=== PATIENT | female | born 1970 | race African-American/Black ===

== ENCOUNTER 2018-05-12 12:13 | Emergency (ER) | payer OTHER ==
[2018-05-12 13:32] LABS: Absolute Lymphocytes (CBC) 1.4 K/uL (0.7-4.9); Absolute Monocytes 0.4 K/uL (0.1-1.3); Absolute Neutrophil 1.7 K/uL (1.8-8.0); Eosinophils % 6.6 % (0-4.4); Hematocrit 39.5 % (36.0-45.0); Lymphocytes % 36.1 % (15.3-44.8); MCH 32.8 pg (27.0-35.0); MCV 97.4 fL (80-100); MPV 9.6 fL (7.6-11.3); Monocytes % 11.4 % (3.3-12.3); RBC Red Blood Cell Count 4.06 M/uL (3.86-4.86)
[2018-05-12 13:36] LABS: Protime INR 1.03
[2018-05-12 13:51] LABS: Albumin 4.3 g/dL (3.4-5.0); Bilirubin Direct 0.1 mg/dL (0-0.2); Bilirubin Total 0.3 mg/dL (0.2-1.0); CKMB Creatine Kinase MB 1.9 ng/mL (0.3-3.6); Magnesium 1.9 mg/dL (1.8-2.4); Potassium 3.7 mmol/L (3.5-5.1); Protein, Total 9.1 g/dL (6.4-8.2)
[2018-05-12] MEDS ORDERED: CIPROFLOXACIN 400mg IV 400 MG/200 ML BAG IV ONE (14:16)
[2018-05-12] MEDS ORDERED: NA CHLORIDE 0.9% 1,000 ML ONE (14:16)
[2018-05-12] MEDS ORDERED: METRONIDAZOLE 500mg IVPB 500 MG/100 ML BAG IV ONE (14:16)
[2018-05-12] MEDS ORDERED: ONDANSETRON 4 MG/2 ML VIAL ONE (14:16)
[2018-05-12] MEDS ORDERED: FENTANYL CITR 100 MCG/2 ML ONE (14:16)
[2018-05-12 15:20] LABS: Urine Blood NEGATIVE (NEG); Urine Glucose NEGATIVE (NEG); Urine Protein NEGATIVE (NEG)
--- NOTE | 2018-05-12 16:05 | RAD REPORT ---
EXAM DESCRIPTION: CT - Abdomen Pelvis W Contrast - 05/12/2018 3:31 pm CLINICAL HISTORY: Abdominal pain. GI bleed COMPARISON: 2014 TECHNIQUE: Computed axial tomography of the abdomen and pelvis was obtained. 100 cc Isovue-300 is ad ministered intravenously. Oral contrast was given. All CT scans are performed using dose optimization technique as appropriate and may include automated exposure control or mA/KV adjustment according to patient size. FINDINGS: A 26 millimeter hyperdense lesion is present within the dome of the liver equivocally enlarged from t he prior exam. Mild fatty infiltration liver is present. 1 Spleen, pancreas, adrenals and kidneys appear unremarkable. Diverticula stem from the colon without evidence of diverticulitis An adnexal mass is not seen Spondylosis involves the lower thoracic spine resulting in mild spinal stenosis The appendix is normal IMPRESSION: 26 millimeter dense mass within the liver equivocally enlarged from 1999 represen t a hemangioma. It is recommended that the patient have a nonemergent ultrasound for further evaluati on
--- NOTE | 2018-05-12 16:06 | RAD REPORT ---
EXAM DESCRIPTION: Ezekiel Single View05/12/2018 2:08 pm CLINICAL HISTORY: cough COMPARISON: November 2017 FINDINGS: The lungs appear clear of acute infiltrate. The heart is normal size IMPRESSION: No acute abnormalities displayed
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
[2018-05-12 17:32] VITALS: TEMP 97.7
[2018-05-12 17:36] VITALS: O2SAT 100
[2018-05-12 17:38] VITALS: BP 146/98
--- NOTE | 2018-05-13 07:34 | EKG ---
Test Date: 2018-05-12 Test Time: 13:16:12 Oncology Account Specialist: ELAINE MEASUREMENT RESULTS: Intervals: Rate: 81 WV: 162 QRSD: 78 QT: 380 QTc: 441 [place]: P: 51 WV: 162 QRS: -4 T: 8 INTERPRETIVE STATEMENTS: Normal sinus rhythm Voltage criteria for left ventricular hypertrophy Abnormal ECG Compared to ECG 11/27/2017 14:52:55 No significant changes Electronically Signed On 05-13-18 07:34:01 CDT by Linwood Waller
== END 2018-05-12 17:11 | disposition home or self-care (01) ==
LOC: ER 12:13
DX: K92.2 Gastrointestinal hemorrhage, unspecified (principal); R16.0 Hepatomegaly, not elsewhere classified; I10 Essential (primary) hypertension; D64.9 Anemia, unspecified; Z87.820 Personal history of traumatic brain injury
CPT/HCPCS: 36415; 71045; 74177; 80048; 80076; 81003; 82550; 82553; 83735; 83880; 84484; 85025; 85610; 85730; 86850; 86900; 86901; J0744; J2405; J3010; J7030; Q9967; 93005; 96361; 96365; 96368; 96375; 99284

== ENCOUNTER 2018-08-06 16:12 | Emergency (ER) | payer OTHER ==
[2018-08-06 16:42] LABS: Absolute Lymphocytes (CBC) 1.6 K/uL (0.7-4.9); Absolute Monocytes 0.5 K/uL (0.1-1.3); Absolute Neutrophil 1.8 K/uL (1.8-8.0); Basophils % 1.1 % (0-1.3); Eosinophils % 6.3 % (0-4.4); Hematocrit 40.7 % (36.0-45.0); Lymphocytes % 38.1 % (15.3-44.8); MCH 30.7 pg (27.0-35.0); MCV 93.6 fL (80-100); MPV 9.8 fL (7.6-11.3); Monocytes % 11.4 % (3.3-12.3); RBC Red Blood Cell Count 4.34 M/uL (3.86-4.86)
[2018-08-06] MEDS ORDERED: NA CHLORIDE 0.9% 1,000 ML ONE (16:53)
--- NOTE | 2018-08-06 16:54 | RAD REPORT ---
EXAM DESCRIPTION: CT - Head Brain Wo Cont - 08/06/2018 4:37 pm CLINICAL HISTORY: Headache/weakness/hypertension COMPARISON: November 2017 TECHNIQUE: Computed axial tomography of the head was obtained. IV contrast was not requested. All CT scans are performed using dose optimization technique as appropriate and may include automated exposure control or mA/KV adjustment according to patient size. FINDINGS: An intracranial bleed is not seen . The ventricles are normal in caliber. No extra-axial fluid collection is noted. Fluid within the sinuses/ mastoids is not seen. Chronic deformity involves the right globe. IMPRESSION: No acute intracranial abnormality is seen. If patient's symptoms persist MRI of the bra in would be recommended.
--- NOTE | 2018-08-06 16:54 | RAD REPORT ---
EXAM DESCRIPTION: Ezekiel Single View08/06/2018 4:46 pm CLINICAL HISTORY: Hypertension COMPARISON: May 2018 FINDINGS: The lungs appear clear of acute infiltrate. The heart is normal size IMPRESSION: No acute abnormalities displayed
[2018-08-06 17:12] LABS: ALT/SGPT 36 U/L (12-78); AST/SGOT 30 U/L (15-37); Albumin 3.8 g/dL (3.4-5.0); Alkaline Phosphatase 112 U/L (45-117); BUN Blood Urea Nitrogen 22 mg/dL (7-18); Bicarbonate 28 mmol/L (21-32); Bilirubin Direct 0.2 mg/dL (0-0.2); Bilirubin Total 0.5 mg/dL (0.2-1.0); Glucose Level 97 mg/dL (74-106); Magnesium 1.7 mg/dL (1.8-2.4); NT PRO-BNP 100 pg/mL (<125); Potassium 3.5 mmol/L (3.5-5.1); Protein, Total 8.1 g/dL (6.4-8.2); Sodium Level 139 mmol/L (136-145); Troponin (Emerg Dept Use Only) < 0.02 ng/mL (0.0-0.045)
[2018-08-06] MEDS ORDERED: NIFEdipine 10 MG CAP ONE (17:16)
[2018-08-06] MEDS ORDERED: HYDRALAZINE HCL 20 MG/ML VIAL ONE (17:16)
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
[2018-08-06 18:52] VITALS: TEMP 98
[2018-08-06 18:53] VITALS: O2SAT 100
[2018-08-06 18:54] VITALS: BP 146/78
[2018-08-06 19:33] LABS: Urine Blood NEGATIVE (NEG); Urine Glucose NEGATIVE (NEG); Urine Protein NEGATIVE (NEG); Urine Specific Gravity 1.015 (1.005-1.030)
--- NOTE | 2018-08-07 07:50 | EKG ---
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
== END 2018-08-06 18:47 | disposition home or self-care (01) ==
LOC: ER 16:12
DX: I11.9 Hypertensive heart disease without heart failure (principal)
CPT/HCPCS: 36415; 70450; 71045; 80048; 80076; 81003; 81025; 83735; 83880; 84484; 85025; 85610; 93005; 96361; 96365; 99285; J0360; J7030

== ENCOUNTER 2019-01-06 23:27 | Emergency (ER) | payer OTHER ==
[2019-01-06 23:53] LABS: Absolute Lymphocytes (CBC) 1.9 K/uL (0.7-4.9); Absolute Monocytes 0.5 K/uL (0.1-1.3); Absolute Neutrophil 2.6 K/uL (1.8-8.0); Basophils % 1.2 % (0-1.3); Eosinophils % 4.1 % (0-4.4); Hematocrit 39.8 % (36.0-45.0); Lymphocytes % 35.8 % (15.3-44.8); Monocytes % 10.3 % (3.3-12.3); RBC Red Blood Cell Count 4.09 M/uL (3.86-4.86)
[2019-01-06] MEDS ORDERED: ONDANSETRON 4 MG/2 ML VIAL ONE (23:53)
[2019-01-06] MEDS ORDERED: KETOROLAC 30 MG/ML INJ ONE (23:53)
[2019-01-07 00:09] LABS: Albumin 4.2 g/dL (3.4-5.0); Bilirubin Direct 0.2 mg/dL (0-0.2); Bilirubin Total 0.4 mg/dL (0.2-1.0); Potassium 3.8 mmol/L (3.5-5.1); Protein, Total 8.6 g/dL (6.4-8.2)
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
[2019-01-07 03:07] VITALS: TEMP 97.8
[2019-01-07 03:11] VITALS: BP 118/81; O2SAT 100
== END 2019-01-07 01:44 | disposition home or self-care (01) ==
LOC: ER 23:27
DX: I16.0 Hypertensive urgency (principal); I10 Essential (primary) hypertension; F43.10 Post-traumatic stress disorder, unspecified
CPT/HCPCS: 85025; 80048; 36415; 80076; 83690; J2405; 96374; 96375; 99284

== ENCOUNTER 2019-03-28 12:13 | Emergency (ER) | payer OTHER ==
[2019-03-28] MEDS ORDERED: predniSONE 20 MG TAB ONE (14:06)
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
[2019-03-28 15:54] VITALS: BP 116/88; TEMP 97.8; O2SAT 97
== END 2019-03-28 13:55 | disposition home or self-care (01) ==
LOC: ER 12:13
DX: L23.9 Allergic contact dermatitis, unspecified cause (principal); I10 Essential (primary) hypertension; D64.9 Anemia, unspecified; Z87.820 Personal history of traumatic brain injury
CPT/HCPCS: 99283; J7512

== ENCOUNTER 2019-04-11 10:07 | Emergency (ER) | payer OTHER ==
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
[2019-04-11 11:11] VITALS: BP 138/95; TEMP 98.1; O2SAT 100
== END 2019-04-11 10:52 | disposition home or self-care (01) ==
LOC: ER 10:07
DX: B35.3 Tinea pedis (principal); B35.2 Tinea manuum; I10 Essential (primary) hypertension; F43.10 Post-traumatic stress disorder, unspecified; Z87.820 Personal history of traumatic brain injury
CPT/HCPCS: 99282

== ENCOUNTER 2019-04-30 10:51 | Emergency (ER) | payer OTHER ==
--- OUTSIDE RECORDS SUMMARY | 2019-04-30 10:53 | XMS REPORT ---
:1970 [facility] Address [address] [place] [address] [address]. [address] [place] [address] Care Team Providers Name Role Phone Unavailable Unavailable Unavailable Problems This patient has no known problems. Allergies, Adverse Reactions, Alerts This patient has no known allergies or adverse reactions. Medications This patient has no known medications.
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
[2019-04-30] MEDS ORDERED: HYDROCODONE/APAP 7.5/325 MG TAB ONE (12:05)
[2019-04-30 12:14] VITALS: BP 133/85; TEMP 97.8; O2SAT 100
== END 2019-04-30 11:51 | disposition home or self-care (01) ==
LOC: ER 10:51
DX: L08.9 Local infection of the skin and subcutaneous tissue, unspecified (principal); L24.9 Irritant contact dermatitis, unspecified cause; D64.9 Anemia, unspecified; I10 Essential (primary) hypertension; Z87.820 Personal history of traumatic brain injury
CPT/HCPCS: 99282

== ENCOUNTER 2019-06-22 09:16 | Inpatient (IN) | payer OTHER ==
--- OUTSIDE RECORDS SUMMARY | 2019-06-22 09:18 | XMS REPORT ---
:1970 [facility] Address [address] [place] [address] [address]. [address] [place] [address] Care Team Providers Name Role Phone Unavailable Unavailable Unavailable Problems This patient has no known problems. Allergies, Adverse Reactions, Alerts This patient has no known allergies or adverse reactions. Medications This patient has no known medications.
[2019-06-22 09:52] LABS: Basophils % 1.2 % (0-1.3); Hematocrit 36.3 % (36.0-45.0); Lymphocytes % 32.4 % (15.3-44.8); MPV 10.5 fL (7.6-11.3); RBC Red Blood Cell Count 3.84 M/uL (3.86-4.86)
[2019-06-22 10:06] LABS: Albumin 3.6 g/dL (3.4-5.0); Bilirubin Direct 0.2 mg/dL (0-0.2); Bilirubin Total 0.3 mg/dL (0.2-1.0); Potassium 3.9 mmol/L (3.5-5.1); Protein, Total 8.4 g/dL (6.4-8.2)
--- NOTE | 2019-06-22 10:08 | RAD REPORT ---
EXAM DESCRIPTION: CT - Head Brain Wo Cont - 06/22/2019 9:59 am CLINICAL HISTORY: Fever;Headache Headache, drowsiness COMPARISON: Head Brain Wo Cont dated 08/06/2018; Head Brain Wo Cont dated 11/27/2017 TECHNIQUE: All CT scans are performed using dose optimization technique as appropriate and may inclu de automated exposure control or mA/KV adjustment according to patient size. FINDINGS: No intracranial hemorrhage, hydrocephalus or extra-axial fluid collection.No areas of brai n edema or evidence of midline shift. The paranasal sinuses and mastoids are clear. The calvarium is intact. Anterior facial hardware noted . IMPRESSION: No acute intracranial abnormality.
[2019-06-22 10:14] LABS: CKMB Creatine Kinase MB < 1.0 ng/mL (0.3-3.6); Creatine Phosphokinase 354 U/L (26-192); Troponin (Emerg Dept Use Only) < 0.02 ng/mL (0.0-0.045)
[2019-06-22 10:15] LABS: Protime INR 1.12
[2019-06-22] MEDS ORDERED: MORPHINE 4 MG/ML SYR ONE (10:16)
[2019-06-22] MEDS ORDERED: ONDANSETRON 4 MG/2 ML VIAL ONE (10:16)
[2019-06-22] MEDS ORDERED: NA CHLORIDE 0.9% 500 ML ONE (10:16)
[2019-06-22] MEDS ORDERED: NA CHLORIDE 0.9% 2,000 ML ONE (10:16)
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
--- NOTE | 2019-06-22 12:27 | RAD REPORT ---
EXAM DESCRIPTION: RAD - Chest Single View - 06/22/2019 10:54 am CLINICAL HISTORY: Headache, n/v Chest pain. COMPARISON: Chest Single View dated 08/06/2018; Chest Single View dated 05/12/2018; Chest Single View dated 11/27/2017; Chest Single View dated 03/22/2017 FINDINGS: Portable technique limits examination quality. The lungs are grossly clear. The heart is normal in size. No displaced fractures. IMPRESSION: No acute intrathoracic process suspected.
[2019-06-22 12:36] LABS: Urine Blood TRACE (NEG); Urine Glucose NEGATIVE (NEG); Urine Protein NEGATIVE (NEG)
[2019-06-22 12:45] LABS: Calcium Oxalate Crystals- Ur FEW (NONE SEEN); Urine Bacteria 20-50 /HPF (<20); Urine RBC >50 /HPF (NONE SEEN)
[2019-06-22 12:46] LABS: Urine Culture Reflex Order NOT NEEDED
[2019-06-22] MEDS ORDERED: ALBUTEROL 2.5 MG/3 ML NEB SOL NEB PRN (13:01)
[2019-06-22] MEDS ORDERED: IPRATROPIUM BROM 0.5MG/2.5ML NEB PRN (13:01)
[2019-06-22] MEDS ORDERED: FENTANYL CITR 100 MCG/2 ML IV ONE (15:26)
[2019-06-22] MEDS ORDERED: FENTANYL CITR 100 MCG/2 ML ONE (15:30)
[2019-06-22] MEDS ORDERED: DIAZEPAM 10 MG/2 ML INJ SYRINGE ONE (15:30)
[2019-06-22] MEDS ORDERED: DIAZEPAM 10 MG/2 ML INJ SYRINGE IV ONE (16:00)
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
[2019-06-22] MEDS ORDERED: CARVEDILOL 12.5 MG TAB PO ONE (18:00)
[2019-06-22] MEDS ORDERED: hydroCHLOROthiazide 25 MG TAB PO ONE (18:00)
[2019-06-22] MEDS: NA CHLORIDE 0.9% 1,000 ML IV SCH (18:40)
[2019-06-22] MEDS: CEFTRIAXONE/SWI 1gm 1 GM/10 ML SYR IVP SCH (18:41)
[2019-06-22] MEDS: ACETAMINOPHEN 500 MG TAB PO PRN ×2 (18:43→23:46)
[2019-06-22] MEDS: LISINOPRIL 20 MG TAB PO SCH (21:00)
[2019-06-23] MEDS: NA CHLORIDE 0.9% 1,000 ML IV SCH ×5 (01:55→23:36)
[2019-06-23] MEDS ORDERED: HYDROCODONE/APAP 7.5/325 MG TAB PO ONE (03:37)
[2019-06-23 06:04] LABS: Potassium 4.2 mmol/L (3.5-5.1)
[2019-06-23 06:06] LABS: Absolute Lymphocytes (CBC) 0.6 K/uL (0.7-4.9); Basophils % 0.6 % (0-1.3); Hematocrit 31.2 % (36.0-45.0); Lymphocytes % 22.4 % (15.3-44.8); MPV 10.5 fL (7.6-11.3)
[2019-06-23] MEDS: ACETAMINOPHEN 500 MG TAB PO PRN ×2 (08:27→16:56)
[2019-06-23] MEDS: LISINOPRIL 20 MG TAB PO SCH ×2 (08:28→20:41)
[2019-06-23] MEDS: CEFTRIAXONE/SWI 1gm 1 GM/10 ML SYR IVP SCH (08:29)
[2019-06-23] MEDS ORDERED: LISINOPRIL 20 MG TAB PO SCH (09:00)
--- NOTE | 2019-06-23 11:36 | EKG ---
Test Date: 2019-06-22 Test Time: 10:18:26 Police Chief: MEASUREMENT RESULTS: Intervals: Rate: 82 FL: 160 QRSD: 78 QT: 348 QTc: 406 [place]: P: 55 FL: 160 QRS: 29 T: 51 INTERPRETIVE STATEMENTS: Normal sinus rhythm Normal ECG Compared to ECG 08/06/2018 16:44:25 Sinus bradycardia no longer present Left ventricular hypertrophy no longer present Electronically Signed On 06-23-19 11:31:29 CDT by Killian Zepeda
[2019-06-23] MEDS ORDERED: NA CHLORIDE 0.9% 500 ML IV ONE (11:53)
[2019-06-23 12:26] LABS: Absolute Lymphocytes (CBC) 0.5 K/uL (0.7-4.9); Basophils % 0.7 % (0-1.3); Hematocrit 34.5 % (36.0-45.0); MPV 9.9 fL (7.6-11.3); RBC Red Blood Cell Count 3.62 M/uL (3.86-4.86)
[2019-06-23 12:38] LABS: Albumin 2.7 g/dL (3.4-5.0); Bilirubin Total 0.4 mg/dL (0.2-1.0); Potassium 4.9 mmol/L (3.5-5.1); Protein, Total 7.3 g/dL (6.4-8.2)
[2019-06-23] MEDS: chlordiazePOXIDE HCl 25 MG CAP PO SCH ×3 (13:05→23:37)
[2019-06-23 13:20] LABS: Blood Morphology Comment NOT SEEN (NOT SEEN); Platelet Estimate ADEQ; Urine White Blood Cell Casts OK
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
[2019-06-23] MEDS: ONDANSETRON 4 MG/2 ML VIAL IV PRN (16:57)
[2019-06-23] MEDS: TETRAHYDROZOLINE HCL 150 DROPS/15 ML BTL OPTH PRN (17:43)
--- NOTE | 2019-06-23 17:58 | RAD REPORT ---
EXAM DESCRIPTION: CT - Abdomen Pelvis Wo Contrast - 06/23/2019 5:28 pm CLINICAL HISTORY: Abdominal pain. Elevated LFT with Fever COMPARISON: Abdomen Pelvis W Contrast dated 05/12/2018; CT ABD PELVIS W CONTRAST dated 07/17/2015 TECHNIQUE: CT imaging of the abdomen and pelvis was performed without contrast. Solid organ, bowel a nd vascular assessment is limited due to lack of IV and oral contrast. All CT scans are performed using dose optimization technique as appropriate and may include automated exposure control or mA/KV adjustment according to patient size. FINDINGS: The lower lung mays are clear. The liver, spleen, pancreas, adrenal glands and kidneys are within normal limits for a limited non-co ntrast examination. No bowel obstruction, free air, free fluid or abscess. The appendix is normal. The osseous structures are within normal limits. IMPRESSION: No acute intra-abdominal or pelvic findings. A limited non-contrast examination was performed as detailed.
--- NOTE | 2019-06-23 18:47 | RAD REPORT ---
EXAM DESCRIPTION: US - Abdomen Exam Complete - 06/23/2019 6:27 pm CLINICAL HISTORY: Abdominal pain. N V COMPARISON: ABDOMINAL EXAM LIMITED dated 07/12/2009; Abdomen Pelvis Wo Contrast dated 06/23/2019; Ab domen Pelvis W Contrast dated 05/12/2018; Chest Single View dated 06/22/2019 FINDINGS: The liver is normal in size, shape and echotexture. Vague 24 mm hypoechoic lesion in the l iver right lobe is noted. The gallbladder is contracted. Common bile duct is normal in caliber measuring 2 mm. Both kidneys are normal in size, shape and echotexture. No hydronephrosis, focal lesion of concern or perinephric fluid. The spleen is normal in size measuring 11 cm. The pancreas and aorta are obscured by bowel gas. The visualized aspects of the IVC are grossly normal. IMPRESSION: Vague 24 mm hypoechoic lesion in the right lobe liver is seen probably benign hemangioma other similar lesion. MRI liver protocol with contrast could be obtained for further characterizatio n if clinically desired. Contracted gallbladder.
[2019-06-23] MEDS ORDERED: ACETAMINOPHEN 500 MG TAB PO ONE (20:04)
[2019-06-23] MEDS: TRAMADOL HCL 50 MG TAB PO PRN (23:49)
[2019-06-24] MEDS: ONDANSETRON 4 MG/2 ML VIAL IV PRN ×2 (00:29→10:04)
[2019-06-24] MEDS: ACETAMINOPHEN 500 MG TAB PO PRN ×2 (00:57→13:00)
[2019-06-24] MEDS ORDERED: ACETAMINOPHEN 500 MG TAB PO ONE (03:21)
[2019-06-24] MEDS: chlordiazePOXIDE HCl 25 MG CAP PO SCH ×3 (06:12→17:46)
[2019-06-24] MEDS: NA CHLORIDE 0.9% 1,000 ML IV SCH ×3 (06:59→21:03)
[2019-06-24] MEDS: LISINOPRIL 20 MG TAB PO SCH ×2 (08:47→21:03)
[2019-06-24] MEDS: CEFTRIAXONE/SWI 1gm 1 GM/10 ML SYR IVP SCH (08:47)
[2019-06-24] MEDS: TRAMADOL HCL 50 MG TAB PO PRN ×2 (08:47→17:46)
[2019-06-24 10:45] LABS: Absolute Lymphocytes (CBC) 0.6 K/uL (0.7-4.9); Basophils % 0.6 % (0-1.3); Hematocrit 35.8 % (36.0-45.0); Lymphocytes % 17.8 % (15.3-44.8); MPV 10.4 fL (7.6-11.3); RBC Red Blood Cell Count 3.77 M/uL (3.86-4.86)
[2019-06-24 12:04] LABS: Bilirubin Total 0.4 mg/dL (0.2-1.0); Potassium 4.6 mmol/L (3.5-5.1)
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
[2019-06-24] MEDS: IBUPROFEN 400 MG TAB PO PRN (21:41)
[2019-06-25] MEDS: chlordiazePOXIDE HCl 25 MG CAP PO SCH ×4 (00:08→16:58)
[2019-06-25] MEDS: NA CHLORIDE 0.9% 1,000 ML IV SCH ×4 (01:20→13:00)
[2019-06-25] MEDS ORDERED: FENTANYL CITR 100 MCG/2 ML IV PRN ×2 (03:05→06:11)
[2019-06-25] MEDS: ONDANSETRON 4 MG/2 ML VIAL IV PRN ×2 (03:27→20:40)
[2019-06-25] MEDS ORDERED: PANTOPRAZOLE 40 MG INJ IVP ONE (04:58)
[2019-06-25] MEDS ORDERED: SODIUM CHLORIDE 0.9% 10ML INJ IV PRN ×2 (04:58→06:11)
[2019-06-25] MEDS: HYDRALAZINE HCL 20 MG/ML VIAL IV PRN (06:23)
[2019-06-25 06:39] LABS: Albumin 2.6 g/dL (3.4-5.0); Bilirubin Total 0.5 mg/dL (0.2-1.0); Protein, Total 6.7 g/dL (6.4-8.2)
[2019-06-25 06:45] LABS: Absolute Lymphocytes (CBC) 0.7 K/uL (0.7-4.9); Hematocrit 34.9 % (36.0-45.0); Lymphocytes % 16.4 % (15.3-44.8); MPV 10.8 fL (7.6-11.3); RBC Red Blood Cell Count 3.71 M/uL (3.86-4.86)
--- NOTE | 2019-06-25 07:26 | EKG ---
Test Date: 2019-06-25 Test Time: 02:52:12 Security Assurance Analyst: ALEXY MEASUREMENT RESULTS: Intervals: Rate: 77 SD: 158 QRSD: 84 QT: 392 QTc: 443 [place]: P: 67 SD: 158 QRS: 24 T: 44 INTERPRETIVE STATEMENTS: Normal sinus rhythm Normal ECG Compared to ECG 06/22/2019 10:18:26 No significant changes Electronically Signed On 06-25-19 07:25:02 CDT by Killian Zepeda
[2019-06-25] MEDS: LISINOPRIL 20 MG TAB PO SCH ×2 (09:01→20:39)
[2019-06-25] MEDS: CEFTRIAXONE/SWI 1gm 1 GM/10 ML SYR IVP SCH (09:01)
[2019-06-25] MEDS: PANTOPRAZOLE 40 MG INJ IVP SCH (09:01)
[2019-06-25 10:10] LABS: Platelet Estimate DECR; Urine White Blood Cell Casts OK
[2019-06-25 10:11] LABS: Blood Morphology Comment NOT SEEN (NOT SEEN)
[2019-06-25] MEDS: IBUPROFEN 400 MG TAB PO PRN (11:59)
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
[2019-06-25] MEDS: TRAMADOL HCL 50 MG TAB PO PRN (18:23)
[2019-06-25] MEDS ORDERED: LORAZEPAM 0.5 MG TABLET PO PRN (20:00)
[2019-06-26] MEDS: TRAMADOL HCL 50 MG TAB PO PRN ×2 (00:09→12:09)
[2019-06-26] MEDS: HYDRALAZINE HCL 20 MG/ML VIAL IV PRN ×2 (00:09→12:07)
[2019-06-26] MEDS: chlordiazePOXIDE HCl 25 MG CAP PO SCH ×5 (00:09→23:44)
[2019-06-26] MEDS: NA CHLORIDE 0.9% 1,000 ML IV SCH ×3 (02:16→15:40)
[2019-06-26] MEDS: CARVEDILOL 3.125 MG TAB PO SCH ×2 (04:35→18:01)
[2019-06-26 06:00] LABS: Absolute Lymphocytes (CBC) 0.4 K/uL (0.7-4.9); Basophils % 0.7 % (0-1.3); Hematocrit 34.5 % (36.0-45.0); Lymphocytes % 11.3 % (15.3-44.8); MPV 10.5 fL (7.6-11.3); RBC Red Blood Cell Count 3.68 M/uL (3.86-4.86)
[2019-06-26 06:21] LABS: Albumin 2.7 g/dL (3.4-5.0); Bilirubin Total 0.5 mg/dL (0.2-1.0); Potassium 4.1 mmol/L (3.5-5.1); Protein, Total 6.8 g/dL (6.4-8.2)
[2019-06-26] MEDS: PANTOPRAZOLE 40 MG INJ IVP SCH (08:41)
[2019-06-26] MEDS: CEFTRIAXONE/SWI 1gm 1 GM/10 ML SYR IVP SCH (08:41)
[2019-06-26] MEDS: LISINOPRIL 20 MG TAB PO SCH ×2 (08:42→21:36)
--- NOTE | 2019-06-26 08:44 | RAD REPORT ---
EXAM DESCRIPTION: MRI - Cholangiogram - 06/26/2019 8:02 am CLINICAL HISTORY: Liver lesion with recurrent Fever COMPARISON: Abdomen Exam Complete dated 06/23/2019; Abdomen Pelvis Wo Contrast dated 06/23/2019 FINDINGS: Three-dimensional MRCP was performed using maximum intensity projection reconstruction on the same work station. No intrahepatic biliary tree dilatation is seen. The common bile duct is normal caliber without evide nce of retained stone, stricture or mass. The pancreatic duct is not pathologically dilated. The gallbladder is unremarkable. Limited T2 sequences through the abdomen demonstrates no bulky adenopathy or significant free fluid. Vague T2 hyperintense liver lesion is seen superior right lobe, incompletely assessed on this MRCP pr otocol. IMPRESSION: Negative MR cholangiogram.
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
[2019-06-27] MEDS: NA CHLORIDE 0.9% 1,000 ML IV SCH ×3 (05:00→19:30)
[2019-06-27 05:06] LABS: HBsAG Nonreactive (Nonreactive)
[2019-06-27] MEDS: CARVEDILOL 3.125 MG TAB PO SCH ×2 (05:57→18:00)
[2019-06-27] MEDS: chlordiazePOXIDE HCl 25 MG CAP PO SCH ×2 (05:58→12:13)
[2019-06-27] MEDS ORDERED: NA CHLORIDE 0.9% 500 ML IV ONE ×2 (08:21→12:04)
[2019-06-27] MEDS: CEFTRIAXONE/SWI 1gm 1 GM/10 ML SYR IVP SCH (08:37)
[2019-06-27] MEDS: LISINOPRIL 20 MG TAB PO SCH ×2 (08:37→20:43)
[2019-06-27] MEDS: PANTOPRAZOLE 40 MG INJ IVP SCH (08:37)
[2019-06-27] MEDS ORDERED: NA CHLORIDE 0.9% 500 ML ONE ×2 (12:23→18:12)
--- NOTE | 2019-06-27 14:30 | RAD REPORT ---
EXAM DESCRIPTION: RAD - Chest Single View - 06/27/2019 2:16 pm CLINICAL HISTORY: Fever COMPARISON: June 22 TECHNIQUE: AP portable chest image was obtained 1411 hours . FINDINGS: Lungs are clear. Heart and vasculature are normal. No measurable pleural effusion and no p neumothorax. No acute bony abnormality seen. No acute aortic findings suspected. IMPRESSION: No acute cardiopulmonary process. No significant interval change.
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
[2019-06-27 14:43] LABS: Albumin 2.4 g/dL (3.4-5.0); Bilirubin Total 0.5 mg/dL (0.2-1.0); Potassium 4.5 mmol/L (3.5-5.1); Protein, Total 6.7 g/dL (6.4-8.2)
[2019-06-27] MEDS ORDERED: chlordiazePOXIDE HCl 25 MG CAP PO SCH (15:00)
[2019-06-27 15:07] LABS: Hematocrit 38.9 % (36.0-45.0); MPV 10.2 fL (7.6-11.3); RBC Red Blood Cell Count 4.08 M/uL (3.86-4.86)
[2019-06-27 17:40] LABS: Lymphocytes % 26.5 % (15.3-44.8)
[2019-06-27 17:41] LABS: Absolute Lymphocytes (CBC) 1.8 K/uL (0.7-4.9)
[2019-06-27 17:42] LABS: Blood Morphology Comment NOT SEEN (NOT SEEN); Platelet Estimate ADEQ
[2019-06-27] MEDS: chlordiazePOXIDE HCl 5 MG CAP PO SCH (17:52)
[2019-06-27 17:56] LABS: Arterial Blood Carboxyhemoglob 0.7 % (0-1.5); Blood Gas Oxyhemoglobin 95.3 % (94-97); Blood O2 Saturation 96.9 % (92-98.5)
[2019-06-27] MEDS: Meropenem 1,000 MG in NA CHLORIDE 0.9% 100 ML IV SCH (18:18)
[2019-06-27] MEDS ORDERED: NA CHLORIDE 0.9% 1,000 ML IV ONE (18:18)
[2019-06-27] MEDS ORDERED: LORAZEPAM 0.5 MG TABLET PO PRN (18:22)
[2019-06-27] MEDS: FOLIC ACID 1 MG, MULTIVITAMINS INJ 10 ML, THIAMINE HCL 100 MG in NA CHLORIDE 0.9% 1,000 ML IV SCH (20:08)
[2019-06-27 22:20] LABS: Urine Appearance CLEAR; Urine Bilirubin NEGATIVE (NEG); Urine Blood NEGATIVE (NEG); Urine Color DK YELLOW; Urine Glucose NEGATIVE (NEG); Urine Protein TRACE (NEG); Urine Specific Gravity 1.025 (1.005-1.030); Urine pH 5.5 (5.0-7.0)
[2019-06-27 22:55] LABS: Urine Bacteria <20 /HPF (<20); Urine Culture Reflex Order NOT NEEDED; Urine RBC NONE SEEN /HPF (NONE SEEN)
[2019-06-28] MEDS: chlordiazePOXIDE HCl 5 MG CAP PO SCH ×5 (00:05→23:40)
[2019-06-28] MEDS: Meropenem 1,000 MG in NA CHLORIDE 0.9% 100 ML IV SCH ×3 (00:05→16:00)
[2019-06-28] MEDS ORDERED: Meropenem 1000 MG/VIAL IV SCH (01:00)
[2019-06-28] MEDS: NA CHLORIDE 0.9% 1,000 ML IV SCH ×2 (05:00→18:29)
[2019-06-28 05:08] LABS: Absolute Lymphocytes (CBC) 2.5 K/uL (0.7-4.9); Hematocrit 40.4 % (36.0-45.0); Lymphocytes % 24.6 % (15.3-44.8); MPV 9.7 fL (7.6-11.3); RBC Red Blood Cell Count 4.28 M/uL (3.86-4.86)
[2019-06-28 05:22] LABS: Albumin 1.9 g/dL (3.4-5.0); Bilirubin Total 0.5 mg/dL (0.2-1.0); Potassium 4.6 mmol/L (3.5-5.1)
[2019-06-28 05:37] LABS: Blood Morphology Comment NOTED (NOT SEEN); Burr Cells 2+; Platelet Estimate ADEQ
[2019-06-28] MEDS: CARVEDILOL 3.125 MG TAB PO SCH ×2 (06:00→18:00)
[2019-06-28] MEDS: LISINOPRIL 20 MG TAB PO SCH ×2 (08:35→20:44)
[2019-06-28] MEDS: FOLIC ACID 1 MG, MULTIVITAMINS INJ 10 ML, THIAMINE HCL 100 MG in NA CHLORIDE 0.9% 1,000 ML IV SCH (08:35)
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
[2019-06-28] MEDS: TETRAHYDROZOLINE HCL 150 DROPS/15 ML BTL OPTH PRN (16:22)
[2019-06-28] MEDS ORDERED: FOLIC ACID 1 MG, MULTIVITAMINS INJ 10 ML, THIAMINE HCL 100 MG in NA CHLORIDE 0.9% 1,000 ML IV SCH (18:45)
[2019-06-28] MEDS ORDERED: chlordiazePOXIDE HCl 5 MG CAP PO ONE (23:33)
[2019-06-29] MEDS: Meropenem 1,000 MG in NA CHLORIDE 0.9% 100 ML IV SCH ×3 (01:00→17:34)
[2019-06-29] MEDS: NA CHLORIDE 0.9% 1,000 ML IV SCH ×2 (04:00→11:00)
[2019-06-29] MEDS: CARVEDILOL 3.125 MG TAB PO SCH ×3 (06:00→17:33)
[2019-06-29] MEDS: chlordiazePOXIDE HCl 5 MG CAP PO SCH ×2 (06:03→12:00)
[2019-06-29 08:00] LABS: Absolute Lymphocytes (CBC) 2.3 K/uL (0.7-4.9); Basophils % 1.3 % (0-1.3); Hematocrit 40.9 % (36.0-45.0); Lymphocytes % 21.1 % (15.3-44.8); MPV 10.5 fL (7.6-11.3); RBC Red Blood Cell Count 4.36 M/uL (3.86-4.86)
[2019-06-29 08:16] LABS: Albumin 1.7 g/dL (3.4-5.0); Bilirubin Total 0.4 mg/dL (0.2-1.0); Potassium 4.8 mmol/L (3.5-5.1); Protein, Total 5.8 g/dL (6.4-8.2)
[2019-06-29] MEDS: LISINOPRIL 20 MG TAB PO SCH (08:26)
[2019-06-29] MEDS: FOLIC ACID 1 MG, MULTIVITAMINS INJ 10 ML, THIAMINE HCL 100 MG in NA CHLORIDE 0.9% 1,000 ML IV SCH (09:09)
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
[2019-06-29] MEDS: chlordiazePOXIDE HCl 25 MG CAP PO SCH (20:18)
[2019-06-30] MEDS: Meropenem 1,000 MG in NA CHLORIDE 0.9% 100 ML IV SCH ×3 (00:36→17:39)
[2019-06-30] MEDS: TRAMADOL HCL 50 MG TAB PO PRN ×2 (02:01→09:23)
[2019-06-30 05:02] LABS: Absolute Lymphocytes (CBC) 2.2 K/uL (0.7-4.9); Basophils % 0.3 % (0-1.3); Hematocrit 39.3 % (36.0-45.0); Lymphocytes % 23.2 % (15.3-44.8); MPV 10.8 fL (7.6-11.3); RBC Red Blood Cell Count 4.19 M/uL (3.86-4.86)
[2019-06-30 05:24] LABS: ALT/SGPT 55 U/L (12-78); AST/SGOT 36 U/L (15-37); Albumin 1.8 g/dL (3.4-5.0); Alkaline Phosphatase 287 U/L (45-117); BUN Blood Urea Nitrogen 32 mg/dL (7-18); Bicarbonate 20 mmol/L (21-32); Bilirubin Total 0.4 mg/dL (0.2-1.0); Glucose Level 117 mg/dL (74-106); Potassium 4.6 mmol/L (3.5-5.1); Sodium Level 135 mmol/L (136-145)
[2019-06-30] MEDS: CARVEDILOL 3.125 MG TAB PO SCH ×2 (05:49→17:39)
[2019-06-30 06:37] VITALS: BMI 33.0
[2019-06-30] MEDS: chlordiazePOXIDE HCl 25 MG CAP PO SCH ×2 (08:35→20:51)
[2019-06-30] MEDS: THIAMINE HCL 100 MG TABLET PO SCH (08:35)
[2019-06-30] MEDS: FOLIC ACID 1 MG TABLET PO SCH (08:35)
[2019-06-30] MEDS: MULTIVITAMIN TAB PO SCH (08:36)
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
[2019-06-30] MEDS: PHENOL 1.4% ORAL SPRAY 180ML MM PRN (13:37)
[2019-06-30] MEDS: ENSURE HIGH PROTEIN 237 ML CAN PO SCH (20:51)
[2019-07-01] MEDS: Meropenem 1,000 MG in NA CHLORIDE 0.9% 100 ML IV SCH ×2 (00:36→09:03)
[2019-07-01] MEDS: TRAMADOL HCL 50 MG TAB PO PRN ×2 (00:41→05:23)
[2019-07-01] MEDS: CARVEDILOL 3.125 MG TAB PO SCH ×2 (05:23→18:04)
[2019-07-01] MEDS: THIAMINE HCL 100 MG TABLET PO SCH (09:03)
[2019-07-01] MEDS: chlordiazePOXIDE HCl 25 MG CAP PO SCH (09:03)
[2019-07-01] MEDS: ENSURE HIGH PROTEIN 237 ML CAN PO SCH ×2 (09:03→21:00)
[2019-07-01] MEDS: MULTIVITAMIN TAB PO SCH (09:03)
[2019-07-01] MEDS: FOLIC ACID 1 MG TABLET PO SCH (09:03)
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
[2019-07-01] MEDS: levoFLOXacin 500 MG TAB PO SCH (12:00)
[2019-07-01] MEDS: chlordiazePOXIDE HCl 5 MG CAP PO SCH (21:43)
[2019-07-01] MEDS: PHENOL 1.4% ORAL SPRAY 180ML MM PRN (21:53)
[2019-07-02] MEDS: CARVEDILOL 3.125 MG TAB PO SCH ×2 (06:00→08:49)
[2019-07-02 08:39] VITALS: O2SAT 99
[2019-07-02] MEDS: FOLIC ACID 1 MG TABLET PO SCH (08:50)
[2019-07-02] MEDS: levoFLOXacin 500 MG TAB PO SCH (08:50)
[2019-07-02] MEDS: ENSURE HIGH PROTEIN 237 ML CAN PO SCH (08:51)
[2019-07-02] MEDS: chlordiazePOXIDE HCl 5 MG CAP PO SCH (08:58)
[2019-07-02] MEDS: MULTIVITAMIN TAB PO SCH (08:58)
[2019-07-02] MEDS: THIAMINE HCL 100 MG TABLET PO SCH (09:00)
[2019-07-02] MEDS ORDERED: IPRATROPIUM BROM 0.5MG/2.5ML NEB PRN (13:09)
[2019-07-02] MEDS ORDERED: ALBUTEROL 2.5 MG/3 ML NEB SOL NEB PRN (13:10)
[2019-07-02 13:38] VITALS: BP 118/83; TEMP 98.6
== END 2019-07-02 13:10 | disposition home health service (06) | DRG 896 ==
LOC: ER 09:16 → INTOOBSV 12:54 → ERHOLD 12:54 → 2ND 17:35 → OBSVTOIN 06-24 07:31 → 3RD-ICU 06-27 19:30 → 2ND 06-30 18:28
PROVIDERS: ADMIT Family Medicine; ATTEND Family Medicine
DX: F10.239 Alcohol dependence with withdrawal, unspecified (principal); A41.9 Sepsis, unspecified organism; N30.01 Acute cystitis with hematuria; N17.9 Acute kidney failure, unspecified; E86.0 Dehydration; R00.0 Tachycardia, unspecified; I10 Essential (primary) hypertension; F43.10 Post-traumatic stress disorder, unspecified; Z91.410 Personal history of adult physical and sexual abuse
CPT/HCPCS: 36415; 70450; 71045; 74176; 74181; 76700; 80048; 80053; 80074; 80076; 80320; 81001; 81003; 81015; 82550; 82553; 82805; 83605; 83690; 83880; 84145; 84484; 85025; 85610; 85730; 87040; 87070; 87077; 87081; 87086; 87088; 87186; 87804; 93005; 94760; 96361; 96365; 96366; 96374; 96375; 97110; 97116; 97161; 97164; 97530; 99285; C9113; G0378; J0360; J0696; J2405; J3010; J3360; J3411; J7030

== ENCOUNTER 2019-09-26 13:04 | Emergency (ER) | payer OTHER ==
--- OUTSIDE RECORDS SUMMARY | 2019-09-26 13:06 | XMS REPORT ---
:1970 [facility] Address [address] [place] [address] [address] [place] [address] Care Team Providers Name Role Phone Unavailable Unavailable Unavailable Problems This patient has no known problems. Allergies, Adverse Reactions, Alerts This patient has no known allergies or adverse reactions. Medications This patient has no known medications.
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
[2019-09-26] MEDS ORDERED: HYDROCODONE/APAP 10/325 TAB ONE (14:09)
[2019-09-26] MEDS ORDERED: MORPHINE 4 MG/ML SYR ONE (14:56)
[2019-09-26] MEDS ORDERED: ONDANSETRON 4 MG (ODT) TAB ONE (14:56)
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
[2019-09-26 16:06] VITALS: TEMP 97.8
[2019-09-26 16:08] VITALS: O2SAT 100
[2019-09-26 16:09] VITALS: BP 146/110
== END 2019-09-26 15:36 | disposition home or self-care (01) ==
LOC: ER 13:04
DX: S09.90XA Unspecified injury of head, initial encounter (principal); S63.502A Unspecified sprain of left wrist, initial encounter; S50.01XA Contusion of right elbow, initial encounter; V43.52XA Car driver injured in collision with other type car in traffic accident, initial encounter; Y93.89 Activity, other specified; Y92.410 Unspecified street and highway as the place of occurrence of the external cause; I10 Essential (primary) hypertension; F43.10 Post-traumatic stress disorder, unspecified
CPT/HCPCS: 70450; 70486; 72125; 76377; 96372; 99285

== ENCOUNTER 2020-03-10 16:24 | Emergency (ER) | payer OTHER ==
--- OUTSIDE RECORDS SUMMARY | 2020-03-10 16:40 | XMS REPORT | Continuity of Care Document ---
:1970 Author Organization [facility] t Address [address] [place] [address] [address] [place] [address] Care Team Providers Name Role Phone Unavailable Unavailable Unavailable Problems This patient has no known problems. Allergies, Adverse Reactions, Alerts This patient has no known allergies or adverse reactions. Medications This patient has no known medications. Procedures This patient has no known procedures. Results This patient has no known results.
[2020-03-10 17:43] LABS: Absolute Lymphocytes (CBC) 1.7 K/uL (0.7-4.9); Basophils % 1.3 % (0-1.3); Hematocrit 37.5 % (36.0-45.0); Lymphocytes % 41.1 % (15.3-44.8); MPV 10.1 fL (7.6-11.3); RBC Red Blood Cell Count 4.18 M/uL (3.86-4.86)
[2020-03-10 18:10] LABS: Bicarbonate 26 mmol/L (21-32); Glucose Level 92 mg/dL (74-106); Potassium 3.9 mmol/L (3.5-5.1); Sodium Level 143 mmol/L (136-145)
[2020-03-10 18:11] LABS: ALT/SGPT 43 U/L (12-78); AST/SGOT 26 U/L (15-37); Albumin 3.7 g/dL (3.4-5.0); Alkaline Phosphatase 151 U/L (45-117); BUN Blood Urea Nitrogen 23 mg/dL (7-18); Bilirubin Direct < 0.1 mg/dL (0-0.2); Bilirubin Total 0.2 mg/dL (0.2-1.0); Magnesium 1.7 mg/dL (1.8-2.4); NT PRO-BNP 60 pg/mL (<125); Protein, Total 7.3 g/dL (6.4-8.2); Troponin (Emerg Dept Use Only) < 0.02 ng/mL (0.0-0.045)
[2020-03-10] MEDS ORDERED: LORAZEPAM 1 MG TABLET ONE (18:21)
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
[2020-03-10] MEDS ORDERED: MAGNESIUM SULFATE 1 gm IVPB 1 GM/100 ML BAG IV ONE (20:25)
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
[2020-03-10 21:56] VITALS: TEMP 98.8
[2020-03-10 22:12] VITALS: BP 139/94; O2SAT 100
--- NOTE | 2020-03-11 09:55 | EKG ---
Test Date: 2020-03-10 Test Time: 17:50:31 Rn Pool: TRAN MEASUREMENT RESULTS: Intervals: Rate: 53 NV: 168 QRSD: 84 QT: 428 QTc: 401 [place]: P: 46 NV: 168 QRS: 28 T: 42 INTERPRETIVE STATEMENTS: Sinus bradycardia Possible Left atrial enlargement Left ventricular hypertrophy Cannot rule out Septal infarct, age undetermined Abnormal ECG Compared to ECG 06/25/2019 02:52:12 Left ventricular hypertrophy now present Myocardial infarct finding now present Sinus rhythm no longer present Electronically Signed On 03-11-20 09:53:57 CDT by Killian Zepeda
== END 2020-03-10 21:33 | disposition home or self-care (01) ==
LOC: ER 16:24
DX: I95.9 Hypotension, unspecified (principal); R53.1 Weakness; I10 Essential (primary) hypertension; F43.10 Post-traumatic stress disorder, unspecified
CPT/HCPCS: 96365; 93005; 85025; 80048; 36415; 83735; 82947; 80076; 84484; 83880; 70450; 71045; 99285; J3475

== ENCOUNTER 2020-04-24 06:38 | Emergency (ER) | payer OTHER ==
--- OUTSIDE RECORDS SUMMARY | 2020-04-24 06:41 | XMS REPORT | Continuity of Care Document ---
:1970 Author Organization [facility] t Address [address] [place] [address] Dr. Quick [address] [place] [id number] Care Team Providers Name Role Phone Unavailable Unavailable Unavailable Problems This patient has no known problems. Allergies, Adverse Reactions, Alerts This patient has no known allergies or adverse reactions. Medications This patient has no known medications. Procedures This patient has no known procedures. Results This patient has no known results.
[2020-04-24] MEDS ORDERED: NA CHLORIDE 0.9% 1,000 ML ONE (08:05)
[2020-04-24] MEDS ORDERED: ONDANSETRON 4 MG/2 ML VIAL ONE (08:05)
[2020-04-24] MEDS ORDERED: MORPHINE 4 MG/ML SYR ONE (08:05)
[2020-04-24 08:10] LABS: Urine Blood NEGATIVE (NEG); Urine Glucose NEGATIVE (NEG); Urine Protein NEGATIVE (NEG); Urine Specific Gravity >1.030 (1.005-1.030)
[2020-04-24 08:13] LABS: Absolute Lymphocytes (CBC) 1.7 K/uL (0.7-4.9); Basophils % 0.9 % (0-1.3); Hematocrit 38.8 % (36.0-45.0); Lymphocytes % 43.1 % (15.3-44.8); MPV 9.5 fL (7.6-11.3); RBC Red Blood Cell Count 4.28 M/uL (3.86-4.86)
[2020-04-24 08:18] LABS: Urine Bacteria <20 /HPF (<20); Urine Culture Reflex Order NOT NEEDED; Urine RBC NONE SEEN /HPF (NONE SEEN)
[2020-04-24 08:30] LABS: ALT/SGPT 51 U/L (12-78); AST/SGOT 30 U/L (15-37); Albumin 3.7 g/dL (3.4-5.0); Alkaline Phosphatase 169 U/L (45-117); BUN Blood Urea Nitrogen 26 mg/dL (7-18); Bicarbonate 28 mmol/L (21-32); Bilirubin Direct < 0.1 mg/dL (0-0.2); Bilirubin Total 0.2 mg/dL (0.2-1.0); Glucose Level 104 mg/dL (74-106); Lipase 188 U/L (73-393); Potassium 4.1 mmol/L (3.5-5.1); Protein, Total 7.5 g/dL (6.4-8.2); Sodium Level 144 mmol/L (136-145)
--- NOTE | 2020-04-24 09:04 | RAD REPORT ---
EXAM DESCRIPTION: CT - Abdomen Pelvis W Contrast - 04/24/2020 8:51 am CLINICAL HISTORY: Abdominal pain COMPARISON: 2018 TECHNIQUE: Computed axial tomography of the abdomen pelvis was obtained. 100 cc Isovue-300 was admin istered intravenously. Oral contrast was not requested which limits evaluation of bowel. All CT scans are performed using dose optimization technique as appropriate and may include automated exposure control or mA/KV adjustment according to patient size. FINDINGS: A vague enhancing lesion within the dome of the liver is either stable or mildly decreased in size since the prior exam and likely benign Spleen, pancreas, adrenal and kidneys appear unremarkable. There is no evidence of diverticulitis. Normal appendix The rectum is mildly distended with stool. Moderate amount stool within the colon IMPRESSION: The rectum is mildly distended with stool. Moderate amount stool within the colon
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
[2020-04-24 09:19] LABS: Blood Morphology Comment NOT SEEN (NOT SEEN); Platelet Estimate ADEQ
[2020-04-24] MEDS ORDERED: BISACODYL E.C. 5 MG TAB PO ONE (09:57)
== END 2020-04-24 09:57 | disposition home or self-care (01) ==
LOC: ER 06:38
DX: K59.00 Constipation, unspecified (principal); R10.84 Generalized abdominal pain; I10 Essential (primary) hypertension; Z87.820 Personal history of traumatic brain injury
CPT/HCPCS: 96361; 85025; 80048; 36415; 80076; 83690; 74177; 96375; 96374; 99284; Q9967; J7030; J2405; 81003; 81015

== ENCOUNTER 2020-05-11 05:33 | Emergency (ER) | payer OTHER ==
--- OUTSIDE RECORDS SUMMARY | 2020-05-11 05:35 | XMS REPORT | Continuity of Care Document ---
:1970 Author Organization [facility] t Address [address] [place] [address] Dr. Quick [address] [place] [id number] Care Team Providers Name Role Phone Unavailable Unavailable Unavailable Problems This patient has no known problems. Allergies, Adverse Reactions, Alerts This patient has no known allergies or adverse reactions. Medications This patient has no known medications. Procedures This patient has no known procedures. Results This patient has no known results.
[2020-05-11] MEDS ORDERED: MORPHINE 2 MG/ML SYR ONE ×2 (07:37→10:34)
[2020-05-11] MEDS ORDERED: NA CHLORIDE 0.9% 1,000 ML ONE (07:37)
[2020-05-11] MEDS ORDERED: PROMETHAZINE INJ 25 MG/ML AMP ONE (07:37)
[2020-05-11 07:56] LABS: Absolute Lymphocytes (CBC) 0.6 K/uL (0.7-4.9); Basophils % 1.1 % (0-1.3); Hematocrit 39.4 % (36.0-45.0); Lymphocytes % 23.5 % (15.3-44.8); MPV 9.6 fL (7.6-11.3); RBC Red Blood Cell Count 4.44 M/uL (3.86-4.86)
[2020-05-11 08:01] LABS: Ferritin 114.9 ng/mL (8-388); Potassium 4.3 mmol/L (3.5-5.1)
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
[2020-05-11] MEDS ORDERED: dexAMETHasone 10 MG/ML VIAL ONE (10:34)
[2020-05-11 11:05] LABS: Blood Morphology Comment NOT SEEN (NOT SEEN); Platelet Estimate DECR; Urine White Blood Cell Casts OK
[2020-05-11 11:37] VITALS: TEMP 99.7
[2020-05-11 11:41] VITALS: BP 131/89; O2SAT 100
== END 2020-05-11 11:30 | disposition home or self-care (01) ==
LOC: ER 05:33
DX: U07.1 COVID-19 (principal); B34.9 Viral infection, unspecified; I10 Essential (primary) hypertension; Z87.820 Personal history of traumatic brain injury
CPT/HCPCS: 87070; 85025; 80048; 36415; 85379; 87081; 82728; 87804 ×2; U0002; J2550; J1100; J2270 ×2; J7030; 96361; 96374; 96375; 99284

== ENCOUNTER 2020-09-16 13:50 | Emergency (ER) | payer OTHER ==
--- OUTSIDE RECORDS SUMMARY | 2020-09-16 13:51 | XMS REPORT | Continuity of Care Document ---
:1970 Author Organization [facility] t Address [address] [place] [address] [address] [place] [address] Care Team Providers Name Role Phone Unavailable Unavailable Unavailable Problems This patient has no known problems. Allergies, Adverse Reactions, Alerts This patient has no known allergies or adverse reactions. Medications This patient has no known medications. Procedures This patient has no known procedures. Results This patient has no known results.
[2020-09-16] MEDS ORDERED: ACETAMINOPHEN 500 MG TAB ONE (14:55)
--- NOTE | 2020-09-16 16:22 | RAD REPORT ---
EXAM DESCRIPTION: RAD - Chest Single View - 09/16/2020 4:15 pm CLINICAL HISTORY: generalized pain Chest pain. COMPARISON: Chest Single View dated 03/10/2020; Chest Single View dated 06/27/2019; Chest Single View d ated 06/22/2019; Chest Single View dated 08/06/2018 FINDINGS: Portable technique limits examination quality. The lungs are grossly clear. The heart is normal in size. No displaced fractures. IMPRESSION: No acute intrathoracic process suspected.
[2020-09-16 16:46] LABS: Potassium 4.5 mmol/L (3.5-5.1)
[2020-09-16] MEDS ORDERED: KETOROLAC 30 MG/ML INJ ONE (16:52)
[2020-09-16 17:12] LABS: Absolute Lymphocytes (CBC) 1.2 K/uL (0.7-4.9); Basophils % 0.7 % (0-1.3); Hematocrit 37.2 % (36.0-45.0); Lymphocytes % 26.9 % (15.3-44.8); MPV 10.4 fL (7.6-11.3); RBC Red Blood Cell Count 4.12 M/uL (3.86-4.86)
[2020-09-16 17:32] LABS: Urine Blood NEGATIVE (NEG); Urine Glucose NEGATIVE (NEG); Urine Protein NEGATIVE (NEG); Urine Specific Gravity 1.015 (1.005-1.030)
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
[2020-09-21 20:28] VITALS: TEMP 99.1
[2020-09-21 20:30] VITALS: BP 100/72; O2SAT 99
== END 2020-09-16 18:47 | disposition home or self-care (01) ==
LOC: ER 13:50
DX: B34.9 Viral infection, unspecified (principal); Z20.828 Contact with and (suspected) exposure to other viral communicable diseases; I10 Essential (primary) hypertension
CPT/HCPCS: 85025; 80048; 36415; 81003; 71045; 96374; 99284; U0002

== ENCOUNTER 2020-12-18 08:52 | Emergency (ER) | payer OTHER ==
--- OUTSIDE RECORDS SUMMARY | 2020-12-18 08:55 | XMS REPORT | Continuity of Care Document ---
:1970 Author Organization [facility] t Address [address] [place] [address] [address] [place] [address] Care Team Providers Name Role Phone Unavailable Unavailable Unavailable Problems This patient has no known problems. Allergies, Adverse Reactions, Alerts This patient has no known allergies or adverse reactions. Medications This patient has no known medications. Procedures This patient has no known procedures. Results This patient has no known results.
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
[2020-12-18 10:51] VITALS: BP 117/86; TEMP 97.6; O2SAT 96
== END 2020-12-18 10:47 | disposition home or self-care (01) ==
LOC: ER 08:52
DX: L73.9 Follicular disorder, unspecified (principal); I10 Essential (primary) hypertension
CPT/HCPCS: 99283

== ENCOUNTER 2021-01-30 08:28 | Emergency (ER) | payer OTHER ==
--- OUTSIDE RECORDS SUMMARY | 2021-01-30 08:31 | XMS REPORT | Continuity of Care Document ---
:1970 Author Organization [facility] t Address [address] [place] [address] [address] [place] [address] Care Team Providers Name Role Phone Unavailable Unavailable Unavailable Problems This patient has no known problems. Allergies, Adverse Reactions, Alerts This patient has no known allergies or adverse reactions. Medications This patient has no known medications. Procedures This patient has no known procedures. Results This patient has no known results.
[2021-01-30] MEDS ORDERED: dexAMETHasone 10 MG/ML VIAL ONE (10:36)
[2021-01-30] MEDS ORDERED: DIPHENHYDRAMINE 25 MG TAB/CAP ONE (10:36)
[2021-01-30] MEDS ORDERED: FAMOTIDINE 20 MG TAB ONE (10:37)
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
[2021-01-30 11:40] VITALS: BP 130/87; TEMP 98.1; O2SAT 99
== END 2021-01-30 11:26 | disposition home or self-care (01) ==
LOC: ER 08:28
DX: R21 Rash and other nonspecific skin eruption (principal); I10 Essential (primary) hypertension
CPT/HCPCS: 96372; 99283; J1100

== ENCOUNTER 2021-04-21 13:11 | Emergency (ER) | payer OTHER ==
--- OUTSIDE RECORDS SUMMARY | 2021-04-21 13:14 | XMS REPORT | Continuity of Care Document ---
:1970 Author Organization [facility] t Address [address] [place] [address] Care Team Providers Name Role Phone Unavailable Unavailable Unavailable Problems This patient has no known problems. Allergies, Adverse Reactions, Alerts This patient has no known allergies or adverse reactions. Medications This patient has no known medications. Procedures This patient has no known procedures. Results This patient has no known results.
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
[2021-04-21 14:38] VITALS: TEMP 98.8
[2021-04-21 14:40] VITALS: BP 112/76; O2SAT 98
== END 2021-04-21 14:27 | disposition home or self-care (01) ==
LOC: ER 13:11
DX: L25.9 Unspecified contact dermatitis, unspecified cause (principal); I10 Essential (primary) hypertension; Z87.820 Personal history of traumatic brain injury
CPT/HCPCS: 99283

== ENCOUNTER 2021-06-08 18:19 | Emergency (ER) | payer OTHER ==
--- OUTSIDE RECORDS SUMMARY | 2021-06-08 18:23 | XMS REPORT | Continuity of Care Document ---
:1970 Author Organization [facility] t Address [address] [place] [address] Care Team Providers Name Role Phone Unavailable Unavailable Unavailable Problems This patient has no known problems. Allergies, Adverse Reactions, Alerts This patient has no known allergies or adverse reactions. Medications This patient has no known medications. Procedures This patient has no known procedures. Results This patient has no known results.
[2021-06-08] MEDS ORDERED: MORPHINE 2 MG/ML SYR ONE (19:16)
[2021-06-08] MEDS ORDERED: ONDANSETRON 4 MG/2 ML VIAL ONE (19:16)
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
[2021-06-08] MEDS ORDERED: HYDROCODONE/APAP 10/325 TAB ONE (21:38)
[2021-06-08 21:52] VITALS: BP 141/92; TEMP 98.3; O2SAT 99
== END 2021-06-08 21:45 | disposition home or self-care (01) ==
LOC: ER 18:19
DX: S09.90XA Unspecified injury of head, initial encounter (principal); S16.1XXA Strain of muscle, fascia and tendon at neck level, initial encounter; V49.40XA Driver injured in collision with unspecified motor vehicles in traffic accident, initial encounter; I10 Essential (primary) hypertension; Z87.820 Personal history of traumatic brain injury
CPT/HCPCS: 82565; 70450; 72125; 71260; 74177; Q9967; J2270; J2405

== ENCOUNTER 2021-08-22 08:45 | Emergency (ER) | payer OTHER ==
--- OUTSIDE RECORDS SUMMARY | 2021-08-22 08:48 | XMS REPORT | Continuity of Care Document ---
:[address] [facility] t Address [address] [place] [address] [address] [place] [address] Care Team Providers Name Role Phone Unavailable Unavailable Unavailable Problems This patient has no known problems. Allergies, Adverse Reactions, Alerts This patient has no known allergies or adverse reactions. Medications This patient has no known medications. Procedures This patient has no known procedures. Encounters Start End Encounter Admission Attending Care Care Encounter Source Date/Time Date/Time Type Type Clinicians Facility Department ID 2021-08-12 2021-08-12 ambulatory [facility] [id number] [facility] 00:00:00 00:00:00 [facility] Results This patient has no known results.
[2021-08-22] MEDS ORDERED: MORPHINE 2 MG/ML SYR ONE (09:21)
[2021-08-22] MEDS ORDERED: dexAMETHasone 10 MG/ML VIAL ONE (09:21)
[2021-08-22] MEDS ORDERED: METOCLOPRAMIDE 10 MG/2mL INJ ONE (09:21)
[2021-08-22] MEDS ORDERED: NA CHLORIDE 0.9% 1,000 ML ONE (09:21)
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
[2021-08-22 11:18] VITALS: TEMP 97
[2021-08-22 11:20] VITALS: BP 106/67; O2SAT 98
== END 2021-08-22 11:00 | disposition home or self-care (01) ==
LOC: ER 08:45
DX: G43.009 Migraine without aura, not intractable, without status migrainosus (principal); I10 Essential (primary) hypertension; Z87.820 Personal history of traumatic brain injury
CPT/HCPCS: 96361; 70450; 96375; 96374; 99283; J2765; J1100; J2270; J7030

== ENCOUNTER 2021-08-24 10:59 | Emergency (ER) | payer OTHER ==
--- OUTSIDE RECORDS SUMMARY | 2021-08-24 11:02 | XMS REPORT | Continuity of Care Document ---
:1970 Author Organization [facility] t Address [address] [place] [address] Care Team Providers Name Role Phone Unavailable [...] Clinicians Facility Department ID 2021-08-12 2021-08-12 ambulatory [facility] [id number] [facility] 00:00:00 00:00:00 [facility] Results This patient has no known results.
[2021-08-24] MEDS ORDERED: DIPHENHYDRAMINE 50 MG/ML VIAL ONE (11:10)
[2021-08-24] MEDS ORDERED: KETOROLAC 30 MG/ML INJ ONE (11:10)
[2021-08-24] MEDS ORDERED: NA CHLORIDE 0.9% 1,000 ML ONE (11:10)
[2021-08-24] MEDS ORDERED: ACETAMINOPHEN 500 MG TAB ONE (11:10)
[2021-08-24] MEDS ORDERED: METOCLOPRAMIDE 10 MG/2mL INJ ONE (11:10)
[2021-08-24 11:30] LABS: Absolute Lymphocytes (CBC) 0.8 K/uL (0.7-4.9); Basophils % 0.5 % (0-1.3); Hematocrit 39.4 % (36.0-45.0); Lymphocytes % 17.6 % (15.3-44.8); MPV 8.7 fL (7.6-11.3); RBC Red Blood Cell Count 4.32 M/uL (3.86-4.86)
[2021-08-24 11:40] LABS: Potassium 3.8 mmol/L (3.5-5.1)
[2021-08-24 12:30] LABS: SARS-COV-2 RT PCR NEGATIVE (NEGATIVE)
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
[2021-08-24 13:23] VITALS: O2SAT 100
[2021-08-24 13:42] VITALS: BP 136/79; TEMP 99.6
== END 2021-08-24 12:47 | disposition home or self-care (01) ==
LOC: ER 10:59
DX: R51.9 Headache, unspecified (principal); I10 Essential (primary) hypertension; Z20.822 Contact with and (suspected) exposure to COVID-19
CPT/HCPCS: 96361; 85025; 80048; 36415; 0240U; 96375; 96374; 99284; J2765; J1200; J7030

== ENCOUNTER 2022-11-06 07:35 | Emergency (ER) | payer MEDICARE, OTHER ==
--- OUTSIDE RECORDS SUMMARY | 2022-11-06 07:39 | XMS REPORT | Continuity of Care Document ---
:1970 Author Organization [facility] t Address [address] [place] [address] Care Team Providers Name Role Phone Dinora Wooten Attending Clinician Unavailable Candi Dow Attending Clinician Unavailable Natalia_Chayo Attending Clinician Unavailable Vanessa Phillips Attending Clinician LEYLA LEIVA NATASHA Attending Clinician Unavailable Candi Dow Admitting Clinician Unavailable Phil Admitting Clinician Unavailable LEYLA LEIVA NATASHA Admitting Clinician Unavailable Payers Payer Name Policy Type Policy Effective Date Expiration Date Sour ce Number [facility] [id number] 2021 (MEDICARE 00:00:00 REPLACEMENT HMO) [place] [id number] 2021 [facility]pi [facility] 00:00:00 [place] [id number] 2021 [facility] 00:00:00 [place] [id number] 2021 [facility] 00:00:00 [place] [id number] 2021 [facility] Spi rit 00:00:00 [facility] MCR [id number] Problems Condition Condition Condition Status Onset Resolution Last Treating Co mments Source Name Details Category Date Date Treatment Clinician Date Age-relate Age-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 Spir it cataract cataract, - [facility] of left left eye eye [facility] 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 - [facility] disorder (PTSD) [facility] [id number] Depression Problem Co mmon with Spirit anxiety - [facility] [id number] 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 with - [facility] normal [facility] eye [place] [id number] Primary Problem Common hypertensi Spirit on - [facility] [id number] 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 Sex Assigned At Com mon [facility] Smoking Status Start Date Stop Date Source Never Smoker Common [facility] Medications Ordered Filled Start Stop Current Ordering Indication Dosage Frequency Signature Comments Components Source Medication Medication Date Date Medication? Clinician (SIG) Name Name Toilet Seat Toilet Seat No Toilet Elevator - Elevator - 5-04 Seat 00:00: Elevator - 00 Toilet Seat Toilet Seat No Toilet Elevator - Elevator - 5-04 Seat 00:00: Elevator - 00 Toilet Seat Toilet Seat No Toilet Elevator - Elevator - 5-04 Seat 00:00: Elevator - 00 Toilet Seat Toilet Seat 0 No Toilet Elevator - Elevator - 5-04 Seat 00:00: Elevator - 00 Toilet Seat Toilet Seat 0 No Toilet Elevator - Elevator - 5-04 Seat 00:00: Elevator - 00 Toilet Seat Toilet Seat 0 No Toilet Elevator - Elevator - 5-04 Seat 00:00: Elevator - 00 Toilet Seat Toilet Seat 2022-0 No Toilet Elevator - Elevator - 5-04 Seat 00:00: Elevator - 00 Toilet Seat Toilet Seat 2021-0 No Toilet Elevator - Elevator - 5-04 Seat 00:00: Elevator - 00 Shower Shower 2-0 2030- No Shower Chair n/s Chair n/s 5-01 11- Chair n/s 00:00: 00:00 00 :00 Shower Shower 2022-0 2030- No Shower Chair n/s Chair n/s -03-28 Chair n/s 00:00: 00:00 00 :00 Shower Shower 2022-0 2030- No Shower Chair n/s Chair n/s -03-28 Chair n/s 00:00: 00:00 00 :00 Shower Shower 2022-0 2030- No Shower Chair n/s Chair n/s 5-03-28 Chair n/s 00:00: 00:00 00 :00 Shower Shower 2022-0 2030- No Shower Chair n/s Chair n/s -03-28 Chair n/s 00:00: 00:00 00 :00 Shower Shower 2022-0 2030- No Shower Chair n/s Chair n/s -03-28 Chair n/s 00:00: 00:00 00 :00 Shower Shower 2022-0 2030- No Shower Chair n/s Chair n/s -03-28 Chair n/s 00:00: 00:00 00 :00 Shower Shower 2022-0 2030- No Shower Chair n/s Chair n/s -03-28 Chair n/s 00:00: 00:00 00 :00 Amitriptyli Amitriptyli 2020-1 No 1{table QD ne HCl 25 ne HCl 25 1-16 t_at_be MG MG 00:00: dtime} 00 Citalopram Citalopram 2020- No 1{table QD Hydrobromid Hydrobromid 1-16 t} e 10 MG e 10 MG 00:00: 00 Amitriptyli Amitriptyli 2020-1 No 1{table QD Amitriptyl ne HCl 25 ne HCl 25 1-16 t_at_be ine HCl 25 MG MG 00:00: dtime} MG 00 Citalopram Citalopram 2020-10 No 1{table QD Citalopram Hydrobromid Hydrobromid 1-16 t} Hydrobromi e 10 MG e 10 MG 00:00: de 10 MG 00 Citalopram Citalopram 2020-10 No 1{table QD Citalopram Hydrobromid Hydrobromid 1-16 t} Hydrobromi e 10 MG e 10 MG 00:00: de 10 MG 00 Lisinopril Lisinopril 2020-10 No 1{table QD 20 MG 20 MG 1-05 t} 00:00: 00 hydroCHLORO hydroCHLORO 2020-10 No 1{table QD thiazide thiazide 1-05 t_in_th 12.5 MG 12.5 MG 00:00: e_morni 00 ng} Lisinopril Lisinopril 2020-10 No 1{table QD 20 MG 20 MG 1-05 t} 00:00: 00 hydroCHLORO hydroCHLORO 2020-10 No 1{table QD thiazide thiazide 1-05 t_in_th 12.5 MG 12.5 MG 00:00: e_morni 00 ng} hydroCHLORO hydroCHLORO 2020-10 No 1{table QD hydroCHLOR thiazide thiazide 1-05 t_in_th Othiazide 12.5 MG 12.5 MG 00:00: e_morni 12.5 MG 00 ng} Lisinopril Lisinopril 2020-10 No 1{table QD Lisinopril 20 MG 20 MG 1-05 t} 20 MG 00:00: 00 Mupirocin 2 Mupirocin 2 2020-10- No 1{appli TID % % 10-12 cation_ 00:00: 00:00 to_affe 00 :00 cted_ar ea} Mupirocin 2 Mupirocin 2 2020-10- No 1{appli TID % % 10-12 cation_ 00:00: 00:00 to_affe 00 :00 cted_ar ea} Mupirocin 2 Mupirocin 2 No Mupirocin % % 2 % Ibuprofen Ibuprofen No Ibuprofen amLODIPine amLODIPine No amLODIPine Besylate 5 Besylate 5 Besylate 5 MG MG MG Lisinopril Lisinopril No 1{table QD Lisinopril 20 MG 20 MG t} 20 MG Hydrochloro Hydrochloro No Hydrochlor thiazide thiazide othiazide hydroCHLORO hydroCHLORO No 1{table QD hydroCHLOR thiazide thiazide t_in_th Othiazide 12.5 MG 12.5 MG e_morni 12.5 MG ng} Lisinopril Lisinopril No 1{table BID Lisinopril 20 MG 20 MG t} 20 MG Mupirocin 2 Mupirocin 2 No Mupirocin % % 2 % Ibuprofen Ibuprofen No Ibuprofen amLODIPine amLODIPine No amLODIPine Besylate 5 Besylate 5 Besylate 5 MG MG MG Lisinopril Lisinopril No 1{table QD Lisinopril 20 MG 20 MG t} 20 MG Hydrochloro Hydrochloro No Hydrochlor thiazide thiazide othiazide hydroCHLORO hydroCHLORO No 1{table QD hydroCHLOR thiazide thiazide t_in_th Othiazide 12.5 MG 12.5 MG e_morni 12.5 MG ng} Lisinopril Lisinopril No 1{table BID Lisinopril 20 MG 20 MG t} 20 MG Mupirocin 2 Mupirocin 2 No Mupirocin % % 2 % Ibuprofen Ibuprofen No Ibuprofen amLODIPine amLODIPine No amLODIPine Besylate 5 Besylate 5 Besylate 5 MG MG MG Lisinopril Lisinopril No 1{table QD Lisinopril 20 MG 20 MG t} 20 MG Hydrochloro Hydrochloro No Hydrochlor thiazide thiazide othiazide hydroCHLORO hydroCHLORO No 1{table QD hydroCHLOR thiazide thiazide t_in_th Othiazide 12.5 MG 12.5 MG e_morni 12.5 MG ng} Lisinopril Lisinopril No 1{table BID Lisinopril 20 MG 20 MG t} 20 MG Mupirocin 2 Mupirocin 2 No Mupirocin % % 2 % Ibuprofen Ibuprofen No Ibuprofen amLODIPine amLODIPine No amLODIPine Besylate 5 Besylate 5 Besylate 5 MG MG MG Lisinopril Lisinopril No 1{table QD Lisinopril 20 MG 20 MG t} 20 MG Hydrochloro Hydrochloro No Hydrochlor thiazide thiazide othiazide hydroCHLORO hydroCHLORO No 1{table QD hydroCHLOR thiazide thiazide t_in_th Othiazide 12.5 MG 12.5 MG e_morni 12.5 MG ng} Lisinopril Lisinopril No 1{table BID Lisinopril 20 MG 20 MG t} 20 MG Hydrochloro Hydrochloro No Hydrochlor thiazide thiazide othiazide Lisinopril Lisinopril No 1{table BID Lisinopril 20 MG 20 MG t} 20 MG hydroCHLORO hydroCHLORO No 1{table QD hydroCHLOR thiazide thiazide t_in_th Othiazide 12.5 MG 12.5 MG e_morni 12.5 MG ng} Ibuprofen Ibuprofen No Ibuprofen Mupirocin 2 Mupirocin 2 No Mupirocin % % 2 % Lisinopril Lisinopril No 1{table QD Lisinopril 20 MG 20 MG t} 20 MG amLODIPine amLODIPine No amLODIPine Besylate 5 Besylate 5 Besylate 5 MG MG MG Hydrochloro Hydrochloro No Hydrochlor thiazide thiazide othiazide Lisinopril Lisinopril No 1{table BID Lisinopril 20 MG 20 MG t} 20 MG hydroCHLORO hydroCHLORO No 1{table QD hydroCHLOR thiazide thiazide t_in_th Othiazide 12.5 MG 12.5 MG e_morni 12.5 MG ng} Ibuprofen Ibuprofen No Ibuprofen Mupirocin 2 Mupirocin 2 No Mupirocin % % 2 % Lisinopril Lisinopril No 1{table QD Lisinopril 20 MG 20 MG t} 20 MG amLODIPine amLODIPine No amLODIPine Besylate 5 Besylate 5 Besylate 5 MG MG MG Hydrochloro Hydrochloro No Hydrochlor thiazide thiazide othiazide Lisinopril Lisinopril No 1{table BID Lisinopril 20 MG 20 MG t} 20 MG hydroCHLORO hydroCHLORO No 1{table QD hydroCHLOR thiazide thiazide t_in_th Othiazide 12.5 MG 12.5 MG e_morni 12.5 MG ng} Ibuprofen Ibuprofen No Ibuprofen Mupirocin 2 Mupirocin 2 No Mupirocin % % 2 % Lisinopril Lisinopril No 1{table QD Lisinopril 20 MG 20 MG t} 20 MG amLODIPine amLODIPine No amLODIPine Besylate 5 Besylate 5 Besylate 5 MG MG MG Mupirocin 2 Mupirocin 2 No Mupirocin % % 2 % Lisinopril Lisinopril No 1{table QD Lisinopril 20 MG 20 MG t} 20 MG Lisinopril Lisinopril No 1{table Lisinopril 20 MG 20 MG t} 20 MG Hydrochloro Hydrochloro No Hydrochlor thiazide thiazide othiazide Ibuprofen Ibuprofen No Ibuprofen amLODIPine amLODIPine No amLODIPine Besylate 5 Besylate 5 Besylate 5 MG MG MG hydroCHLORO hydroCHLORO No 1{table QD hydroCHLOR thiazide thiazide t_in_th Othiazide 12.5 MG 12.5 MG e_morni 12.5 MG ng} Mupirocin 2 Mupirocin 2 No Mupirocin % % 2 % Lisinopril Lisinopril No 1{table QD Lisinopril 20 MG 20 MG t} 20 MG Lisinopril Lisinopril No 1{table Lisinopril 20 MG 20 MG t} 20 MG Hydrochloro Hydrochloro No Hydrochlor thiazide thiazide othiazide Ibuprofen Ibuprofen No Ibuprofen amLODIPine amLODIPine No amLODIPine Besylate 5 Besylate 5 Besylate 5 MG MG MG hydroCHLORO hydroCHLORO No 1{table QD hydroCHLOR thiazide thiazide t_in_th Othiazide 12.5 MG 12.5 MG e_morni 12.5 MG ng} Mupirocin 2 Mupirocin 2 No Mupirocin % % 2 % Lisinopril Lisinopril No 1{table QD Lisinopril 20 MG 20 MG t} 20 MG Lisinopril Lisinopril No 1{table Lisinopril 20 MG 20 MG t} 20 MG Hydrochloro Hydrochloro No Hydrochlor thiazide thiazide othiazide Ibuprofen Ibuprofen No Ibuprofen amLODIPine amLODIPine No amLODIPine Besylate 5 Besylate 5 Besylate 5 MG MG MG hydroCHLORO hydroCHLORO No 1{table QD hydroCHLOR thiazide thiazide t_in_th Othiazide 12.5 MG 12.5 MG e_morni 12.5 MG ng} amLODIPine amLODIPine No amLODIPine Besylate 5 Besylate 5 Besylate 5 MG MG MG Lisinopril Lisinopril No 1{table QD Lisinopril 20 MG 20 MG t} 20 MG Lisinopril Lisinopril No 1{table Lisinopril 20 MG 20 MG t} 20 MG Hydrochloro Hydrochloro No Hydrochlor thiazide thiazide othiazide Ibuprofen Ibuprofen No Ibuprofen Mupirocin 2 Mupirocin 2 No Mupirocin % % 2 % hydroCHLORO hydroCHLORO No 1{table QD hydroCHLOR thiazide thiazide t_in_th Othiazide 12.5 MG 12.5 MG e_morni 12.5 MG ng} amLODIPine amLODIPine No amLODIPine Besylate 5 Besylate 5 Besylate 5 MG MG MG Lisinopril Lisinopril No 1{table QD Lisinopril 20 MG 20 MG t} 20 MG Lisinopril Lisinopril No 1{table Lisinopril 20 MG 20 MG t} 20 MG Hydrochloro Hydrochloro No Hydrochlor thiazide thiazide othiazide Ibuprofen Ibuprofen No Ibuprofen Mupirocin 2 Mupirocin 2 No Mupirocin % % 2 % hydroCHLORO hydroCHLORO No 1{table QD hydroCHLOR thiazide thiazide t_in_th Othiazide 12.5 MG 12.5 MG e_morni 12.5 MG ng} Ibuprofen Ibuprofen No Lisinopril Lisinopril No 1{table QD 20 MG 20 MG t} Mupirocin 2 Mupirocin 2 No % % Hydrochloro Hydrochloro No thiazide thiazide Lisinopril Lisinopril No 1{table QD 20 MG 20 MG t} Mupirocin 2 Mupirocin 2 No % % Ibuprofen Ibuprofen No Hydrochloro Hydrochloro No thiazide thiazide Mupirocin 2 Mupirocin 2 No Mupirocin % % 2 % Lisinopril Lisinopril No 1{table QD Lisinopril 20 MG 20 MG t} 20 MG Ibuprofen Ibuprofen No Ibuprofen Hydrochloro Hydrochloro No Hydrochlor thiazide thiazide othiazide Mupirocin 2 Mupirocin 2 No Mupirocin % % 2 % Lisinopril Lisinopril No 1{table QD Lisinopril 20 MG 20 MG t} 20 MG Lisinopril Lisinopril No 1{table QD Lisinopril 20 MG 20 MG t} 20 MG Amitriptyli Amitriptyli No 1{table QD Amitriptyl ne HCl 50 ne HCl 50 t_at_be ine HCl 50 MG MG dtime} MG hydroCHLORO hydroCHLORO No 1{table QD hydroCHLOR thiazide thiazide t_in_th Othiazide 12.5 MG 12.5 MG e_morni 12.5 MG ng} amLODIPine amLODIPine No 1{table amLODIPine Besylate 5 Besylate 5 t} Besylate 5 MG MG MG Ibuprofen Ibuprofen No Ibuprofen Hydrochloro Hydrochloro No Hydrochlor thiazide thiazide othiazide Immunizations Ordered Immunization Filled Immunization Date Status Commen ts Source Name Name Aflmei Afluria 2021-06-24 [facility]pleted [facility] 14[facility]20[facility] Afluria Afluria 2021-06-24 [facility]pleted [facility] 14:20:[facility] - [facility] Afluria Afluria 2021-06-24 Completed [facility] 14:20:[facility] - [facility] Afluria Afluria 2021-06-24 Completed [facility] 14:20:[facility] - [facility] Afluria Afluria 2021-06-24 Completed [facility] 14:20:00 [facility] Afluria Afluria 2021-06-24 Completed [facility] 14:20:00 [facility] Afluria Afluria 2021-06-24 Completed [facility] 14:20:00 - [facility] Afluria Afluria 2021-06-24 Completed [facility] 14:20:00 - [facility] Afluria Afluria 2021-06-24 Completed [facility] 14:20:00 - [facility] Afluria Afluria 2021-06-24 Completed [facility] 14:20:00 - [facility] Afluria Afluria 2021-06-24 Completed [facility] 14:20:00 [facility] Afluria Afluria 2021-06-24 Completed [facility] 14:20:00 - [facility] Afluria Afluria 2021-06-24 Completed [facility] 14:20:00 [facility] Afluria Afluria 2021-06-24 Completed [facility] 14:20:00 [facility] Afluria Afluria 2021-06-24 Completed [facility] 14:20:00 [facility] Afluria Afluria 2021-06-24 Completed [facility] 14:20:00 [facility] Vital Signs Vital Name Observation Time Observation Value Comments Source height 2022-02-27 09:20:00 64 [in_i] [facility] weight 2022-02-27 09:20:00 161.2 [lb_av] Common [facility] temperature 2022-02-27 09:20:00 97.3 [degF] [facility] bmi 2022-02-27 09:20:00 27.67 kg/m2 [facility] oximetry 2022-02-27 09:20:00 98 % [facility] respiratory rate 2022-02-27 09:20:00 17 /min Comm on [facility] blood pressure 2022-02-27 09:20:00 122 mm[Hg] Common [facility] - systolic [facility] blood pressure 2022-02-27 09:20:00 84 mm[Hg] Common [facility] diastolic [facility] height 2021-12-02 11:40:00 64 [in_i] [facility] weight 2021-12-02 11:40:00 165 [lb_av] [facility] bmi 2021-12-02 11:40:00 28.32 kg/m2 [facility] height 2021-08-30 08:40:00 64 [in_i] [facility] weight 2021-08-30 08:40:00 162 [lb_av] [facility] 2021-08-30 08:40:00 27.8 kg/m2 [facility] height 2021-08-12 14:00:00 64 [in_i] [facility] weight 2021-08-12 14:00:00 164.8 [lb_av] [facility] temperature 2021-08-12 14:00:00 97.2 [degF] [facility] bmi 2021-08-12 14:00:00 28.28 kg/m2 [facility] oximetry 2021-08-12 14:00:00 97 % [facility] respiratory rate 2021-08-12 14:00:00 18 /min Comm on [facility] blood pressure 2021-08-12 14:00:00 120 mm[Hg] Common [facility] - systolic [facility] blood pressure 2021-08-12 14:00:00 78 mm[Hg] Common [facility] - diastolic [facility] Procedures This patient has no known procedures. Encounters Start End Encounter Admission Attending Care Care Encounter Source Date/Time Date/Time Type Type Clinicians Facility Department ID 2021-12-01 Outpatient [place], Na STLMLC STLMLC [id number] Common 09:27:[address] [facility] 2021-11-02 Outpatient Wooten, Na STLMLC STLMLC [id number] Common 14:30:[address] [facility] 2021-11-02 Outpatient Wooten, Na STLMLC STLMLC [id number] 2 Common 14:29:[id number] [facility] 2021-11-02 Outpatient Wooten, Na STLMLC STLMLC [id number] 2 Common 14:14:[id number] [facility] 2021-11-02 Outpatient Wooten, Na STLMLC STLMLC [id number] 2 Common 14:10:[id number] [facility] 2021-11-02 Outpatient Wooten, Na STLMLC STLMLC [id number] 2 Common 14:09:[id number] [facility] 2022-09-26 2022-09-26 (TEL) STLMLC STLMLC [id number] Co mmon 00:00:00 00:00:[address] [facility] 2022-05-12 2022-05-12 Outpatient DEVIN Anguiano [id number] [facility] 06:42:00 06:42:[address] [facility] 2022-05-12 2022-05-12 Outpatient DEVIN AnguianoBM [id number] [facility] 06:42:00 06:42:[id number] [facility] 2022-04-21 2022-04-21 Outpatient Tumelson_A DMG DMG [id number] 07:10:00 07:10:00 0715 [facility] 2022-04-21 2022-04-21 (TEL) STLMLC STLMLC [id number] Co mmon 00:00:00 00:00:[address] [facility] 2022-03-06 2022-03-06 (TEL) STLMLC STLMLC [id number] Co mmon 00:00:00 00:00:[address] [facility] 2022-02-27 2022-02-27 OFFICE STLMLC STLMLC [id number] Co mmon 00:00:00 00:00:00 VISIT [facility] 4 [facility] 2022-02-24 2022-02-24 (TEL) STLMLC STLMLC [id number] Co mmon 00:00:00 00:00:[address] [facility] 2022-02-24 2022-02-24 (TEL) STLMLC STLMLC [id number] Co mmon 00:00:00 00:00:[address] [facility] 2022-02-09 2022-02-09 (TEL) STLMLC STLMLC [id number] Co mmon 00:00:00 00:00:[address] [facility] 2022-02-08 2022-02-08 (TEL) STLMLC STLMLC [id number] Co mmon 00:00:00 00:00:[address] [facility] 2021-12-29 2021-12-29 (TEL) STLMLC STLMLC [id number] Co mmon 00:00:00 00:00:[address] [facility] 2021-12-14 2021-12-14 (TEL) STLMLC STLMLC [id number] Co mmon 00:00:00 00:00:[address] [facility] 2021-12-14 2021-12-14 (TEL) STLMLC STLMLC [id number] Co mmon 00:00:00 00:00:[address] [facility] 2021-12-02 2021-12-02 OL DIG E/M STLMLC STLMLC [id number] Common 00:00:00 00:00:00 [facility] 08-27 Spir it MIN - [facility] 2021-10-11 2021-10-11 JANN Mendez [id number] CLAJorge XYZWCH [facility] 16:30:00 17:30:00 Alan [id number] [facility] [id number] 2021-08-30 2021-08-30 OL DIG E/M STLMLC STLMLC [id number] Common 00:00:00 00:00:00 [facility] 08-27 Spir it MIN [facility] 2021-08-29 2021-08-29 Outpatient Tumelson_A DMG DMG [id number] [facility] 05:19:00 05:19:00 1122 [facility] 2021-08-29 2021-08-29 (TEL) STLMLC STLMLC [id number] Co mmon 00:00:00 00:00:[address] [facility] 2021-08-23 2021-08-23 (TEL) STLMLC STLMLC [id number] Co mmon 00:00:00 00:00:[address] [facility] 2021-08-12 2021-08-12 OFFICE STLMLC STLMLC [id number] Co mmon 00:00:00 00:00:00 VISIT NEW Spir it PT LEVEL 3 - [facility] 2021-08-08 2021-08-08 Outpatient Tumelson_A DMG DMG [id number] [facility] 10:30:00 10:30:00 1101 [facility] 2021-02-04 2021-02-04 Outpatient Tumelson_A DMG DMG [id number] [facility] 03:59:00 03:59:00 0430 [facility] 2019-07-04 2019-07-06 Inpatient 3 CALI ENCPL DOMINIC [id number] [facility] 16:29:00 15:00:00 LEYLA 0927 [facility] Blake garcia Results Test Description Test Time Test Comments Results Result Comments Source COMPREHENSIVE METABOLIC PANEL 2022-05-05 14:30:00 Test Item Value Reference Range Interpretation Comme nts SODIUM (test code = NA) 135 mmol/L 136-145 L POTASSIUM (test code = K) 4.1 mmol/L 3.5-5.1 N CHLORIDE (test code = CL) 105.0 mmol/L 98-107 N CARBON DIOXIDE (test code = 21.0 mmol/L 21-32 N CO2) ANION GAP (test code = GAP) 13.1 10-20 N GLUCOSE (test code = GLU) 74 mg/dL 74-106 N BLOOD UREA NITROGEN (test 23 mg/dL 7-18 H code = BUN) GLOMERULAR FILTRATION RATE > 60 mL/min See_Comment E stimated GFR by using (test code = GFR) Modified M DRD formula.Chronic kidney disease is defined as either kidney d amageor GFR <60 mL/min/1.73 m2 for >3 months. [Automa dai message] The system [employer] generated this result tra nsmitted reference range : >=60. The reference range was not used to interpret th is result as normal/abnormal . CREATININE (test code = 0.80 mg/dL 0.55-1.02 N No te change in reference CREAT) range due to ch home in reagent. BUN/CREATININE RATIO (test 29.9 10-20 H code = BUN/CREA) TOTAL PROTEIN (test code = 7.2 gram/dL 6.4-8.2 N PROT) ALBUMIN (test code = ALB) 4.4 g/dL 3.4-5.0 N GLOBULIN (test code = GLOB) 2.8 gram/dL 2.7-4.2 N ALBUMIN/GLOBULIN RATIO (test 1.6 0.75-1.50 H code = A/G) CALCIUM (test code = CA) 10.4 mg/dL 8.5-10.1 H BILIRUBIN TOTAL (test code = 0.40 mg/dL 0.0-1.0 N BILT) SGOT/AST (test code = AST) 33 IUnit/L 15-37 N SGPT/ALT (test code = ALT) 30 IUnit/L 12-78 N ALKALINE PHOSPHATASE TOTAL 108 IUnit/L 45-117 N * *Note change in reference (test code = ALKP) range due to change in reagent. CBC W/AUTO [id number] 13:45:00 Test Item Value Reference Range Interpretation Comments WHITE BLOOD CELL (test code = 4.6 K/mm3 4.5-12.5 N WBC) RED BLOOD CELL (test code = 4.45 mill/mm3 3.7-5.2 N RBC) HEMOGLOBIN (test code = HGB) 13.5 gram/dL 11.5-15.5 N HEMATOCRIT (test code = HCT) 41.7 % 36.0-46.0 N MEAN CELL VOLUME (test code = 93.7 fL 80-98 N MCV) MEAN CELL HGB (test code = MCH) 30.3 picogram 27.0-33.0 N MEAN CELL HGB CONCETRATION 32.4 gram/dL 33.0-36.0 L (test code = MCHC) RED CELL DISTRIBUTION WIDTH 13.2 % 11.6-16.2 N (test code = RDW) RED CELL DISTRIBUTION WIDTH SD 45.5 fL 37.0-51.0 N (test code = RDW-SD) PLATELET COUNT (test code = 161 K/mm3 150-450 N PLT) MEAN PLATELET VOLUME (test code 11.5 fL 6.7-11.0 H = MPV) NEUTROPHIL % (test code = NT%) 40.9 % 39.0-69.0 N IMMATURE GRANULOCYTE % (test 0.2 % 0.0-5.0 N code = IG%) LYMPHOCYTE % (test code = LY%) 46.6 % 25.0-55.0 N MONOCYTE % (test code = MO%) 7.5 % 0.0-10.0 N EOSINOPHIL % (test code = EO%) 3.7 % 0.0-5.0 N BASOPHIL % (test code = BA%) 1.1 % 0.0-1.0 H NUCLEATED RBC % (test code = 0.0 % 0-0 N NRBC%) NEUTROPHIL # (test code = NT#) 1.90 K/mm3 1.8-7.7 N IMMATURE GRANULOCYTE # (test 0.01 x10 3/uL 0-0.03 N code = IG#) LYMPHOCYTE # (test code = LY#) 2.16 K/mm3 1.0-5.0 N MONOCYTE # (test code = MO#) 0.35 K/mm3 0-0.8 N EOSINOPHIL # (test code = EO#) 0.17 K/mm3 0.0-0.5 N BASOPHIL # (test code = BA#) 0.05 K/mm3 0.0-0.2 N NUCLEATED RBC # (test code = 0.00 K/mm3 0.0-0.1 N NRBC#)
[2022-11-06] MEDS ORDERED: METHYLPREDNISOLONE 125 MG INJ ONE (07:52)
[2022-11-06] MEDS ORDERED: FAMOTIDINE 20 MG TAB ONE (07:52)
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
[2022-11-06 08:39] VITALS: BP 146/83; TEMP 97.8; O2SAT 100
== END 2022-11-06 08:34 | disposition home or self-care (01) ==
LOC: ER 07:35
DX: L23.2 Allergic contact dermatitis due to cosmetics (principal)
CPT/HCPCS: J2930

== ENCOUNTER → 2023-12-17 | Emergency (ER) | payer MEDICARE ==
[~2023-12-17] MED LIST: DIPHENHYDRAMINE 50 MG/ML VIAL ONE; FAMOTIDINE 20 MG/2 ML VIAL IV ONE; LORazepam 2 MG/ML VIAL ONE; METHYLPREDNISOLONE 125 MG INJ ONE; NA CHLORIDE 0.9% 1,000 ML ONE
--- OUTSIDE RECORDS SUMMARY | 2023-12-17 23:05 | XMS REPORT | Continuity of Care Document ---
Author Name Unknown Address [address] [facility]. [address] [place] [address] [facility] Address [address] [facility] [place] [address] Care Team Providers Care Sander Machine Name Role Phone Van Pérez Primary Care Physician [phone] More Mcdonough Attending Clinician Unavailable Dinora Wooten Attending Clinician Unavailable JACINDA MARTINEZ Attending Clinician Unavailable Jacinda Martinez MD Attending Clinician Candi Dow Attending Clinician Unavailabl e Tumelson_A Attending Clinician Unavailable Vanessa Phillips Attending Clinician [phone] LEYLA LEIVA NATASHA Attending Clinician Unava ilable Candi Dow Admitting Clinician Unavailabl e Tumelson_A Admitting Clinician Unavailable LEYLA LEIVA NATASHA Admitting Clinician Unava ilable Payers Payer Name Policy Type Policy Number Effective Date Expiration Date Source MEDICARE PART A \\T\\ [id number] 2016 00:00:00 2023 00:00:00 [employer] (MEDICARE REPLACEMENT HMO) [id number] 2021 00:00:00 [employer] [facility] C1 [id number] 2021 00:00:00 [place] [id number] 2021 00:00:00 [place] [id number] 2021 00:00:00 [place] [id number] 2021 00:00:00 [facility] [id number] Problems Condition Name Condition Details Condition Category Status Onset Date Resolution Date Last Treatment Date Treating Clinician Comments Source Generalize d weakness Generalize d weakness Disease Active 07-03 00:00: 00 [facility] Obesity (BMI 30-39.9) Obesity (BMI 30-39.9) Disease Active 07-03 00:00: 00 [facility] Papanicola ou smear of cervix with low grade squamous intraepith elial lesion (LGSIL) Papanicola ou smear of cervix with low grade squamous intraepith elial lesion (LGSIL) Disease Active 2014-10 00:00: 00 [facility] Cervical high risk human papillomav irus (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 Pap LGSIL --> colposcop y [facility] Poor high blood pressure control Poor high blood pressure control Disease Active 2014-10 00:00: 00 [facility] Hypertensi ve crisis Hypertensi ve crisis Disease Active 2014-10 00:00: 00 [facility] Uncontroll ed hypertensi on Uncontroll ed hypertensi on Disease Active 2014-10 00:00: 00 [facility] Age-relate d nuclear cataract of left eye Age-relate d nuclear cataract, left eye Problem [facility] Posttrauma tic stress disorder Post traumatic stress disorder (PTSD) Problem [facility] [id number] Depression with anxiety Problem [facility] [id number] 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 Problem [facility] [id number] Primary hypertensi on Problem [facility] [id number] Chronic post-traum atic headache, not intractabl e Problem [facility] Allergies, Adverse Reactions, Alerts Allergy Name Allergy Type Status Severity Reaction(s) Onset Date Inactive Date Treating Clinician Comments Source No Known Allergie s DA Active U 05-05 00:00: 00 [facility] NO KNOWN ALLERGIE S Drug Class Active [facility] Social History Social Habit Start Date Stop Date Quantity Comments Source Sexual orientation U [facility] History of Tobacco Use [facility] Alcohol intake 2023-12-03 00:00:00 2023-12-03 00:00:00 0 /d [facility] History of Social function 2023-12-03 00:00:00 2023-12-03 00:00:00 [facility] Alcohol Comment 2015-07-06 00:00:00 2015-07-06 00:00:00 socially [facility] Tobacco use and exposure 2015-07-06 00:00:00 2015-07-06 00:00:00 Smokeless tobacco non-user [facility] Sex Assigned At 1970 00:00:00 1970 00:00:00 [facility] Smoking Status Start Date Stop Date Source Never smoked tobacco [facility] Medications Ordered Medication Name Filled Medication Name Start Date Stop Date Current Medication? Ordering Clinician Indication Dosage Frequency Signature (SIG) Comments Components Source predniSONE (DELTASONE) tablet 60 mg 12-04 06:15: 00 12-04 06:26 :00 No 60mg 60 mg, Oral, ONCE, 1 dose, On Sun12/04/23 at 0015, JACKELYN [facility] diphenhydrA MINE (BENADRYL) injection 50 mg 12-04 05:15: 00 12-04 05:40 :00 No 50mg 50 mg, Slow IV Push, ONCE, 1 dose, On Sun12/03/23 at 2315, STAT [facility] famotidine (PEPCID (PF)) injection 20 mg 12-04 05:15: 00 12-04 05:41 :00 No 20mg 20 mg, Slow IV Push, ONCE, 1 dose, On Sun12/03/23 at 2315, [facility] methylpredn isolone sod succ (SOLU-MEDRO L) injection 125 mg 12-04 05:15: 00 12-04 05:40 :00 No 125mg 125 mg, Intravenou s, ONCE, 1 dose, On Sun12/03/23 at 2315, [facility] hydrOXYzine 50 mg capsule 12-04 00:00: 00 Yes [id number] 50mg Take 1 capsule by mouth 3 (three) times daily as needed for Itching. [facility] mupirocin 2 % ointment 12-04 00:00: 00 Yes [id number] Apply to area(s) 3 (three) times daily. [facility] predniSONE 20 mg tablet 12-04 00:00: 00 12-09 05:59 :00 Yes [id number] 60mg Take 3 tablets by mouth every morning for 5 days. [facility] Ketorolac 15mg Ketorolac 15mg 2022-10 0-03 00:00: 00 No 60mg [facility] Kenalog (Triamcinol one) Kenalog (Triamcinol one) 2022-10 0-03 00:00: 00 No 40mg [facility] Ketorolac 15mg Ketorolac 15mg 2022-10 0-03 00:00: 00 No 60mg [facility] Kenalog (Triamcinol one) Kenalog (Triamcinol one) 2022-10 0-03 00:00: 00 No 40mg [facility] Ketorolac 15mg Ketorolac 15mg 2022-10 0-03 00:00: 00 No 60mg [facility] Kenalog (Triamcinol one) Kenalog (Triamcinol one) 2022-10 0- 00:00: 00 No 40mg [facility] Ketorolac 15mg Ketorolac 15mg 2022-10 0- 00:00: 00 No 60mg [facility] Kenalog (Triamcinol one) Kenalog (Triamcinol one) 2022-10 0- 00:00: 00 No 40mg [facility] cyclobenzap rine 10 mg tablet 07-02 00:00: 00 Yes [id number] 10mg Take 1 tablet by mouth in the morning and 1 tablet at noon and 1 tablet in the evening. [facility] ibuprofen 800 mg tablet 07-02 00:00: 00 Yes [id number] 800mg Take 1 tablet by mouth every 6 (six) hours as needed for Pain (scale 1-3). [facility] cyclobenzap rine 10 mg tablet 07-02 00:00: 00 Yes [id number] 10mg Take 1 tablet by mouth in the morning and 1 tablet at noon and 1 tablet in the evening. [facility] ibuprofen 800 mg tablet 07-02 00:00: 00 Yes [id number] 800mg Take 1 tablet by mouth every 6 (six) hours as needed for Pain (scale 1-3). [facility] HYDROcodone -acetaminop hen 5-325 mg tablet 07-02 00:00: 00 07-10 04:59 :00 No [id number] 1{tbl} Take 1-2 tablets by mouth every 6 (six) hours as needed for Pain (scale 1-3) for up to 7 days. Indication s: acute pain [facility] Toilet Seat Elevator - Toilet Seat Elevator - - 00:00: 00 No Toilet Seat Elevator - Toilet Seat Elevator - Toilet Seat Elevator - 5- 00:00: 00 No Toilet Seat Elevator - Toilet Seat Elevator - Toilet Seat Elevator - 2022-0 5-04 00:00: 00 No Toilet Seat Elevator - Toilet Seat Elevator - Toilet Seat Elevator - 2022-0 5-04 00:00: 00 No Toilet Seat Elevator - Toilet Seat Elevator - Toilet Seat Elevator - 2022-0 5-04 00:00: 00 No Toilet Seat Elevator - Toilet Seat Elevator - Toilet Seat Elevator - 2022-0 5-04 00:00: 00 No Toilet Seat Elevator - Toilet Seat Elevator - Toilet Seat Elevator - 2022-0 5-04 00:00: 00 No Toilet Seat Elevator - Toilet Seat Elevator - Toilet Seat Elevator - 2022-0 5-04 00:00: 00 No Toilet Seat Elevator - Toilet Seat Elevator - Toilet Seat Elevator - 2022-0 5-04 00:00: 00 No Toilet Seat Elevator - Toilet Seat Elevator - Toilet Seat Elevator - 2022-0 5-04 00:00: 00 No Toilet Seat Elevator - Toilet Seat Elevator - Toilet Seat Elevator - 2022-0 5-04 00:00: 00 No Toilet Seat Elevator - Toilet Seat Elevator - Toilet Seat Elevator - 2022-0 5-04 00:00: 00 No Toilet Seat Elevator - Shower Chair n/s Shower Chair n/s 2-0 5-04 00:00: 00 03-28 00:00 :00 No Shower Chair n/s Shower Chair n/s Shower Chair n/s 2022-0 5-04 00:00: 00 03-28 00:00 :00 No Shower Chair n/s Shower Chair n/s Shower Chair n/s 2-0 5-04 00:00: 00 03-28 00:00 :00 No Shower Chair n/s Shower Chair n/s Shower Chair n/s 2-0 5-04 00:00: 00 03-28 00:00 :00 No Shower Chair n/s Shower Chair n/s Shower Chair n/s 2022-0 5-04 00:00: 00 03-28 00:00 :00 No Shower Chair n/s Shower Chair n/s Shower Chair n/s 2022-0 5-04 00:00: 00 03-28 00:00 :00 No Shower Chair n/s Shower Chair n/s Shower Chair n/s 2022-0 5-04 00:00: 00 03-28 00:00 :00 No Shower Chair n/s Shower Chair n/s Shower Chair n/s 2022-0 5-04 00:00: 00 03-28 00:00 :00 No Shower Chair n/s Shower Chair n/s Shower Chair n/s 2022-0 5-04 00:00: 00 03-28 00:00 :00 No Shower Chair n/s Shower Chair n/s Shower Chair n/s 2022-0 5-04 00:00: 00 03-28 00:00 :00 No Shower Chair n/s Shower Chair n/s Shower Chair n/s 2-0 5-04 00:00: 00 03-28 00:00 :00 No Shower Chair n/s Shower Chair n/s Shower Chair n/s 2-0 5-04 00:00: 00 03-28 00:00 :00 No Shower Chair n/s Amitriptyli ne HCl 25 MG Amitriptyli ne HCl 25 MG 2020-10 00:00: 00 No 1{table t_at_be dtime} QD Citalopram Hydrobromid e 10 MG Citalopram Hydrobromid e 10 MG 2020-10 00:00: 00 No 1{table t} QD Amitriptyli ne HCl 25 MG Amitriptyli ne HCl 25 MG 2020-10 00:00: 00 No 1{table t_at_be dtime} QD Amitriptyl ine HCl 25 MG Citalopram Hydrobromid e 10 MG Citalopram Hydrobromid e 10 MG 2020-10 00:00: 00 No 1{table t} QD Citalopram Hydrobromi de 10 MG Citalopram Hydrobromid e 10 MG Citalopram Hydrobromid e 10 MG 2020-10 00:00: 00 No 1{table t} QD Citalopram Hydrobromi de 10 MG Lisinopril 20 MG Lisinopril 20 MG 2020-10 00:00: 00 No 1{table t} QD hydroCHLORO thiazide 12.5 MG hydroCHLORO thiazide 12.5 MG 2020-10 00:00: 00 No 1{table t_in_th e_morni ng} QD Lisinopril 20 MG Lisinopril 20 MG 2020-10 00:00: 00 No 1{table t} QD hydroCHLORO thiazide 12.5 MG hydroCHLORO thiazide 12.5 MG 2020-10 00:00: 00 No 1{table t_in_th e_morni ng} QD hydroCHLORO thiazide 12.5 MG hydroCHLORO thiazide 12.5 MG 2020-10 00:00: 00 No 1{table t_in_th e_morni ng} QD hydroCHLOR Othiazide 12.5 MG Lisinopril 20 MG Lisinopril 20 MG 2020-10 00:00: 00 No 1{table t} QD Lisinopril 20 MG Mupirocin 2 % Mupirocin 2 % 2020-10 00:00: 00 08-25 00:00 :00 No 1{appli cation_ to_affe cted_ar ea} TID Mupirocin 2 % Mupirocin 2 % 2020-10 00:00: 00 08-25 00:00 :00 No 1{appli cation_ to_affe cted_ar ea} TID lisinopril 20 mg tablet 07-05 00:00: 00 Yes [id number] 20mg Take 1 tablet by mouth daily. [facility] amLODIPine 5 mg tablet 07-05 00:00: 00 Yes [id number] 5mg Take 1 tablet by mouth daily. [facility] lisinopril 20 mg tablet 07-05 00:00: 00 Yes [id number] 20mg Take 1 tablet by mouth daily. [facility] amLODIPine 5 mg tablet 07-05 00:00: 00 Yes [id number] 5mg Take 1 tablet by mouth daily. [facility] Mupirocin 2 % Mupirocin 2 % No Mupirocin 2 % Ibuprofen Ibuprofen No Ibuprofen amLODIPine Besylate 5 MG amLODIPine Besylate 5 MG No amLODIPine Besylate 5 MG Lisinopril 20 MG Lisinopril 20 MG No 1{table t} QD Lisinopril 20 MG Hydrochloro thiazide Hydrochloro thiazide No Hydrochlor othiazide hydroCHLORO thiazide 12.5 MG hydroCHLORO thiazide 12.5 MG No 1{table t_in e_morni ng} QD hydroCHLOR Othiazide 12.5 MG Lisinopril 20 MG Lisinopril 20 MG No 1{table t} BID Lisinopril 20 MG Mupirocin 2 % Mupirocin 2 % No Mupirocin 2 % Ibuprofen Ibuprofen No Ibuprofen amLODIPine Besylate 5 MG amLODIPine Besylate 5 MG No amLODIPine Besylate 5 MG Lisinopril 20 MG Lisinopril 20 MG No 1{table t} QD Lisinopril 20 MG Hydrochloro thiazide Hydrochloro thiazide No Hydrochlor othiazide hydroCHLORO thiazide 12.5 MG hydroCHLORO thiazide 12.5 MG No 1{table t_in e_morni ng} QD hydroCHLOR Othiazide 12.5 MG Lisinopril 20 MG Lisinopril 20 MG No 1{table t} BID Lisinopril 20 MG Mupirocin 2 % Mupirocin 2 % No Mupirocin 2 % Ibuprofen Ibuprofen No Ibuprofen amLODIPine Besylate 5 MG amLODIPine Besylate 5 MG No amLODIPine Besylate 5 MG Lisinopril 20 MG Lisinopril 20 MG No 1{table t} QD Lisinopril 20 MG Hydrochloro thiazide Hydrochloro thiazide No Hydrochlor othiazide hydroCHLORO thiazide 12.5 MG hydroCHLORO thiazide 12.5 MG No 1{table t_in_ e_morni ng} QD hydroCHLOR Othiazide 12.5 MG Lisinopril 20 MG Lisinopril 20 MG No 1{table t} BID Lisinopril 20 MG Mupirocin 2 % Mupirocin 2 % No Mupirocin 2 % Ibuprofen Ibuprofen No Ibuprofen amLODIPine Besylate 5 MG amLODIPine Besylate 5 MG No amLODIPine Besylate 5 MG Lisinopril 20 MG Lisinopril 20 MG No 1{table t} QD Lisinopril 20 MG Hydrochloro thiazide Hydrochloro thiazide No Hydrochlor othiazide hydroCHLORO thiazide 12.5 MG hydroCHLORO thiazide 12.5 MG No 1{table t_in e_morni ng} QD hydroCHLOR Othiazide 12.5 MG Lisinopril 20 MG Lisinopril 20 MG No 1{table t} BID Lisinopril 20 MG Hydrochloro thiazide Hydrochloro thiazide No Hydrochlor othiazide Lisinopril 20 MG Lisinopril 20 MG No 1{table t} BID Lisinopril 20 MG hydroCHLORO thiazide 12.5 MG hydroCHLORO thiazide 12.5 MG No 1{table t_in e_morni ng} QD hydroCHLOR Othiazide 12.5 MG Ibuprofen Ibuprofen No Ibuprofen Mupirocin 2 % Mupirocin 2 % No Mupirocin 2 % Lisinopril 20 MG Lisinopril 20 MG No 1{table t} QD Lisinopril 20 MG amLODIPine Besylate 5 MG amLODIPine Besylate 5 MG No amLODIPine Besylate 5 MG Hydrochloro thiazide Hydrochloro thiazide No Hydrochlor othiazide Lisinopril 20 MG Lisinopril 20 MG No 1{table t} BID Lisinopril 20 MG hydroCHLORO thiazide 12.5 MG hydroCHLORO thiazide 12.5 MG No 1{table t_in e_morni ng} QD hydroCHLOR Othiazide 12.5 MG Ibuprofen Ibuprofen No Ibuprofen Mupirocin 2 % Mupirocin 2 % No Mupirocin 2 % Lisinopril 20 MG Lisinopril 20 MG No 1{table t} QD Lisinopril 20 MG amLODIPine Besylate 5 MG amLODIPine Besylate 5 MG No amLODIPine Besylate 5 MG Hydrochloro thiazide Hydrochloro thiazide No Hydrochlor othiazide Lisinopril 20 MG Lisinopril 20 MG No 1{table t} BID Lisinopril 20 MG hydroCHLORO thiazide 12.5 MG hydroCHLORO thiazide 12.5 MG No 1{table t_ e_morni ng} QD hydroCHLOR Othiazide 12.5 MG Ibuprofen Ibuprofen No Ibuprofen Mupirocin 2 % Mupirocin 2 % No Mupirocin 2 % Lisinopril 20 MG Lisinopril 20 MG No 1{table t} QD Lisinopril 20 MG amLODIPine Besylate 5 MG amLODIPine Besylate 5 MG No amLODIPine Besylate 5 MG Mupirocin 2 % Mupirocin 2 % No Mupirocin 2 % Lisinopril 20 MG Lisinopril 20 MG No 1{table t} QD Lisinopril 20 MG Lisinopril 20 MG Lisinopril 20 MG No 1{table t} Lisinopril 20 MG Hydrochloro thiazide Hydrochloro thiazide No Hydrochlor othiazide Ibuprofen Ibuprofen No Ibuprofen amLODIPine Besylate 5 MG amLODIPine Besylate 5 MG No amLODIPine Besylate 5 MG hydroCHLORO thiazide 12.5 MG hydroCHLORO thiazide 12.5 MG No 1{table t_in e_morni ng} QD hydroCHLOR Othiazide 12.5 MG Mupirocin 2 % Mupirocin 2 % No Mupirocin 2 % Lisinopril 20 MG Lisinopril 20 MG No 1{table t} QD Lisinopril 20 MG Lisinopril 20 MG Lisinopril 20 MG No 1{table t} Lisinopril 20 MG Hydrochloro thiazide Hydrochloro thiazide No Hydrochlor othiazide Ibuprofen Ibuprofen No Ibuprofen amLODIPine Besylate 5 MG amLODIPine Besylate 5 MG No amLODIPine Besylate 5 MG hydroCHLORO thiazide 12.5 MG hydroCHLORO thiazide 12.5 MG No 1{table t_in e_morni ng} QD hydroCHLOR Othiazide 12.5 MG Mupirocin 2 % Mupirocin 2 % No Mupirocin 2 % Lisinopril 20 MG Lisinopril 20 MG No 1{table t} QD Lisinopril 20 MG Lisinopril 20 MG Lisinopril 20 MG No 1{table t} Lisinopril 20 MG Hydrochloro thiazide Hydrochloro thiazide No Hydrochlor othiazide Ibuprofen Ibuprofen No Ibuprofen amLODIPine Besylate 5 MG amLODIPine Besylate 5 MG No amLODIPine Besylate 5 MG hydroCHLORO thiazide 12.5 MG hydroCHLORO thiazide 12.5 MG No 1{table t_in e_morni ng} QD hydroCHLOR Othiazide 12.5 MG amLODIPine Besylate 5 MG amLODIPine Besylate 5 MG No amLODIPine Besylate 5 MG Lisinopril 20 MG Lisinopril 20 MG No 1{table t} QD Lisinopril 20 MG Lisinopril 20 MG Lisinopril 20 MG No 1{table t} Lisinopril 20 MG Hydrochloro thiazide Hydrochloro thiazide No Hydrochlor othiazide Ibuprofen Ibuprofen No Ibuprofen Mupirocin 2 % Mupirocin 2 % No Mupirocin 2 % hydroCHLORO thiazide 12.5 MG hydroCHLORO thiazide 12.5 MG No 1{table t_in e_morni ng} QD hydroCHLOR Othiazide 12.5 MG amLODIPine Besylate 5 MG amLODIPine Besylate 5 MG No amLODIPine Besylate 5 MG Lisinopril 20 MG Lisinopril 20 MG No 1{table t} QD Lisinopril 20 MG Lisinopril 20 MG Lisinopril 20 MG No 1{table t} Lisinopril 20 MG Hydrochloro thiazide Hydrochloro thiazide No Hydrochlor othiazide Ibuprofen Ibuprofen No Ibuprofen Mupirocin 2 % Mupirocin 2 % No Mupirocin 2 % hydroCHLORO thiazide 12.5 MG hydroCHLORO thiazide 12.5 MG No 1{table t_in_ e_morni ng} QD hydroCHLOR Othiazide 12.5 MG Ibuprofen 800 MG Ibuprofen 800 MG No TID Ibuprofen 800 MG Lisinopril- hydroCHLORO thiazide 20-12.5 MG Lisinopril- hydroCHLORO thiazide 20-12.5 MG No Lisinopril -hydroCHLO ROthiazide 20-12.5 MG Baclofen 10 MG Baclofen 10 MG No 1{table t_as_ne eded} BID Baclofen 10 MG Cyclobenzap rine HCl 10 MG Cyclobenzap rine HCl 10 MG No 1{table t_at_be dtime_a s_neede d} QD Cyclobenza dai HCl 10 MG Mupirocin 2 % Mupirocin 2 % No Mupirocin 2 % Lisinopril 20 MG Lisinopril 20 MG No 1{table t} QD Lisinopril 20 MG Diclofenac Sodium 75 MG Diclofenac Sodium 75 MG No 1{table t_as_ne eded} BID Diclofenac Sodium 75 MG Ibuprofen 800 MG Ibuprofen 800 MG No TID Ibuprofen 800 MG Lisinopril- hydroCHLORO thiazide 20-12.5 MG Lisinopril- hydroCHLORO thiazide 20-12.5 MG No Lisinopril -hydroCHLO ROthiazide 20-12.5 MG Baclofen 10 MG Baclofen 10 MG No 1{table t_as_ne eded} BID Baclofen 10 MG Cyclobenzap rine HCl 10 MG Cyclobenzap rine HCl 10 MG No 1{table t_at_be dtime_a s_neede d} QD Cyclobenza dai HCl 10 MG Mupirocin 2 % Mupirocin 2 % No Mupirocin 2 % Lisinopril 20 MG Lisinopril 20 MG No 1{table t} QD Lisinopril 20 MG Diclofenac Sodium 75 MG Diclofenac Sodium 75 MG No 1{table t_as_ne eded} BID Diclofenac Sodium 75 MG Ibuprofen 800 MG Ibuprofen 800 MG No TID Ibuprofen 800 MG Lisinopril- hydroCHLORO thiazide 20-12.5 MG Lisinopril- hydroCHLORO thiazide 20-12.5 MG No Lisinopril -hydroCHLO ROthiazide 20-12.5 MG Baclofen 10 MG Baclofen 10 MG No 1{table t_as_ne eded} BID Baclofen 10 MG Cyclobenzap rine HCl 10 MG Cyclobenzap rine HCl 10 MG No 1{table t_at_be dtime_a s_neede d} QD Cyclobenza dai HCl 10 MG Mupirocin 2 % Mupirocin 2 % No Mupirocin 2 % Lisinopril 20 MG Lisinopril 20 MG No 1{table t} QD Lisinopril 20 MG Diclofenac Sodium 75 MG Diclofenac Sodium 75 MG No 1{table t_as_ne eded} BID Diclofenac Sodium 75 MG Ibuprofen 800 MG Ibuprofen 800 MG No TID Ibuprofen 800 MG Lisinopril- hydroCHLORO thiazide 20-12.5 MG Lisinopril- hydroCHLORO thiazide 20-12.5 MG No Lisinopril -hydroCHLO ROthiazide 20-12.5 MG Baclofen 10 MG Baclofen 10 MG No 1{table t_as_ne eded} BID Baclofen 10 MG Cyclobenzap rine HCl 10 MG Cyclobenzap rine HCl 10 MG No 1{table t_at_be dtime_a s_neede d} QD Cyclobenza dai HCl 10 MG Mupirocin 2 % Mupirocin 2 % No Mupirocin 2 % Lisinopril 20 MG Lisinopril 20 MG No 1{table t} QD Lisinopril 20 MG Diclofenac Sodium 75 MG Diclofenac Sodium 75 MG No 1{table t_as_ne eded} BID Diclofenac Sodium 75 MG Ibuprofen Ibuprofen No Lisinopril 20 MG Lisinopril 20 MG No 1{table t} QD Mupirocin 2 % Mupirocin 2 % No Hydrochloro thiazide Hydrochloro thiazide No Lisinopril 20 MG Lisinopril 20 MG No 1{table t} QD Mupirocin 2 % Mupirocin 2 % No Ibuprofen Ibuprofen No Hydrochloro thiazide Hydrochloro thiazide No Mupirocin 2 % Mupirocin 2 % No Mupirocin 2 % Lisinopril 20 MG Lisinopril 20 MG No 1{table t} QD Lisinopril 20 MG Ibuprofen Ibuprofen No Ibuprofen Hydrochloro thiazide Hydrochloro thiazide No Hydrochlor othiazide Mupirocin 2 % Mupirocin 2 % No Mupirocin 2 % Lisinopril 20 MG Lisinopril 20 MG No 1{table t} QD Lisinopril 20 MG Lisinopril 20 MG Lisinopril 20 MG No 1{table t} QD Lisinopril 20 MG Amitriptyli ne HCl 50 MG Amitriptyli ne HCl 50 MG No 1{table t_at_be dtime} QD Amitriptyl ine HCl 50 MG hydroCHLORO thiazide 12.5 MG hydroCHLORO thiazide 12.5 MG No 1{table t_in_th e_morni ng} QD hydroCHLOR Othiazide 12.5 MG amLODIPine Besylate 5 MG amLODIPine Besylate 5 MG No 1{table t} amLODIPine Besylate 5 MG Ibuprofen Ibuprofen No Ibuprofen Hydrochloro thiazide Hydrochloro thiazide No Hydrochlor othiazide Immunizations Ordered Immunization Name Filled Immunization Name Date Status Comments Source [facility]00 Com[facility] Afluria Afluria 2021-06-24 14:20:00 Completed [facility] 2021-06-24 [facility] 14:20:00 Completed [facility] Afluria Afluria 2021-06-24 14:20:00 Completed [facility] Afluria Afluria 2021-06-24 14:20:00 Completed [facility] Afluria Afluria 2021-06-24 14:20:00 Completed [facility] Afluria Afluria 2021-06-24 14:20:00 Completed [facility] Afluria Afluria 2021-06-24 14:20:00 Completed [facility] Afluria Afluria 2021-06-24 14:20:00 Completed [facility] Afluria Afluria 2021-06-24 14:20:00 Completed [facility] Afluria Afluria 2021-06-24 14:20:00 Completed [facility] Afluria Afluria 2021-06-24 14:20:00 Completed [facility] Afluria Afluria 2021-06-24 14:20:00 Completed [facility] Afluria Afluria 2021-06-24 14:20:00 Completed [facility] Afluria Afluria 2021-06-24 14:20:00 Completed [facility] TD, NOS Unknown Completed [facility] Influenza Virus Vaccine Quad IM 3+ YRS Unknown Completed [facility] TD, NOS Unknown Completed [facility] Influenza Virus Vaccine Quad IM 3+ YRS Unknown Completed [facility] Afluria Afluria Unknown Completed [facility] Afluria Afluria Unknown Completed [facility] Afluria Afluria Unknown Completed [facility] Afluria Afluria Unknown Completed [facility] Vital Signs Vital Name Observation Time Observation Value Comments S ource Heart rate 2023-12-04 06:00:00 73 /min [facility] Respiratory rate 2023-12-04 06:00:00 23 /min [facility] Oxygen saturation in Arterial blood by Pulse oximetry 2023-12-04 06:00:00 95 /min [facility] Systolic blood pressure 2023-12-04 06:00:00 149 mm[Hg] [facility] Diastolic blood pressure 2023-12-04 06:00:00 93 mm[Hg] [facility] Body temperature 2023-12-04 05:02:28 36.61 Elisabet [facility] Body height 2023-12-04 05:02:00 162.6 cm [facility] Body weight 2023-12-04 05:02:00 68.947 kg [facility] BMI 2023-12-04 05:02:00 26.09 kg/m2 [facility] height 2023-07-10 09:20:00 64 [in_i] [facility] weight 2023-07-10 09:20:00 163.2 [lb_av] [facility] temperature 2023-07-10 09:20:00 98.2 [degF] [facility] bmi 2023-07-10 09:20:00 28.01 kg/m2 [facility] oximetry 2023-07-10 09:20:00 100 % [facility] respiratory rate 2023-07-10 09:20:00 18 /min [facility] blood pressure systolic 2023-07-10 09:20:00 137 mm[Hg] [facility] blood pressure diastolic 2023-07-10 09:20:00 87 mm[Hg] [facility] Systolic blood pressure 2023-07-02 16:24:00 155 mm[Hg] [facility] Diastolic blood pressure 2023-07-02 16:24:00 94 mm[Hg] [facility] Heart rate 2023-07-02 16:24:00 79 /min [facility] Body temperature 2023-07-02 16:24:00 36.56 Elisabet [facility] Respiratory rate 2023-07-02 16:24:00 20 /min [facility] Body height 2023-07-02 16:24:00 162.6 cm [facility] Body weight 2023-07-02 16:24:00 68.04 kg [facility] BMI 2023-07-02 16:24:00 25.75 kg/m2 [facility] Oxygen saturation in Arterial blood by Pulse oximetry 2023-07-02 16:24:00 98 /min [facility] height 2022-02-27 09:20:00 64 [in_i] [facility] n [facility] weight 2022-02-27 09:20:00 161.2 [lb_av] Co mmon [facility] temperature 2022-02-27 09:20:00 97.3 [degF] Com mon [facility] bmi 2022-02-27 09:20:00 27.67 kg/m2 Comm on [facility] oximetry 2022-02-27 09:20:00 98 % Commo n [facility] respiratory rate 2022-02-27 09:20:00 17 /min [facility] blood pressure systolic 2022-02-27 09:20:00 122 mm[Hg] [facility] blood pressure diastolic 2022-02-27 09:20:00 84 mm[Hg] [facility] height 2021-12-02 11:40:00 64 [in_i] Commo n [facility] weight 2021-12-02 11:40:00 165 [lb_av] Comm on [facility] bmi 2021-12-02 11:40:00 28.32 kg/m2 Comm on [facility] height 2021-08-30 08:40:00 64 [in_i] Commo n [facility] weight 2021-08-30 08:40:00 162 [lb_av] Comm on [facility] bmi 2021-08-30 08:40:00 27.8 kg/m2 Commo [facility] height 2021-08-12 14:00:00 64 [in_i] Commo n [facility] weight 2021-08-12 14:00:00 164.8 [lb_av] Co mmon [facility] temperature 2021-08-12 14:00:00 97.2 [degF] Com mon [facility] bmi 2021-08-12 14:00:00 28.28 kg/m2 Comm on [facility] oximetry 2021-08-12 14:00:00 97 % Commo n [facility] respiratory rate 2021-08-12 14:00:00 18 /min [facility] blood pressure systolic 2021-08-12 14:00:00 120 mm[Hg] [facility] blood pressure diastolic 2021-08-12 14:00:00 78 mm[Hg] [facility] Procedures Procedure Date / Time Performed Performing Clinicia n Source CONSENT/REFUSAL FOR DIAGNOSIS AND TREATMENT 2023-07-02 16:14:07 Doctor Unassigned, [place] [facility] Encounters Start Date/Time End Date/Time Encounter Type Admission Type Attending [facility] Care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
[2023-12-17 23:46] LABS: Absolute Basophils 0.1 K/uL (0-0.5); Absolute Eosinophils 0.5 K/uL (0-0.5); Absolute Lymphocytes (CBC) 2.3 K/uL (0.7-4.9); Basophils % 0.7 % (0-1.3); Eosinophils % 6.2 % (0-4.4); Hematocrit 41.4 % (36.0-45.0); Lymphocytes % 30.1 % (15.3-44.8); MCV 91.8 fL (80-100); MPV 8.6 fL (7.6-11.3); Platelets 179 thou/uL (152-406); RBC Red Blood Cell Count 4.51 M/uL (3.86-4.86)
[2023-12-17 23:55] LABS: Anion Gap 8.8 mEq/L (5.0-15.0); Potassium 3.8 mEq/L (3.5-5.1)
--- NOTE | 2023-12-18 00:55 | EDPHYS ---
Physician Documentation [facility] Name: Brigid Chavarria Age: 53 yrs Sex: Female : 1970 Arrival Date: 12/17/2023 Time: 22:59 Bed 19 Private MD: ED Physician Flako Albrecht HPI: 12/16 23:36 This 53 yrs old Black Female presents to ER via Ambulatory with complaints of Allergic sb4 Reaction, Pain All Over. 12/17 00:13 Patient states that she developed an allergic reaction to an unknown substance 2 weeks sb4 ago. She was seen in urgent care and prescribed 5-day course of prednisone and hydroxyzine. She states that her rash has not gotten any better, in fact she thinks that is getting worse. She complains of pain all over her body. The rashes on her face, neck, chest, breasts, arms. States that she now feels like her throat is closing. 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 - Social history:: Smoking status: Patient denies any tobacco usage or history of. ROS: 12/17 00:13 Constitutional: Negative for fever, chills, and weight loss, sb4 Skin: Positive for rash, of the face, chest, right arm, left arm and neck, All other systems are negative, Exam: 00:13 Head/Face: Normocephalic, atraumatic. Eyes: Extra-ocular motions intact. Periorbital sb4 areas with no swelling, redness, or edema. ENT: Mucous membranes moist. Cardiovascular: Regular rate and rhythm with a normal S1 and S2. Respiratory: Lungs have equal breath sounds bilaterally, clear to auscultation and percussion. No rales, rhonchi or wheezes noted. No increased work of breathing, no retractions or nasal flaring. Abdomen/GI: Soft, non-tender, no distension. MS/ Extremity: Pulses equal, no cyanosis. Neurovascular intact. Full, normal range of motion. Neuro: Awake and alert, GCS 15, oriented to person, place, time, and situation. Motor strength 5/5 in all extremities. Sensory grossly intact. 00:13 Constitutional: The patient appears alert, awake, anxious, restless, Crying 00:13 Skin: urticaria, on the face, chest, right arm, left arm and neck, Vital Signs: 12/16 23:08 BP 145 / 94; Pulse 88; Resp 16; Temp 97.9(O); Pulse Ox 100% on R/A; Weight 68.95 kg cm10 (R); Height 5 ft. 4 in. (R); Pain 10/; 23:39 BP 144 / 92; Pulse 78; Resp 24; Pulse Ox 100% on R/A; kd4 12/17 00:00 BP 137 / 81; Pulse 70; Resp 18; Pulse Ox 98% on R/A; km8 01:00 BP 109 / 78; Pulse 72; Resp 18; Pulse Ox 95% on R/A; km8 12/16 23:08 Body Mass Index 26.09 (68.95 kg, 162.56 cm) cm10 12/16 23:08 Pain Scale: Adult cm10 Pranav Coma Score: 12/16 23:39 Eye Response: spontaneous(4). Motor Response: obeys commands(6). Verbal Response: kd4 oriented(5). Total: 15. MDM: 23:11 Patient medically screened. sb4 12/17 00:54 Data reviewed: vital signs, nurses notes, lab test result(s), and as a result, I will sb4 discharge patient. 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 12/16 23:47 Order name: CBC with Automated Diff; Complete Time: 23:47 EDMS 12/16 23:56 Order name: Basic Metabolic Panel; Complete Time: 00:07 EDMS 12/16 23:15 Order name: IV Start; Complete Time: 23:25 sb4 Administered Medications: 12/16 23:38 Drug: diphenhydrAMINE IVP 50 mg IVP once Route: IVP; Site: right forearm; kd4 12/17 01:29 Follow up: Response: No adverse reaction [facility] 12/16 23:38 Drug: MethylPrednisoLONE IVP 125 mg IVP once Route: IVP; Site: right forearm; kd4 12/17 01:29 Follow up: Response: No adverse reaction [facility] 12/16 23:38 Drug: Famotidine IVP 20 mg IVP once; dilute with 10 mL 0.9% NaCl; give over 2 minutes kd4 Route: IVP; Site: right forearm; 12/17 01:29 Follow up: Response: No adverse reaction [facility] 12/16 23:38 Drug: Ativan IVP 1 mg IVP once Route: IVP; Site: right forearm; 4 12/17 01:29 Follow up: Response: No adverse reaction; Anxiety decreased [facility] 12/16 23:39 Drug: NS 0.9% IV 1000 ml IV at 1 bolus Per protocol; 1000 mL bolus Route: IV; Rate: 1 kd4 bolus; Site: right forearm; 12/17 01:29 Follow up: Response: No adverse reaction; IV Status: Completed infusion; IV Intake: km8 1000ml Disposition Summary: 12/18/23 00:54 Discharge Ordered Notes: Location: Home sb4 Problem: an ongoing problem sb4 Symptoms: have improved sb4 Condition: Stable sb4 Diagnosis - Rash and other nonspecific skin eruption sb4 Followup: sb4 - With: Emergency Department - When: As needed - Reason: Trouble breathing, Worsening of condition Discharge Instructions: - Discharge Summary Sheet sb4 - Allergies, Adult sb4 - Hives sb4 Forms: - Thank You Letter sb4 - Patient Portal Instructions sb4 - Leadership Thank You Letter sb4 Prescriptions: - Zora Allergy 180 mg Oral tablet - take 1 tablet ORAL route every 24 hours; 30 tablet; Refills: 0, Product sb4 Selection Permitted - Prednisone 20 mg Oral Tablet - take 3 tablets ORAL route once daily for 5 days; 15 tablet; Refills: 0, Product sb4 Selection Permitted - Triamcinolone Acetonide 0.1 % Topical ointment - apply 1 application TOPICAL route every 12 hours As needed; 1 Applicator; sb4 Refills: 0, Product Selection Permitted - Pepcid 20 mg Oral Tablet - take 1 tablet ORAL route once daily for 10 days; 10 tablet; Refills: 0, Product sb4 Selection Permitted Signatures: Annamaria Chavarria, FOUZIA FRAGOSO sb4 Becca Turner, RN RN cm10 Kristin Garcia, MCKENZIE RN kd4 Kinga Hargrove RN km8
--- NOTE | 2023-12-18 00:55 | ER ---
Nurse's Notes [facility] Name: Brigid Chavarria Age: 53 yrs Sex: Female : 1970 Arrival Date: 12/17/2023 Time: 22:59 Bed 19 Private MD: Diagnosis: Rash and other nonspecific skin eruption Presentation: 12/16 23:08 Chief complaint: Patient states: Allergic reaction onset 12/04. Pt states that she was cm10 seen at [facility] that day was given hydroxyzine and Prednisone but has not improved. Pt has rash to neck and face. Pt managing secretions. Coronavirus screen: Client denies travel out of the [place] in the last 14 days. At this time, the client does not indicate any symptoms associated with coronavirus-19. Ebola Screen: Patient denies travel to an Ebola-affected area in the 21 days before illness onset. No symptoms or risks identified at this time. Onset: The symptoms/episode began/occurred 2 week(s) ago. Anaphylaxis evaluation, no signs or symptoms of anaphylaxis were noted. Initial Sepsis Screen: Does the patient meet any 2 criteria? No. Patient's initial sepsis screen is negative. Does the patient have a suspected source of infection? No. Patient's initial sepsis screen is negative. Risk Assessment: Do you want to hurt yourself or someone else? Patient reports no desire to harm self or others. Onset of symptoms was December 04, 2023. 23:08 Method Of Arrival: Ambulatory cm10 23:08 Acuity: [place] 3 cm10 Triage Assessment: 23:10 General: Appears in no apparent distress. comfortable. Pain: Complains of pain in head, cm10 chest and abdomen. Neuro: No deficits noted. Level of Consciousness is awake, alert, obeys commands, Oriented to person, place, time, situation. Respiratory: No deficits noted. Airway is patent Respiratory effort is even, unlabored, Respiratory pattern is regular, symmetrical. 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 - Social history:: Smoking status: Patient denies any tobacco usage or history of. Screenin:39 [facility] ED Fall Risk Assessment (Adult) History of falling in the last 3 months, kd4 including since admission No falls in past 3 months (0 pts) Confusion or Disorientation No (0 pts) Intoxicated or Sedated No (0 pts) Impaired Gait No (0 pts) Mobility Assist Device Used No (0 pt) Altered Elimination No (0 pt) Score/Fall Risk Level 0 - 2 = Low Risk. Abuse screen: Denies threats or abuse. Denies injuries from another. Nutritional screening: No deficits noted. Tuberculosis screening: No symptoms or risk factors identified. 23:39 [facility] ED Fall Risk Assessment (Adult) History of falling in the last 3 months, kd4 including since admission Score/Fall Risk Level 0 - 2 = Low Risk Oriented to surroundings, Maintained a safe environment, Educated pt \T\ family on fall prevention, incl call for assistance when getting out of bed, Assessed \T\ reinforced patient's understanding of fall precautions. Assessment: 23:39 General: Appears distressed, uncomfortable, Behavior is anxious, restless, Reports kd4 itching and burning sensation to gen skin. Pain: Complains of pain in gen pain 10/10. Neuro: Level of Consciousness is awake, alert, obeys commands, Oriented to person, place, time, situation. Cardiovascular: Patient's skin is warm and dry. Respiratory: Airway is patent Respiratory effort is labored, Respiratory pattern is tachypnea Breath sounds are diminished. GI: No signs and/or symptoms were reported involving the gastrointestinal system. : No signs and/or symptoms were reported regarding the genitourinary system. EENT: No signs and/or symptoms were reported regarding the EENT system. Derm: Skin is intact, Skin is moist, Skin is normal, Skin temperature is warm Rash noted that is itchy, raised, on generalized. Musculoskeletal: No signs and/or symptoms reported regarding the musculoskeletal system. Range of motion: intact in all extremities. 12/17 01:00 Reassessment: Patient appears in no apparent distress at this time. Patient and/or km8 family updated on plan of care and expected duration. Pain level reassessed. Patient is alert, oriented x 3, equal unlabored respirations, skin warm/dry/pink. Patient states symptoms have improved. 01:00 General: Appears in no apparent distress. comfortable, Behavior is calm, cooperative, km8 appropriate for age. Respiratory: Airway is patent Respiratory effort is even, unlabored, Respiratory pattern is regular. Vital Signs: 12/16 23:08 BP 145 / 94; Pulse 88; Resp 16; Temp 97.9(O); Pulse Ox 100% on R/A; Weight 68.95 kg cm10 (R); Height 5 ft. 4 in. (R); Pain 10; 23:39 BP 144 / 92; Pulse 78; Resp 24; Pulse Ox 100% on R/A; kd4 03 00:00 BP 137 / 81; Pulse 70; Resp 18; Pulse Ox 98% on R/A; km8 01:00 BP 109 / 78; Pulse 72; Resp 18; Pulse Ox 95% on R/A; km8 03 23:08 Body Mass Index 26.09 (68.95 kg, 162.56 cm) cm10 03 23:08 Pain Scale: Adult cm10 Pranav Coma Score: 12/16 23:39 Eye Response: spontaneous(4). Motor Response: obeys commands(6). Verbal Response: kd4 oriented(5). Total: 15. ED Course: 23:02 Patient arrived in ED. gm2 23:02 [facility] PA[facility]C [facility]. sb4 23:02 Flako Albrecht MD is Attending Physician. sb4 23:10 Triage completed. cm10 23:11 Arm band placed on Patient placed in an exam room, on a stretcher. cm10 23:37 Kristin Garcia, MCKENZIE is Primary Nurse. kd4 23:39 Patient has correct armband on for positive identification. Bed in low position. Call kd4 light in reach. Side rails up X2. 23:39 Inserted saline lock: 22 gauge in right forearm, using aseptic technique. Accessed kd4 Missed attempt(s): Patient maintains SpO2 saturation greater than 95% on room air. 12/17 01:27 No provider procedures requiring assistance completed. IV discontinued, intact, km8 bleeding controlled, No redness/swelling at site. Pressure dressing applied. 01:28 Provided Education on: d/c teaching. km8 Administered Medications: 12/16 23:38 Drug: diphenhydrAMINE IVP 50 mg IVP once Route: IVP; Site: right forearm; kd4 12/17 01:29 Follow up: Response: No adverse reaction [facility] 12/16 23:38 Drug: MethylPrednisoLONE IVP 125 mg IVP once Route: IVP; Site: right forearm; kd4 12/17 01:29 Follow up: Response: No adverse reaction [facility] 12/16 23:38 Drug: Famotidine IVP 20 mg IVP once; dilute with 10 mL 0.9% NaCl; give over 2 minutes kd4 Route: IVP; Site: right forearm; 12/17 01:29 Follow up: Response: No adverse reaction [facility] 12/16 23:38 Drug: Ativan IVP 1 mg IVP once Route: IVP; Site: right forearm; kd4 12/17 01:29 Follow up: Response: No adverse reaction; Anxiety decreased [facility] 12/16 23:39 Drug: NS 0.9% IV 1000 ml IV at 1 bolus Per protocol; 1000 mL bolus Route: IV; Rate: 1 kd4 bolus; Site: right forearm; 12/17 01:29 Follow up: Response: No adverse reaction; IV Status: Completed infusion; IV Intake: km8 1000ml Medication: 12/16 23:39 VIS not applicable for this client. kd4 Intake: 12/17 01:29 IV: 1000ml; Total: 1000ml. km8 Outcome: 00:54 Discharge ordered by . sb4 01:27 Discharged to home via wheelchair, waiting for ride in waiting room km8 01:27 Condition: good 01:27 Discharge instructions given to patient, Instructed on discharge instructions, follow up and referral plans. medication usage, Demonstrated understanding of instructions, follow-up care, medications, Prescriptions given X 4, 01:30 Patient left the ED. km8 Signatures: Annamaria Chavarria PA-C PADanette sb4 Becca Turner RN RN cm10 Fannie Elaine 2 Kinga Hargrove RN RN km8 Kristin Garcia RN RN kd4
[2023-12-18 01:49] VITALS: BP 109/78; TEMP 97.9; O2SAT 95
== END ==
LOC: ER 22:59
DX: R21 Rash and other nonspecific skin eruption (principal); R52 Pain, unspecified; I10 Essential (primary) hypertension; Z87.820 Personal history of traumatic brain injury
CPT/HCPCS: 85025; 80048; 36415; J1200; J2930; J7030

== ENCOUNTER 2024-03-08 12:33 | Emergency (ER) | payer MEDICARE ==
--- OUTSIDE RECORDS SUMMARY | 2024-03-08 12:37 | XMS REPORT | Continuity of Care Document ---
Author Name Unknown Address [address] [facility] [address] [facility] [place] [address] [facility] thconnect Address [address] [place] [address] Care Team Providers Care [facility] Specialist Name Role Phone Van Pérez Primary Care Physician [phone] Angie Ashton Attending Clinician Unavail able More Mcdonough Attending Clinician Unavailable Dinora Wooten Attending Clinician Unavailable Vanessa Phillips Attending Clinician [phone] JACINDA MARTINEZ Attending Clinician Unavailable Jacinda Martinez MD Attending Clinician [phone] Candi Dow Attending Clinician Unavailabl e Tumelson_A Attending Clinician Unavailable LEYLA LEIVA NATASHA Attending Clinician Unava ilable Candi Dow Admitting Clinician Unavailabl e Tumelson_A Admitting Clinician Unavailable LEYLA LEIVA NATASHA Admitting Clinician Unava ilable Payers Payer Name Policy Type Policy Number Effective Date Expiration Date Source MEDICARE PART A \\T\\ B [id number] 2016 00:00: 2023 00:00:00 [employer] (MEDICARE REPLACEMENT HMO) [id number] 2021 00:00:00 [employer] [facility] C1 [id number] 2021 00:00:00 [place] [address] [id number] 2021 00:00:00 [place] [address] [id number] 2021 00:00:00 [place] [address] [id number] 2021 00:00:00 [facility] MCR [id number] Problems Condition Name Condition Details Condition Category Status Onset Date Resolution Date Last Treatment Date Treating Clinician Comments Source Generalize d weakness Generalize d weakness Disease Active 07-03 00:00: 00 [facility] Obesity (BMI 30-39.9) Obesity (BMI 30-39.9) Disease Active 07-03 00:00: 00 [facility] Papanicola ou smear of cervix with low grade squamous intraepith elial lesion (LGSIL) Papanicola ou smear of cervix with low grade squamous intraepith elial lesion (LGSIL) Disease Active 2014-10 00:00: 00 [facility] Cervical high risk human papillomav irus (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 Pap LGSIL --> colposcop y [facility] Poor high blood pressure control Poor high blood pressure control Disease Active 2014-10 00:00: 00 [facility] Hypertensi ve crisis Hypertensi ve crisis Disease Active 2014-10 00:00: 00 [facility] Uncontroll ed hypertensi on Uncontroll ed hypertensi on Disease Active 2014-10 00:00: 00 [facility] Age-relate d nuclear cataract of left eye Age-relate d nuclear cataract, left eye Problem [facility] [id number] Recurrent major depressive disorder, in partial remission Problem [facility] [id number] NARENDRA (generaliz ed anxiety disorder) Problem [facility] [id number] Flexural atopic dermatitis Problem [facility] [id number] Chronic fatigue Problem [facility] [id number] Vitamin D deficiency Problem [facility] Posttrauma tic stress disorder Post-traum atic stress disorder, unspecifie d Problem [facility] [id number] Depression with anxiety Problem [facility] [id number] 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 Problem [facility] [id number] Primary hypertensi on Problem [facility] [id number] Chronic post-traum atic headache, not intractabl e Problem [facility] Allergies, Adverse Reactions, Alerts Allergy Name Allergy Type Status Severity Reaction(s) Onset Date Inactive Date Treating Clinician Comments Source No Known Allergie s DA Active U 05-05 00:00: 00 [facility] NO KNOWN ALLERGIE S Drug Class Active [facility] Social History Social Habit Start Date Stop Date Quantity Comments Source Sexual orientation U [facility] History of Tobacco Use [facility] Alcohol intake 2023-12-03 00:00:00 2023-12-03 00:00:00 0 /d [facility] History of Social function 2023-12-03 00:00:00 2023-12-03 00:00:00 [facility] Alcohol Comment 2015-07-06 00:00:00 2015-07-06 00:00:00 socially [facility] Tobacco use and exposure 2015-07-06 00:00:00 2015-07-06 00:00:00 Smokeless tobacco non-user [facility] Sex Ass[birth year] At 1970 00:00:00 1970 00:00:00 [facility] Smoking Status Start Date Stop Date Source Never smoked tobacco [facility] Medications Ordered Medication Name Filled Medication Name Start Date Stop Date Current Medication? Ordering Clinician Indication Dosage Frequency Signature (SIG) Comments Components Source Topiramate 25 MG Topiramate 25 MG 02-06 00:00: 00 No 1{table t} QD Topiramate 25 MG Vitamin D (Cholecalci ferol) 50 MCG (1999) Vitamin D (Cholecalci ferol) 50 MCG (1999) 02-06 00:00: 00 No 1{capsu le} QD Vitamin D (Cholecalc iferol) 50 MCG (1999) predniSONE (DELTASONE) tablet 60 mg 12-04 06:15: 00 12-04 06:26 :00 No 60mg 60 mg, Oral, ONCE, 1 dose, On Sun12/04/23 at 0015, [facility] diphenhydrA MINE (BENADRYL) injection 50 mg 12-04 05:15: 00 12-04 05:40 :00 No 50mg 50 mg, Slow IV Push, ONCE, 1 dose, On Sun12/03/23 at 2315, [facility] famotidine (PEPCID (PF)) injection 20 mg 12-04 05:15: 12-04 05:41 :00 No 20mg 20 mg, Slow IV Push, ONCE, 1 dose, On Sun12/03/23 at 2315, [facility] methylpredn isolone sod succ (SOLU-MEDRO L) injection 125 mg 12-04 05:15: 00 12-04 05:40 :00 No 125mg 125 mg, Intravenou s, ONCE, 1 dose, On Sun12/03/23 at 2315, [facility] hydrOXYzine 50 mg capsule 12-04 00:00: 00 Yes [id number] 50mg Take 1 capsule by mouth 3 (three) times daily as needed for Itching. [facility] predniSONE 20 mg tablet 12-04 00:00: 00 12-09 05:59 :00 No [id number] 60mg Take 3 tablets by mouth every morning for 5 days. [facility] Ketorolac 15mg Ketorolac 15mg 2023-1 0-03 00:00: 00 No 60mg [facility] Kenalog (Triamcinol one) Kenalog (Triamcinol one) 2022-10 0-03 00:00: 00 No 40mg [facility] Ketorolac 15mg Ketorolac 15mg 2022-10 0-03 00:00: 00 No 60mg [facility] Kenalog (Triamcinol one) Kenalog (Triamcinol one) 2022-10 0- 00:00: 00 No 40mg [facility] Ketorolac 15mg Ketorolac 15mg 2022-10 0- 00:00: 00 No 60mg [facility] Kenalog (Triamcinol one) Kenalog (Triamcinol one) 2022-10 0- 00:00: 00 No 40mg [facility] Ketorolac 15mg Ketorolac 15mg 2022-10 0- 00:00: 00 No 60mg [facility] Kenalog (Triamcinol one) Kenalog (Triamcinol one) 2022-10 0- 00:00: 00 No 40mg [facility] Ketorolac 15mg Ketorolac 15mg 2022-10 0- 00:00: 00 No 60mg [facility] Kenalog (Triamcinol one) Kenalog (Triamcinol one) 2022-10 0- 00:00: 00 No 40mg [facility] cyclobenzap rine 10 mg tablet 07-02 00:00: 00 Yes [id number] 10mg Take 1 tablet by mouth in the morning and 1 tablet at noon and 1 tablet in the evening. [facility] HYDROcodone -acetaminop hen 5-325 mg tablet 07-02 00:00: 00 07-10 04:59 :00 No [id number] 1{tbl} Take 1-2 tablets by mouth every 6 (six) hours as needed for Pain (scale 1-3) for up to 7 days. Indication s: acute pain [facility] Toilet Seat Elevator - Toilet Seat Elevator [...] 00 No 1{table t_in_th e_morni ng} QD Mupirocin 2 % Mupirocin 2 % 2020-10 00:00: 00 08-25 00:00 :00 No 1{appli cation_ to_affe cted_ar ea} TID lisinopril 20 mg tablet 07-05 00:00: 00 Yes [id number] 20mg Take 1 tablet by mouth daily. [facility] amLODIPine Besylate 5 MG amLODIPine Besylate 5 MG No amLODIPine Besylate 5 MG Lisinopril 20 MG Lisinopril 20 MG No 1{table t} QD Lisinopril 20 MG hydroCHLORO thiazide 12.5 MG hydroCHLORO thiazide 12.5 MG No 1{table t_in_th e_morni ng} QD hydroCHLOR Othiazide 12.5 MG Lisinopril 20 MG Lisinopril 20 MG No 1{table t} QD Lisinopril 20 MG Hydrochloro thiazide Hydrochloro thiazide No Hydrochlor othiazide amLODIPine Besylate 5 MG amLODIPine Besylate 5 [...] MG Lisinopril- hydroCHLORO thiazide 20-12.5 MG No 1{table t} QD Lisinopril -hydroCHLO ROthiazide 20-12.5 MG Baclofen 10 MG Baclofen 10 MG No 1{table t_as_ne eded} BID Baclofen 10 MG Cyclobenzap rine HCl 10 MG Cyclobenzap rine HCl 10 MG No 1{table t_at_be dtime_a s_neede d} QD Cyclobenza dai HCl 10 MG Lisinopril 20 MG Lisinopril 20 [...] d} QD Cyclobenza dai HCl 10 MG Lisinopril 20 MG Lisinopril 20 [...] d} QD Cyclobenza dai HCl 10 MG Lisinopril 20 MG Lisinopril 20 [...] d} QD Cyclobenza dai HCl 10 MG Lisinopril 20 MG Lisinopril 20 MG No 1{table t} QD Lisinopril 20 MG Diclofenac Sodium 75 MG Diclofenac Sodium 75 MG No 1{table t_as_ne eded} BID Diclofenac Sodium 75 MG Lisinopril- hydroCHLORO thiazide 20-12.5 MG Lisinopril- hydroCHLORO thiazide 20-12.5 MG No 1{table t} QD Lisinopril -hydroCHLO ROthiazide 20-12.5 MG Diclofenac Sodium 75 MG Diclofenac Sodium 75 MG No 1{table t_as_ne eded} BID Diclofenac Sodium 75 MG Mupirocin 2 % Mupirocin 2 % No Mupirocin 2 % Baclofen 10 MG Baclofen 10 MG No 1{table t_as_ne eded} BID Baclofen 10 MG Ibuprofen 800 MG Ibuprofen 800 MG No TID Ibuprofen 800 MG Lisinopril 20 MG Lisinopril 20 MG No 1{table t} QD Lisinopril 20 MG Cyclobenzap rine HCl 10 MG Cyclobenzap rine HCl 10 MG No 1{table t_at_be dtime_a s_neede d} QD Cyclobenza dai HCl 10 MG Fexofenadin e HCl 180 MG Fexofenadin e HCl 180 MG No QD Fexofenadi ne HCl 180 MG hydrOXYzine Pamoate 50 MG hydrOXYzine Pamoate 50 MG No 1{capsu le_at_b edtime_ as_need ed} QD hydrOXYzin e Pamoate 50 MG Triamcinolo ne Acetonide 0.1 % Triamcinolo ne Acetonide 0.1 % No 1{appli cation} BID Triamcinol one Acetonide 0.1 % predniSONE 20 MG predniSONE 20 MG No 1{table t} QD predniSONE 20 MG Famotidine 20 MG Famotidine 20 MG No Famotidine 20 MG Escitalopra m Oxalate 5 MG Escitalopra m Oxalate 5 MG No 1{table t} QD Escitalopr am Oxalate 5 MG busPIRone HCl 10 MG busPIRone HCl 10 MG No 1{table t} BID busPIRone HCl 10 MG Ibuprofen Ibuprofen No Amitriptyli ne HCl 50 MG Amitriptyli ne HCl 50 MG No 1{table t_at_be dtime} QD Amitriptyl ine HCl 50 MG Immunizations Ordered Immunization Name Filled Immunization Name Date Status Comments Source Afluria [facility] 2021-06-24 14:20:00 Completed [facility] 2021-06-24 14:20:00 Completed [facility] 2021-06-24 14:20:00 Completed [facility] 2021-06-24 14:20:00 Completed [facility] Afluria Afluria 2021-06-24 14:20:00 Completed [facility] Afluria Afluria 2021-06-24 14:20:00 Completed [facility] Afluria Afluria 2021-06-24 14:20:00 Completed [facility] Afluria Afluria 2021-06-24 14:20:00 Completed [facility] Afluria Afluria 2021-06-24 14:20:00 Completed [facility] Afluria Afluria 2021-06-24 14:20:00 Completed [facility] Afluria Afluria 2021-06-24 14:20:00 Completed [facility] Afluria Afluria 2021-06-24 14:20:00 Completed [facility] Afluria Afluria 2021-06-24 14:20:00 Completed [facility] Afluria Afluria 2021-06-24 14:20:00 Completed [facility] Afluria Afluria 2021-06-24 14:20:00 Completed [facility] Afluria Afluria 2021-06-24 14:20:00 Completed [facility] TD, NOS Unknown Completed [facility] Influenza Virus Vaccine Quad IM 3+ YRS Unknown Completed [facility] TD, NOS Unknown Completed [facility] Influenza Virus Vaccine Quad IM 3+ YRS Unknown Completed [facility] Afluria Afluria Unknown Completed [facility] Afluria Afluria Unknown Completed [facility] Afluria Afluria Unknown Completed [facility] Afluria Afluria Unknown Completed [facility] Afluria Afluria Unknown Completed [facility] Fluarix (IIV4) - SDS - 0.5mL Fluarix (IIV4) - SDS - 0.5mL Unknown Completed [facility] Afluria Afluria Unknown Completed Common [facility] Fluarix (IIV4) - SDS - 0.5mL Fluarix (IIV4) - SDS - 0.5mL Unknown Completed [facility] Afluria Afluria Unknown Completed [facility] Fluarix (IIV4) - SDS - 0.5mL Fluarix (IIV4) - SDS - 0.5mL Unknown Completed [facility] Afluria Afluria Unknown Completed [facility] Fluarix (IIV4) - SDS - 0.5mL Fluarix (IIV4) - SDS - 0.5mL Unknown Completed [facility] Afluria Afluria Unknown Completed [facility] Fluarix (IIV4) - SDS - 0.5mL Fluarix (IIV4) - SDS - 0.5mL Unknown Completed [facility] Afluria Afluria Unknown Completed [facility] Vital Signs Vital Name Observation Time Observation Value Comments S ource height 2024-02-07 10:00:00 64 [in_i] Commo n [facility] weight 2024-02-07 10:00:00 155 [lb_av] Comm on [facility] temperature 2024-02-07 10:00:00 97.2 [degF] Com [facility] bmi 2024-02-07 10:00:00 26.6 kg/m2 Commo n [facility] oximetry 2024-02-07 10:00:00 99 % Commo n [facility] respiratory rate 2024-02-07 10:00:00 18 /min [facility] blood pressure systolic 2024-02-07 10:00:00 118 mm[Hg] [facility] blood pressure diastolic 2024-02-07 10:00:00 77 mm[Hg] [facility] height 2024-01-29 10:40:00 64 [in_i] Commo n [facility] weight 2024-01-29 10:40:00 157 [lb_av] Comm on [facility] temperature 2024-01-29 10:40:00 97.7 [degF] Com [facility] bmi 2024-01-29 10:40:00 26.95 kg/m2 Comm on [facility] oximetry 2024-01-29 10:40:00 98 % Commo n [facility] respiratory rate 2024-01-29 10:40:00 19 /min [facility] blood pressure systolic 2024-01-29 10:40:00 126 mm[Hg] [facility] blood pressure diastolic 2024-01-29 10:40:00 85 mm[Hg] [facility] Oxygen saturation in Arterial blood by Pulse oximetry 2023-12-04 06:00:00 95 /min [facility] Systolic blood pressure 2023-12-04 06:00:00 149 mm[Hg] [facility] Diastolic blood pressure 2023-12-04 06:00:00 93 mm[Hg] [facility] Heart rate 2023-12-04 06:00:00 73 /min [facility] Respiratory rate 2023-12-04 06:00:00 23 /min [facility] Body temperature 2023-12-04 05:02:28 36.61 Elisabet [facility] Body height 2023-12-04 05:02:00 162.6 cm [facility] Body weight 2023-12-04 05:02:00 68.947 kg [facility] BMI 2023-12-04 05:02:00 26.09 kg/m2 [facility] height 2023-07-10 09:20:00 64 [in_i] Commo n [facility] weight 2023-07-10 09:20:00 163.2 [lb_av] Co mmon [facility] temperature 2023-07-10 09:20:00 98.2 [degF] Com mon [facility] bmi 2023-07-10 09:20:00 28.01 kg/m2 Comm on [facility] oximetry 2023-07-10 09:20:00 100 % Commo n [facility] respiratory rate 2023-07-10 09:20:00 18 /min [facility] blood pressure systolic 2023-07-10 09:20:00 137 mm[Hg] [facility] blood pressure diastolic 2023-07-10 09:20:00 87 mm[Hg] [facility] Systolic blood pressure 2023-07-02 16:24:00 155 mm[Hg] [facility] Diastolic blood pressure 2023-07-02 16:24:00 94 mm[Hg] [facility] Heart rate 2023-07-02 16:24:00 79 /min [facility] Body temperature 2023-07-02 16:24:00 36.56 Elisabet [facility] Respiratory rate 2023-07-02 16:24:00 20 /min [facility] Body height 2023-07-02 16:24:00 162.6 cm [facility] Body weight 2023-07-02 16:24:00 68.04 kg [facility] BMI 2023-07-02 16:24:00 25.75 kg/m2 [facility] Oxygen saturation in Arterial blood by Pulse oximetry 2023-07-02 16:24:00 98 /min [facility] height 2022-02-27 09:20:00 64 [in_i] Commo n [facility] weight 2022-02-27 09:20:00 161.2 [lb_av] Co mmon [facility] temperature 2022-02-27 09:20:00 97.3 [degF] Com mon [facility] bmi 2022-02-27 09:20:00 27.67 kg/m2 Comm on [facility] oximetry 2022-02-27 09:20:00 98 % Commo n [facility] respiratory rate 2022-02-27 09:20:00 17 /min [facility] blood pressure systolic 2022-02-27 09:20:00 122 mm[Hg] [facility] blood pressure diastolic 2022-02-27 09:20:00 84 mm[Hg] [facility] height 2021-12-02 11:40:00 64 [in_i] Commo n [facility] weight 2021-12-02 11:40:00 165 [lb_av] Comm on [facility] bmi 2021-12-02 11:40:00 28.32 kg/m2 Comm on [facility] height 2021-08-30 08:40:00 64 [in_i] Commo n [facility] weight 2021-08-30 08:40:00 162 [lb_av] Comm on [facility] bmi 2021-08-30 08:40:00 27.8 kg/m2 Commo n [facility] height 2021-08-12 14:00:00 64 [in_i] Commo n [facility] weight 2021-08-12 14:00:00 164.8 [lb_av] Co mmon [facility] temperature 2021-08-12 14:00:00 97.2 [degF] Com mon [facility] bmi 2021-08-12 14:00:00 28.28 kg/m2 Comm on [facility] oximetry 2021-08-12 14:00:00 97 % Commo n [facility] respiratory rate 2021-08-12 14:00:00 18 /min [facility] blood pressure systolic 2021-08-12 14:00:00 120 mm[Hg] [facility] blood pressure diastolic 2021-08-12 14:00:00 78 mm[Hg] [facility] Procedures Procedure Date / Time Performed Performing Clinicia n Source CONSENT/REFUSAL FOR DIAGNOSIS AND TREATMENT 2023-07-02 16:14:07 Doctor Unassigned, [place] [facility] Encounters Start Date/Time End Date/Time Encounter Type Admission Type Attending [facility] Care Facility Care Department Encounter ID Source 2024-02-06 11:08:00 Outpatient Angie Ashton [facility] [id number] [facility] 2024-02-04 15:09:00 Outpatient Angie Ashton [facility] [id number] [facility] 2024-01-29 10:41:00 Outpatient Angie Ashton [facility] [id number] [facility] 2024-01-21 10:41:03 Outpatient Angie Ashton [facility] [id number] [facility] 2024-01-14 15:43:00 Outpatient Angie Ashton [facility] [id number] [facility] 2023-07-06 08:25:00 Outpatient More Mcdonough [facility] [id number] [facility] 2023-07-02 08:33:00 Outpatient More Mcdonough [facility] ST[facility] [id number] [facility] 2021-12-01 09:27:03 Outpatient Dinora Wooten [facility] [id number] [facility] 2021-11-02 14:30:15 Outpatient Dinora Wooten [facility] [id number] [facility] 2021-11-02 14:29:41 Outpatient WootenDinora webster [facility] [id number] [facility] 2021-11-02 14:14:11 Outpatient Dinora Wooten [facility] [id number] [facility] 2021-11-02 14:10:18 Outpatient WootenDinora webster [facility] [id number] [facility] 2021-11-02 14:09:32 Outpatient WootenDinora webster [facility] ST[facility] [id number] [facility] 2024-02-13 18:00:00 2024-02-13 19:00:00 Initial D2Me Vanessa Phillips [id number] [facility] 2024-02-07 00:00:00 2024-02-07 00:00:00 OFFICE VISIT ESTAB PT LEVEL 4 [facility] [id number] [facility] 2024-02-07 00:00:00 2024-02-07 00:00:00 (TEL) [facility] ST[facility] [id number] [facility] 2024-01-30 00:00:00 2024-01-30 00:00:00 (TEL) [facility] ST[facility] [id number] [facility] 2024-01-29 00:00:00 2024-01-29 00:00:00 OFFICE VISIT NEW PT LEVEL 4 [facility] ST[facility] [id number] [facility] 2024-01-29 00:00:00 2024-01-29 00:00:00 SUB ANNUAL [facility] VISIT [facility] ST[facility] [id number] [facility] 2024-01-23 00:00:00 2024-01-23 00:00:00 (TEL) [facility] ST[facility] [id number] [facility] 2023-12-03 22:59:00 2023-12-04 01:00:00 Emergency X JACINDA MARTINEZ [facility] ERT [id number] [facility] 2023-12-03 22:59:00 2023-12-04 01:00:00 Emergency Jacinda Martinez [facility] [id number] [facility] 2023-07-19 00:00:00 2023-07-19 00:00:00 (TEL) [facility] ST[facility] [id number] [facility] 2023-07-10 00:00:00 2023-07-10 00:00:00 OFFICE VISIT ESTAB PT LEVEL 4 [facility] [id number] [facility] 2023-07-08 00:00:00 2023-07-08 00:00:00 (TEL) [facility] [id number] [facility] 2023-07-02 11:25:00 2023-07-02 12:15:00 Emergency X JACINDA MARTINEZ [facility] ERT [id number] [facility] 2023-07-02 11:25:00 2023-07-02 12:15:00 Emergency Jacinda Martinez [facility] [id number] [facility] 2023-07-02 00:00:00 2023-07-02 00:00:00 (TEL) [facility]MLC STL[facility]C [id number] [facility] 2022-09-26 00:00:00 2022-09-26 00:00:00 (TEL) [facility] [id number] [facility] 2022-05-12 06:42:00 2022-05-12 06:42:00 Outpatient Candi Anguiano [facility] [id number] 67 [facility] 2022-05-12 06:42:00 2022-05-12 06:42:00 [facility] [id number] [facility] 2022-04-21 07:10:00 2022-04-21 07:10:00 Outpatient Tumelson_A [facility] [id number] [facility] 2022-04-21 00:00:00 2022-04-21 00:00:00 [place] [id number] [facility] 2022-04-21 00:00:00 2022-04-21 00:00:00 [place] [id number] [facility] 2022-04-21 00:00:00 2022-04-21 00:00:00 (TEL) [facility] [id number] [facility] 2022-03-06 00:00:00 2022-03-06 00:00:00 (TEL) [facility] ST[facility] [id number] [facility] 2022-02-27 00:00:00 2022-02-27 00:00:00 OFFICE VISIT ESTAB PT LEVEL 4 [facility] [id number] [facility] 2022-02-24 00:00:00 2022-02-24 00:00:00 (TEL) [facility]C ST[facility]C [id number] [facility] 2022-02-24 00:00:00 2022-02-24 00:00:00 (TEL) [facility]C ST[facility]C [id number] [facility] 2022-02-09 00:00:00 2022-02-09 00:00:00 (TEL) [facility]MLC ST[facility]C [id number] [facility] 2022-02-08 00:00:00 2022-02-08 00:00:00 (TEL) STLMLC STL[facility]C [id number] [facility] 2021-12-29 00:00:00 2021-12-29 00:00:00 (TEL) STLMLC STL[facility]C [id number] [facility] 2021-12-14 00:00:00 2021-12-14 00:00:00 (TEL) STLMLC STLMLC [id number] [facility] 2021-12-14 00:00:00 2021-12-14 00:00:00 (TEL) STLMLC STLMLC [id number] [facility] 2021-12-02 00:00:00 2021-12-02 00:00:00 OL DIG E/M SVC 11-20 MIN STLMLC STLMLC [id number] [facility] 2021-10-11 16:30:00 2021-10-11 17:30:00 JANN Phillips [id number] CLACXYZWCH HK4 [facility] 2021-08-30 00:00:00 2021-08-30 00:00:00 OL DIG E/M SVC 11-20 MIN STLMLC STLMLC [id number] [facility] 2021-08-29 05:19:00 2021-08-29 05:19:00 [place] [id number] 112 [facility] 2021-08-29 00:00:00 2021-08-29 00:00:00 (TEL) STLMLC STLMLC [id number] [facility] 2021-08-23 00:00:00 2021-08-23 00:00:00 (TEL) STLMLC STLMLC [id number] [facility] 2021-08-12 00:00:00 2021-08-12 00:00:00 OFFICE VISIT NEW PT LEVEL 3 STLMLC STLMLC [id number] [facility] 2021-08-08 10:30:00 2021-08-08 10:30:00 Outpatient [place]_A DMG DMG [id number] 110 [facility] 2021-02-04 03:59:00 2021-02-04 03:59:00 Outpatient Tum[place]_A DMG DMG [id number] 043 [facility] 2019-07-04 16:29:00 2019-07-06 15:00:00 Inpatient 3 LEYLA LEIVA ENCPL DOMINIC [id number] 0927 [facility] Blake garcia Results Test Description Test Time Test Comments Results Result Co mments Source HEMOGLOBIN [id number] 00:00:00* Test Item Value Reference Range Interpretation Comme nts HEMOGLOBIN A1c (test code = 4548-4) 6.0 % See_Comment H [Automated messa ge] The system which generated this result transmitted reference range: 4.2-5.6 %. The reference range was not used to interpret this result as normal/abnormal. TSH REFLEX TO FREE [id number] 00:00:00* Test Item Value Reference Range Interpretation Comme [facility] TSH REFLEX TO FREE T4 (test code = 90011-9) 1.110 UIU/ML See_Comment [Automated Capseoa ge] The system which generated this result transmitted reference range: 0.400-4.100 UIU/ML. The reference range was not used to interpret this result as normal/abnormal. VITAMIN D, 25 [id number] 00:00:00* Test Item Value Reference Range Interpretation Comme [facility] VITAMIN D, 25 OH (test code = 1989-3) 28 NG/ML SEE BELOW NG/ML L LIPID [id number] 00:00:00* Test Item Value Reference Range Interpretation Comme [facility] CALC LDL CHOL (test code = 47765-3) 90 MG/DL See_Comment [Automated Capseoa ge] The system which generated this result transmitted reference range: <100 MG/DL. The reference range was not used to interpret this result as normal/abnormal. CHOLESTEROL (test code = 2093-3) 193 MG/DL See_Comment [Automated Capseoa ge] The system which generated this result transmitted reference range: <200 MG/DL. The reference range was not used to interpret this result as normal/abnormal. HDL CHOLESTEROL (test code = 2085-9) 86 MG/DL See_Comment [Automated [employer]apse[employer] ge] The system which generated this result transmitted reference range: >39 MG/DL. The reference range was not used to interpret this result as normal/abnormal. RISK RATIO LDL/HDL (test code = 39314-6) 1.05 RATIO See_Comment [Automated message] The system which generated this result transmitted reference range: <3.22 RATIO. The reference range was not used to interpret this result as normal/abnormal. TRIGLYCERIDES (test code = 2571-8) 76 MG/DL See_Comment [Automated Capse[employer] ge] The system which generated this result transmitted reference range: <150 MG/DL. The reference range was not used to interpret this result as normal/abnormal. ALBUMIN/CREATININE RATIO, RANDOM [id number] 00:00:00* Test Item Value Reference Range [facility]ation [facility], URINE, RANDOM (test code = 88855-1) 0.4 MG/DL NOT ESTAB MG/DL CALC ALBUMIN/CREAT, RND (test code = 62530-3) 4 MG/G See_Comment [Automated messa ge] The system which generated this result transmitted reference range: <30 MG/G. The reference range was not used to interpret this result as normal/abnormal. CREATININE, URINE, CONC. (test code = 2161-8) 105.2 MG/DL NOT ESTAB MG/DL COMPREHENSIVE METABOLIC [id number] 00:00:00* Test Item Value Reference Range Interpretation Comme nts ALBUMIN (test code = 1751-7) 4.5 G/DL See_Comment [Automated messa ge] The system which generated this result transmitted reference range: 3.5-5.2 G/DL. The reference range was not used to interpret this result as normal/abnormal. ALKALINE PHOSPHATASE (test code = 6768-6) 103 U/L See_Comment [Automated message] The system which generated this result transmitted reference range: 40-133 U/L. The reference range was not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
[2024-03-08] MEDS ORDERED: DIAZEPAM 10 MG/2 ML INJ SYRINGE ONE (13:21)
[2024-03-08] MEDS ORDERED: KETOROLAC 30 MG/ML INJ ONE (13:22)
[2024-03-08] MEDS ORDERED: LIDOCAINE 4% PATCH ONE (13:22)
--- NOTE | 2024-03-08 13:24 | RAD REPORT ---
EXAM DESCRIPTION: CT - Spine Lumbar Wo Con - 03/08/2024 1:06 pm CLINICAL HISTORY: Lower back pain;Radiculopathy COMPARISON: No comparisons TECHNIQUE: Axial noncontrast CT imaging of the lumbar spine was performed with coronal and sagittal re-formatted images. All CT scans are performed using dose optimization technique as appropriate and may include automated exposure control or mA/KV adjustment according to patient size. FINDINGS: No acute lumbar spine fracture seen. No aggressive marrow pattern or malalignment. Paraspinal tissues are normal in thickness. No paraspinal abscess or hematoma seen. Intervertebral disc disease assessment is inherently limited by CT. Within these limitations, no high -grade canal stenosis suspected. The disc heights are preserved. Facet degenerative changes are present at L3-4, L4-5, L5-S1. This res ults in severe neural foraminal narrowing on the right at L5-S1. Moderate neural foraminal narrowing is present at L4-5 bilaterally and on the left at L5-S1. IMPRESSION: No acute fracture of the lumbar spine. Predominantly facet degenerative changes bilatera lly at the lower levels with evidence of neural foraminal narrowing at L4-5 and L5-S1 primarily. No h igh-grade central spinal stenosis is identified.
[2024-03-08 14:42] LABS: Specific Gravity 1.024 (1.005-1.030); Sqamous Epithelial <5 /HPF (None Seen); Urine Bacteria None Seen /HPF (<20); Urine Bilirubin NEGATIVE (Negative); Urine Blood Negative (Negative); Urine Clarity Clear (Clear); Urine Color Yellow (Yellow); Urine Culture Reflex Order NOT NEEDED; Urine Glucose NEGATIVE (Negative); Urine Ketones NEGATIVE (Negative); Urine Micro Reflex YN NO BILL MICROSCOPIC; Urine Mucus Slight /HPF (None Seen); Urine Nitrite NEGATIVE (Negative); Urine Protein NEGATIVE (Negative); Urine RBC <5 /HPF (None Seen); Urine Urobilinogen Normal (Normal)
[2024-03-08] MEDS ORDERED: CEFTRIAXONE 1000 MG/VIAL ONE (15:28)
[2024-03-08] MEDS ORDERED: LIDOCAINE 1% MPF 5 ML VIAL ONE (15:28)
[2024-03-08] MEDS ORDERED: HYDROCODONE/APAP 7.5/325 MG TAB ONE (15:28)
--- NOTE | 2024-03-08 15:54 | EDPHYS ---
Physician Documentation [facility] Name: Brigid Chavarria Age: 53 yrs Sex: Female : 1970 Arrival Date: 03/08/2024 Time: 12:33 Bed 20 Private MD: TUTU Physician Broderick Peña HPI: 03/08 12:54 This 53 yrs old Black Female presents to ER via Wheelchair with complaints of Back Pain.sb4 12:54 The patient presents with pain that is acute, with no known mechanism of injury. The sb4 symptoms are located in the right low back. Onset: The symptoms/episode began/occurred this morning. The pain radiates to the back and right leg. Associated signs and symptoms: The patient has no apparent associated signs or symptoms. The problem was sustained without known cause. Modifying factors: The patient symptoms are alleviated by nothing, the patient symptoms are aggravated by any movement, walking. The patient has not experienced similar symptoms in the past. The patient has not recently seen a physician. CFO: 16:03 LMP N/A - Post-menopause, Not me1 Historical: - Allergies: 12:40 No Known Drug Allergies; hb - PMHx: 12:40 Anemia; Hypertension; PTSD; TBI; hb - PSHx: 12:40 Brain sx; hb - Immunization history:: Adult Immunizations up to date. - Infectious Disease History:: Denies. - Social history:: Smoking status: Patient denies any tobacco usage or history of. ROS: 12:54 Constitutional: Negative for fever, chills, and weight loss, sb4 12:54 Back: Positive for decreased range of motion, pain at rest, pain with movement, radiated pain, of the right low back, 12:54 All other systems are negative, Exam: 12:54 Head/Face: Normocephalic, atraumatic. Eyes: Extra-ocular motions intact. Periorbital sb4 areas with no swelling, redness, or edema. ENT: Mucous membranes moist. 12:54 Constitutional: The patient appears alert, awake, in obvious pain, uncomfortable, crying 12:54 Back: pain, that is moderate, ROM is painful, normal spinal alignment noted, CVA tenderness, is absent, vertebral tenderness, is not appreciated, muscle spasm, is appreciated in the right low back, Straight leg raises: right lower extremity illicits pain, 15:53 Neuro: Exam negative for acute changes, focal neuro deficits, motor deficits, sensory sb4 deficits, cerebellar deficits, altered mental status, confusion, cranial nerve deficits, disorientation, dizziness, dysarthria, gait abnormality, memory loss, paresthesias, Romberg test, weakness, Vital Signs: 12:46 BP 129 / 89; Pulse 79; Resp 18; Temp 97.2; Pulse Ox 98% ; Weight 70.31 kg; Height 5 ft. ph 4 in. ; Pain 10/10; 13:45 BP 127 / 78; Pulse 63; Resp 16; Pulse Ox 96% ; me1 14:30 BP 148 / 96; Pulse 59; Resp 16; Pulse Ox 98% on R/A; me1 15:30 BP 157 / 89; Pulse 61; Resp 17; Pulse Ox 99% on R/A; me1 15:45 BP 161 / 99; Pulse 56; Resp 18; Pulse Ox 100% on R/A; me1 12:46 Body Mass Index 26.61 (70.31 kg, 162.56 cm) ph 12:46 Pain Scale: Adult ph MDM: 12:50 Patient medically screened. sb4 15:52 Data reviewed: vital signs, nurses notes, radiologic studies, and as a result, I will sb4 discharge patient. Care significantly affected by the following chronic conditions: Hypertension. Counseling: I had a detailed discussion with the patient and/or guardian regarding the historical points, exam findings, and any diagnostic results supporting the discharge/admit diagnosis, radiology results, to return to the emergency department if symptoms worsen or persist or if there are any questions or concerns that arise at home. 03/08 12:54 Order name: UAM; Complete Time: 14:43 sb4 03/08 12:54 Order name: CT Lumbar Spine Wo Con; Complete Time: 13:27 sb4 Administered Medications: 13:27 Drug: Diazepam IM 10 mg IM once Route: IM; Site: left deltoid; me1 15:51 Follow up: Response: No adverse reaction; Pain is decreased me1 13:27 Drug: Ketorolac IM 30 mg IM once Route: IM; Site: left deltoid; me1 15:51 Follow up: Response: No adverse reaction; Pain is decreased me1 13:28 Drug: Lidoderm Topical Patch 5 % (700 mg/patch) 1 patches Topical once; leave on for 12 me1 hours; cover most painful area; may cut into smaller pieces {Note: lower back.} Route: Topical; Site: affected area; 15:51 Follow up: Response: No adverse reaction; Pain is decreased me1 15:31 Drug: Hydrocodone-Acetaminophen PO (7.5 mg-325 mg) 1 tabs PO once Route: PO; me1 15:51 Follow up: Response: No adverse reaction; Pain is decreased me1 15:48 Drug: Rocephin (cefTRIAXone) IM 1 grams IM once Route: IM; Site: left gluteus; me1 16:02 Follow up: Response: No adverse reaction me1 Disposition Summary: 03/08/24 15:53 Discharge Ordered Notes: Location: Home sb4 Problem: new sb4 Symptoms: have improved sb4 Condition: Stable sb4 Diagnosis - Lumbago with sciatica, right side sb4 Followup: sb4 - With: Private Physician - When: 1 week - Reason: Further diagnostic work-up, Recheck today's complaints, Re-evaluation by your physician Discharge Instructions: - Discharge Summary Sheet sb4 - Sciatica sb4 Forms: - Patient Portal Instructions sb4 - Leadership Thank You Letter sb4 Prescriptions: - Cyclobenzaprine 10 mg Oral Tablet - take 1 tablet ORAL route every 8 hours As needed; 30 tablet; Refills: 0, sb4 Product Selection Permitted - Diclofenac Sodium 75 mg Oral Tablet Sustained Release - take 1 tablet ORAL route 2 times per day; 30 tablet; Refills: 0, Product sb4 Selection Permitted - Medrol (Arnol) 4 mg Oral Tablets, Dose Pack - take 1 tablet ORAL route as directed - follow package instructions; 1 packet; sb4 Refills: 0, Product Selection Permitted Signatures: Dispatcher [employer] EDJolene Cooper RN RN hb Lewis, Lynsay, RN RN ll1 Annamaria Chavarria PA-C PADanette sb4 Laura Petersen RN RN me1
--- NOTE | 2024-03-08 15:54 | ER ---
Nurse's Notes [facility] Name: Brigid Chavarria Age: 53 yrs Sex: Female : 1970 Arrival Date: 03/08/2024 Time: 12:33 Bed 20 Private MD: Diagnosis: Lumbago with sciatica, right side Presentation: 03/08 12:46 Chief complaint: Patient states: Severe back pain started this morning. After seeing ll1 her mom at the longterm it got more severe. Unable to walk well when trying to get out of the bed again. No trauma or falls. Coronavirus screen: Client denies travel out of the [place] in the last 14 days. At this time, the client does not indicate any symptoms associated with coronavirus-19. Ebola Screen: Patient denies travel to an Ebola-affected area in the 21 days before illness onset. Initial Sepsis Screen: Does the patient meet any 2 criteria? No. Patient's initial sepsis screen is negative. Does the patient have a suspected source of infection? No. Patient's initial sepsis screen is negative. Risk Assessment: Do you want to hurt yourself or someone else? Patient reports no desire to harm self or others. Onset of symptoms was March 08, 2024. 12:46 Method Of Arrival: Wheelchair ll1 12:46 Acuity: [place] 4 ll1 Triage Assessment: 12:48 General: Appears distressed, uncomfortable, Behavior is cooperative, appropriate for ll1 age, anxious, drowsy. Pain: Complains of pain in back Pain currently is 10 out of 10 on a pain scale. Quality of pain is described as aching, throbbing, Pain began this AM. Musculoskeletal: Circulation, motion, and sensation intact. Capillary refill < 3 seconds, Reports pain in back. 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 - Infectious Disease History:: Denies. - Social history:: Smoking status: Patient denies any tobacco usage or history of. Screenin:32 [facility] ED Fall Risk Assessment (Adult) History of falling in the last 3 months, me1 including since admission No falls in past 3 months (0 pts) Confusion or Disorientation No (0 pts) Intoxicated or Sedated No (0 pts) Impaired Gait No (0 pts) Mobility Assist Device Used No (0 pt) Altered Elimination No (0 pt) Score/Fall Risk Level 0 - 2 = Low Risk Maintained a safe environment, Provided non-skid footwear, Hourly rounding (assess needs \T\ fall precautionary measures) done. Abuse screen: Denies threats or abuse. Nutritional screening: No deficits noted. Tuberculosis screening: No symptoms or risk factors identified. Assessment: 13:32 General: Appears uncomfortable, well groomed, well developed, well nourished, Behavior me1 is cooperative, appropriate for age, anxious, restless, Reports Severe back pain started this morning. After seeing her mom at the longterm it got more severe. Unable to walk well when trying to get out of the bed again. No trauma or falls. Pain: Complains of pain in right leg and right low back and back Pain radiates to right leg Pain currently is 10 out of 10 on a pain scale. Quality of pain is described as sharp, shooting, Pain began gradually, 4 hours ago. Is continuous. Neuro: Level of Consciousness is awake, alert, obeys commands, Oriented to person, place, time, situation, Appropriate for age. Cardiovascular: Capillary refill < 3 seconds Patient's skin is warm and dry. Respiratory: Airway is patent Respiratory effort is even, unlabored, Respiratory pattern is regular, symmetrical. GI: No signs and/or symptoms were reported involving the gastrointestinal system. : No signs and/or symptoms were reported regarding the genitourinary system. EENT: No signs and/or symptoms were reported regarding the EENT system. Derm: Skin is intact, is healthy with good turgor, Skin is pink, warm \T\ dry. Musculoskeletal: Reports pain in right leg and right low back and back. Vital Signs: 12:46 BP 129 / 89; Pulse 79; Resp 18; Temp 97.2; Pulse Ox 98% ; Weight 70.31 kg; Height 5 ft. ph 4 in. ; Pain 10/10; 13:45 BP 127 / 78; Pulse 63; Resp 16; Pulse Ox 96% ; me1 14:30 BP 148 / 96; Pulse 59; Resp 16; Pulse Ox 98% on R/A; me1 15:30 BP 157 / 89; Pulse 61; Resp 17; Pulse Ox 99% on R/A; me1 15:45 BP 161 / 99; Pulse 56; Resp 18; Pulse Ox 100% on R/A; me1 12:46 Body Mass Index 26.61 (70.31 kg, 162.56 cm) ph 12:46 Pain Scale: Adult ph ED Course: 12:34 Patient arrived in ED. ts1 12:40 Arm band placed on Patient placed in an exam room, on a stretcher. hb 12:48 Triage completed. ll1 12:50 Ananmaria Chavarria PA-C is PHCP. sb4 12:50 Broderick Peña MD is Attending Physician. sb4 13:04 CT Lumbar Spine Wo Con In Process Unspecified. EDMS 13:19 Laura Petersen, MCKENZIE is Primary Nurse. me1 13:32 Patient has correct armband on for positive identification. Bed in low position. Call me1 light in reach. Side rails up X2. Provided Education on: POC. Verbalized understanding.. Client placed on continuous cardiac and pulse oximetry monitoring. NIBP monitoring applied. Pulse ox on. NIBP on. Warm blanket given. 13:32 No provider procedures requiring assistance completed. Patient did not have IV access me1 during this emergency room visit. 14:15 UAM Sent. me1 14:15 Urine collected: clean catch specimen, yocasta colored. me1 Administered Medications: 13:27 Drug: Diazepam IM 10 mg IM once Route: IM; Site: left deltoid; me1 15:51 Follow up: Response: No adverse reaction; Pain is decreased me1 13:27 Drug: Ketorolac IM 30 mg IM once Route: IM; Site: left deltoid; me1 15:51 Follow up: Response: No adverse reaction; Pain is decreased me1 13:28 Drug: Lidoderm Topical Patch 5 % (700 mg/patch) 1 patches Topical once; leave on for 12 me1 hours; cover most painful area; may cut into smaller pieces {Note: lower back.} Route: Topical; Site: affected area; 15:51 Follow up: Response: No adverse reaction; Pain is decreased me1 15:31 Drug: Hydrocodone-Acetaminophen PO (7.5 mg-325 mg) 1 tabs PO once Route: PO; me1 15:51 Follow up: Response: No adverse reaction; Pain is decreased me1 15:48 Drug: Rocephin (cefTRIAXone) IM 1 grams IM once Route: IM; Site: left gluteus; me1 16:02 Follow up: Response: No adverse reaction me1 Medication: 13:32 VIS not applicable for this client. me1 Outcome: 15:53 Discharge ordered by . sb4 16:11 Discharged to home via wheelchair, with friend, me1 16:11 Condition: stable 16:11 Discharge instructions given to patient, friend, Instructed on discharge instructions, follow up and referral plans. medication usage, Demonstrated understanding of instructions, follow-up care, medications, Prescriptions given X 3, 16:11 Patient left the ED. la1 Signatures: Dispatcher [employer] EDAmber Stevens, MCKENZIE RN Jolene Fritz RN RN hb Lewis, Lynsay, RN RN ll1 Annamaria Chavarria, PA-C PA-C sb4 Isis Avery PAS PAS ts1 Laura Petersen RN RN la1 Corrections: (The following items were deleted from the chart) 12:50 12:46 Resp 18bpm; Pulse Ox 98%; Temp 97.2F; 70.31 kg; Height 5 ft. 4 in.; BMI: 26.6; ph Pain 07/17, Adult; 1 13:32 12:46 Chief complaint: Patient states: Severe back pain started this morning. After me1 seeing her mom at the longterm it got more severe. Unable to walk well when trying to get out of the bed again. No trauma or falls. 1
[2024-03-08 16:22] VITALS: BP 161/99; TEMP 97.2; O2SAT 100
== END 2024-03-08 16:11 | disposition home or self-care (01) ==
LOC: ER 12:33
DX: M54.41 Lumbago with sciatica, right side (principal)
CPT/HCPCS: 81001; 72131; 96372; 99284; J2001 ×2; J3360; J0696

== ENCOUNTER 2024-07-31 22:19 | Emergency (ER) | payer MEDICARE ==
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
[2024-08-01] MEDS ORDERED: ONDANSETRON 4 MG/2 ML VIAL ONE (00:11)
[2024-08-01] MEDS ORDERED: MORPHINE 2 MG/ML SYR ONE (00:12)
[2024-08-01] MEDS ORDERED: FAMOTIDINE 20 MG/2 ML VIAL IV ONE (00:12)
--- NOTE | 2024-08-01 02:24 | RAD REPORT ---
EXAM DESCRIPTION: XR CHEST 1 VIEW 08/01/2024 12:17 AM CDT CLINICAL HISTORY: 54 years, Female, Swallowed foreign body sensation. COMPARISON: XR Chest 07/08/2023. FINDINGS: 1 view of the chest (AP portable projection) was obtained. Prior films were compared. There is mild hyperinflation. Mediastinum: The cardiomediastinal silhouette appears normal in size and shape. Lungs: No areas of consolidations or masses are identified. Heart: The heart is normal in size. Thoracic aorta: The thoracic aorta demonstrate to be mildly tortuous. Pulmonary vasculature: The pulmonary vasculature is normal in distribution. Pleura: The costophrenic angles demonstrate to be sharp. Osseous structures: The bony structures demonstrate to be within normal limits. Other: None. IMPRESSION: No acute cardiopulmonary disease is seen Electronically signed by: Cameron Varner MD 08/01/2024 12:23 AM CDT RP Due to temporary technical issues with the [email or web address] reporting system, reports are being rafi d by the in-house radiologist without review as a courtesy to ensure prompt reporting the interpreting radiologist is fully responsible for the content of the report. Transcribed Date/Time: 08/01/2024 2:24 AM
[2024-08-01 02:26] LABS: PT Prothrombin Time 11.8 SECONDS (9.4-12.5); Protime INR 1.06
[2024-08-01 02:28] LABS: Absolute Eosinophils 0.2 K/uL (0-0.5); Absolute Monocytes 0.3 K/uL (0.1-1.3); Absolute Neutrophil 2.1 K/uL (1.8-8.0); Basophils % 0.9 % (0-1.3); Eosinophils % 4.6 % (0-4.4); Hematocrit 37.8 % (36.0-45.0); Hemoglobin 12.5 g/dL (12.0-15.0); Lymphocytes % 42.3 % (15.3-44.8); MCH 30.5 pg (27.0-35.0); MCV 92.4 fL (80-100); MPV 9.4 fL (7.6-11.3); Monocytes % 7.2 % (3.3-12.3); Platelets 155 thou/uL (152-406); RBC Red Blood Cell Count 4.09 M/uL (3.86-4.86); Red Cell Distribution Width 14.2 % (12.1-15.2)
[2024-08-01 02:30] LABS: Potassium 3.7 mEq/L (3.5-5.1); Sodium Level 142 mEq/L (136-145)
[2024-08-01 02:34] LABS: Albumin 3.5 g/dL (3.4-5.0); Anion Gap 8.7 mEq/L (5.0-15.0); BUN Blood Urea Nitrogen 20 mg/dL (7-18); Bicarbonate 26 mEq/L (21-32); Glucose Level 106 mg/dL (74-106); Magnesium 1.6 mg/dL (1.6-2.4)
[2024-08-01 02:45] LABS: ALT/SGPT 34 U/L (13-56); AST/SGOT 20 U/L (15-37); Alkaline Phosphatase 92 U/L (45-117); Bilirubin Direct < 0.1 mg/dL (0-0.2); Bilirubin Indirect, Calculated ND mg/dL (0.2-0.8); Bilirubin Total 0.3 mg/dL (0.2-1.0); Globulin 3.4 g/dL (2.3-3.5); Glomerular Filtration Rate 89 ml/min (=/>90); Protein, Total 6.9 g/dL (6.4-8.2)
[2024-08-01 02:46] LABS: Troponin High Sensitivity 5.9 pg/mL (<58.9)
[2024-08-01] MEDS ORDERED: MAGNES/ALUMIN/SIMET 30ML UCUP ONE (04:25)
[2024-08-01] MEDS ORDERED: LIDOCAINE VISCOUS 2% 10ML ORAL SOLN ONE (04:26)
--- NOTE | 2024-08-01 05:05 | ER ---
Nurse's Notes [facility] Name: Brigid Chavarria Age: 54 yrs Sex: Female : 1970 Arrival Date: 07/31/2024 Time: 22:19 Bed 18 Private MD: Diagnosis: Acute laryngopharyngitis;Sensation of foreign body in the neck Presentation: 07/31 22:32 Chief complaint: Patient states: I was eating and got a piece of pork in my throat and ha1 is not going down. 22:32 Coronavirus screen: Vaccine status: Patient reports being unvaccinated. Ebola Screen: ha1 No symptoms or risks identified at this time. Initial Sepsis Screen: Does the patient meet any 2 criteria? No. Patient's initial sepsis screen is negative. Does the patient have a suspected source of infection? No. Patient's initial sepsis screen is negative. Risk Assessment: Do you want to hurt yourself or someone else? Patient reports no desire to harm self or others. Onset of symptoms was July 31, 2024. 22:32 Method Of Arrival: Ambulatory ha1 22:32 Acuity: [place] 3 ha1 Historical: - Allergies: 22:47 No Known Allergies; ha1 - PMHx: 22:47 Anemia; Hypertension; PTSD; TBI; ha1 - PSHx: 22:47 Brain sx; ha1 - Immunization history:: Adult Immunizations up to date. - Infectious Disease History:: Denies. - Social history:: Smoking status: Patient denies any tobacco usage or history of. Screenin/25 01:00 [facility] ED Fall Risk Assessment (Adult) History of falling in the last 3 months, al5 including since admission No falls in past 3 months (0 pts) Confusion or Disorientation No (0 pts) Intoxicated or Sedated No (0 pts) Impaired Gait No (0 pts) Mobility Assist Device Used No (0 pt) Altered Elimination No (0 pt) Score/Fall Risk Level 0 - 2 = Low Risk Oriented to surroundings, Maintained a safe environment, Hourly rounding (assess needs \T\ fall precautionary measures) done. 01:00 Abuse screen: Denies threats or abuse. Denies injuries from another. Nutritional al5 screening: No deficits noted. Tuberculosis screening: No symptoms or risk factors identified. Assessment: 01:00 General: Appears in no apparent distress. Behavior is calm, cooperative. Pain: Denies al5 pain. Neuro: Level of Consciousness is awake, alert, obeys commands, Oriented to person, place, time, situation. Cardiovascular: Capillary refill < 3 seconds Patient's skin is warm and dry. Respiratory: Airway is patent Respiratory effort is even, unlabored, Respiratory pattern is regular, symmetrical. GI: No signs and/or symptoms were reported involving the gastrointestinal system. : No signs and/or symptoms were reported regarding the genitourinary system. EENT: Reports feels like the food is still stuck in her throat. Derm: Skin is intact, is healthy with good turgor, Skin is pink, warm \T\ dry. normal. Musculoskeletal: No signs and/or symptoms reported regarding the musculoskeletal system. 02:00 Reassessment: Patient appears in no apparent distress at this time. No changes from al5 previously documented assessment. Patient and/or family updated on plan of care and expected duration. Pain level reassessed. Patient is alert, oriented x 3, equal unlabored respirations, skin warm/dry/pink. 03:21 Reassessment: Patient appears in no apparent distress at this time. No changes from al5 previously documented assessment. Patient and/or family updated on plan of care and expected duration. Pain level reassessed. Patient is alert, oriented x 3, equal unlabored respirations, skin warm/dry/pink. 04:57 Reassessment: Patient appears in no apparent distress at this time. No changes from al5 previously documented assessment. Patient and/or family updated on plan of care and expected duration. Pain level reassessed. Patient is alert, oriented x 3, equal unlabored respirations, skin warm/dry/pink. Patient states feeling better. 05:26 Reassessment: Patient appears in no apparent distress at this time. No changes from al5 previously documented assessment. Patient and/or family updated on plan of care and expected duration. Pain level reassessed. Patient is alert, oriented x 3, equal unlabored respirations, skin warm/dry/pink. patient discharged home. Vital Signs: 07/31 22:32 BP 140 / 108; Pulse 60; Resp 18 S; Temp 97.1; Pulse Ox 100% on R/A; Weight 65.77 kg; ha1 Height 5 ft. 2 in. ; 22:46 BP 130 / 78; Pulse 64; Resp 17; Pulse Ox 98% on R/A; al5 23:00 BP 117 / 81; Pulse 63; Resp 18; Pulse Ox 98% on R/A; al5 23:30 BP 119 / 83; Pulse 64; Resp 18; Pulse Ox 98% on R/A; al5 08/01 00:00 BP 121 / 83; Pulse 62; Resp 17; Pulse Ox 98% on R/A; al5 00:30 BP 132 / 86; Pulse 66; Resp 17; Pulse Ox 98% on R/A; al5 01:00 BP 139 / 96; Pulse 64; Resp 15; Pulse Ox 97% on R/A; al5 01:30 BP 126 / 90; Pulse 63; Resp 14; Pulse Ox 96% on R/A; al5 02:00 BP 129 / 85; Pulse 62; Resp 15; Pulse Ox 97% on R/A; al5 02:30 BP 125 / 85; Pulse 66; Resp 16; Pulse Ox 98% on R/A; al5 03:00 BP 133 / 80; Pulse 64; Resp 17; Pulse Ox 97% on R/A; al5 04:00 BP 117 / 91; Pulse 63; Resp 17; Pulse Ox 98% on R/A; al5 04:30 BP 127 / 86; Pulse 63; Resp 16; Pulse Ox 99% on R/A; al5 07/31 22:32 Body Mass Index 26.52 (65.77 kg, 157.48 cm) ha1 ED Course: 07/31 22:21 Patient arrived in ED. im 22:28 Broderick Muller PA is PHCP. cp 22:28 Flako Albrecht MD is Attending Physician. cp 22:45 Missed attempt(s): 22 gauge Bleeding controlled, band aid applied, catheter tip intact. ty 22:47 Triage completed. ha1 22:55 Missed attempt(s): 22 gauge in right antecubital area. Bleeding controlled, band aid ty applied, catheter tip intact. 22:58 Inserted saline lock: 22 gauge in right wrist, using aseptic technique. Blood ty collected. Flushed with 10 mL NS. 08/01 00:07 XRAY Chest (1 view) In Process Unspecified. EDMS 01:00 No provider procedures requiring assistance completed. al5 01:00 Patient has correct armband on for positive identification. Bed in low position. Call al5 light in reach. Side rails up X2. 01:00 Provided Education on: plan of care. al5 01:00 Arm band placed on right wrist. Patient placed in the treatment room, on a stretcher. al5 01:27 Tamika Schneider, MCKENZIE is Primary Nurse. al5 03:20 CT Soft Tissue Neck W/contr: foreign body sensation, pork chop bone In Process EDMS Unspecified. 05:27 IV discontinued, intact, bleeding controlled, No redness/swelling at site. Pressure al5 dressing applied. Administered Medications: 00:20 Drug: morphine IVP or IV 2 mg IVP once over 4 mins Route: IVP; Infused Over: 4 mins; jj7 Site: right wrist; 01:40 Follow up: Response: No adverse reaction; Pain is decreased al5 00:21 Drug: Ondansetron IVP 4 mg IVP once; over 2 minutes Route: IVP; Site: right wrist; jj7 01:39 Follow up: Response: No adverse reaction; Nausea is decreased al5 00:21 Drug: Famotidine IVP 20 mg IVP once; dilute with 10 mL 0.9% NaCl; give over 2 minutes jj7 Route: IVP; Site: right wrist; 01:40 Follow up: Response: No adverse reaction; Pain is decreased al5 04:29 Drug: GI Cocktail without - (Maalox PO 30 ml, Lidocaine Mucous Membrane 2 % 15 al5 ml) PO once Route: PO; 04:50 Follow up: Response: No adverse reaction; No adverse reaction; throat pain decreased al5 05:27 Not Given (Patient Refused): hydrocodone-acetaminophen5 mg-325 mg 2 tabs PO once al5 Medication: 02:57 VIS not applicable for this client. al5 Outcome: 05:04 Discharge ordered by . jayne 05:27 Discharged to home ambulatory, al5 05:27 Condition: good 05:27 Discharge instructions given to patient, Instructed on discharge instructions, follow up and referral plans. Demonstrated understanding of instructions, follow-up care, 05:28 Patient left the ED. al5 Signatures: Dispatcher [employer] EDIL Broderick Muller PA PA cp Ayala, Heidy RN RN ha1 Prasanna Henriquez RN RN jj7 Flako Albrecht MD MD sp4 Alis Sy Tylor ty Tamika Schneider RN RN al5 Corrections: (The following items were deleted from the chart) 07/31 23:08 22:55 Inserted saline lock: 22 gauge in right wrist, using aseptic technique. Blood ty collected. Flushed with 10 mL NS Missed attempt(s): 22 gauge Bleeding controlled, band aid applied, catheter tip intact. ty 08/01 05:27 04:57 Reassessment: Patient appears in no apparent distress at this time. No changes al5 from previously documented assessment. Patient and/or family updated on plan of care and expected duration. Pain level reassessed. Patient is alert, oriented x 3, equal unlabored respirations, skin warm/dry/pink. al5
--- NOTE | 2024-08-01 05:05 | EDPHYS ---
Physician Documentation [facility] Name: Brigid Chavarria Age: 54 yrs Sex: Female : 1970 Arrival Date: 07/31/2024 Time: 22:19 Bed 18 Private MD: ED Physician Flako Albrecht HPI: 07/31 23:30 This 54 yrs old Black Female presents to ER via Ambulatory with complaints of Foreign cp Body In Throat - food, Difficulty Swallowing. 23:30 The patient or guardian reports the patient has a suspected foreign body, of the cp throat. The reported likely foreign body is bone of pork chop. 23:30 Onset: The symptoms/episode began/occurred tonight while eating. Current symptoms: cp foreign body sensation, nausea, pain. Treatment Prior to Arrival: tried to vomit. Historical: - Allergies: 22:47 No Known Allergies; ha1 - PMHx: 22:47 Anemia; Hypertension; PTSD; TBI; ha1 - PSHx: 22:47 Brain sx; ha1 - Immunization history:: Adult Immunizations up to date. - Infectious Disease History:: Denies. - Social history:: Smoking status: Patient denies any tobacco usage or history of. ROS: 23:35 Constitutional: Negative for body aches, chills, fever, poor PO intake, cp 23:35 Eyes: Negative for injury, pain, redness, and discharge, cp 23:35 ENT: Positive for foreign body sensation, throat pain, Negative for drainage from ear(s), ear pain, difficulty swallowing, difficulty handling secretions, 23:35 Neck: Positive for pain at rest, swallowed foreign body sensation, Negative for injury or acute deformity, 23:35 Cardiovascular: Negative for chest pain, edema, palpitations, 23:35 Respiratory: Negative for cough, shortness of breath, wheezing, 23:35 Abdomen/GI: Positive for nausea, several episodes of forced vomiting, Negative for diarrhea, constipation, 23:35 Neuro: Negative for altered mental status, dizziness, headache, weakness, 23:35 All other systems are negative, Exam: 23:45 Constitutional: The patient appears in no acute distress, alert, awake, cp non-diaphoretic, non-toxic, well developed, well nourished, uncomfortable, 23:45 Head/Face: Normocephalic, atraumatic. cp 23:45 Eyes: Periorbital structures: appear normal, Conjunctiva: normal, no exudate, no injection, Sclera: no appreciated abnormality, Lids and lashes: appear normal, bilaterally, 23:45 ENT: External ear(s): are unremarkable, Nose: is normal, Mouth: Lips: moist, Oral mucosa: pink and intact, moist, Posterior pharynx: Airway: no evidence of obstruction, patent, swelling, is not appreciated, erythema, is not appreciated, Voice: is normal, 23:45 Neck: ROM/movement: limited range of motion, is not appreciated, nuchal rigidity, is not appreciated, pain anterior lower neck, 23:45 Chest/axilla: Inspection: normal, 23:45 Cardiovascular: Rate: normal, Rhythm: regular, 23:45 Respiratory: the patient does not display signs of respiratory distress, Respirations: normal, no use of accessory muscles, no retractions, labored breathing, is not present, Breath sounds: are clear throughout, no decreased breath sounds, no stridor, no wheezing, 23:45 Abdomen/GI: Inspection: abdomen appears normal, Palpation: abdomen is soft and non-tender, in all quadrants, 08/01 20:26 ECG was reviewed by the Attending Physician. EKG at 0133 normal sinus rhythm with LVH sp4 Vital Signs: 07/31 22:32 BP 140 / 108; Pulse 60; Resp 18 S; Temp 97.1; Pulse Ox 100% on R/A; Weight 65.77 kg; ha1 Height 5 ft. 2 in. ; 22:46 BP 130 / 78; Pulse 64; Resp 17; Pulse Ox 98% on R/A; al5 23:00 BP 117 / 81; Pulse 63; Resp 18; Pulse Ox 98% on R/A; al5 23:30 BP 119 / 83; Pulse 64; Resp 18; Pulse Ox 98% on R/A; al5 08/01 00:00 BP 121 / 83; Pulse 62; Resp 17; Pulse Ox 98% on R/A; al5 00:30 BP 132 / 86; Pulse 66; Resp 17; Pulse Ox 98% on R/A; al5 01:00 BP 139 / 96; Pulse 64; Resp 15; Pulse Ox 97% on R/A; al5 01:30 BP 126 / 90; Pulse 63; Resp 14; Pulse Ox 96% on R/A; al5 02:00 BP 129 / 85; Pulse 62; Resp 15; Pulse Ox 97% on R/A; al5 02:30 BP 125 / 85; Pulse 66; Resp 16; Pulse Ox 98% on R/A; al5 03:00 BP 133 / 80; Pulse 64; Resp 17; Pulse Ox 97% on R/A; al5 04:00 BP 117 / 91; Pulse 63; Resp 17; Pulse Ox 98% on R/A; al5 04:30 BP 127 / 86; Pulse 63; Resp 16; Pulse Ox 99% on R/A; al5 07/31 22:32 Body Mass Index 26.52 (65.77 kg, 157.48 cm) ha1 MDM: 07/31 22:41 Medical Screening Exam initiated cp 08/01 04:56 ED course: EXAM: CT neck with intravenous contrast CLINICAL DATA: 54 years Female sp4 FOREIGN BODY. Patient swallowed a bone and feels like it is stuck in her throat TECHNICAL DATA: Axial CT imaging of the soft tissues of the neck were performed following the administration of intravenous contrast. followed by sagittal and coronal reconstructed images. The CT study is performed according to ALARA (as low as reasonably achievable) or ALARA/IMAGE GENTLY, with automatic adjustment of mA and/or kV according to patient size. Performed on: 08/01/2024 at 3:09 AM Comparisons: Head CT and cervical spine CT performed on 07/01/2023.. FINDINGS: The visualized portions of the brain are unremarkable. There are remote postsurgical changes of the facial bones including the right zygomatic arch, bilateral maxilla and frontal sinuses. There is an old fracture of the right lamina papyracea with chronic posttraumatic changes of the right globe. There is mucosal thickening or possibly mucous retention cyst or polyp in the anterior left ethmoid air cells. The oral cavity, oropharynx and nasopharynx are normal. Some portions of the oral cavity and oropharynx are obscured by streak artifact related to the patient's dental hardware. The parapharyngeal fat planes are preserved. The hypopharynx is unremarkable. The epiglottis and aryepiglottic folds are normal. The vallecula and pyriform sinuses are grossly normal. The preepiglottic fat is preserved. The thyroid, cricoid and arytenoid cartilages are normal. The region of the false and true vocal cords is normal as is the anterior commissure. The parotid glands are symmetric bilaterally. The submandibular glands are hypoplastic. The carotid sheaths are normal bilaterally. There is mucosal thickening or possibly a mucous retention cyst or polyp in the anterior left ethmoid air cells. No definite pathologically enlarged lymph nodes are identified The thyroid gland is normal in size and configuration. The thoracic inlet is normal. The superior mediastinum and lung apices are normal. No acute osseous abnormalities are identified. There is degenerative spondylosis along the visualized cervical spine most pronounced from C3 through C6. No acute soft tissue abnormalities are identified. There is a stable punctate calcification along the inferior aspect of the right aryepiglottic fold. No definite radiopaque foreign body resembling a bone is identified. IMPRESSION: 1. No evidence of acute abnormality involving the soft tissues of the neck. There is a stable punctate calcification along the inferior aspect of the right aryepiglottic fold. No definite radiopaque foreign body resembling a bone is identified. 2. Remote postsurgical changes of the facial bones with posttraumatic changes of the right globe. 3. Mucosal thickening or possibly a mucous retention cyst or polyp in the anterior left ethmoid air cells. 4. Degenerative spondylosis along the visualized cervical spine most pronounced from C3 through C6. Electronically signed by: Julia Zuleta DO 08/01/2024 04:37 AM C. 04:57 Data reviewed: vital signs, nurses notes, lab test result(s), radiologic studies, CT sp4 scan. 05:02 Differential diagnosis: apthous stomatitis, caustic ingetion, chemical burn, sp4 epiglottitis, gingivostomatitis, influenza. Consideration of Admission/Observation Escalation of care including admission/observation considered. ED course: CT is negative for foreign body in the neck. Stable for discharge home . 07/31 23: Order name: Basic Metabolic Panel; Complete Time: 04:56 cp 07/31 23:27 Order name: CBC with Diff; Complete Time: 04:56 cp 07/31 23:27 Order name: LFT's; Complete Time: 04:56 cp 07/31 23:27 Order name: Magnesium; Complete Time: 04:56 cp 07/31 23:27 Order name: PT-INR; Complete Time: 04:56 cp 07/31 23:27 Order name: Troponin HS; Complete Time: 04:56 cp 07/31 23:27 Order name: XRAY Chest (1 view) cp 07/31 23:27 Order name: CT Soft Tissue Neck W/contr: foreign body sensation, pork chop bone cp 07/31 23:27 Order name: Cardiac monitoring; Complete Time: 01:39 cp 07/31 23:27 Order name: EKG - Nurse/Tech; Complete Time: 01:39 cp 07/31 23:27 Order name: IV Saline Lock; Complete Time: 01:08 cp 07/31 23:27 Order name: Labs collected and sent; Complete Time: 01:39 cp 07/31 23:27 Order name: O2 Per Protocol; Complete Time: 01:27 cp 07/31 23:27 Order name: O2 Sat Monitoring; Complete Time: :27 cp EC:26 Rate is 64 beats/min. Rhythm is regular, Normal Sinus Rhythm. QRS [place] is Normal. [place] sp4 interval is normal. QRS interval is normal. QT interval is normal. No Q waves. T waves are Normal. No ST changes noted. Clinical impression: No evidence of ischemia. Interpreted by me. Reviewed by me. Administered Medications: 00:20 Drug: morphine IVP or IV 2 mg IVP once over 4 mins Route: IVP; Infused Over: 4 mins; jj7 Site: right wrist; 01:40 Follow up: Response: No adverse reaction; Pain is decreased al5 00:21 Drug: Ondansetron IVP 4 mg IVP once; over 2 minutes Route: IVP; Site: right wrist; jj7 01:39 Follow up: Response: No adverse reaction; Nausea is decreased al5 00:21 Drug: Famotidine IVP 20 mg IVP once; dilute with 10 mL 0.9% NaCl; give over 2 minutes jj7 Route: IVP; Site: right wrist; 01:40 Follow up: Response: No adverse reaction; Pain is decreased al5 04:29 Drug: GI Cocktail without - (Maalox PO 30 ml, Lidocaine Mucous Membrane 2 % 15 al5 ml) PO once Route: PO; 04:50 Follow up: Response: No adverse reaction; No adverse reaction; throat pain decreased al5 05:27 Not Given (Patient Refused): hydrocodone-acetaminophen5 mg-325 mg 2 tabs PO once al5 Disposition: 05:01 Co-signature as Attending Physician, Flako Albrecht MD I agree with the assessment sp4 and plan of care. I reviewed the patient's care provided by Advanced Practice Provider \T\ agree w/ the diagnosis \T\ care plan. I personally saw the pt \T\ performed a substantive portion of the visit, incldng all aspects of the (History/Exam/Medical Decision Making). Disposition Summary: 08/01/24 05:04 Discharge Ordered Problem: new sp4 Symptoms: have improved sp4 Condition: Stable sp4 Diagnosis - Acute laryngopharyngitis sp4 - Sensation of foreign body in the neck sp4 Followup: sp4 - With: Private Physician - When: 7 - 10 days - Reason: Recheck today's complaints Discharge Instructions: - Discharge Summary Sheet sp4 - Clear Liquid Diet, Adult, [id number] sp4 Forms: - Patient Portal Instructions sp4 Signatures: Dispatcher [employer] EDBroderick Woodard PA PA cp Ayala, Heidy RN RN ha1 Prasanna Henriquez RN RN jj7 Flako Albrecht MD MD sp4 Tamika Schneider RN RN al5 Corrections: (The following items were deleted from the chart) 07/31 23:27 23:27 BASIC METABOLIC PANEL+C.LAB.BRZ ordered. EDMS EDMS 23:27 23:27 CBC+H.LAB.BRZ ordered. EDMS EDMS 23:27 23:27 HEPATIC FUNCTION+C.LAB.BRZ ordered. EDMS EDMS 23:27 23:27 MAGNESIUM+C.LAB.BRZ ordered. EDMS EDMS 23:27 23:27 PROTIME (+INR)+COAG.LAB.BRZ ordered. EDMS EDMS 23:27 23:27 Troponin High Sensitivity+C.LAB.BRZ ordered. EDMS EDMS 23:27 23:27 Chest Single View+RAD.RAD.BRZ ordered. EDMS EDMS 23:27 23:27 Soft Tissue Neck W/Contr+CT.RAD.BRZ ordered. EDMS EDMS
--- NOTE | 2024-08-01 07:21 | RAD REPORT ---
EXAM: CT neck with intravenous contrast CLINICAL DATA: 54 years Female FORIEGN BODY. Patient swallowed a bone and feels like it is stuck in her throat TECHNICAL DATA: Axial CT imaging of the soft tissues of the neck were performed following the administration of intra venous contrast. followed by sagittal and coronal reconstructed images. The CT study is performed according to ALARA (as low as re asonably achievable) or ALARA/IMAGE GENTLY, with automatic adjustment of mA and/or kV according to patient size. Performed on: 08/01/2024 at 3:09 AM Comparisons: Head CT and cervical spine CT performed on 07/01/2023.. FINDINGS: The visualized portions of the brain are unremarkable. There are remote postsurgical changes of the f acial bones including the right zygomatic arch, bilateral maxilla and frontal sinuses. There is an old fracture of the right lamina p apyracea with chronic posttraumatic changes of the right globe. There is mucosal thickening or possibly mucous retention cyst or polyp in the anterior left ethmoid air cells. The oral cavity, oropharynx and nasopharynx are normal. Some portions of the oral cavity and orophary nx are obscured by streak artifact related to the patient's dental hardware. The parapharyngeal fat planes are preserved. The hypopharynx is unremarkable. The epiglottis and aryepiglottic folds are normal. The vallecula and pyriform sinuses are grossly nor mal. The preepiglottic fat is preserved. The thyroid, cricoid and arytenoid cartilages are normal. The region of the false and true vocal cords is normal as is the anterior commissure. The parotid glands are symmetric bilaterally. The submandibular glands are hypoplastic. The carotid sheaths are normal bilaterally. There is mucosal thickening or possibly a mucous retention cyst or polyp in the anterior left ethmoid air cells. No definite pathologically enlarged lymph nodes are identified The thyroid gland is normal in size and configuration. The thoracic inlet is normal. The superior mediastinum and lung apices are normal. No acute osseous abnormalities are identified. There is degenerative spondylosis along the visualized cervical spine most pronounced from C3 through C6. No acute soft tissue abnormalities are identified. There is a stable punctate calcification along the inferior aspect of the right [facility] [address], [facility] [address] Final Radiology Report Name: JEAN-PAUL SMITH Age: 54y Date: 07/31/2024 11:27 PM : 1970 Study: Soft Tissue Neck W/Contr Requesting Physician: Broderick Page [id number] INES SMITH Page 1 of 2 [id number] Soft Tissue Neck W/Contr aryepiglottic fold. No definite radiopaque foreign body resembling a bone is identified. IMPRESSION: 1. No evidence of acute abnormality involving the soft tissues of the neck. There is a stable punctat e calcification along the inferior aspect of the right aryepiglottic fold. No definite radiopaque foreign body resembling a bone is iden tified. 2. Remote postsurgical changes of the facial bones with posttraumatic changes of the right globe. 3. Mucosal thickening or possibly a mucous retention cyst or polyp in the anterior left ethmoid air c ells. 4. Degenerative spondylosis along the visualized cervical spine most pronounced from C3 through C6. Electronically signed by: Julia Zuleta DO 08/01/2024 04:37 AM T Due to temporary technical issues with the PACS/[employer] reporting system, reports are being rafi d by the in-house radiologist without review as a courtesy to ensure prompt reporting the interpreting radiologist is fully responsible for the content of the report. Transcribed Date/Time: 08/01/2024 7:21 AM
--- NOTE | 2024-08-01 14:11 | EKG ---
Test Date: 2024-08-01 Test Time: 01:33:34 [place] Sieve Operator: NILE MEASUREMENT RESULTS: Intervals: Rate: 64 ID: [id number] QRSD: 84 QT: 398 QTc: 410 [place]: P: 58 ID: [id number] QRS: 16 T: 36 INTERPRETIVE STATEMENTS: Normal sinus rhythm Minimal voltage criteria for LVH, may be normal variant Borderline ECG Compared to ECG 03/10/2020 17:50:31 Sinus bradycardia no longer present Myocardial infarct finding no longer present Electronically Signed On 08-01-24 14:10:27 CDT by Darrel Calhoun
[2024-08-01 14:57] VITALS: TEMP 97.1
[2024-08-01 15:11] VITALS: BP 127/86; O2SAT 99
== END 2024-08-01 05:28 | disposition home or self-care (01) ==
LOC: ER 22:19
DX: J06.0 Acute laryngopharyngitis (principal); R09.A9 Foreign body sensation, other site; I10 Essential (primary) hypertension; Z87.820 Personal history of traumatic brain injury
CPT/HCPCS: 93005; 85025; 80048; 36415; 83735; 85610; 80076; 84484; 70491; 71045; 96375; 96374; 99284; Q9967; J2270; J2405

== ENCOUNTER 2025-02-26 20:31 | Observation (INO) | payer MEDICARE, OTHER ==
--- OUTSIDE RECORDS SUMMARY | 2025-02-26 20:39 | XMS REPORT | Continuity of Care Document ---
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 Name Role Phone Van Pérez Primary Care Physician Angie Ashton Attending Clinician Unavail able More M[place]ough Attending Clinician Unavailable Dinora Wooten Attending Clinician Unavailable ANN ARCHER Attending Clinician Unavailable MINERVA CHACON Attending Clinician Unavail able MINERVA CHACON Attending Clinician Unavail able JAYY MONTES Attending Clinician Unavailable Jayy Montes PA-C Attending Clinician Rosetta Israel Attending Clinician VIKI ALVAREZ Attending Clinician UnavailViki Hamilton Attending Clinician [phone] Sabrina Riggs Attending Clinician Vanessa Phillips Attending Clinician [phone] JACINDA MARTINEZ Attending Clinician Unavailable JACINDA MARTINEZ Attending Clinician Unavailable Eda Dow Attending Clinician Unavailopal e Natalia_Chayo Attending Clinician Unavailable LEYLA LEIVA NATASHA Attending Clinician Unava ilable VIKI ALVAREZ Admitting Clinician UnavailEda Marmolejo Admitting Clinician Unavailabl e Tumelson_A Admitting Clinician Unavailable LEYLA LEIVA NATASHA Admitting Clinician Unava ilable Payers Payer Name Policy Type Policy Number Effective Date Expiration Date Source [facility] [facility] [employer]AGE PLAN [id number] 2024 00:00:00 [employer] [facility] [id number] 2025 00:00:00 [employer] ADVANTAGE PLAN OON [id number] 2023 00:00:00 MEDICARE PART A \\T\\ B [id number] 2016 00:00:00 2023 00:00:00 [facility]LY [facility] (MEDICARE REPLACEMENT HMO) [id number] 2021 00:00:00 [place] [id number] 2021 00:00:00 [place] [id number] 2021 00:00:00 [place] [id number] 2021 00:00:00 [place] [id number] 2021 00:00:00 [facility] [id number] Problems Condition Name Condition Details Condition Category Status Onset Date Resolution Date Last Treatment Date Treating Clinician Comments Source Generalize d weakness Generalize d weakness Disease Active 07-03 00:00: 00 [facility] Obesity (BMI 30-39.9) Obesity (BMI 30-39.9) Disease Active 07-03 00:00: 00 [facility] Papanicola ou smear of cervix with low grade squamous intraepith elial lesion (LGSIL) Papanicola ou smear of cervix with low grade squamous intraepith elial lesion (LGSIL) Disease Active 2014-10 00:00: 00 [facility] Cervical high risk human papillomav irus (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 Pap LGSIL --> colposcop y [facility] Poor high blood pressure control Poor high blood pressure control Disease Active 2014-10 00:00: 00 [facility] Hypertensi ve crisis Hypertensi ve crisis Disease Active 2014-10 00:00: 00 [facility] Uncontroll ed hypertensi on Uncontroll ed hypertensi on Disease Active 2014-10 00:00: 00 [facility] Age-relate d nuclear cataract of left eye Age-relate d nuclear cataract, left eye Problem [facility] [id number] Recurrent major depressive disorder, in partial remission Problem [facility] [id number] NARENDRA (generaliz ed anxiety disorder) Problem [facility] [id number] Flexural atopic dermatitis Problem [facility] [id number] Chronic fatigue Problem [facility] [id number] Vitamin D deficiency Problem [facility] Posttrauma tic stress disorder Post traumatic stress disorder (PTSD) Problem [facility] [id number] Depression with anxiety Problem [facility] [id number] 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 [id number] Chronic post-traum atic headache, not intractabl e Problem [facility] Allergies, Adverse Reactions, Alerts Allergy Name Allergy Type Status Severity Reaction(s) Onset Date Inactive Date Treating Clinician Comments Source Ibuprofe n - Oral Propensi ty to adverse reaction to drug Active 05-30 00:00: 00 Bill Pena No Known Allergie s DA Active U 05-05 00:00: 00 [facility] Ibuprofe n Propensi ty to adverse reaction to drug Inactiv e 04-27 00:00: 00 Bill Pena NO KNOWN ALLERGIE S Drug Class Active [facility] Social History Social Habit Start Date Stop Date Quantity Comments Source ASSERTION Not [facility] History of Social function 2025-02-24 00:00:00 2025-02-24 00:00:00 [facility] Alcoholic beverage intake 2025-02-24 00:00:00 2025-02-24 00:00:00 0 /d [facility] Alcohol intake 2023-12-03 00:00:00 2023-12-03 00:00:00 0 /d [facility] Alcohol Comment 2015-07-06 00:00:00 2015-07-06 00:00:00 socially [facility] Tobacco use and exposure 2015-07-06 00:00:00 2015-07-06 00:00:00 Smokeless tobacco non-user [facility] Sex assigned at 1970 00:00:00 1970 00:00:00 [facility] Smoking Status Start Date Stop Date Source Never smoked tobacco [facility] Medications Ordered Medication Name Filled Medication Name Start Date Stop Date Current Medication? Ordering Clinician Indication Dosage Frequency Signature (SIG) Comments Components Source naproxen 500 mg tablet 02-25 00:00: 00 Yes [id number] 500mg Take 1 tablet by mouth in the morning and 1 tablet in the evening. Take with meals. [facility] lisinopriL- hydrochloro thiazide 20-12.5 mg per tablet 02-24 11:13: 55 Yes 1{tbl} Take 1 tablet by mouth in the morning. [facility] FLUoxetine 20 mg tablet 02-24 00:00: 00 Yes [id number] 20mg Take 1 tablet by mouth in the morning. [facility] amitriptyli ne 25 mg tablet -20 00:00: 00 Yes [id number] 25mg Take 1 tablet by mouth at bedtime. [facility] prazosin 5 mg capsule 02-24 00:00: 00 Yes [id number] 5mg Take 1 capsule by mouth at bedtime. [facility] lisinopril 20 mg-hydrochl orothiazide 25 mg tablet 02-11 00:00: 00 Yes 1mg Bill Pena lisinopril 20 mg-hydrochl orothiazide 25 mg tablet -30 00:00: 00 Yes 1mg Bill Pena hydrocortis one 2.5 % topical cream - 00:00: 00 Yes 1% Bill Pena cetirizine 10 mg tablet -24 00:00: 00 Yes 1mg Bill Pena famotidine 20 mg tablet -24 00:00: 00 Yes 1mg Bill Pena lisinopril 20 mg-hydrochl orothiazide 12.5 mg tablet -16 00:00: 00 Yes 1mg Bill Pena Zoloft 50 mg tablet -06 00:00: 00 Yes 1mg Bill Pena prazosin 2 mg capsule -06 00:00: 00 Yes 1mg Bill Pena Zoloft 25 mg tablet 0 3-03 00:00: 00 Yes 1mg Bill Pena prazosin 1 mg capsule 3-03 00:00: 00 Yes 1mg Bill Pena sodium phosphates (READY-TO-U SE ENEMA) 19-7 gram/118 mL enema 1 Enema 2023-10 0- 04:45: 00 08-02 04:07 :00 No 1{enema } 1 Enema, Rectal, ONCE, 1 dose, On Sun08/01/24 at 2345, Routine [facility] Topiramate 25 MG Topiramate 25 MG 5-02 00:00: 00 No 1{table t} QD Topiramate 25 MG Vitamin D (Cholecalci ferol) 50 MCG (1999) Vitamin D (Cholecalci ferol) 50 MCG (1999) - 00:00: 00 No 1{capsu le} QD Vitamin D (Cholecalc iferol) 50 MCG (1999) TAKE 1 TABLET BY MOUTH EVERY DAY FOR 10 DAYS 12-17 00:00: 00 Yes Bill Pena PREDNISONE 20MG 12-17 00:00: 00 Yes Bill Pena TRIAMCINOLO N 0.1% OIN 12-17 00:00: 00 Yes Bill Pena predniSONE (DELTASONE) tablet 60 mg 12-04 06:15: 00 12-04 06:26 :00 No 60mg 60 mg, Oral, ONCE, 1 dose, On Sun12/04/23 at 0015, [facility] diphenhydrA MINE (BENADRYL) injection 50 mg 12-04 05:15: 12-04 05:40 :00 No 50mg 50 mg, Slow IV Push, ONCE, 1 dose, On Sun12/03/23 at 2315, [facility] famotidine (PEPCID (PF)) injection 20 mg 12-04 05:15: 00 12-04 05:41 :00 No 20mg 20 mg, Slow IV Push, ONCE, 1 dose, On Sun12/03/23 at 2315, [facility] methylpredn isolone sod succ (SOLU-MEDRO L) injection 125 mg 12-04 05:15: 00 12-04 05:40 :00 No 125mg 125 mg, Intravenou s, ONCE, 1 dose, On Sun12/03/23 at 2315, [facility] TAKE 1 CAPSULE BY MOUTH 3 TIMES DAILY NEEDED FOR ITCHING. 12-04 00:00: 00 Yes Bill Pena APPLY TO AFFECTED AREA 3 TIMES A DAY 12-04 00:00: 00 Yes Bill Pena hydrOXYzine 50 mg capsule 12-04 00:00: 00 02-24 00:00 :00 No [id number] 50mg Take 1 capsule by mouth 3 (three) times daily as needed for Itching. [facility] mupirocin 2 % ointment 12-04 00:00: 00 02-24 00:00 :00 No [id number] Apply to area(s) 3 (three) times daily. [facility] predniSONE 20 mg tablet 12-04 00:00: 12-09 05:59 :00 No [id number] 60mg Take 3 tablets by mouth every morning for 5 days. [facility] LISINOP/HCT Z 20-12.5 2022-10 00:00: 00 Yes Bill Pena Ketorolac 15mg Ketorolac 15mg 2022-10 0- 00:00: 00 No 60mg [facility] Kenalog (Triamcinol one) Kenalog (Triamcinol one) 2022-10 0- 00:00: 00 No 40mg [facility] LISINOP/HCT Z 20-12.5 2022-10 0- 00:00: 00 Yes Bill Pena BACLOFEN 10MG 2022-10 0 00:00: 00 Yes Bill Pena TAKE 1 TABLET BY MOUTH TWICE A DAY NEEDED FOR PAIN 2022-10 0 00:00: 00 Yes Bill Pena IBUPROFEN 800MG 07-02 00:00: 00 Yes Bill Pena TAKE 1 TABLET BY MOUTH IN THE MORNING AT NOON AND IN THE EVENING 07-02 00:00: 00 Yes Bill Pena cyclobenzap rine 10 mg tablet 07-02 00:00: 00 02-24 00:00 :00 No [id number] 10mg Take 1 tablet by mouth in the morning and 1 tablet at noon and 1 tablet in the evening. [facility] ibuprofen 800 mg tablet 07-02 00:00: 00 08-01 00:00 :00 No [id number] 800mg Take 1 tablet by mouth every 6 (six) hours as needed for Pain (scale 1-3). [facility] HYDROcodone -acetaminop hen 5-325 mg tablet 0 9-25 00:00: 00 07-10 04:59 :00 No [id number] 1{tbl} Take 1-2 tablets by mouth every 6 (six) hours as needed for Pain (scale 1-3) for up to 7 days. Indication s: acute pain [facility] TAKE 1 DIRECTED TAKE 1 NOW, CAN REPEAT IN 2 HRS IF HEADACHE STILL THERE. 0 5-11 00:00: 00 01-27 00:00 :00 No 50 Bill Pena TAKE 1 TABLET BY MOUTH EVERY 6 HOURS NEEDED 0 1-30 00:00: 00 Yes Bill Pena METHYLPRED 4MG DPAK 0 1-30 00:00: 00 Yes [id number] Bill Pena MUPIROCIN 2% OIN 0 1-14 00:00: 00 Yes 1999 Bill Pena MIRTAZAPINE 30MG TAB 0 8-30 00:00: 00 Yes Bill Pena APPLY 1 APPLICATON EVERY 12 HOURS NEEDED FOR RASH 2021-0 8-23 00:00: 00 Yes Bill Pena HYDROCODONE BITARTRATE/ AC 5-325MG 2021-0 8-12 00:00: 00 Yes Bill Pena TAKE 1 TABLET BY MOUTH EVERY 6 HOURS NEEDED 2021-0 7-31 00:00: 00 Yes Bill Pena HYDROCHLORO THIAZIDE 12.5MG 2021-0 7-30 00:00: 00 Yes [id number] Bill Pena LISINOPRIL 20MG 2021-0 7-21 00:00: 00 Yes Bill Pena LISINOPRIL 20MG 2021-0 6-26 00:00: 00 Yes Bill Pena APPLY 1 APPLICATION TO SKIN 3 TIMES A DAY FOR 7 DAYS 2021-0 6-08 00:00: 00 Yes Bill Pena MUPIROCIN 2% OIN 2021-0 6-07 00:00: 00 Yes 1999 Bill Pena Toilet Seat Elevator - Toilet Seat Elevator - 2021-0 5-04 00:00: 00 No Toilet Seat Elevator - [employer] Vinegar [employer] Vinegar 2022-0 5-04 00:00: 00 - 00:00 :00 No BID Yesica Burrows sumatriptan 25 mg tablet 6-17 00:00: 00 Yes 1mg Bill Pena mirtazapine 30 mg tablet 4-23 00:00: 00 Yes 1mg Bill Pena lisinopril 20 mg tablet 2-05 00:00: 00 Yes 2mg Bill Pena nifedipine ER 30 mg tablet,exte nded release 2-05 00:00: 00 Yes 1mg Bill Pena carvedilol 12.5 mg tablet 2-05 00:00: 00 Yes 1mg Bill Pena hydrochloro thiazide 12.5 mg tablet 2-05 00:00: 00 Yes 1mg Bill Pena hydroxyzine HCl 10 mg tablet 2019-10 2-10 00:00: 00 Yes 12mg Bill Pena Paxil 10 mg tablet 2019-10 2-10 00:00: 00 Yes 1mg Bill Pena lisinopril 20 mg tablet 2019-10 0-28 00:00: 00 Yes 2mg Bill Pena nifedipine ER 30 mg tablet,exte nded release 2019-10 0-28 00:00: 00 Yes 1mg Bill Pena carvedilol 12.5 mg tablet 2019-10 0-28 00:00: 00 Yes 1mg Bill Pena hydrochloro thiazide 12.5 mg tablet 2019-10 0-28 00:00: 00 Yes 1mg Bill Pena lisinopril 20 mg tablet 8-05 00:00: 00 Yes 2mg Bill Pena nifedipine ER 30 mg tablet,exte nded release 8-05 00:00: 00 Yes 1mg Bill Pena carvedilol 12.5 mg tablet 8-05 00:00: 00 Yes 1mg Bill Pena hydrochloro thiazide 12.5 mg tablet 8-05 00:00: 00 Yes 1mg Bill Pena hydrochloro thiazide 12.5 mg tablet 2-03 00:00: 00 Yes 1mg Bill Pena citalopram 20 mg tablet 2018-10 0-22 00:00: 00 Yes 1mg Bill Pena sertraline 50 mg tablet 2018-10 00:00: 00 Yes 1mg Bill Pena nifedipine ER 30 mg tablet,exte nded release 2018-10 00:00: 00 Yes 1mg Bill Pena lisinopril 20 mg tablet 2018-10 00:00: 00 Yes 2mg Bill Pena hydrochloro thiazide 12.5 mg tablet 2018-10 00:00: 00 Yes 1mg Bill Pena carvedilol 12.5 mg tablet 2018-10 00:00: 00 Yes 1mg Bill Pena amLODIPine 5 mg tablet 07-05 00:00: 00 02-24 00:00 :00 No [id number] 5mg Take 1 tablet by mouth daily. [facility] lisinopril 20 mg tablet 07-05 00:00: 00 02-24 00:00 :00 No [id number] 20mg Take 1 tablet by mouth daily. [facility] hydrochloro thiazide 25 mg tablet 06-18 00:00: 00 Yes 1mg Bill Pena nifedipine ER 30 mg tablet,exte nded release 06-18 00:00: 00 Yes 1mg Bill Pena lisinopril 20 mg tablet 06-18 00:00: 00 Yes 2mg Bill Pena carvedilol 12.5 mg tablet 06-18 00:00: 00 Yes 1mg Bill Pena clotrimazol e-betametha sone 1 %-0.05 % topical cream 04-14 00:00: 00 Yes 1% Bill Pena clotrimazol e-betametha sone 1 %-0.05 % topical cream 04-12 00:00: 00 Yes 1% Bill Pena lisinopril 20 mg tablet 04-09 00:00: 00 Yes 2mg Blil Pena nifedipine ER 30 mg tablet,exte nded release 04-09 00:00: 00 Yes 1mg Bill Pena hydrochloro thiazide 25 mg tablet 04-09 00:00: 00 Yes 1mg Bill Pena carvedilol 12.5 mg tablet 04-09 00:00: 00 Yes 1mg Bill Pena hydrochloro thiazide 25 mg tablet 04-08 00:00: 00 Yes 1mg Bill Pena nifedipine ER 30 mg tablet,exte nded release 04-08 00:00: 00 Yes 1mg Bill Pena lisinopril 20 mg tablet 04-08 00:00: 00 Yes 2mg Bill Pena carvedilol 12.5 mg tablet 04-08 00:00: 00 Yes 1mg Bill Pena lisinopril 20 mg tablet 03-05 00:00: 00 Yes 2mg Bill Pena nifedipine ER 30 mg tablet,exte nded release 03-05 00:00: 00 Yes 1mg Bill Pena hydrochloro thiazide 25 mg tablet 03-05 00:00: 00 Yes 1mg Bill Pena carvedilol 12.5 mg tablet 03-05 00:00: 00 Yes 1mg Bill Pena lisinopril 20 mg tablet 12-17 00:00: 00 Yes 2mg Bill Pena nifedipine ER 30 mg tablet,exte nded release 12-17 00:00: 00 Yes 1mg Bill Pena hydrochloro thiazide 25 mg tablet 0 12-17 00:00: 00 Yes 1mg Bill Pena carvedilol 12.5 mg tablet 12-17 00:00: 00 Yes 1mg Bill Pena lisinopril 20 mg tablet 0 12-16 00:00: 00 Yes 2mg Bill Pena nifedipine ER 30 mg tablet,exte nded release 0 12-16 00:00: 00 Yes 1mg Bill Pena hydrochloro thiazide 25 mg tablet 0 12-16 00:00: 00 Yes 1mg Bill Pena carvedilol 12.5 mg tablet 0 12-16 00:00: 00 Yes 1mg Bill Pena hydrochloro thiazide 25 mg tablet 10-10 00:00: 00 Yes 1mg Bill Pena lisinopril 20 mg tablet 0 10-10 00:00: 00 Yes 2mg Bill Pena nifedipine ER 30 mg tablet,exte nded release 10-10 00:00: 00 Yes 1mg Bill Pena carvedilol 12.5 mg tablet 10-10 00:00: 00 Yes 1mg Bill ePna hydrochloro thiazide 25 mg tablet 2017-10 00:00: 00 Yes 1mg Bill Pena lisinopril 20 mg tablet 2017-10 00:00: 00 Yes 2mg Bill Pena aspirin 81 mg chewable tablet 2017-10 00:00: 00 Yes 1mg Bill Pena nifedipine ER 30 mg tablet,exte nded release 2017-10 00:00: 00 Yes 1mg Bill Pena carvedilol 12.5 mg tablet 2017-10 00:00: 00 Yes 1mg Bill Pena lisinopril 20 mg-hydrochl orothiazide 25 mg tablet 2017-10 00:00: 00 Yes 1mg Bill Pena nifedipine ER 30 mg tablet,exte nded release 2017-10 00:00: 00 Yes 1mg Bill Pena carvedilol 12.5 mg tablet 2017-10 00:00: 00 Yes 1mg Bill Pena lisinopril 20 mg-hydrochl orothiazide 25 mg tablet 2017-10 00:00: 00 Yes 1mg Bill Pena nifedipine ER 30 mg tablet,exte nded release 2017-10 00:00: 00 Yes 1mg Bill Pena carvedilol 12.5 mg tablet 2017-10 00:00: 00 Yes 1mg Bill Pena lisinopril 20 mg-hydrochl orothiazide 25 mg tablet 2017-10 00:00: 00 Yes 1mg Bill Pena hydrochloro thiazide 50 mg tablet 2017-10 00:00: 00 Yes 1mg Bill Pena nifedipine ER 30 mg tablet,exte nded release 2017-10 00:00: 00 Yes 1mg Bill Pena lisinopril 40 mg tablet 2017-10 00:00: 00 Yes 1mg Bill Pena carvedilol 12.5 mg tablet 2017-10 00:00: 00 Yes 1mg Bill Pena lisinopril 40 mg tablet 03-29 00:00: 00 Yes 1mg Bill Pena nifedipine ER 30 mg tablet,exte nded release 03-29 00:00: 00 Yes 1mg Bill Pena hydrochloro thiazide 50 mg tablet 03-29 00:00: 00 Yes 1mg Bill Pena carvedilol 12.5 mg tablet 03-29 00:00: 00 Yes 1mg Bill Pena hydrochloro thiazide 50 mg tablet 11-27 00:00: 00 Yes 1mg Bill Pena nifedipine ER 30 mg tablet,exte nded release 11-27 00:00: 00 Yes 1mg Bill Pena lisinopril 40 mg tablet 11-27 00:00: 00 Yes 1mg Bill Pena carvedilol 12.5 mg tablet 11-27 00:00: 00 Yes 1mg Bill Pena lisinopril 40 mg tablet 02-23 00:00: 00 Yes 1mg Bill Pena nifedipine ER 30 mg tablet,exte nded release 02-23 00:00: 00 Yes 1mg Bill Pena hydrochloro thiazide 50 mg tablet 02-23 00:00: 00 Yes 1mg Bill Pena carvedilol 12.5 mg tablet 02-23 00:00: 00 Yes 1mg Bill Pena hydrochloro thiazide 50 mg tablet 10-31 00:00: 00 Yes 1mg Bill Pena nifedipine ER 30 mg tablet,exte nded release 10-31 00:00: 00 Yes 1mg Bill Pena lisinopril 40 mg tablet 10-31 00:00: 00 Yes 1mg Bill Pean carvedilol 12.5 mg tablet 10-31 00:00: 00 Yes 1mg Bill Pena hydrochloro thiazide 50 mg tablet 2015-10 00:00: 00 Yes 1mg Bill Pena nifedipine ER 30 mg tablet,exte nded release 2015-10 00:00: 00 Yes 1mg Bill Pena lisinopril 40 mg tablet 2015-10 00:00: 00 Yes 1mg Bill Pena terbinafine HCl 250 mg tablet 2015-10 00:00: 00 Yes 1mg Bill Pena carvedilol 12.5 mg tablet 2015-10 00:00: 00 Yes 1mg Bill Pena Lotrimin AF 1 % topical cream 04-01 00:00: 00 Yes 1% Bill Pena triamcinolo ne acetonide 0.1 % topical cream 04-01 00:00: 00 Yes 1% Bill Pena Cipro 500 mg tablet 04-01 00:00: 00 Yes 1mg Bill Pena Prozac 20 mg capsule 01-05 00:00: 00 Yes 1mg Bill Pena Prozac 20 mg capsule 11-25 00:00: 00 Yes 1mg Bill Pena diclofenac sodium 75 mg tablet,norah yed release 11-10 00:00: 00 Yes 1mg Bill Pena nifedipine ER 30 mg tablet,exte nded release 11-10 00:00: 00 Yes 1mg Bill Pena lisinopril 40 mg tablet 11-10 00:00: 00 Yes 1mg Bill Pena hydrochloro thiazide 50 mg tablet 11-10 00:00: 00 Yes 1mg Bill Pena carvedilol 12.5 mg tablet 11-10 00:00: 00 Yes 1mg Bill Pena Wellbutrin 100 mg tablet 11-10 00:00: 00 Yes 1mg Bill Pena carvedilol 12.5 mg tablet 2014-10 00:00: 00 Yes 1mg Bill Pena Wellbutrin 100 mg tablet 2014-10 00:00: 00 Yes 1mg Bill Pena lisinopril 40 mg tablet 2014-10 00:00: 00 Yes 1mg Bill Pena hydrochloro thiazide 50 mg tablet 2014-10 00:00: 00 Yes 1mg Bill Pena carvedilol 12.5 mg tablet 2014-10 00:00: 00 Yes 1mg Bill Pena nifedipine ER 30 mg tablet,exte nded release 2014-10 00:00: 00 Yes 1mg Bill Pena diclofenac sodium 75 mg tablet,norah yed release 2014-10 00:00: 00 Yes 1mg Bill Pena ibuprofen 600 mg tablet 2014-10 00:00: 00 Yes 1mg Bill Pena gentamicin 0.3 % eye drops 04-27 00:00: 00 Yes 1% Bill Pena lisinopril 20 mg-hydrochl orothiazide 25 mg tablet 11-06 00:00: 00 Yes 2mg Bill Pena carvedilol 6.25 mg tablet 11-06 00:00: 00 Yes 1mg Bill Pena topiramate 25 mg tablet topiramate 25 mg tablet Yes [facility] buspirone hcl 10 mg tablet buspirone hcl 10 mg tablet Yes [facility] lisinopril- hydrochloro thiazide 20-12.5 mg tablet lisinopril- hydrochloro thiazide 20-12.5 mg tablet Yes [facility] fluoxetine hcl 10 mg capsule fluoxetine hcl 10 mg capsule Yes [facility] Lisinopril 20 MG Lisinopril 20 MG No 1{table t} QD Lisinopril 20 MG Baclofen 10 MG Baclofen 10 MG [...] 1{table t} BID busPIRone HCl 10 MG Immunizations Ordered Immunization Name Filled Immunization Name Date Status Comments Source [facility] 2021-06-24 14:20:00 [facility] 2021-06-24 14:20:00 [facility] 2021-06-24 14:20:00 Completed [facility] Afluria Afluria 2021-06-24 14:20:00 Completed [facility] Influenza Virus Vaccine Quad IM 3+ YRS 2015-07-28 00:00:00 Completed [facility] TD, NOS 2014-05-08 00:00:00 Completed TD, NOS Unknown Completed [facility] Influenza Virus Vaccine Quad IM 3+ YRS Unknown Completed [facility] TD, NOS Unknown Completed [facility] Influenza Virus Vaccine Quad IM 3+ YRS Unknown Completed [facility] Afluria Afluria Unknown Completed [facility] Afluria Afluria Unknown Completed [facility] Afluria Afluria Unknown Completed [facility] Afluria Afluria Unknown Completed [facility] Afluria Afluria Unknown Completed [facility] Fluarix (IIV4) - SDS - 0.5mL Fluarix (IIV4) - SDS - 0.5mL Unknown Completed [facility] Afluria Afluria Unknown Completed [facility] Fluarix (IIV4) - SDS - 0.5mL Fluarix (IIV4) - SDS - 0.5mL Unknown Completed [facility] Afluria Afluria Unknown Completed [facility] Fluarix (IIV4) - SDS - 0.5mL Fluarix (IIV4) - SDS - 0.5mL Unknown Completed [facility] Afluria Afluria Unknown Completed [facility] Fluarix (IIV4) - SDS - 0.5mL Fluarix (IIV4) - SDS - 0.5mL Unknown Completed [facility] Afluria Afluria Unknown Completed [facility] Fluarix (IIV4) - SDS - 0.5mL Fluarix (IIV4) - SDS - 0.5mL Unknown Completed [facility] Afluria Afluria Unknown Completed [facility] Fluarix (IIV4) - SDS - 0.5mL Fluarix (IIV4) - SDS - 0.5mL Unknown Completed [facility] Afluria Afluria Unknown Completed [facility] rit [facility] Vital Signs Vital Name Observation Time Observation Value Comments S ource Systolic blood pressure 2025-02-24 14:39:00 133 mm[Hg] [facility] Diastolic blood pressure 2025-02-24 14:39:00 87 mm[Hg] [facility] Heart rate 2025-02-24 14:35:00 65 /min [facility] Body temperature 2025-02-24 14:35:00 36.5 Elisabet [facility] Respiratory rate 2025-02-24 14:35:00 16 /min [facility] Body height 2025-02-24 14:35:00 162.6 cm per pt [facility] Body weight 2025-02-24 14:35:00 72.235 kg [facility] BMI 2025-02-24 14:35:00 27.34 kg/m2 [facility] Oxygen saturation in Arterial blood by Pulse oximetry 2025-02-24 14:35:00 99 /min [facility] Systolic blood pressure 2024-08-02 04:00:00 113 mm[Hg] [facility] Diastolic blood pressure 2024-08-02 04:00:00 80 mm[Hg] [facility] Heart rate 2024-08-02 04:00:00 58 /min [facility] Respiratory rate 2024-08-02 04:00:00 14 /min [facility] [facility] Oxygen saturation in Arterial blood by Pulse oximetry 2024-08-02 04:00:00 98 /min [facility] Body temperature 2024-08-02 01:14:00 36.78 Elisabet [facility] Body height 2024-08-02 01:14:00 162.6 cm [facility] Body weight 2024-08-02 01:14:00 67.132 kg [facility] BMI 2024-08-02 01:14:00 25.40 kg/m2 [facility] height 2024-06-26 14:00:00 64 [in_i] Commo n [facility] weight 2024-06-26 14:00:00 148 [lb_av] Comm on [facility] temperature 2024-06-26 14:00:00 97.2 [degF] Com mon [facility] bmi 2024-06-26 14:00:00 25.4 kg/m2 Commo n [facility] oximetry 2024-06-26 14:00:00 97 % Commo n [facility] respiratory rate 2024-06-26 14:00:00 17 /min Common [facility] blood pressure systolic 2024-06-26 14:00:00 115 mm[Hg] [facility] blood pressure diastolic 2024-06-26 14:00:00 60 mm[Hg] Common [facility] height 2024-02-07 10:00:00 64 [in_i] Commo n [facility] weight 2024-02-07 10:00:00 155 [lb_av] Comm on [facility] temperature 2024-02-07 10:00:00 97.2 [degF] Com [facility] bmi 2024-02-07 10:00:00 26.6 kg/m2 Commo n [facility] oximetry 2024-02-07 10:00:00 99 % Commo n [facility] respiratory rate 2024-02-07 10:00:00 18 /min Common [facility] blood pressure systolic 2024-02-07 10:00:00 118 mm[Hg] Common [facility] blood pressure diastolic 2024-02-07 10:00:00 77 mm[Hg] Common [facility] height 2024-01-29 10:40:00 64 [in_i] Commo n [facility] weight 2024-01-29 10:40:00 157 [lb_av] Comm on [facility] temperature 2024-01-29 10:40:00 97.7 [degF] Com mon [facility] bmi 2024-01-29 10:40:00 26.95 kg/m2 Comm on [facility] oximetry 2024-01-29 10:40:00 98 % Commo n [facility] respiratory rate 2024-01-29 10:40:00 19 /min Common [facility] blood pressure systolic 2024-01-29 10:40:00 126 mm[Hg] [facility] blood pressure diastolic 2024-01-29 10:40:00 85 mm[Hg] [facility] Systolic blood pressure 2023-12-04 06:00:00 149 mm[Hg] [facility] Diastolic blood pressure 2023-12-04 06:00:00 93 mm[Hg] [facility] Heart rate 2023-12-04 06:00:00 73 /min [facility] Respiratory rate 2023-12-04 06:00:00 23 /min [facility] Oxygen saturation in Arterial blood by Pulse oximetry 2023-12-04 06:00:00 95 /min [facility] Body temperature 2023-12-04 05:02:28 36.61 Elisabet [facility] Body height 2023-12-04 05:02:00 162.6 cm [facility] Body weight 2023-12-04 05:02:00 68.947 kg [facility] BMI 2023-12-04 05:02:00 26.09 kg/m2 [facility] height 2023-07-10 09:20:00 64 [in_i] Commo n [facility] weight 2023-07-10 09:20:00 163.2 [lb_av] Co mmon [facility] temperature 2023-07-10 09:20:00 98.2 [degF] Com mon [facility] bmi 2023-07-10 09:20:00 28.01 kg/m2 Comm on [facility] oximetry 2023-07-10 09:20:00 100 % Commo n [facility] respiratory rate 2023-07-10 09:20:00 18 /min Common [facility] blood pressure systolic 2023-07-10 09:20:00 137 mm[Hg] Common [facility] blood pressure diastolic 2023-07-10 09:20:00 87 mm[Hg] [facility] Systolic blood pressure 2023-07-02 16:24:00 155 mm[Hg] [facility] Diastolic blood pressure 2023-07-02 16:24:00 94 mm[Hg] [facility] Heart rate 2023-07-02 16:24:00 79 /min [facility] Body temperature 2023-07-02 16:24:00 36.56 Elisabet [facility] Respiratory rate 2023-07-02 16:24:00 20 /min [facility] Body height 2023-07-02 16:24:00 162.6 cm [facility] Body weight 2023-07-02 16:24:00 68.04 kg [facility] BMI 2023-07-02 16:24:00 25.75 kg/m2 [facility] Oxygen saturation in Arterial blood by Pulse oximetry 2023-07-02 16:24:00 98 /min [facility] height 2022-02-27 09:20:00 64 [in_i] Commo n [facility] weight 2022-02-27 09:20:00 161.2 [lb_av] Co mmon [facility] temperature 2022-02-27 09:20:00 97.3 [degF] Com mon [facility] bmi 2022-02-27 09:20:00 27.67 kg/m2 Comm on [facility] oximetry 2022-02-27 09:20:00 98 % Commo n [facility] respiratory rate 2022-02-27 09:20:00 17 /min Common [facility] blood pressure systolic 2022-02-27 09:20:00 122 mm[Hg] Common [facility] blood pressure diastolic 2022-02-27 09:20:00 84 mm[Hg] [facility] height 2021-12-02 11:40:00 64 [in_i] Commo n [facility] weight 2021-12-02 11:40:00 165 [lb_av] Comm on [facility] bmi 2021-12-02 11:40:00 28.32 kg/m2 Comm on [facility] height 2021-08-30 08:40:00 64 [in_i] Commo n [facility] weight 2021-08-30 08:40:00 162 [lb_av] Comm on [facility] bmi 2021-08-30 08:40:00 27.8 kg/m2 Commo n [facility] height 2021-08-12 14:00:00 64 [in_i] Commo n [facility] weight 2021-08-12 14:00:00 164.8 [lb_av] Co mmon [facility] temperature 2021-08-12 14:00:00 97.2 [degF] Com mon [facility] bmi 2021-08-12 14:00:00 28.28 kg/m2 Comm on [facility] oximetry 2021-08-12 14:00:00 97 % Commo n [facility] respiratory rate 2021-08-12 14:00:00 18 /min Common [facility] blood pressure systolic 2021-08-12 14:00:00 120 mm[Hg] Common [facility] blood pressure diastolic 2021-08-12 14:00:00 78 mm[Hg] Common [facility] BP Systolic 2025-02-11 09:57:00 136 mm[Hg] Step hen F Jean BP Diastolic 2025-02-11 09:57:00 88 mm[Hg] Lior phen F Jean Weight Measured 2025-02-11 09:57:00 159.60 pounds Bill F Jean Height Measured 2025-02-11 09:57:00 65.00 inches [facility] Body Temperature 2025-02-11 09:57:00 98.10 degrees Bill F [facility] Heart Rate 2025-02-11 09:57:00 70.00 /min Debbi en F Jean Respiratory Rate 2025-02-11 09:57:00 18.00 /min Bill F Jean BP Systolic 2025-02-04 08:19:00 116 mm[Hg] Step hen F Jean BP Diastolic 2025-02-04 08:19:00 81 mm[Hg] Lior phen F Jean Weight Measured 2025-02-04 08:19:00 156.40 pounds Bill F Jean Height Measured 2025-02-04 08:19:00 65.00 inches Bill F [facility] Body Temperature 2025-02-04 08:19:00 97.50 degrees Bill F Jean Heart Rate 2025-02-04 08:19:00 64.00 /min Debbi en F Jean Respiratory Rate 2025-02-04 08:19:00 16.00 /min Bill F Jean BP Systolic 2025-01-29 08:19:00 127 mm[Hg] Step hen F Jean BP Diastolic 2025-01-29 08:19:00 84 mm[Hg] Lior phen F Jean Weight Measured 2025-01-29 08:19:00 154.80 pounds Bill F Jean Height Measured 2025-01-29 08:19:00 65.00 inches Bill F Jean Body Temperature 2025-01-29 08:19:00 97.00 degrees Bill F Jean Heart Rate 2025-01-29 08:19:00 71.00 /min Debbi en F Jean Respiratory Rate 2025-01-29 08:19:00 16.00 /min Bill F Jean BP Systolic 2025-01-21 10:28:00 164 mm[Hg] Step hen F Jean BP Diastolic 2025-01-21 10:28:00 93 mm[Hg] Lior phen F Jean Weight Measured 2025-01-21 10:28:00 157.20 pounds Bill F Jean Height Measured 2025-01-21 10:28:00 65.00 inches Bill F Jean Body Temperature 2025-01-21 10:28:00 97.80 degrees Bill F Jean Heart Rate 2025-01-21 10:28:00 62.00 /min Debbi en F Jean Respiratory Rate 2025-01-21 10:28:00 18.00 /min Bill F Jean Height Measured 2024-12-08 08:15:00 65.00 inches Bill F Jean Body Temperature 2024-12-08 08:15:00 98.10 degrees Bill F Jean Heart Rate 2024-12-08 08:15:00 63.00 /min Debbi en F Jean Respiratory Rate 2024-12-08 08:15:00 17.00 /min Bill F Jean BP Systolic 2024-12-08 08:15:00 145 mm[Hg] Step hen F Jean BP Diastolic 2024-12-08 08:15:00 82 mm[Hg] Lior phen F Jean Weight Measured 2024-12-08 08:15:00 156.60 pounds Bill F Jean BP Systolic 2023-02-15 11:02:00 167 mm[Hg] Step hen F Jean BP Diastolic 2023-02-15 11:02:00 102 mm[Hg] Lior phen F Jean Weight Measured 2023-02-15 11:02:00 157.20 pounds Bill F Jean Height Measured 2023-02-15 11:02:00 65.00 inches Bill F Jean Body Temperature 2023-02-15 11:02:00 98.20 degrees Bill F Jean Heart Rate 2023-02-15 11:02:00 67.00 /min Debbi en F Jean Respiratory Rate 2023-02-15 11:02:00 19.00 /min Bill F Jean BP Systolic 2021-03-24 14:45:00 126 mm[Hg] Step hen F Jean BP Diastolic 2021-03-24 14:45:00 80 mm[Hg] Lior phen F Jean Weight Measured 2021-03-24 14:45:00 158.80 pounds Bill F Jean Height Measured 2021-03-24 14:45:00 65.00 inches Bill F Jean Body Temperature 2021-03-24 14:45:00 97.70 degrees Bill F Jean Heart Rate 2021-03-24 14:45:00 75.00 /min Debbi en F Jean Respiratory Rate 2021-03-24 14:45:00 Bill F Jean BP Systolic 2021-01-26 08:56:00 124 mm[Hg] Step hen F Jean BP Diastolic 2021-01-26 08:56:00 73 mm[Hg] Lior phen F Jean Weight Measured 2021-01-26 08:56:00 149.20 pounds Bill F Jean Height Measured 2021-01-26 08:56:00 65.00 inches Bill F Jean Body Temperature 2021-01-26 08:56:00 98.20 degrees Bill F Jean Heart Rate 2021-01-26 08:56:00 68.00 /min Debbi en F Jean Respiratory Rate 2021-01-26 08:56:00 18.00 /min Bill F Jean BP Systolic 2020-12-23 15:45:00 85 mm[Hg] Step hen F Jean BP Diastolic 2020-12-23 15:45:00 54 mm[Hg] Lior phen F Jean Weight Measured 2020-12-23 15:45:00 150.00 pounds Bill F Jean Height Measured 2020-12-23 15:45:00 65.00 inches Bill F Jean Body Temperature 2020-12-23 15:45:00 98.70 degrees Bill F Jean Heart Rate 2020-12-23 15:45:00 76.00 /min Debbi en F Jean Respiratory Rate 2020-12-23 15:45:00 18.00 /min Bill F Jean BP Systolic 2020-11-12 11:28:00 100 mm[Hg] Step hen F Jean BP Diastolic 2020-11-12 11:28:00 63 mm[Hg] Lior phen F Jean Weight Measured 2020-11-12 11:28:00 155.20 pounds Bill F Jean Height Measured 2020-11-12 11:28:00 65.00 inches Bill F Jean Body Temperature 2020-11-12 11:28:00 98.20 degrees Bill F Jean Heart Rate 2020-11-12 11:28:00 65.00 /min Debbi en F Jean Respiratory Rate 2020-11-12 11:28:00 17.00 /min Bill F Jean BP Systolic 2019-11-10 10:52:00 113 mm[Hg] Step hen F Jean BP Diastolic 2019-11-10 10:52:00 76 mm[Hg] Lior phen F Jean Weight Measured 2019-11-10 10:52:00 160.20 pounds Bill F Jean Height Measured 2019-11-10 10:52:00 65.00 inches Bill F Jean Body Temperature 2019-11-10 10:52:00 98.20 degrees Bill F Jean Heart Rate 2019-11-10 10:52:00 68.00 /min Debbi en F Jean Respiratory Rate 2019-11-10 10:52:00 17.00 /min Bill F Jean BP Systolic 2019-07-29 13:51:00 99 mm[Hg] Step hen F Jean BP Diastolic 2019-07-29 13:51:00 61 mm[Hg] Lior phen F Jean Weight Measured 2019-07-29 13:51:00 166.80 pounds Bill F Jean Height Measured 2019-07-29 13:51:00 65.00 inches Bill F Jean Body Temperature 2019-07-29 13:51:00 97.50 degrees Bill F Jean Heart Rate 2019-07-29 13:51:00 86.00 /min Debbi en F Jean Respiratory Rate 2019-07-29 13:51:00 18.00 /min Bill F Jean BP Systolic 2019-07-15 15:39:00 124 mm[Hg] Step hen F Jean BP Diastolic 2019-07-15 15:39:00 84 mm[Hg] Lior phen F Jean Weight Measured 2019-07-15 15:39:00 168.20 pounds Bill F Jean Height Measured 2019-07-15 15:39:00 65.00 inches Bill F Jean Body Temperature 2019-07-15 15:39:00 98.30 degrees Bill F Jean Heart Rate 2019-07-15 15:39:00 93.00 /min Debbi en F Jean Respiratory Rate 2019-07-15 15:39:00 16.00 /min Bill F Jean BP Systolic 2019-06-18 15:19:00 114 mm[Hg] Step hen F Jean BP Diastolic 2019-06-18 15:19:00 71 mm[Hg] Lior Pena Weight Measured 2019-06-18 15:19:00 Bill Pena Height Measured 2019-06-18 15:19:00 Bill Pena Body Temperature 2019-06-18 15:19:00 99.80 degrees Bill Pena Heart Rate 2019-06-18 15:19:00 84.00 /min Debbi Pena Respiratory Rate 2019-06-18 15:19:00 16.00 /min Bill Pena Procedures Procedure Date / Time Performed Performing Clinicia n Source COMP. METABOLIC PANEL (85885) 2025-02-25 01:30:00 Jayy Montes [facility] CT PELVIS WO CONTRAST 2024-08-02 02:47:49 Selvin Alvarez [facility] CONSENT/REFUSAL FOR DIAGNOSIS AND TREATMENT 2023-07-02 16:14:07 Doctor Unassigned, Dewey [facility] 13704 Ecg Routine Ecg W/least 12 Lds W/i r 2017-03-06 00:00:00 Bill Pena Encounters Start Date/Time End Date/Time Encounter Type Admission Type Attending [facility] Care Facility Care Department Encounter ID Source 2024-06-26 15:39:00 Out[facility] [id number] [facility] 2024-06-24 16:26:[address] [facility] [id number] [facility] 2024-02-06 11:08:00 Outpatient Angie As[facility] [id number] [facility] 2024-02-04 15:09[facility] [id number] [facility] 2024-01-29 10:41:00 Outpatient Angie Ashton [facility] [id number] [facility] 2024-01-21 10:41:03 Outpatient Angie As[facility] [id number] [facility] 2024-01-14 15:43:00 Outpatient Angie Ashton STL[facility]C ST[facility]C [id number] [facility] 2023-07-06 08:25:00 Outpatient More Mcdonough STLMLC STLMLC [id number] [facility] 2023-07-02 08:33:00 Outpatient More Mcdonough STLMLC STLMLC [id number] [facility] 2021-12-01 09:27:03 Outpatient Dinora Wooten STLMLC STL[facility]C [id number] [facility] 2021-11-02 14:30:15 Outpatient Dinora Wooten STLMLC STL[facility]C [id number] [facility] 2021-11-02 14:29:41 Outpatient Dinora Wooten [facility] STL[facility]C [id number] [facility] 2021-11-02 14:14:11 Outpatient Dinora Wooten STLMLC STL[facility]C [id number] [facility] 2021-11-02 14:10:18 Outpatient Dinora Wooten STLMLC STLMLC [id number] [facility] 2021-11-02 14:09:32 Outpatient Dinora Wooten STLMLC STLMLC [id number] [facility] 2025-05-27 08:00:00 2025-05-27 08:00:00 Outpatient ANN ARCHER [facility] [id number] [facility] 2025-04-13 11:30:00 2025-04-13 11:30:00 Outpatient MINERVA WELLS HOWARD [facility] [id number] [facility] 2025-03-24 10:00:00 2025-03-24 10:00:00 Outpatient JAYY SAUL [facility] [id number] [facility] 2025-02-25 00:00:00 2025-02-25 14:05:16 Telephone Cris [facility] [id number] [facility] 2025-02-25 00:00:00 2025-02-25 09:25:53 Telephone Cris [facility] [id number] [facility] 2025-02-24 09:30:00 2025-02-24 10:38:57 Office Visit R [facility] [id number] [facility] 2025-02-17 11:15:24 2025-02-17 11:15:24 Outpatient SFA SFA [id number] Bill Pena 2025-02-11 09:41:22 2025-02-11 09:41:22 Outpatient SFA SFA [id number] Bill Pena 2025-02-11 00:00:00 2025-02-11 00:00:00 Outpatient Visit SFA [id number] Bill Pena 2025-02-04 08:10:35 2025-02-04 08:10:35 Outpatient SFA SFA [id number] Bill Pena 2025-02-04 00:00:00 2025-02-04 00:00:00 Outpatient Visit SFA [id number] Bill Pena 2025-01-29 08:14:06 2025-01-29 08:14:06 Outpatient SFA SFA [id number] Bill Pena 2025-01-29 00:00:00 2025-01-29 00:00:00 Outpatient Visit SFA [id number] Bill Pena 2025-01-27 11:03:02 2025-01-27 11:03:02 Outpatient SFA SFA [id number] Bill Pena 2025-01-26 08:05:36 2025-01-26 08:05:36 Outpatient SFA SFA [id number] Bill Pena 2025-01-22 00:00:00 2025-01-22 00:00:00 (TEL) STLMLC STLMLC [id number] [facility] 2025-01-21 10:27:23 2025-01-21 10:27:23 Outpatient SFA SFA [id number] Bill Pena 2025-01-21 00:00:00 2025-01-21 00:00:00 Outpatient Visit SFA [id number] Bill Pena 2025-01-12 08:03:05 2025-01-12 08:03:05 Outpatient SFA SFA [id number] Bill Pena 2025-01-11 08:04:12 2025-01-11 08:04:12 Outpatient SFA SFA [id number] Bill Pena 2024-12-15 10:36:41 2024-12-15 10:36:41 Outpatient SFA SFA [id number] Bill Pena 2024-12-09 09:00:40 2024-12-09 09:00:40 Outpatient SFA SFA [id number] Bill Pena 2024-12-08 08:04:38 2024-12-08 08:04:38 Outpatient SFA SFA [id number] Bill Pena 2024-12-08 00:00:00 2024-12-08 00:00:00 Outpatient Visit SFA [id number] Bill Pena 2024-12-05 13:03:54 2024-12-05 13:03:54 Outpatient SFA [facility] [id number] Bill Pena 2024-11-06 12:45:00 2024-11-06 13:15:00 Annual D2Me Rosettakyler Israel 2.16.840. [id number]. [id number] [facility] 2024-08-22 00:00:00 2024-08-22 00:00:00 (TEL) STLC STLC [id number] [facility] 2024-08-07 00:00:00 2024-08-07 00:00:00 (TEL) STLC STLC [id number] [facility] 2024-08-01 20:17:00 2024-08-01 23:43:00 Emergency X RIDVIKI SANCHEZ [facility] [[email or web address]] ERT [id number] [facility] 2024-08-01 20:17:00 2024-08-01 23:43:00 [place] [facility] [[email or web address] AT [facility] [id number] [id number] [facility] 2024-07-29 08:00:00 2024-07-29 08:30:00 D2Me Check-in Sabrina Riggs 2.16.840. [id number] [facility] 2024-07-16 00:00:00 2024-07-16 00:00:00 (TEL) STLC STLC [id number] [facility] 2024-06-27 00:00:00 2024-06-27 00:00:00 (TEL) STLC STLC [id number] [facility] 2024-06-26 00:00:00 2024-06-26 00:00:00 OFFICE VISIT ESTAB PT LEVEL 4 STLMLC STLMLC [id number] [facility] 2024-06-26 00:00:00 2024-06-26 00:00:00 (TEL) STLMLC STLMLC [id number] [facility] 2024-03-11 00:00:00 2024-03-11 00:00:00 (TEL) STLMLC STLMLC [id number] [facility] 2024-02-13 18:00:00 2024-02-13 19:00:00 Initial D2Me Vanessareynaldo Phillips [id number]. [id number] 2.16.840.1. [id number] [facility] 2024-02-07 00:00:00 2024-02-07 00:00:00 OFFICE VISIT ESTAB PT LEVEL 4 STLMLC STLMLC [id number] [facility] 2024-02-07 00:00:00 2024-02-07 00:00:00 (TEL) STLMLC STLMLC [id number] [facility] 2024-01-30 00:00:00 2024-01-30 00:00:00 (TEL) STLMLC STLMLC [id number] [facility] 2024-01-29 00:00:00 2024-01-29 00:00:00 OFFICE VISIT NEW PT LEVEL 4 STLMLC STLMLC [id number] [facility] 2024-01-29 00:00:00 2024-01-29 00:00:00 SUB ANNUAL [facility] VISIT STLMLC STLMLC [id number] [facility] 2024-01-23 00:00:00 2024-01-23 00:00:00 (TEL) STLMLC STLMLC [id number] [facility] 2023-12-03 22:59:00 2023-12-04 01:00:00 Emergency X JACINDA MARTINEZ WHITNEY [facility] [[email or web address]] ERT [id number] [facility] 2023-12-03 22:59:00 2023-12-04 01:00:00 Emergency Jacinda Martinez [facility] [id number] [facility] 2023-07-19 00:00:00 2023-07-19 00:00:00 (TEL) STLMLC STLMLC [id number] [facility] 2023-07-10 00:00:00 2023-07-10 00:00:00 OFFICE VISIT ESTAB PT LEVEL 4 STLMLC STLMLC [id number] [facility] 2023-07-08 00:00:00 2023-07-08 00:00:00 (TEL) STLMLC STLMLC [id number] [facility] 2023-07-02 11:25:00 2023-07-02 12:15:00 Emergency X JACINDA MARTINEZ [facility] [[email or web address]] ERT [id number] [facility] 2023-07-02 11:25:00 2023-07-02 12:15:00 Emergency Jacinda Martinez [facility] [id number] [facility] 2023-07-02 00:00:00 2023-07-02 00:00:00 (TEL) STLMLC STLMLC [id number] [facility] 2022-09-26 00:00:00 2022-09-26 00:00:00 (TEL) STLMLC STLMLC [id number] [facility] 2022-05-12 06:42:00 2022-05-12 06:42:00 Outpatient Eda Anguiano [facility] [id number] [facility] 2022-05-12 06:42:00 2022-05-12 06:42:00 Outpatient Eda Anguiano [facility] [id number] [facility] 2022-04-21 07:10:00 2022-04-21 07:10:00 Outpatient Tumelson_A DMG DMG [id number] [facility] 2022-04-21 00:00:00 2022-04-21 00:00:00 Outpatient Tumelson_A DMG DMG [id number] [facility] 2022-04-21 00:00:00 2022-04-21 00:00:00 Outpatient Tumelson_A DMG DMG [id number] [facility] 2022-04-21 00:00:00 2022-04-21 00:00:00 (TEL) STLMLC STLMLC [id number] [facility] 2022-03-06 00:00:00 2022-03-06 00:00:00 (TEL) STLMLC STLMLC [id number] [facility] 2022-02-27 00:00:00 2022-02-27 00:00:00 OFFICE VISIT ESTAB PT LEVEL 4 STLMLC STLMLC [id number] [facility] 2022-02-24 00:00:00 2022-02-24 00:00:00 (TEL) STLMLC STLMLC [id number] [facility] 2022-02-24 00:00:00 2022-02-24 00:00:00 (TEL) STLMLC STLMLC [id number] [facility] 2022-02-09 00:00:00 2022-02-09 00:00:00 (TEL) STLMLC STLMLC [id number] [facility] 2022-02-08 00:00:00 2022-02-08 00:00:00 (TEL) STLMLC STLMLC [id number] [facility] 2021-12-29 00:00:00 2021-12-29 00:00:00 (TEL) STLMLC STLMLC [id number] [facility] 2021-12-14 00:00:00 2021-12-14 00:00:00 (TEL) STLMLC STLMLC [id number] [facility] 2021-12-14 00:00:00 2021-12-14 00:00:00 (TEL) STLMLC STLMLC [id number] [facility] 2021-12-02 00:00:00 2021-12-02 00:00:00 OL DIG E/M SVC 11-20 MIN STLMLC STLMLC [id number] [facility] 2021-10-11 16:30:00 2021-10-11 17:30:00 CAV Vanessa Phillips [id number] [facility] HK4 [facility] 2021-08-30 00:00:00 2021-08-30 00:00:00 OL DIG E/M SVC 11-20 MIN STLMLC STLMLC [id number] [facility] 2021-08-29 05:19:00 2021-08-29 05:19:00 [place] [id number] [facility] 2021-08-29 00:00:00 2021-08-29 00:00:00 (TEL) STLMLC STLMLC [id number] [facility] 2021-08-23 00:00:00 2021-08-23 00:00:00 (TEL) STLMLC STLMLC [id number] [facility] 2021-08-12 00:00:00 2021-08-12 00:00:00 OFFICE VISIT NEW PT LEVEL 3 STLMLC STLMLC [id number] [facility] 2021-08-08 10:30:00 2021-08-08 10:30:00 Outpatient Tumelson_A DMG DMG [id number] [facility] 2021-02-04 03:59:00 2021-02-04 03:59:00 Outpatient Tumelson_A DMG DMG [id number] [facility] 2019-07-04 16:29:00 2019-07-06 15:00:00 Inpatient 3 LEYLA LEIVA ENCPL DOMINIC [id number] [facility] [place] [facility] Results Test Description Test Time Test Comments Results Result Co mments Source [facility] CenterCOMPREHENSIVE METABOLIC [id number] 00:00:00* Test Item Value Reference Range Interpretation Comme nts GLUCOSE (test code = 2345-7) 89 mg/dL UREA NITROGEN (BUN) (test code = 3094-0) 18 mg/dL CREATININE (test code = 2160-0) 0.68 mg/dL EGFR (test code = 35970-0) 102 mL/min/1.73m2 BUN/CREATININE RATIO (test code = 3097-3) SEE NOTE: (calc) SODIUM (test code = 2951-2) 140 mmol/L POTASSIUM (test code = 2823-3) 4.1 mmol/L CHLORIDE (test code = 2075-0) 101 mmol/L CARBON DIOXIDE (test code = 2027-9) 28 mmol/L CALCIUM (test code = 01998-8) 9.9 mg/dL PROTEIN, TOTAL (test code = 2885-2) 7.4 g/dL ALBUMIN (test code = 1751-7) 4.7 g/dL GLOBULIN (test code = 90536-9) 2.7 g/dL(calc) ALBUMIN/GLOBULIN RATIO (test code = 1759-0) 1.7 (calc) BILIRUBIN, TOTAL (test code = 1975-2) 0.4 mg/dL ALKALINE PHOSPHATASE (test code = 6768-6) 107 U/L AST (test code = 1920-8) 29 U/L ALT (test code = 1742-6) 31 U/L Bill Camejo AustinLIPID [id number] 00:00:00* Test Item Value Reference Range Interpretation Comme nts CHOLESTEROL, TOTAL (test cod e = 2093-3) 195 mg/dL HDL CHOLESTEROL (test code = 2085-9) 87 mg/dL TRIGLYCERIDES (test code = 2571-8) 72 mg/dL LDL-CHOLESTEROL (test code = 73751-2) 92 mg/dL(calc) CHOL/HDLC RATIO (test code = 9830-1) 2.2 (calc) NON HDL CHOLESTEROL (test code = 47351-6) 108 mg/dL(calc) Bill PenaCOMPREHENSIVE METABOLIC [id number] 00:00:00* Test Item Value Reference Range Interpretation Comme nts GLUCOSE (test code = 2345-7) 89 mg/dL UREA NITROGEN (BUN) (test code = 3094-0) 18 mg/dL CREATININE (test code = 2160-0) 0.68 mg/dL EGFR (test code = 16803-6) 102 mL/min/1.73m2 BUN/CREATININE RATIO (test code = 3097-3) SEE NOTE: (calc) SODIUM (test code = 2951-2) 140 mmol/L POTASSIUM (test code = 2823-3) 4.1 mmol/L CHLORIDE (test code = 2075-0) 101 mmol/L CARBON DIOXIDE (test code = 2027-9) 28 mmol/L CALCIUM (test code = 30725-9) 9.9 mg/dL PROTEIN, TOTAL (test code = 2885-2) 7.4 g/dL ALBUMIN (test code = 1751-7) 4.7 g/dL GLOBULIN (test code = 01788-3) 2.7 g/dL(calc) ALBUMIN/GLOBULIN RATIO (test code = 1759-0) 1.7 (calc) BILIRUBIN, TOTAL (test code = 1975-2) 0.4 mg/dL ALKALINE PHOSPHATASE (test code = 6768-6) 107 U/L AST (test code = 1920-8) 29 U/L ALT (test code = 1742-6) 31 U/L Bill PenaLIPID [id number] 00:00:00* Test Item Value Reference Range Interpretation Comme nts CHOLESTEROL, TOTAL (test cod e = 2093-3) 195 mg/dL HDL CHOLESTEROL (test code = 2085-9) 87 mg/dL TRIGLYCERIDES (test code = 2571-8) 72 mg/dL LDL-CHOLESTEROL (test code = 70530-8) 92 mg/dL(calc) CHOL/HDLC RATIO (test code = 9830-1) 2.2 (calc) NON HDL CHOLESTEROL (test code = 14238-6) 108 mg/dL(calc) Bill PenaCOMPREHENSIVE METABOLIC [id number] 00:00:00* Test Item Value Reference Range Interpretation Comme nts GLUCOSE (test code = 2345-7) 89 mg/dL UREA NITROGEN (BUN) (test code = 3094-0) 18 mg/dL CREATININE (test code = 2160-0) 0.68 mg/dL EGFR (test code = 96765-1) 102 mL/min/1.73m2 BUN/CREATININE RATIO (test code = 3097-3) SEE NOTE: (calc) SODIUM (test code = 2951-2) 140 mmol/L POTASSIUM (test code = 2823-3) 4.1 mmol/L CHLORIDE (test code = 2075-0) 101 mmol/L CARBON DIOXIDE (test code = 2027-9) 28 mmol/L CALCIUM (test code = 79483-0) 9.9 mg/dL PROTEIN, TOTAL (test code = 2885-2) 7.4 g/dL ALBUMIN (test code = 1751-7) 4.7 g/dL GLOBULIN (test code = 68968-5) 2.7 g/dL(calc) ALBUMIN/GLOBULIN RATIO (test code = 1759-0) 1.7 (calc) BILIRUBIN, TOTAL (test code = 1975-2) 0.4 mg/dL ALKALINE PHOSPHATASE (test code = 6768-6) 107 U/L AST (test code = 1920-8) 29 U/L ALT (test code = 1742-6) 31 U/L Bill PenaLIPID [id number] 00:00:00* Test Item Value Reference Range Interpretation Comme nts CHOLESTEROL, TOTAL (test cod e = 2093-3) 195 mg/dL HDL CHOLESTEROL (test code = 2085-9) 87 mg/dL TRIGLYCERIDES (test code = 2571-8) 72 mg/dL LDL-CHOLESTEROL (test code = 77443-0) 92 mg/dL(calc) CHOL/HDLC RATIO (test code = 9830-1) 2.2 (calc) NON HDL CHOLESTEROL (test code = 70343-6) 108 mg/dL(calc) Bill PenaBV/VAGINITIS PANEL DNA PROBE [ADDED]2024-12-10 00:00:00* Test Item Value Reference Range Interpretation Comme nts TRICHOMONAS: (test code = 6568-0) NOT DETECTED GARDNERELLA: (test code = 6410-5) NOT DETECTED DARBY: (test code = 28503-8) NOT DETECTED Bill Camejo AustinTHINPREP TIS PAP REFLEX HPV mRNA [id number] 00:00:00* Test Item Value Reference Range Interpretation Comme nts REPORT STATUS: (test code = 8251-1) DNR GENERAL CATEGORIZATION: (kwesi t code = 41069-6) DNR INFECTION: (test code = 01605-3) DNR REVIEW [employer]ILRO[employer] EMERGENCY SERVICES MANAGER: (te st code = 87220-7) DNR PATHOLOGIST: (test code = 77227-3) DNR Bill Camejo AustinBV/VAGINITIS PANEL DNA PROBE [ADDED]2024-12-10 00:00:00* Test Item Value Reference Range Interpretation Comme nts TRICHOMONAS: (test code = 6568-0) NOT DETECTED GARDNERELLA: (test code = 6410-5) NOT DETECTED DARBY: (test code = 30672-4) NOT DETECTED Bill Camejo AustinTHINPREP TIS PAP REFLEX HPV mRNA [id number] 00:00:00* Test Item Value Reference Range Interpretation Comme nts REPORT STATUS: (test code = 8251-1) DNR GENERAL CATEGORIZATION: (kwesi t code = ) DNR INFECTION: (test code = 10249-8) DNR REVIEW [employer]ILRO[employer] EMERGENCY SERVICES MANAGER: (te st code = 41563-0) DNR PATHOLOGIST: (test code = 41923-6) DNR Bill Camejo AustinBV/VAGINITIS PANEL DNA PROBE [ADDED]2024-12-10 00:00:00* Test Item Value Reference Range Interpretation Comme nts TRICHOMONAS: (test code = 6568-0) NOT DETECTED GARDNERELLA: (test code = 6410-5) NOT DETECTED DARBY: (test code = 43636-8) NOT DETECTED Bill Camejo AustinTHINPREP TIS PAP REFLEX HPV mRNA [id number] 00:00:00* Test Item Value Reference Range Interpretation Comme nts REPORT STATUS: (test code = 8251-1) DNR GENERAL CATEGORIZATION: (kwesi t code = 85729-1) DNR INFECTION: (test code = 88528-8) DNR REVIEW [employer]RO[employer] EMERGENCY SERVICES MANAGER: (te st code = 06742-1) DNR PATHOLOGIST: (test code = 96303-2) DNR Bill Camejo AustinBV/VAGINITIS PANEL DNA PROBE [ADDED]2024-12-10 00:00:00* Test Item Value Reference Range Interpretation Comme nts TRICHOMONAS: (test code = 6568-0) NOT DETECTED GARDNERELLA: (test code = 6410-5) NOT DETECTED DARBY: (test code = 77102-2) NOT DETECTED Bill Camejo AustinTHINPREP TIS PAP REFLEX HPV mRNA [id number] 00:00:00* Test Item Value Reference Range Interpretation Comme nts REPORT STATUS: (test code = 8251-1) DNR GENERAL CATEGORIZATION: (kwesi t code = 72565-2) DNR INFECTION: (test code = 20302-3) DNR REVIEW [employer]RO[employer] EMERGENCY SERVICES MANAGER: (te st code = 14878-5) DNR PATHOLOGIST: (test code = 99458-6) DNR Bill Camejo AustinBV/VAGINITIS PANEL DNA PROBE [ADDED]2024-12-10 00:00:00* Test Item Value Reference Range Interpretation Comme nts TRICHOMONAS: (test code = 6568-0) NOT DETECTED GARDNERELLA: (test code = 6410-5) NOT DETECTED DARBY: (test code = 31023-6) NOT DETECTED Bill PenaTHINPREP TIS PAP REFLEX HPV mRNA [id number] 00:00:00* Test Item Value Reference Range Interpretation Comme nts REPORT STATUS: (test code = 8251-1) DNR GENERAL CATEGORIZATION: (kwesi t code = 06381-0) DNR INFECTION: (test code = 73458-2) DNR REVIEW [employer] EMERGENCY SERVICES MANAGER: (te st code = 60603-5) DNR PATHOLOGIST: (test code = 68587-8) DNR Bill Camejo JeanCT PELVIS WO [id number] 03:07:20EXAM: CT PELVIS WO CONTRAST CLINICAL HISTORY: Proctitis or pouchitis suspected rectal pain, thinks theres a foreign body ORDERING PHYSICIAN: VIKI ALVAREZ COMPARISON: None TECHNIQUE: ?Multiple axial CT images of the pelvis without contrast. ? Multiplanar reformations also obtained and interpreted. ?Study wasperformed using ALARA principle. FINDINGS: Moderate perianal inflammatory changes present without definite abscess onthis nonenhanced exam. No radiopaque foreign body is detected in theanorectal region. No inguinal adenopathy is detected. Urinary bladder is grossly intact. No hip or pelvic fracture is identified. Moderate degenerative changes arepresent in both hips.[facility] CBC W/O DIFF, WITH [id number] 00:00:00* Test Item Value Reference Range Interpretation Comme nts HEMATOCRIT (test code = 60060-8) 41.0 % See_Comment [Automated messa ge] The system which generated this result transmitted reference range: 34.0-45.0 %. The reference range was not used to interpret this result as normal/abnormal. HEMOGLOBIN (test code = 718-7) 14.0 G/DL See_Comment [Automated messa ge] The system which generated this result transmitted reference range: 11.5-15.5 G/DL. The reference range was not used to interpret this result as normal/abnormal. MCH (test code = 07710-5) 31.0 PG See_Comment [Automated messa ge] The system which generated this result transmitted reference range: 25.0-33.0 PG. The reference range was not used to interpret this result as normal/abnormal. MCHC (test code = 50264-5) 34.1 G/DL See_Comment [Automated messa ge] The system which generated this result transmitted reference range: 31.0-36.0 G/DL. The reference range was not used to interpret this result as normal/abnormal. MCV (test code = 60759-1) 90.7 fL See_Comment [Automated messa ge] The system which generated this result transmitted reference range: 80.0-99.0 fL. The reference range was not used to interpret this result as normal/abnormal. PLATELET COUNT (test code = 66149-9) 181 K/UL See_Comment [Automated messa ge] The system which generated this result transmitted reference range: 130-400 K/UL. The reference range was not used to interpret this result as normal/abnormal. RBC (test code = 74465-3) 4.52 M/UL See_Comment [Automated messa ge] The system which generated this result transmitted reference range: 3.80-5.40 M/UL. The reference range was not used to interpret this result as normal/abnormal. WBC (test code = 61392-7) 4.3 K/UL See_Comment [Automated [employer]] The system which generated this result transmitted reference range: 3.5-11.0 K/UL. The reference range was not used to interpret this result as normal/abnormal. COMPREHENSIVE METABOLIC [id number] 14:30:00* Test Item Value Reference Range Interpretation [...] due to change in reagent. CBC W/AUTO [id number] 13:45:00* Test Item Value Reference Range Interpretation [...] code = NRBC#) 0.00 K/mm3 0.0-0.1 N PAP TEST, THINPREP, [id number] 00:00:00* Test Item Value Reference Range Interpretation Comme nts SOURCE: (test code = 8001) Cervical/Vaginal SLIDES: (test code = 8011) 1 LMP: (test code = 80) 2018 SPECIMEN ADEQUACY: (test code = 55050) (NOTE) INTERPRETATION: (test code = 12421) NILM/NO EPITH. ABNORMALITY;SEE BELOW OTHER COMMENTS: (test code = 8081) (NOTE) [employer]RO[employer] EMERGENCY SERVICES MANAGER: (test code = 8101) KASANDRA Melendez(ASCP) IAC QC TECHNOLOGIST: (test code = 8111) Michael Olvera M.D. PATHOLOGIST INTERPRETATION BY: (test code = 8122) Michael Olvera M.D. LOCATION: (test code = 16030) (NOTE) CPT: (test code = 8140) (NOTE) Bill PenaPAP TEST, THINPREP, [id number] 00:00:00* Test Item Value Reference Range Interpretation Comme nts SOURCE: (test code = 8001) Cervical/Vaginal SLIDES: (test code = 8011) 1 LMP: (test code = 80) 2018 SPECIMEN ADEQUACY: (test code = 45052) (NOTE) INTERPRETATION: (test code = 61020) NILM/NO EPITH. ABNORMALITY;SEE BELOW OTHER COMMENTS: (test code = 8081) (NOTE) RAILROAD EMERGENCY SERVICES MANAGER: (test code = 8101) KASANDRA Melendez(ASCP) IAC QC TECHNOLOGIST: (test code = 8111) Michael Olvera M.D. PATHOLOGIST INTERPRETATION BY: (test code = 8122) Michael Olvera M.D. LOCATION: (test code = 30256) (NOTE) CPT: (test code = 8140) (NOTE) Bill BurnhamP TEST, THINPREP, [id number] 00:00:00* Test Item Value Reference Range Interpretation Comme nts SOURCE: (test code = 8001) Cervical/Vaginal SLIDES: (test code = 8011) 1 LMP: (test code = 8021) 2018 SPECIMEN ADEQUACY: (test code = 22160) (NOTE) INTERPRETATION: (test code = 29889) NILM/NO EPITH. ABNORMALITY;SEE BELOW OTHER COMMENTS: (test code = 8081) (NOTE) RAILROAD EMERGENCY SERVICES MANAGER: (test code = 8101) KASANDRA Melendez(ASCP) IAC QC TECHNOLOGIST: (test code = 8111) Michael Olvera M.D. PATHOLOGIST INTERPRETATION BY: (test code = 8122) Michael Olvera M.D. LOCATION: (test code = 71255) (NOTE) CPT: (test code = 8140) (NOTE) Bill BurnhamP TEST, THINPREP, [id number] 00:00:00* Test Item Value Reference Range Interpretation Comme nts SOURCE: (test code = 8001) Cervical/Vaginal SLIDES: (test code = 8011) 1 LMP: (test code = 8021) 2018 SPECIMEN ADEQUACY: (test code = 52837) (NOTE) INTERPRETATION: (test code = 50202) NILM/NO EPITH. ABNORMALITY;SEE BELOW OTHER COMMENTS: (test code = 8081) (NOTE) RAILROAD EMERGENCY SERVICES MANAGER: (test code = 8101) KASANDRA Melendez(ASCP) IAC QC TECHNOLOGIST: (test code = 8111) Michael Olvera M.D. PATHOLOGIST INTERPRETATION BY: (test code = 8122) Michael Olvera M.D. LOCATION: (test code = [facility]) (NOTE) CPT: (test code = 8140) (NOTE) Bill BurnhamP TEST, THINPREP, [id number] 00:00:00* Test Item Value Reference Range Interpretation Comme nts SOURCE: (test code = 8001) Cervical/Vaginal SLIDES: (test code = 8011) 1 LMP: (test code = 8021) 2019 SPECIMEN ADEQUACY: (test code = 54036) (NOTE) INTERPRETATION: (test code = 81501) NILM/NO EPITH. ABNORMALITY;SEE BELOW OTHER COMMENTS: (test code = 8081) (NOTE) RAILROAD EMERGENCY SERVICES MANAGER: (test code = 8101) KASANDRA Melendez(ASCP) IAC QC TECHNOLOGIST: (test code = 8111) Michael Olvera M.D. PATHOLOGIST INTERPRETATION BY: (test code = 8122) Michael Olvera M.D. LOCATION: (test code = 10558) (NOTE) CPT: (test code = 8140) (NOTE) Bill Camejo AustinHPV HIGH RISK WITH GENOTYPE, [id number] 00:00:00* Test Item Value Reference Range Interpretation Comme nts HPV HIGH RISK INTERP (test c ode = 96825) POSITIVE HPV 16 (test code = 44220) NEGATIVE HPV 18 (test code = 62514) NEGATIVE HPV, HR, OTHER GENOTYPES (te st code = 31980) POSITIVE Bill F AustinGC AND CHLAMYDIA AMPLIFIED, [id number] 00:00:00* Test Item Value Reference Range Interpretation Comme nts GONORRHEA, TMA (test code = 01105) NEGATIVE CHLAMYDIA, TMA (test code = 13706) NEGATIVE Bill F AustinHPV HIGH RISK WITH GENOTYPE, [id number] 00:00:00* Test Item Value Reference Range Interpretation Comme nts HPV HIGH RISK INTERP (test c ode = 70533) POSITIVE HPV 16 (test code = 30333) NEGATIVE HPV 18 (test code = 04269) NEGATIVE HPV, HR, OTHER GENOTYPES (te st code = 24440) POSITIVE Bill F AustinGC AND CHLAMYDIA AMPLIFIED, [id number] 00:00:00* Test Item Value Reference Range Interpretation Comme nts GONORRHEA, TMA (test code = 29349) NEGATIVE CHLAMYDIA, TMA (test code = 07632) NEGATIVE Bill F AustinHPV HIGH RISK WITH GENOTYPE, [id number] 00:00:00* Test Item Value Reference Range Interpretation Comme nts HPV HIGH RISK INTERP (test c ode = 05131) POSITIVE HPV 16 (test code = 37175) NEGATIVE HPV 18 (test code = 55640) NEGATIVE HPV, HR, OTHER GENOTYPES (te st code = 54075) POSITIVE Bill F AustinGC AND CHLAMYDIA AMPLIFIED, [id number] 00:00:00* Test Item Value Reference Range Interpretation Comme nts GONORRHEA, TMA (test code = 69630) NEGATIVE CHLAMYDIA, TMA (test code = 67551) NEGATIVE Bill F AustinHPV HIGH RISK WITH GENOTYPE, [id number] 00:00:00* Test Item Value Reference Range Interpretation Comme nts HPV HIGH RISK INTERP (test c ode = 76288) POSITIVE HPV 16 (test code = 13795) NEGATIVE HPV 18 (test code = 44979) NEGATIVE HPV, HR, OTHER GENOTYPES (te st code = 47081) POSITIVE Bill F AustinGC AND CHLAMYDIA AMPLIFIED, [id number] 00:00:00* Test Item Value Reference Range Interpretation Comme nts GONORRHEA, TMA (test code = 41163) NEGATIVE CHLAMYDIA, TMA (test code = 80260) NEGATIVE Bill F AustinHPV HIGH RISK WITH GENOTYPE, [id number] 00:00:00* Test Item Value Reference Range Interpretation Comme nts HPV HIGH RISK INTERP (test c ode = 88288) POSITIVE HPV 16 (test code = 77373) NEGATIVE HPV 18 (test code = 14850) NEGATIVE HPV, HR, OTHER GENOTYPES (te st code = 10624) POSITIVE Bill F AustinGC AND CHLAMYDIA AMPLIFIED, [id number] 00:00:00* Test Item Value Reference Range Interpretation Comme nts GONORRHEA, TMA (test code = 78819) NEGATIVE CHLAMYDIA, TMA (test code = 90185) NEGATIVE Bill F AustinPAP TEST, THINPREP, [id number] 00:00:00* Test Item Value Reference Range Interpretation Comme nts SOURCE: (test code = 8001) Cervical/Endocervical SLIDES: (test code = 8011) 2 LMP: (test code = 8021) SEE NOTE SPECIMEN ADEQUACY: (test code = 97662) (NOTE) INTERPRETATION: (test code = 07985) UNSATISFACTORY; SEE BELOW OTHER COMMENTS: (test code = 8081) (NOTE) RAILROAD EMERGENCY SERVICES MANAGER: (test code = 8101) KASANDRA Song(ASCP)IAC QC TECHNOLOGIST: (test code = 8111) DAILY Farooq(ASCP),IAC LOCATION: (test code = 19947) (NOTE) CPT: (test code = 8140) (NOTE) Bill BurnhamP TEST, THINPREP, [id number] 00:00:00* Test Item Value Reference Range Interpretation Comme nts SOURCE: (test code = 8001) Cervical/Endocervical SLIDES: (test code = 8011) 2 LMP: (test code = 8021) SEE NOTE SPECIMEN ADEQUACY: (test code = 86040) (NOTE) INTERPRETATION: (test code = 88127) UNSATISFACTORY; SEE BELOW OTHER COMMENTS: (test code = 8081) (NOTE) RAILROAD EMERGENCY SERVICES MANAGER: (test code = 8101) KASANDRA Song(ASCP)IAC QC TECHNOLOGIST: (test code = 8111) DAILY Farooq(ASCP),IAC LOCATION: (test code = 29254) (NOTE) CPT: (test code = 8140) (NOTE) Bill BurnhamP TEST, THINPREP, [id number] 00:00:00* Test Item Value Reference Range Interpretation Comme nts SOURCE: (test code = 8001) Cervical/Endocervical SLIDES: (test code = 8011) 2 LMP: (test code = 8021) SEE NOTE SPECIMEN ADEQUACY: (test code = 96909) (NOTE) INTERPRETATION: (test code = 65198) UNSATISFACTORY; SEE BELOW OTHER COMMENTS: (test code = 8081) (NOTE) RAILROAD EMERGENCY SERVICES MANAGER: (test code = 8101) KASANDRA Song(ASCP)IAC QC TECHNOLOGIST: (test code = 8111) DAILY Farooq(ASCP),IAC LOCATION: (test code = 79758) (NOTE) CPT: (test code = 8140) (NOTE) Bill PenaPAP TEST, THINPREP, [id number] 00:00:00* Test Item Value Reference Range Interpretation Comme nts SOURCE: (test code = 8001) Cervical/Endocervical SLIDES: (test code = 8011) 2 LMP: (test code = 8021) SEE NOTE SPECIMEN ADEQUACY: (test code = 02074) (NOTE) INTERPRETATION: (test code = 07369) UNSATISFACTORY; SEE BELOW OTHER COMMENTS: (test code = 8081) (NOTE) RAILROAD EMERGENCY SERVICES MANAGER: (test code = 8101) Swathi Garland,CT(ASCP)IAC QC TECHNOLOGIST: (test code = 8111) Blayne RuckerSCT(ASCP),IAC LOCATION: (test code = 86359) (NOTE) CPT: (test code = 8140) (NOTE) Bill PenaPAP TEST, THINPREP, [id number] 00:00:00* Test Item Value Reference Range Interpretation Comme nts SOURCE: (test code = 8001) Cervical/Endocervical SLIDES: (test code = 8011) 2 LMP: (test code = 8021) SEE NOTE SPECIMEN ADEQUACY: (test code = 74270) (NOTE) INTERPRETATION: (test code = 01336) UNSATISFACTORY; SEE BELOW OTHER COMMENTS: (test code = 8081) (NOTE) RAILROAD EMERGENCY SERVICES MANAGER: (test code = 8101) KASANDRA Song(ASCP)IAC QC TECHNOLOGIST: (test code = 8111) Blayne RuckerSCT(ASCP),IAC LOCATION: (test code = 42191) (NOTE) CPT: (test code = 8140) (NOTE) Bill PenaHPV HIGH RISK WITH GENOTYPE, [id number] 00:00:00* Test Item Value Reference Range Interpretation Comme nts HPV HIGH RISK INTERP (test c ode = 43485) POSITIVE HPV 16 (test code = 76906) NEGATIVE HPV 18 (test code = 85486) NEGATIVE HPV, HR, OTHER GENOTYPES (te st code = 89977) POSITIVE Bill Camejo AustinHPV HIGH RISK WITH GENOTYPE, [id number] 00:00:00* Test Item Value Reference Range Interpretation Comme nts HPV HIGH RISK INTERP (test c ode = 73999) POSITIVE HPV 16 (test code = 99691) NEGATIVE HPV 18 (test code = 12764) NEGATIVE HPV, HR, OTHER GENOTYPES (te st code = 76131) POSITIVE Bill Camejo AustinHPV HIGH RISK WITH GENOTYPE, [id number] 00:00:00* Test Item Value Reference Range Interpretation Comme nts HPV HIGH RISK INTERP (test c ode = 60137) POSITIVE HPV 16 (test code = 91593) NEGATIVE HPV 18 (test code = 21690) NEGATIVE HPV, HR, OTHER GENOTYPES (te st code = 26451) POSITIVE Bill Camejo AustinHPV HIGH RISK WITH GENOTYPE, [id number] 00:00:00* Test Item Value Reference Range Interpretation Comme nts HPV HIGH RISK INTERP (test c ode = 07887) POSITIVE HPV 16 (test code = 76295) NEGATIVE HPV 18 (test code = 51708) NEGATIVE HPV, HR, OTHER GENOTYPES (te st code = 83825) POSITIVE Bill PenaHPV HIGH RISK WITH GENOTYPE, [id number] 00:00:00* Test Item Value Reference Range Interpretation Comme nts HPV HIGH RISK INTERP (test c ode = 79178) POSITIVE HPV 16 (test code = 01544) NEGATIVE HPV 18 (test code = 66779) NEGATIVE HPV, HR, OTHER GENOTYPES (te st code = 81512) POSITIVE Bill Camejo AustinCBC W/AUTO [id number] 00:00:00* Test Item Value Reference Range Interpretation Comme nts WBC (test code = 1001) 4.7 K/UL RBC (test code = 1002) 4.07 M/UL HEMOGLOBIN (test code = 1003) 12.7 G/DL HEMATOCRIT (test code = 1004) 36.5 % MCV (test code = 1005) 89.7 fL MCH (test code = 1006) 31.2 PG MCHC (test code = 1007) 34.8 G/DL RDW (test code = 1038) 13.0 % NEUTROPHILS (test code = 1008) 42.6 % LYMPHOCYTES (test code = 1010) 43.6 % MONOCYTES (test code = 1011) 8.8 % EOSINOPHILS (test code = 1012) 3.9 % BASOPHILS (test code = 1013) 1.1 % PLATELET COUNT (test code = 1015) 184 K/UL Bill Camejo AustinCBC W/AUTO [id number] 00:00:00* Test Item Value Reference Range Interpretation Comme nts WBC (test code = 1001) 4.7 K/UL RBC (test code = 1002) 4.07 M/UL HEMOGLOBIN (test code = 1003) 12.7 G/DL HEMATOCRIT (test code = 1004) 36.5 % MCV (test code = 1005) 89.7 fL MCH (test code = 1006) 31.2 PG MCHC (test code = 1007) 34.8 G/DL RDW (test code = 1038) 13.0 % NEUTROPHILS (test code = 1008) 42.6 % LYMPHOCYTES (test code = 1010) 43.6 % MONOCYTES (test code = 1011) 8.8 % EOSINOPHILS (test code = 1012) 3.9 % BASOPHILS (test code = 1013) 1.1 % PLATELET COUNT (test code = 1015) 184 K/UL Bill Camejo AustinCBC W/AUTO [id number] 00:00:00* Test Item Value Reference Range Interpretation Comme nts WBC (test code = 1001) 4.7 K/UL RBC (test code = 1002) 4.07 M/UL HEMOGLOBIN (test code = 1003) 12.7 G/DL HEMATOCRIT (test code = 1004) 36.5 % MCV (test code = 1005) 89.7 fL MCH (test code = 1006) 31.2 PG MCHC (test code = 1007) 34.8 G/DL RDW (test code = 1038) 13.0 % NEUTROPHILS (test code = 1008) 42.6 % LYMPHOCYTES (test code = 1010) 43.6 % MONOCYTES (test code = 1011) 8.8 % EOSINOPHILS (test code = 1012) 3.9 % BASOPHILS (test code = 1013) 1.1 % PLATELET COUNT (test code = 1015) 184 K/UL Bill Camejo AustinCBC W/AUTO [id number] 00:00:00* Test Item Value Reference Range Interpretation Comme nts WBC (test code = 1001) 4.7 K/UL RBC (test code = 1002) 4.07 M/UL HEMOGLOBIN (test code = 1003) 12.7 G/DL HEMATOCRIT (test code = 1004) 36.5 % MCV (test code = 1005) 89.7 fL MCH (test code = 1006) 31.2 PG MCHC (test code = 1007) 34.8 G/DL RDW (test code = 1038) 13.0 % NEUTROPHILS (test code = 1008) 42.6 % LYMPHOCYTES (test code = 1010) 43.6 % MONOCYTES (test code = 1011) 8.8 % EOSINOPHILS (test code = 1012) 3.9 % BASOPHILS (test code = 1013) 1.1 % PLATELET COUNT (test code = 1015) 184 K/UL Bill Camejo AustinCBC W/AUTO [id number] 00:00:00* Test Item Value Reference Range Interpretation Comme nts WBC (test code = 1001) 4.7 K/UL RBC (test code = 1002) 4.07 M/UL HEMOGLOBIN (test code = 1003) 12.7 G/DL HEMATOCRIT (test code = 1004) 36.5 % MCV (test code = 1005) 89.7 fL MCH (test code = 1006) 31.2 PG MCHC (test code = 1007) 34.8 G/DL RDW (test code = 1038) 13.0 % NEUTROPHILS (test code = 1008) 42.6 % LYMPHOCYTES (test code = 1010) 43.6 % MONOCYTES (test code = 1011) 8.8 % EOSINOPHILS (test code = 1012) 3.9 % BASOPHILS (test code = 1013) 1.1 % PLATELET COUNT (test code = 1015) 184 K/UL Bill Came[place] [id number] 00:00:00* Test Item Value Reference Range Interpretation Comme nts CHOLESTEROL (test code = 2210) 157 MG/DL TRIGLYCERIDES (test code = 2232) 145 MG/DL HDL CHOLESTEROL (test code = 2220) 76 MG/DL CALC LDL CHOL (test code = 2237) 58 MG/DL RISK RATIO LDL/HDL (test cod e = 2238) 0.76 RATIO Bill Camejo JeanCOMPREHENSIVE METABOLIC [id number] 00:00:00* Test Item Value Reference Range Interpretation Comme nts GLUCOSE (test code = 2217) 76 MG/DL BUN (test code = 2208) 25 MG/DL CREATININE (test code = 2214) 0.85 MG/DL eGFR AMER. (test cod e = 47988) 91 ML/MIN/1.73 eGFR NON- AMER. (test code = 43650) 79 ML/MIN/1.73 CALC BUN/CREAT (test code = 2235) 29 RATIO SODIUM (test code = 2231) 137 MEQ/L POTASSIUM (test code = 2228) 4.5 MEQ/L CHLORIDE (test code = 2215) 99 MEQ/L CARBON DIOXIDE (test code = 2206) 22 MEQ/L CALCIUM (test code = 2209) 9.6 MG/DL PROTEIN, TOTAL (test code = 2229) 7.8 G/DL ALBUMIN (test code = 2201) 4.9 G/DL CALC GLOBULIN (test code = 2240) 2.9 G/DL CALC A/G RATIO (test code = 2234) 1.7 RATIO BILIRUBIN, TOTAL (test code = 2207) 0.3 MG/DL ALKALINE PHOSPHATASE (test code = 2204) 181 U/L AST (test code = 2218) 28 U/L ALT (test code = 2219) 28 U/L Bill Camejo [place]IP[place] [id number] 00:00:00* Test Item Value Reference Range Interpretation Comme nts CHOLESTEROL (test code = 2210) 157 MG/DL TRIGLYCERIDES (test code = 2232) 145 MG/DL HDL CHOLESTEROL (test code = 2220) 76 MG/DL CALC LDL CHOL (test code = 2237) 58 MG/DL RISK RATIO LDL/HDL (test cod e = 2238) 0.76 RATIO Bill PenaCOMPREHENSIVE METABOLIC [id number] 00:00:00* Test Item Value Reference Range Interpretation Comme nts GLUCOSE (test code = 2217) 76 MG/DL BUN (test code = 2208) 25 MG/DL CREATININE (test code = 2214) 0.85 MG/DL eGFR AMER. (test cod e = 33271) 91 ML/MIN/1.73 eGFR NON- AMER. (test code = 84778) 79 ML/MIN/1.73 CALC BUN/CREAT (test code = 2235) 29 RATIO SODIUM (test code = 2231) 137 MEQ/L POTASSIUM (test code = 2228) 4.5 MEQ/L CHLORIDE (test code = 2215) 99 MEQ/L CARBON DIOXIDE (test code = 2206) 22 MEQ/L CALCIUM (test code = 2209) 9.6 MG/DL PROTEIN, TOTAL (test code = 2229) 7.8 G/DL ALBUMIN (test code = 2201) 4.9 G/DL CALC GLOBULIN (test code = 2240) 2.9 G/DL CALC A/G RATIO (test code = 2234) 1.7 RATIO BILIRUBIN, TOTAL (test code = 2207) 0.3 MG/DL ALKALINE PHOSPHATASE (test code = 2204) 181 U/L AST (test code = 2218) 28 U/L ALT (test code = 2219) 28 U/L Bill Camejo [place]IP[place] [id number] 00:00:00* Test Item Value Reference Range Interpretation Comme nts CHOLESTEROL (test code = 2210) 157 MG/DL TRIGLYCERIDES (test code = 2232) 145 MG/DL HDL CHOLESTEROL (test code = 2220) 76 MG/DL CALC LDL CHOL (test code = 2237) 58 MG/DL RISK RATIO LDL/HDL (test cod e = 2238) 0.76 RATIO Bill PenaCOMPREHENSIVE METABOLIC [id number] 00:00:00* Test Item Value Reference Range Interpretation Comme nts GLUCOSE (test code = 2217) 76 MG/DL BUN (test code = 2208) 25 MG/DL CREATININE (test code = 2214) 0.85 MG/DL eGFR AMER. (test cod e = 71897) 91 ML/MIN/1.73 eGFR NON- AMER. (test code = 65918) 79 ML/MIN/1.73 CALC BUN/CREAT (test code = 2235) 29 RATIO SODIUM (test code = 2231) 137 MEQ/L POTASSIUM (test code = 2228) 4.5 MEQ/L CHLORIDE (test code = 2215) 99 MEQ/L CARBON DIOXIDE (test code = 2206) 22 MEQ/L CALCIUM (test code = 2209) 9.6 MG/DL PROTEIN, TOTAL (test code = 2229) 7.8 G/DL ALBUMIN (test code = 2201) 4.9 G/DL CALC GLOBULIN (test code = 2240) 2.9 G/DL CALC A/G RATIO (test code = 2234) 1.7 RATIO BILIRUBIN, TOTAL (test code = 2207) 0.3 MG/DL ALKALINE PHOSPHATASE (test code = 2204) 181 U/L AST (test code = 2218) 28 U/L ALT (test code = 2219) 28 U/L Bill PenaLIPID [id number] 00:00:00* Test Item Value Reference Range Interpretation Comme nts CHOLESTEROL (test code = 2210) 157 MG/DL TRIGLYCERIDES (test code = 2232) 145 MG/DL HDL CHOLESTEROL (test code = 2220) 76 MG/DL CALC LDL CHOL (test code = 2237) 58 MG/DL RISK RATIO LDL/HDL (test cod e = 2238) 0.76 RATIO Bill PenaCOMPREHENSIVE METABOLIC [id number] 00:00:00* Test Item Value Reference Range Interpretation Comme nts GLUCOSE (test code = 2217) 76 MG/DL BUN (test code = 2208) 25 MG/DL CREATININE (test code = 2214) 0.85 MG/DL eGFR AMER. (test cod e = 37146) 91 ML/MIN/1.73 eGFR NON- AMER. (test code = 53469) 79 ML/MIN/1.73 CALC BUN/CREAT (test code = 2235) 29 RATIO SODIUM (test code = 2231) 137 MEQ/L POTASSIUM (test code = 2228) 4.5 MEQ/L CHLORIDE (test code = 2215) 99 MEQ/L CARBON DIOXIDE (test code = 2206) 22 MEQ/L CALCIUM (test code = 2209) 9.6 MG/DL PROTEIN, TOTAL (test code = 2229) 7.8 G/DL ALBUMIN (test code = 2201) 4.9 G/DL CALC GLOBULIN (test code = 2240) 2.9 G/DL CALC A/G RATIO (test code = 2234) 1.7 RATIO BILIRUBIN, TOTAL (test code = 2207) 0.3 MG/DL ALKALINE PHOSPHATASE (test code = 2204) 181 U/L AST (test code = 2218) 28 U/L ALT (test code = 2219) 28 U/L Bill Camejo AustinLIP[place] [id number] 00:00:00* Test Item Value Reference Range Interpretation Comme nts CHOLESTEROL (test code = 2210) 157 MG/DL TRIGLYCERIDES (test code = 2232) 145 MG/DL HDL CHOLESTEROL (test code = 2220) 76 MG/DL CALC LDL CHOL (test code = 2237) 58 MG/DL RISK RATIO LDL/HDL (test cod e = 2238) 0.76 RATIO Bill Camejo AustinCOMPREHENSIVE METABOLIC [id number] 00:00:00* Test Item Value Reference Range Interpretation Comme nts GLUCOSE (test code = 2217) 76 MG/DL BUN (test code = 2208) 25 MG/DL CREATININE (test code = 2214) 0.85 MG/DL eGFR AMER. (test cod e = 36186) 91 ML/MIN/1.73 eGFR NON- AMER. (test code = 62574) 79 ML/MIN/1.73 CALC BUN/CREAT (test code = 2235) 29 RATIO SODIUM (test code = 2231) 137 MEQ/L POTASSIUM (test code = 2228) 4.5 MEQ/L CHLORIDE (test code = 2215) 99 MEQ/L CARBON DIOXIDE (test code = 2206) 22 MEQ/L CALCIUM (test code = 2209) 9.6 MG/DL PROTEIN, TOTAL (test code = 2229) 7.8 G/DL ALBUMIN (test code = 2201) 4.9 G/DL CALC GLOBULIN (test code = 2240) 2.9 G/DL CALC A/G RATIO (test code = 2234) 1.7 RATIO BILIRUBIN, TOTAL (test code = 2207) 0.3 MG/DL ALKALINE PHOSPHATASE (test code = 2203) 181 U/L AST (test code = 2218) 28 U/L ALT (test code = 2219) 28 U/L Bill Camejo OsihyfWBNE-ShZ-5 (COVID-19) by RT-PCR (HIGH RISK)2020-09-21 00:00:00* Test Item Value Reference Range Interpretation Comme nts SARS-CoV-2 INTERPRETATION (t est code = 18273) NEGATIVE SOURCE (test code = 15171) NOT SPECIFIED Bill Camejo GqwyiaKZCZ-FbA-1 (COVID-19) by RT-PCR (HIGH RISK)2020-09-21 00:00:00* Test Item Value Reference Range Interpretation Comme nts SARS-CoV-2 INTERPRETATION (t est code = 16479) NEGATIVE SOURCE (test code = 45681) NOT SPECIFIED Bill Camejo UkwzrwAUJN-LfG-2 (COVID-19) by RT-PCR (HIGH RISK)2020-09-21 00:00:00* Test Item Value Reference Range Interpretation Comme nts SARS-CoV-2 INTERPRETATION (t est code = 62450) NEGATIVE SOURCE (test code = 06093) NOT SPECIFIED Bill Camejo CyktapPIUO-QvX-9 (COVID-19) by RT-PCR (HIGH RISK)2020-09-21 00:00:00* Test Item Value Reference Range Interpretation Comme nts SARS-CoV-2 INTERPRETATION (t est code = 39439) NEGATIVE SOURCE (test code = 34671) NOT SPECIFIED Bill Camejo OwlbiuVXVS-ElH-8 (COVID-19) by RT-PCR (HIGH RISK)2020-09-21 00:00:00* Test Item Value Reference Range Interpretation Comme nts SARS-CoV-2 INTERPRETATION (t est code = 76533) NEGATIVE SOURCE (test code = 28261) NOT SPECIFIED Bill Camejo ZycswfGNDD-LmF-5 (COVID-19) by RT-PCR (HIGH RISK)2020-08-14 00:00:00* Test Item Value Reference Range Interpretation Comme nts SARS-CoV-2 INTERPRETATION (test code = 19361) Negative SOURCE (test code = 27987) Nasal_Swab_in _VTM__ UTM Bill Camejo QgluxvIUBW-PeQ-9 (COVID-19) by RT-PCR (HIGH RISK)2020-08-14 00:00:00* Test Item Value Reference Range Interpretation Comme nts SARS-CoV-2 INTERPRETATION (test code = 34866) Negative SOURCE (test code = 53368) Nasal_Swab_in _VTM__ UTM Bill Camejo VkvzixLWUU-HeZ-8 (COVID-19) by RT-PCR (HIGH RISK)2020-08-14 00:00:00* Test Item Value Reference Range Interpretation Comme nts SARS-CoV-2 INTERPRETATION (test code = 66274) Negative SOURCE (test code = 05643) Nasal_Swab_in _VTM__ UTM Bill Camejo ZselxoGYLD-IpN-0 (COVID-19) by RT-PCR (HIGH RISK)2020-08-14 00:00:00* Test Item Value Reference Range Interpretation Comme nts SARS-CoV-2 INTERPRETATION (test code = 08101) Negative SOURCE (test code = 47076) Nasal_Swab_in _VTM__ UTM Bill Camejo PteuxdHOQI-BpY-1 (COVID-19) by RT-PCR (HIGH RISK)2020-08-14 00:00:00* Test Item Value Reference Range Interpretation Comme nts SARS-CoV-2 INTERPRETATION (test code = 75588) Negative SOURCE (test code = 01222) Nasal_Swab_in _VTM__ UTM Bill F IkprinSKYG-BlG-0 (COVID-19) by RT-PCR (HIGH RISK)2020-07-30 00:00:00* Test Item Value Reference Range Interpretation Comme nts SARS-CoV-2 INTERPRETATION (test code = 81545) Negative SOURCE (test code = 12638) Nasal_Swab_in _VTM__ UTM Bill F ZrqwwsRJIV-QgH-5 (COVID-19) by RT-PCR (HIGH RISK)2020-07-30 00:00:00* Test Item Value Reference Range Interpretation Comme nts SARS-CoV-2 INTERPRETATION (test code = 87373) Negative SOURCE (test code = 71820) Nasal_Swab_in _VTM__ UTM Bill F JgfhacKUOA-IaN-7 (COVID-19) by RT-PCR (HIGH RISK)2020-07-30 00:00:00* Test Item Value Reference Range Interpretation Comme nts SARS-CoV-2 INTERPRETATION (test code = 59938) Negative SOURCE (test code = 54883) Nasal_Swab_in _VTM__ UTM Bill F FmbsggPQBJ-VdG-3 (COVID-19) by RT-PCR (HIGH RISK)2020-07-30 00:00:00* Test Item Value Reference Range Interpretation Comme nts SARS-CoV-2 INTERPRETATION (test code = 17396) Negative SOURCE (test code = 81668) Nasal_Swab_in _VTM__ UTM Bill F WgnmnmRNMX-LmQ-2 (COVID-19) by RT-PCR (HIGH RISK)2020-07-30 00:00:00* Test Item Value Reference Range Interpretation Comme nts SARS-CoV-2 INTERPRETATION (test code = 53177) Negative SOURCE (test code = 22351) Nasal_Swab_in _VTM__ UTM Bill F GlpwplCONT-SoA-4 (COVID-19) by RT-PCR (HIGH RISK)2020-07-03 00:00:00* Test Item Value Reference Range Interpretation Comme nts SARS-CoV-2 INTERPRETATION (test code = 02339) Negative SOURCE (test code = 37591) NASOPHARYNGEA L_SWAB _IN_PBS__NS Bill F NsomipEVZX-NyN-5 (COVID-19) by RT-PCR (HIGH RISK)2020-07-03 00:00:00* Test Item Value Reference Range Interpretation Comme nts SARS-CoV-2 INTERPRETATION (test code = 79328) Negative SOURCE (test code = 47329) NASOPHARYNGEA L_SWAB _IN_PBS__NS Bill F BexslxYZNV-RiX-0 (COVID-19) by RT-PCR (HIGH RISK)2020-07-03 00:00:00* Test Item Value Reference Range Interpretation Comme nts SARS-CoV-2 INTERPRETATION (test code = 88017) Negative SOURCE (test code = 74371) NASOPHARYNGEA L_SWAB _IN_PBS__NS Bill PenaSARS-CoV-2 (COVID-19) by RT-PCR (HIGH RISK)2020-07-03 00:00:00* Test Item Value Reference Range Interpretation Comme nts SARS-CoV-2 INTERPRETATION (test code = 79575) Negative SOURCE (test code = 23197) NASOPHARYNGEA L_SWAB _IN_PBS__NS Bill Camejo AefxxmVWHE-SbL-6 (COVID-19) by RT-PCR (HIGH RISK)2020-07-03 00:00:00* Test Item Value Reference Range Interpretation Comme nts SARS-CoV-2 INTERPRETATION (test code = 98286) Negative SOURCE (test code = 53745) NASOPHARYNGEA L_SWAB _IN_PBS__NS Bill PenaCOMPREHENSIVE METABOLIC [id number] 00:00:00* Test Item Value Reference Range Interpretation Comme nts GLUCOSE (test code = 2217) 100 MG/DL BUN (test code = 2208) 23 MG/DL CREATININE (test code = 2214) 1.00 MG/DL eGFR AMER. (test cod e = 63113) 76 ML/MIN/1.73 eGFR NON- AMER. (test code = 90511) 65 ML/MIN/1.73 CALC BUN/CREAT (test code = 2235) 23 RATIO SODIUM (test code = 2231) 138 MEQ/L POTASSIUM (test code = 2228) 4.7 MEQ/L CHLORIDE (test code = 2215) 100 MEQ/L CARBON DIOXIDE (test code = 2206) 26 MEQ/L CALCIUM (test code = 2209) 10.4 MG/DL PROTEIN, TOTAL (test code = 2229) 9.2 G/DL ALBUMIN (test code = 2201) 4.4 G/DL CALC GLOBULIN (test code = 2240) 4.8 G/DL CALC A/G RATIO (test code = 2234) 0.9 RATIO BILIRUBIN, TOTAL (test code = 2207) 0.5 MG/DL ALKALINE PHOSPHATASE (test code = 2204) 186 U/L AST (test code = 2218) 39 U/L ALT (test code = 2219) 43 U/L Bill Camejo [place]PRE[place] [id number] 00:00:00* Test Item Value Reference Range Interpretation Comme nts GLUCOSE (test code = 2217) 100 MG/DL BUN (test code = 2208) 23 MG/DL CREATININE (test code = 2214) 1.00 MG/DL eGFR AMER. (test cod e = 87337) 76 ML/MIN/1.73 eGFR NON- AMER. (test code = 42379) 65 ML/MIN/1.73 CALC BUN/CREAT (test code = 2235) 23 RATIO SODIUM (test code = 2231) 138 MEQ/L POTASSIUM (test code = 2228) 4.7 MEQ/L CHLORIDE (test code = 2215) 100 MEQ/L CARBON DIOXIDE (test code = 2206) 26 MEQ/L CALCIUM (test code = 2209) 10.4 MG/DL PROTEIN, TOTAL (test code = 2229) 9.2 G/DL ALBUMIN (test code = 2201) 4.4 G/DL CALC GLOBULIN (test code = 2240) 4.8 G/DL CALC A/G RATIO (test code = 2234) 0.9 RATIO BILIRUBIN, TOTAL (test code = 2207) 0.5 MG/DL ALKALINE PHOSPHATASE (test code = 2204) 186 U/L AST (test code = 2218) 39 U/L ALT (test code = 2219) 43 U/L Bill Camejo [place]PREHENSIVE METABOL[place] [id number] 00:00:00* Test Item Value Reference Range Interpretation Comme nts GLUCOSE (test code = 2217) 100 MG/DL BUN (test code = 2208) 23 MG/DL CREATININE (test code = 2214) 1.00 MG/DL eGFR AMER. (test cod e = 85656) 76 ML/MIN/1.73 eGFR NON- AMER. (test code = 62462) 65 ML/MIN/1.73 CALC BUN/CREAT (test code = 2235) 23 RATIO SODIUM (test code = 2231) 138 MEQ/L POTASSIUM (test code = 2228) 4.7 MEQ/L CHLORIDE (test code = 2215) 100 MEQ/L CARBON DIOXIDE (test code = 2206) 26 MEQ/L CALCIUM (test code = 2209) 10.4 MG/DL PROTEIN, TOTAL (test code = 2229) 9.2 G/DL ALBUMIN (test code = 2201) 4.4 G/DL CALC GLOBULIN (test code = 2240) 4.8 G/DL CALC A/G RATIO (test code = 2234) 0.9 RATIO BILIRUBIN, TOTAL (test code = 2207) 0.5 MG/DL ALKALINE PHOSPHATASE (test code = 2204) 186 U/L AST (test code = 2218) 39 U/L ALT (test code = 2219) 43 U/L Bill F AustinCOMPREHENSIVE METABOLIC [id number] 00:00:00* Test Item Value Reference Range Interpretation Comme nts GLUCOSE (test code = 2217) 100 MG/DL BUN (test code = 2208) 23 MG/DL CREATININE (test code = 2214) 1.00 MG/DL eGFR AMER. (test cod e = 35660) 76 ML/MIN/1.73 eGFR NON- AMER. (test code = 12353) 65 ML/MIN/1.73 CALC BUN/CREAT (test code = 2235) 23 RATIO SODIUM (test code = 2231) 138 MEQ/L POTASSIUM (test code = 2228) 4.7 MEQ/L CHLORIDE (test code = 2215) 100 MEQ/L CARBON DIOXIDE (test code = 2206) 26 MEQ/L CALCIUM (test code = 2209) 10.4 MG/DL PROTEIN, TOTAL (test code = 2229) 9.2 G/DL ALBUMIN (test code = 2201) 4.4 G/DL CALC GLOBULIN (test code = 2240) 4.8 G/DL CALC A/G RATIO (test code = 2234) 0.9 RATIO BILIRUBIN, TOTAL (test code = 2207) 0.5 MG/DL ALKALINE PHOSPHATASE (test code = 2204) 186 U/L AST (test code = 2218) 39 U/L ALT (test code = 2219) 43 U/L Bill F AustinCOMPREHENSIVE METABOLIC [id number] 00:00:00* Test Item Value Reference Range Interpretation Comme nts GLUCOSE (test code = 2217) 100 MG/DL BUN (test code = 2208) 23 MG/DL CREATININE (test code = 2214) 1.00 MG/DL eGFR AMER. (test cod e = 86171) 76 ML/MIN/1.73 eGFR NON- AMER. (test code = 55685) 65 ML/MIN/1.73 CALC BUN/CREAT (test code = 2235) 23 RATIO SODIUM (test code = 2231) 138 MEQ/L POTASSIUM (test code = 2228) 4.7 MEQ/L CHLORIDE (test code = 2215) 100 MEQ/L CARBON DIOXIDE (test code = 2206) 26 MEQ/L CALCIUM (test code = 2209) 10.4 MG/DL PROTEIN, TOTAL (test code = 2229) 9.2 G/DL ALBUMIN (test code = 2201) 4.4 G/DL CALC GLOBULIN (test code = 2240) 4.8 G/DL CALC A/G RATIO (test code = 2234) 0.9 RATIO BILIRUBIN, TOTAL (test code = 2207) 0.5 MG/DL ALKALINE PHOSPHATASE (test code = 2204) 186 U/L AST (test code = 2218) 39 U/L ALT (test code = 2219) 43 U/L Bill Nell [place]ina[place]PREHENSIVE METABOL[place] [id number] 00:00:00* Test Item Value Reference Range Interpretation Comme nts GLUCOSE (test code = 2217) 113 MG/DL BUN (test code = 2208) 40 MG/DL CREATININE (test code = 2214) 1.25 MG/DL eGFR AMER. (test cod e = 54185) 58 ML/MIN/1.73 eGFR NON- AMER. (test code = 28288) 50 ML/MIN/1.73 CALC BUN/CREAT (test code = 2235) 32 RATIO SODIUM (test code = 2231) 142 MEQ/L POTASSIUM (test code = 2228) 4.6 MEQ/L CHLORIDE (test code = 2215) 102 MEQ/L CARBON DIOXIDE (test code = 2206) 23 MEQ/L CALCIUM (test code = 2209) 10.2 MG/DL PROTEIN, TOTAL (test code = 2229) 8.2 G/DL ALBUMIN (test code = 2201) 5.3 G/DL CALC GLOBULIN (test code = 2240) 2.9 G/DL CALC A/G RATIO (test code = 2234) 1.8 RATIO BILIRUBIN, TOTAL (test code = 2207) 0.2 MG/DL ALKALINE PHOSPHATASE (test code = 2204) 112 U/L AST (test code = 2218) 45 U/L ALT (test code = 2219) 46 U/L [facility]amejo [facility] [id number] 00:00:00* Test Item Value Reference Range Interpretation Comme nts GLUCOSE (test code = 2217) 113 MG/DL BUN (test code = 2208) 40 MG/DL CREATININE (test code = 2214) 1.25 MG/DL eGFR AMER. (test cod e = 82019) 58 ML/MIN/1.73 eGFR NON- AMER. (test code = 02108) 50 ML/MIN/1.73 CALC BUN/CREAT (test code = 2235) 32 RATIO SODIUM (test code = 2231) 142 MEQ/L POTASSIUM (test code = 2228) 4.6 MEQ/L CHLORIDE (test code = 2215) 102 MEQ/L CARBON DIOXIDE (test code = 2206) 23 MEQ/L CALCIUM (test code = 2209) 10.2 MG/DL PROTEIN, TOTAL (test code = 2229) 8.2 G/DL ALBUMIN (test code = 2201) 5.3 G/DL CALC GLOBULIN (test code = 2240) 2.9 G/DL CALC A/G RATIO (test code = 2234) 1.8 RATIO BILIRUBIN, TOTAL (test code = 2207) 0.2 MG/DL ALKALINE PHOSPHATASE (test code = 2204) 112 U/L AST (test code = 2218) 45 U/L ALT (test code = 2219) 46 U/L Bill Camejo [facility] [id number] 00:00:00* Test Item Value Reference Range Interpretation Comme nts GLUCOSE (test code = 2217) 113 MG/DL BUN (test code = 2208) 40 MG/DL CREATININE (test code = 2214) 1.25 MG/DL eGFR AMER. (test cod e = 06736) 58 ML/MIN/1.73 eGFR NON- AMER. (test code = 79339) 50 ML/MIN/1.73 CALC BUN/CREAT (test code = 2235) 32 RATIO SODIUM (test code = 2231) 142 MEQ/L POTASSIUM (test code = 2228) 4.6 MEQ/L CHLORIDE (test code = 2215) 102 MEQ/L CARBON DIOXIDE (test code = 2206) 23 MEQ/L CALCIUM (test code = 2209) 10.2 MG/DL PROTEIN, TOTAL (test code = 2229) 8.2 G/DL ALBUMIN (test code = 2201) 5.3 G/DL CALC GLOBULIN (test code = 2240) 2.9 G/DL CALC A/G RATIO (test code = 2234) 1.8 RATIO BILIRUBIN, TOTAL (test code = 2207) 0.2 MG/DL ALKALINE PHOSPHATASE (test code = 2204) 112 U/L AST (test code = 2218) 45 U/L ALT (test code = 2219) 46 U/L Bill Camejo [place]PRE[place] [id number] 00:00:00* Test Item Value Reference Range Interpretation Comme nts GLUCOSE (test code = 2217) 113 MG/DL BUN (test code = 2208) 40 MG/DL CREATININE (test code = 2214) 1.25 MG/DL eGFR AMER. (test cod e = 27902) 58 ML/MIN/1.73 eGFR NON- AMER. (test code = 11979) 50 ML/MIN/1.73 CALC BUN/CREAT (test code = 2235) 32 RATIO SODIUM (test code = 2231) 142 MEQ/L POTASSIUM (test code = 2228) 4.6 MEQ/L CHLORIDE (test code = 2215) 102 MEQ/L CARBON DIOXIDE (test code = 2206) 23 MEQ/L CALCIUM (test code = 2209) 10.2 MG/DL PROTEIN, TOTAL (test code = 2229) 8.2 G/DL ALBUMIN (test code = 2201) 5.3 G/DL CALC GLOBULIN (test code = 2240) 2.9 G/DL CALC A/G RATIO (test code = 2234) 1.8 RATIO BILIRUBIN, TOTAL (test code = 2207) 0.2 MG/DL ALKALINE PHOSPHATASE (test code = 2204) 112 U/L AST (test code = 2218) 45 U/L ALT (test code = 2219) 46 U/L Bill Camejo [place] [id number] 00:00:00* Test Item Value Reference Range Interpretation Comme nts GLUCOSE (test code = 2217) 113 MG/DL BUN (test code = 2208) 40 MG/DL CREATININE (test code = 2214) 1.25 MG/DL eGFR AMER. (test cod e = 06620) 58 ML/MIN/1.73 eGFR NON- AMER. (test code = 09929) 50 ML/MIN/1.73 CALC BUN/CREAT (test code = 2235) 32 RATIO SODIUM (test code = 2231) 142 MEQ/L POTASSIUM (test code = 2228) 4.6 MEQ/L CHLORIDE (test code = 2215) 102 MEQ/L CARBON DIOXIDE (test code = 2206) 23 MEQ/L CALCIUM (test code = 2209) 10.2 MG/DL PROTEIN, TOTAL (test code = 2229) 8.2 G/DL ALBUMIN (test code = 2201) 5.3 G/DL CALC GLOBULIN (test code = 2240) 2.9 G/DL CALC A/G RATIO (test code = 2234) 1.8 RATIO BILIRUBIN, TOTAL (test code = 2207) 0.2 MG/DL ALKALINE PHOSPHATASE (test code = 2204) 112 U/L AST (test code = 2218) 45 U/L ALT (test code = 2219) 46 U/L Bill Camejo [place]HEMO[place]IN [id number] 00:00:00* Test Item Value Reference Range Interpretation Comme nts HEMOGLOBIN A1c (test code = 91397) 5.6 % Bill Camejo [place]HEMOGLOBIN [id number] 00:00:00* Test Item Value Reference Range Interpretation Comme nts HEMOGLOBIN A1c (test code = 27026) 5.6 % Bill Camejo [place]HEMOGLOBIN [id number] 00:00:00* Test Item Value Reference Range Interpretation Comme nts HEMOGLOBIN A1c (test code = 02608) 5.6 % Bill Nell AustinHEMOGLOBIN [id number] 00:00:00* Test Item Value Reference Range Interpretation Comme nts HEMOGLOBIN A1c (test code = 97572) 5.6 % Bill Camejo AustinHEMOGLOBIN [id number] 00:00:00* Test Item Value Reference Range Interpretation Comme nts HEMOGLOBIN A1c (test code = 05406) 5.6 % Bill Camejo [place] [id number] 00:00:00* Test Item Value Reference Range Interpretation Comme nts GLUCOSE (test code = 2217) 101 MG/DL BUN (test code = 2208) 24 MG/DL CREATININE (test code = 2214) 0.98 MG/DL eGFR AMER. (test cod e = 61627) 78 ML/MIN/1.73 eGFR NON- AMER. (test code = 31522) 67 ML/MIN/1.73 CALC BUN/CREAT (test code = 2235) 24 RATIO SODIUM (test code = 2231) 144 MEQ/L POTASSIUM (test code = 2228) 4.3 MEQ/L CHLORIDE (test code = 2215) 105 MEQ/L CARBON DIOXIDE (test code = 2206) 24 MEQ/L CALCIUM (test code = 2209) 9.5 MG/DL PROTEIN, TOTAL (test code = 2229) 7.9 G/DL ALBUMIN (test code = 2201) 4.9 G/DL CALC GLOBULIN (test code = 2240) 3.0 G/DL CALC A/G RATIO (test code = 2234) 1.6 RATIO BILIRUBIN, TOTAL (test code = 2207) 0.3 MG/DL ALKALINE PHOSPHATASE (test code = 2204) 100 U/L AST (test code = 2218) 34 U/L ALT (test code = 2219) 27 U/L Bill PenaLIPID [id number] 00:00:00* Test Item Value Reference Range Interpretation Comme nts CHOLESTEROL (test code = 2210) 194 MG/DL TRIGLYCERIDES (test code = 2232) 142 MG/DL HDL CHOLESTEROL (test code = 2220) 95 MG/DL CALC LDL CHOL (test code = 2237) 71 MG/DL RISK RATIO LDL/HDL (test cod e = 2238) 0.74 RATIO Bill PenaCOMPREHENSIVE METABOLIC [id number] 00:00:00* Test Item Value Reference Range Interpretation Comme nts GLUCOSE (test code = 2217) 101 MG/DL BUN (test code = 2208) 24 MG/DL CREATININE (test code = 2214) 0.98 MG/DL eGFR AMER. (test cod e = 60212) 78 ML/MIN/1.73 eGFR NON- AMER. (test code = 15456) 67 ML/MIN/1.73 CALC BUN/CREAT (test code = 2235) 24 RATIO SODIUM (test code = 2231) 144 MEQ/L POTASSIUM (test code = 2228) 4.3 MEQ/L CHLORIDE (test code = 2215) 105 MEQ/L CARBON DIOXIDE (test code = 2206) 24 MEQ/L CALCIUM (test code = 2209) 9.5 MG/DL PROTEIN, TOTAL (test code = 2229) 7.9 G/DL ALBUMIN (test code = 2201) 4.9 G/DL CALC GLOBULIN (test code = 2240) 3.0 G/DL CALC A/G RATIO (test code = 2234) 1.6 RATIO BILIRUBIN, TOTAL (test code = 2207) 0.3 MG/DL ALKALINE PHOSPHATASE (test code = 220) 100 U/L AST (test code = 221) 34 U/L ALT (test code = 2219) 27 U/L Bill Camejo [place] [id number] 00:00:00* Test Item Value Reference Range Interpretation Comme nts CHOLESTEROL (test code = 2210) 194 MG/DL TRIGLYCERIDES (test code = 2232) 142 MG/DL HDL CHOLESTEROL (test code = 2220) 95 MG/DL CALC LDL CHOL (test code = 2237) 71 MG/DL RISK RATIO LDL/HDL (test cod e = 2238) 0.74 RATIO Bill Camejo JeanCOMPREHENSIVE METABOLIC [id number] 00:00:00* Test Item Value Reference Range Interpretation Comme nts GLUCOSE (test code = 2217) 101 MG/DL BUN (test code = 2208) 24 MG/DL CREATININE (test code = 2214) 0.98 MG/DL eGFR AMER. (test cod e = 83127) 78 ML/MIN/1.73 eGFR NON- AMER. (test code = 74803) 67 ML/MIN/1.73 CALC BUN/CREAT (test code = 2235) 24 RATIO SODIUM (test code = 2231) 144 MEQ/L POTASSIUM (test code = 2228) 4.3 MEQ/L CHLORIDE (test code = 2215) 105 MEQ/L CARBON DIOXIDE (test code = 2206) 24 MEQ/L CALCIUM (test code = 2209) 9.5 MG/DL PROTEIN, TOTAL (test code = 2229) 7.9 G/DL ALBUMIN (test code = 2201) 4.9 G/DL CALC GLOBULIN (test code = 2240) 3.0 G/DL CALC A/G RATIO (test code = 2234) 1.6 RATIO BILIRUBIN, TOTAL (test code = 2207) 0.3 MG/DL ALKALINE PHOSPHATASE (test code = 2204) 100 U/L AST (test code = 2218) 34 U/L ALT (test code = 2219) 27 U/L Bill Camejo AustinLIPID [id number] 00:00:00* Test Item Value Reference Range Interpretation Comme nts CHOLESTEROL (test code = 2210) 194 MG/DL TRIGLYCERIDES (test code = 2232) 142 MG/DL HDL CHOLESTEROL (test code = 2220) 95 MG/DL CALC LDL CHOL (test code = 2237) 71 MG/DL RISK RATIO LDL/HDL (test cod e = 2238) 0.74 RATIO Bill PenaCOMPREHENSIVE METABOLIC [id number] 00:00:00* Test Item Value Reference Range Interpretation Comme nts GLUCOSE (test code = 2217) 101 MG/DL BUN (test code = 2208) 24 MG/DL CREATININE (test code = 2214) 0.98 MG/DL eGFR AMER. (test cod e = 35687) 78 ML/MIN/1.73 eGFR NON- AMER. (test code = 02987) 67 ML/MIN/1.73 CALC BUN/CREAT (test code = 2235) 24 RATIO SODIUM (test code = 2231) 144 MEQ/L POTASSIUM (test code = 2228) 4.3 MEQ/L CHLORIDE (test code = 2215) 105 MEQ/L CARBON DIOXIDE (test code = 2206) 24 MEQ/L CALCIUM (test code = 2209) 9.5 MG/DL PROTEIN, TOTAL (test code = 2229) 7.9 G/DL ALBUMIN (test code = 2201) 4.9 G/DL CALC GLOBULIN (test code = 2240) 3.0 G/DL CALC A/G RATIO (test code = 2234) 1.6 RATIO BILIRUBIN, TOTAL (test code = 2207) 0.3 MG/DL ALKALINE PHOSPHATASE (test code = 2204) 100 U/L AST (test code = 2218) 34 U/L ALT (test code = 2219) 27 U/L Bill Camejo [place]IP[place] [id number] 00:00:00* Test Item Value Reference Range Interpretation Comme nts CHOLESTEROL (test code = 2210) 194 MG/DL TRIGLYCERIDES (test code = 2232) 142 MG/DL HDL CHOLESTEROL (test code = 2220) 95 MG/DL CALC LDL CHOL (test code = 2237) 71 MG/DL RISK RATIO LDL/HDL (test cod e = 2238) 0.74 RATIO Bill PenaCOMPREHENSIVE METABOLIC [id number] 00:00:00* Test Item Value Reference Range Interpretation Comme nts GLUCOSE (test code = 2217) 101 MG/DL BUN (test code = 2208) 24 MG/DL CREATININE (test code = 2214) 0.98 MG/DL eGFR AMER. (test cod e = 39369) 78 ML/MIN/1.73 eGFR NON- AMER. (test code = 57107) 67 ML/MIN/1.73 CALC BUN/CREAT (test code = 2235) 24 RATIO SODIUM (test code = 2231) 144 MEQ/L POTASSIUM (test code = 2228) 4.3 MEQ/L CHLORIDE (test code = 2215) 105 MEQ/L CARBON DIOXIDE (test code = 2206) 24 MEQ/L CALCIUM (test code = 2209) 9.5 MG/DL PROTEIN, TOTAL (test code = 2229) 7.9 G/DL ALBUMIN (test code = 2201) 4.9 G/DL CALC GLOBULIN (test code = 2240) 3.0 G/DL CALC A/G RATIO (test code = 2234) 1.6 RATIO BILIRUBIN, TOTAL (test code = 2207) 0.3 MG/DL ALKALINE PHOSPHATASE (test code = 2204) 100 U/L AST (test code = 2218) 34 U/L ALT (test code = 2219) 27 U/L Bill Camejo AustinLIP[place] [id number] 00:00:00* Test Item Value Reference Range Interpretation Comme nts CHOLESTEROL (test code = 2210) 194 MG/DL TRIGLYCERIDES (test code = 2232) 142 MG/DL HDL CHOLESTEROL (test code = 2220) 95 MG/DL CALC LDL CHOL (test code = 2237) 71 MG/DL RISK RATIO LDL/HDL (test cod e = 2238) 0.74 RATIO Bill Camejo AustinLIP[place] [id number] 00:00:00* Test Item Value Reference Range Interpretation Comme nts CHOLESTEROL (test code = 2210) 189 MG/DL TRIGLYCERIDES (test code = 2232) 179 MG/DL HDL CHOLESTEROL (test code = 2220) 85 MG/DL CALC LDL CHOL (test code = 2237) 68 MG/DL RISK RATIO LDL/HDL (test cod e = 2238) 0.80 RATIO Bill Camejo AustinCOMPREHENSIVE METABOLIC [id number] 00:00:00* Test Item Value Reference Range Interpretation Comme nts GLUCOSE (test code = 2217) 91 MG/DL BUN (test code = 2208) 18 MG/DL CREATININE (test code = 2214) 0.92 MG/DL eGFR AMER. (test cod e = 54877) 85 ML/MIN/1.73 eGFR NON- AMER. (test code = 54464) 73 ML/MIN/1.73 CALC BUN/CREAT (test code = 2235) 20 RATIO SODIUM (test code = 2231) 140 MEQ/L POTASSIUM (test code = 2228) 5.1 MEQ/L CHLORIDE (test code = 2215) 102 MEQ/L CARBON DIOXIDE (test code = 2206) 24 MEQ/L CALCIUM (test code = 2209) 9.7 MG/DL PROTEIN, TOTAL (test code = 2229) 8.0 G/DL ALBUMIN (test code = 2201) 4.4 G/DL CALC GLOBULIN (test code = 2240) 3.6 G/DL CALC A/G RATIO (test code = 2234) 1.2 RATIO BILIRUBIN, TOTAL (test code = 2207) 0.2 MG/DL ALKALINE PHOSPHATASE (test code = 2204) 116 U/L AST (test code = 2218) 46 U/L ALT (test code = 2219) 40 U/L Bill Camejo AustinLIPID [id number] 00:00:00* Test Item Value Reference Range Interpretation Comme nts CHOLESTEROL (test code = 2210) 189 MG/DL TRIGLYCERIDES (test code = 2232) 179 MG/DL HDL CHOLESTEROL (test code = 2220) 85 MG/DL CALC LDL CHOL (test code = 2237) 68 MG/DL RISK RATIO LDL/HDL (test cod e = 2238) 0.80 RATIO Bill Camejo AustinCOMPREHENSIVE METABOLIC [id number] 00:00:00* Test Item Value Reference Range Interpretation Comme nts GLUCOSE (test code = 2217) 91 MG/DL BUN (test code = 2208) 18 MG/DL CREATININE (test code = 2214) 0.92 MG/DL eGFR AMER. (test cod e = 99502) 85 ML/MIN/1.73 eGFR NON- AMER. (test code = 81594) 73 ML/MIN/1.73 CALC BUN/CREAT (test code = 2235) 20 RATIO SODIUM (test code = 2231) 140 MEQ/L POTASSIUM (test code = 2228) 5.1 MEQ/L CHLORIDE (test code = 2215) 102 MEQ/L CARBON DIOXIDE (test code = 2206) 24 MEQ/L CALCIUM (test code = 2209) 9.7 MG/DL PROTEIN, TOTAL (test code = 2229) 8.0 G/DL ALBUMIN (test code = 2201) 4.4 G/DL CALC GLOBULIN (test code = 2240) 3.6 G/DL CALC A/G RATIO (test code = 2234) 1.2 RATIO BILIRUBIN, TOTAL (test code = 2207) 0.2 MG/DL ALKALINE PHOSPHATASE (test code = 2204) 116 U/L AST (test code = 2218) 46 U/L ALT (test code = 2219) 40 U/L Bill Camejo AustinLIPID [id number] 00:00:00* Test Item Value Reference Range Interpretation Comme nts CHOLESTEROL (test code = 2210) 189 MG/DL TRIGLYCERIDES (test code = 2232) 179 MG/DL HDL CHOLESTEROL (test code = 2220) 85 MG/DL CALC LDL CHOL (test code = 2237) 68 MG/DL RISK RATIO LDL/HDL (test cod e = 2238) 0.80 RATIO Bill Camejo AustinCOMPREHENSIVE METABOLIC [id number] 00:00:00* Test Item Value Reference Range Interpretation Comme nts GLUCOSE (test code = 2217) 91 MG/DL BUN (test code = 2208) 18 MG/DL CREATININE (test code = 2214) 0.92 MG/DL eGFR AMER. (test cod e = 40450) 85 ML/MIN/1.73 eGFR NON- AMER. (test code = 28858) 73 ML/MIN/1.73 CALC BUN/CREAT (test code = 2235) 20 RATIO SODIUM (test code = 2231) 140 MEQ/L POTASSIUM (test code = 2228) 5.1 MEQ/L CHLORIDE (test code = 2215) 102 MEQ/L CARBON DIOXIDE (test code = 2206) 24 MEQ/L CALCIUM (test code = 2209) 9.7 MG/DL PROTEIN, TOTAL (test code = 2229) 8.0 G/DL ALBUMIN (test code = 2201) 4.4 G/DL CALC GLOBULIN (test code = 2240) 3.6 G/DL CALC A/G RATIO (test code = 2234) 1.2 RATIO BILIRUBIN, TOTAL (test code = 2207) 0.2 MG/DL ALKALINE PHOSPHATASE (test code = 2204) 116 U/L AST (test code = 2218) 46 U/L ALT (test code = 2219) 40 U/L Bill Camejo [place] [id number] 00:00:00* Test Item Value Reference Range Interpretation Comme nts CHOLESTEROL (test code = 2210) 189 MG/DL TRIGLYCERIDES (test code = 2232) 179 MG/DL HDL CHOLESTEROL (test code = 2220) 85 MG/DL CALC LDL CHOL (test code = 2237) 68 MG/DL RISK RATIO LDL/HDL (test cod e = 2238) 0.80 RATIO Bill PenaCOMPREHENSIVE METABOLIC [id number] 00:00:00* Test Item Value Reference Range Interpretation Comme nts GLUCOSE (test code = 2217) 91 MG/DL BUN (test code = 2208) 18 MG/DL CREATININE (test code = 2214) 0.92 MG/DL eGFR AMER. (test cod e = 78595) 85 ML/MIN/1.73 eGFR NON- AMER. (test code = 47822) 73 ML/MIN/1.73 CALC BUN/CREAT (test code = 2235) 20 RATIO SODIUM (test code = 2231) 140 MEQ/L POTASSIUM (test code = 2228) 5.1 MEQ/L CHLORIDE (test code = 2215) 102 MEQ/L CARBON DIOXIDE (test code = 2206) 24 MEQ/L CALCIUM (test code = 2209) 9.7 MG/DL PROTEIN, TOTAL (test code = 2229) 8.0 G/DL ALBUMIN (test code = 2201) 4.4 G/DL CALC GLOBULIN (test code = 2240) 3.6 G/DL CALC A/G RATIO (test code = 2234) 1.2 RATIO BILIRUBIN, TOTAL (test code = 2207) 0.2 MG/DL ALKALINE PHOSPHATASE (test code = 2204) 116 U/L AST (test code = 2218) 46 U/L ALT (test code = 2219) 40 U/L Bill Camejo AustinLIPID [id number] 00:00:00* Test Item Value Reference Range Interpretation Comme nts CHOLESTEROL (test code = 2210) 189 MG/DL TRIGLYCERIDES (test code = 2232) 179 MG/DL HDL CHOLESTEROL (test code = 2220) 85 MG/DL CALC LDL CHOL (test code = 2237) 68 MG/DL RISK RATIO LDL/HDL (test cod e = 2238) 0.80 RATIO Bill PenaCOMPREHENSIVE METABOLIC [id number] 00:00:00* Test Item Value Reference Range Interpretation Comme nts GLUCOSE (test code = 2217) 91 MG/DL BUN (test code = 2208) 18 MG/DL CREATININE (test code = 2214) 0.92 MG/DL eGFR AMER. (test cod e = 56592) 85 ML/MIN/1.73 eGFR NON- AMER. (test code = 63447) 73 ML/MIN/1.73 CALC BUN/CREAT (test code = 2235) 20 RATIO SODIUM (test code = 2231) 140 MEQ/L POTASSIUM (test code = 2228) 5.1 MEQ/L CHLORIDE (test code = 2215) 102 MEQ/L CARBON DIOXIDE (test code = 2206) 24 MEQ/L CALCIUM (test code = 2209) 9.7 MG/DL PROTEIN, TOTAL (test code = 2229) 8.0 G/DL ALBUMIN (test code = 2201) 4.4 G/DL CALC GLOBULIN (test code = 2240) 3.6 G/DL CALC A/G RATIO (test code = 2234) 1.2 RATIO BILIRUBIN, TOTAL (test code = 2207) 0.2 MG/DL ALKALINE PHOSPHATASE (test code = 2204) 116 U/L AST (test code = 2218) 46 U/L ALT (test code = 2219) 40 U/L Bill PenaCOMPREHENSIVE METABOLIC [id number] 00:00:00* Test Item Value Reference Range Interpretation Comme nts GLUCOSE (test code = 2217) 102 MG/DL BUN (test code = 2208) 20 MG/DL CREATININE (test code = 2214) 0.89 MG/DL eGFR AMER. (test cod e = 25527) 89 ML/MIN/1.73 eGFR NON- AMER. (test code = 55137) 77 ML/MIN/1.73 CALC BUN/CREAT (test code = 2235) 22 RATIO SODIUM (test code = 2231) 142 MEQ/L POTASSIUM (test code = 2228) 4.5 MEQ/L CHLORIDE (test code = 2215) 103 MEQ/L CARBON DIOXIDE (test code = 2206) 26 MEQ/L CALCIUM (test code = 2209) 10.0 MG/DL PROTEIN, TOTAL (test code = 2229) 8.0 G/DL ALBUMIN (test code = 2201) 4.4 G/DL CALC GLOBULIN (test code = 2240) 3.6 G/DL CALC A/G RATIO (test code = 2234) 1.2 RATIO BILIRUBIN, TOTAL (test code = 2207) 0.3 MG/DL ALKALINE PHOSPHATASE (test code = 2204) 153 U/L AST (test code = 2218) 49 U/L ALT (test code = 2219) 52 U/L Bill PenaHEMOGLOBIN [id number] 00:00:00* Test Item Value Reference Range Interpretation Comme nts HEMOGLOBIN A1c (test code = 59693) 5.8 % Bill [facility] [id number] 00:00:00* Test Item Value Reference Range Interpretation Comme nts GLUCOSE (test code = 2217) 102 MG/DL BUN (test code = 2208) 20 MG/DL CREATININE (test code = 2214) 0.89 MG/DL eGFR AMER. (test cod e = 60545) 89 ML/MIN/1.73 eGFR NON- AMER. (test code = 90237) 77 ML/MIN/1.73 CALC BUN/CREAT (test code = 2235) 22 RATIO SODIUM (test code = 2231) 142 MEQ/L POTASSIUM (test code = 2228) 4.5 MEQ/L CHLORIDE (test code = 2215) 103 MEQ/L CARBON DIOXIDE (test code = 2206) 26 MEQ/L CALCIUM (test code = 2209) 10.0 MG/DL PROTEIN, TOTAL (test code = 2229) 8.0 G/DL ALBUMIN (test code = 2201) 4.4 G/DL CALC GLOBULIN (test code = 2240) 3.6 G/DL CALC A/G RATIO (test code = 2234) 1.2 RATIO BILIRUBIN, TOTAL (test code = 2207) 0.3 MG/DL ALKALINE PHOSPHATASE (test code = 2204) 153 U/L AST (test code = 2218) 49 U/L ALT (test code = 2219) 52 U/L Bill PenaHEMOGLOBIN [id number] 00:00:00* Test Item Value Reference Range Interpretation Comme nts HEMOGLOBIN A1c (test code = 31764) 5.8 % Bill PenaCOMPREHENSIVE METABOLIC [id number] 00:00:00* Test Item Value Reference Range Interpretation Comme nts GLUCOSE (test code = 2217) 102 MG/DL BUN (test code = 2208) 20 MG/DL CREATININE (test code = 2214) 0.89 MG/DL eGFR AMER. (test cod e = 17987) 89 ML/MIN/1.73 eGFR NON- AMER. (test code = 72535) 77 ML/MIN/1.73 CALC BUN/CREAT (test code = 2235) 22 RATIO SODIUM (test code = 2231) 142 MEQ/L POTASSIUM (test code = 2228) 4.5 MEQ/L CHLORIDE (test code = 2215) 103 MEQ/L CARBON DIOXIDE (test code = 2206) 26 MEQ/L CALCIUM (test code = 2209) 10.0 MG/DL PROTEIN, TOTAL (test code = 2229) 8.0 G/DL ALBUMIN (test code = 2201) 4.4 G/DL CALC GLOBULIN (test code = 2240) 3.6 G/DL CALC A/G RATIO (test code = 2234) 1.2 RATIO BILIRUBIN, TOTAL (test code = 2207) 0.3 MG/DL ALKALINE PHOSPHATASE (test code = 2204) 153 U/L AST (test code = 2218) 49 U/L ALT (test code = 2219) 52 U/L Bill Camejo AustinHEMOGLOBIN [id number] 00:00:00* Test Item Value Reference Range Interpretation Comme nts HEMOGLOBIN A1c (test code = 09917) 5.8 % Bill PenaCOMPREHENSIVE METABOLIC [id number] 00:00:00* Test Item Value Reference Range Interpretation Comme nts GLUCOSE (test code = 2217) 102 MG/DL BUN (test code = 2208) 20 MG/DL CREATININE (test code = 2214) 0.89 MG/DL eGFR AMER. (test cod e = 53123) 89 ML/MIN/1.73 eGFR NON- AMER. (test code = 17159) 77 ML/MIN/1.73 CALC BUN/CREAT (test code = 2235) 22 RATIO SODIUM (test code = 2231) 142 MEQ/L POTASSIUM (test code = 2228) 4.5 MEQ/L CHLORIDE (test code = 2215) 103 MEQ/L CARBON DIOXIDE (test code = 2206) 26 MEQ/L CALCIUM (test code = 2209) 10.0 MG/DL PROTEIN, TOTAL (test code = 2229) 8.0 G/DL ALBUMIN (test code = 2201) 4.4 G/DL CALC GLOBULIN (test code = 2240) 3.6 G/DL CALC A/G RATIO (test code = 2234) 1.2 RATIO BILIRUBIN, TOTAL (test code = 2207) 0.3 MG/DL ALKALINE PHOSPHATASE (test code = 2204) 153 U/L AST (test code = 2218) 49 U/L ALT (test code = 2219) 52 U/L Bill Camejo AustinHEMOGLOBIN [id number] 00:00:00* Test Item Value Reference Range Interpretation Comme nts HEMOGLOBIN A1c (test code = 28546) 5.8 % Bill Camejo AustinCOMPREHENSIVE METABOLIC [id number] 00:00:00* Test Item Value Reference Range Interpretation Comme nts GLUCOSE (test code = 2217) 102 MG/DL BUN (test code = 2208) 20 MG/DL CREATININE (test code = 2214) 0.89 MG/DL eGFR AMER. (test cod e = 46229) 89 ML/MIN/1.73 eGFR NON- AMER. (test code = 46120) 77 ML/MIN/1.73 CALC BUN/CREAT (test code = 2235) 22 RATIO SODIUM (test code = 2231) 142 MEQ/L POTASSIUM (test code = 2228) 4.5 MEQ/L CHLORIDE (test code = 2215) 103 MEQ/L CARBON DIOXIDE (test code = 2206) 26 MEQ/L CALCIUM (test code = 2209) 10.0 MG/DL PROTEIN, TOTAL (test code = 2229) 8.0 G/DL ALBUMIN (test code = 2201) 4.4 G/DL CALC GLOBULIN (test code = 2240) 3.6 G/DL CALC A/G RATIO (test code = 2234) 1.2 RATIO BILIRUBIN, TOTAL (test code = 2207) 0.3 MG/DL ALKALINE PHOSPHATASE (test code = 2204) 153 U/L AST (test code = 2218) 49 U/L ALT (test code = 2219) 52 U/L Bill PenaHEMOGLOBIN [id number] 00:00:00* Test Item Value Reference Range Interpretation Comme [facility] HEMOGLOBIN A1c (test code = 02310) 5.8 % Bill PenaCOMPREHENSIVE METABOLIC [id number] 00:00:00* Test Item Value Reference Range Interpretation Comme nts GLUCOSE (test code = 2217) 107 MG/DL BUN (test code = 2208) 20 MG/DL CREATININE (test code = 2214) 0.97 MG/DL eGFR AMER. (test cod e = 12968) 80 ML/MIN/1.73 eGFR NON- AMER. (test code = 20281) 69 ML/MIN/1.73 CALC BUN/CREAT (test code = 2235) 21 RATIO SODIUM (test code = 2231) 139 MEQ/L POTASSIUM (test code = 2228) 4.8 MEQ/L CHLORIDE (test code = 2215) 99 MEQ/L CARBON DIOXIDE (test code = 2206) 24 MEQ/L CALCIUM (test code = 2209) 9.5 MG/DL PROTEIN, TOTAL (test code = 2229) 8.0 G/DL ALBUMIN (test code = 2201) 4.5 G/DL CALC GLOBULIN (test code = 2240) 3.5 G/DL CALC A/G RATIO (test code = 2234) 1.3 RATIO BILIRUBIN, TOTAL (test code = 2207) 0.4 MG/DL ALKALINE PHOSPHATASE (test code = 2204) 137 U/L AST (test code = 2218) 31 U/L ALT (test code = 2219) 24 U/L Bill Camejo [place]PREH[place]IVE METAB[place] [id number] 00:00:00* Test Item Value Reference Range Interpretation Comme nts GLUCOSE (test code = 2217) 107 MG/DL BUN (test code = 2208) 20 MG/DL CREATININE (test code = 2214) 0.97 MG/DL eGFR AMER. (test cod e = 24328) 80 ML/MIN/1.73 eGFR NON- AMER. (test code = 62436) 69 ML/MIN/1.73 CALC BUN/CREAT (test code = 2235) 21 RATIO SODIUM (test code = 2231) 139 MEQ/L POTASSIUM (test code = 2228) 4.8 MEQ/L CHLORIDE (test code = 2215) 99 MEQ/L CARBON DIOXIDE (test code = 2206) 24 MEQ/L CALCIUM (test code = 2209) 9.5 MG/DL PROTEIN, TOTAL (test code = 2229) 8.0 G/DL ALBUMIN (test code = 2201) 4.5 G/DL CALC GLOBULIN (test code = 2240) 3.5 G/DL CALC A/G RATIO (test code = 2234) 1.3 RATIO BILIRUBIN, TOTAL (test code = 2207) 0.4 MG/DL ALKALINE PHOSPHATASE (test code = 2204) 137 U/L AST (test code = 2218) 31 U/L ALT (test code = 2219) 24 U/L Bill Camejo [place]PREHENSIVE METABOL[place] [id number] 00:00:00* Test Item Value Reference Range Interpretation Comme nts GLUCOSE (test code = 2217) 107 MG/DL BUN (test code = 2208) 20 MG/DL CREATININE (test code = 2214) 0.97 MG/DL eGFR AMER. (test cod e = 71947) 80 ML/MIN/1.73 eGFR NON- AMER. (test code = 06010) 69 ML/MIN/1.73 CALC BUN/CREAT (test code = 2235) 21 RATIO SODIUM (test code = 2231) 139 MEQ/L POTASSIUM (test code = 2228) 4.8 MEQ/L CHLORIDE (test code = 2215) 99 MEQ/L CARBON DIOXIDE (test code = 2206) 24 MEQ/L CALCIUM (test code = 2209) 9.5 MG/DL PROTEIN, TOTAL (test code = 2229) 8.0 G/DL ALBUMIN (test code = 2201) 4.5 G/DL CALC GLOBULIN (test code = 2240) 3.5 G/DL CALC A/G RATIO (test code = 2234) 1.3 RATIO BILIRUBIN, TOTAL (test code = 2207) 0.4 MG/DL ALKALINE PHOSPHATASE (test code = 2204) 137 U/L AST (test code = 2218) 31 U/L ALT (test code = 2219) 24 U/L Bill F [place]ina[place]PREHENSIVE METABOLIC [id number] 00:00:00* Test Item Value Reference Range Interpretation Comme nts GLUCOSE (test code = 2217) 107 MG/DL BUN (test code = 2208) 20 MG/DL CREATININE (test code = 2214) 0.97 MG/DL eGFR AMER. (test cod e = 86621) 80 ML/MIN/1.73 eGFR NON- AMER. (test code = 60439) 69 ML/MIN/1.73 CALC BUN/CREAT (test code = 2235) 21 RATIO SODIUM (test code = 2231) 139 MEQ/L POTASSIUM (test code = 2228) 4.8 MEQ/L CHLORIDE (test code = 2215) 99 MEQ/L CARBON DIOXIDE (test code = 2206) 24 MEQ/L CALCIUM (test code = 2209) 9.5 MG/DL PROTEIN, TOTAL (test code = 2229) 8.0 G/DL ALBUMIN (test code = 2201) 4.5 G/DL CALC GLOBULIN (test code = 2240) 3.5 G/DL CALC A/G RATIO (test code = 2234) 1.3 RATIO BILIRUBIN, TOTAL (test code = 2207) 0.4 MG/DL ALKALINE PHOSPHATASE (test code = 2204) 137 U/L AST (test code = 2218) 31 U/L ALT (test code = 2219) 24 U/L Bill F AustinCOMPREHENSIVE METABOLIC [id number] 00:00:00* Test Item Value Reference Range Interpretation Comme nts GLUCOSE (test code = 2217) 107 MG/DL BUN (test code = 2208) 20 MG/DL CREATININE (test code = 2214) 0.97 MG/DL eGFR AMER. (test cod e = ) 80 ML/MIN/1.73 eGFR NON- AMER. (test code = 15821) 69 ML/MIN/1.73 CALC BUN/CREAT (test code = 2235) 21 RATIO SODIUM (test code = 2231) 139 MEQ/L POTASSIUM (test code = 2228) 4.8 MEQ/L CHLORIDE (test code = 2215) 99 MEQ/L CARBON DIOXIDE (test code = 2206) 24 MEQ/L CALCIUM (test code = 2209) 9.5 MG/DL PROTEIN, TOTAL (test code = 222) 8.0 G/DL ALBUMIN (test code = 2201) 4.5 G/DL CALC GLOBULIN (test code = 2240) 3.5 G/DL CALC A/G RATIO (test code = 2234) 1.3 RATIO BILIRUBIN, TOTAL (test code = 2207) 0.4 MG/DL ALKALINE PHOSPHATASE (test code = 2204) 137 U/L AST (test code = 2218) 31 U/L ALT (test code = 2219) 24 U/L Bill Camejo AustinMICROALBUMIN, [id number] 00:00:00* Test Item Value Reference Range Interpretation Comme nts MICROALBUMIN, RANDOM (test c ode = 55685) 3.8 MG/DL Bill Camejo AustinMICROALBUMIN, [id number] 00:00:00* Test Item Value Reference Range Interpretation Comme nts MICROALBUMIN, RANDOM (test c ode = 01341) 3.8 MG/DL Bill Camejo AustinMICROALBUMIN, [id number] 00:00:00* Test Item Value Reference Range Interpretation Comme nts MICROALBUMIN, RANDOM (test c ode = 13714) 3.8 MG/DL Bill Camejo AustinMICROALBUMIN, [id number] 00:00:00* Test Item Value Reference Range Interpretation Comme nts MICROALBUMIN, RANDOM (test c ode = 52904) 3.8 MG/DL Bill Camejo AustinMICROALBUMIN, [id number] 00:00:00* Test Item Value Reference Range Interpretation Comme nts MICROALBUMIN, RANDOM (test c ode = 80900) 3.8 MG/DL Bill PenaCBC W/AUTO [id number] 00:00:00* Test Item Value Reference Range Interpretation Comme nts WBC (test code = 1001) 5.4 K/UL RBC (test code = 1002) 4.00 M/UL HEMOGLOBIN (test code = 1003) 11.3 G/DL HEMATOCRIT (test code = 1004) 35.4 % MCV (test code = 1005) 88.5 fL MCH (test code = 1006) 28.3 PG MCHC (test code = 1007) 31.9 G/DL RDW (test code = 1038) 20.6 % NEUTROPHILS (test code = 1008) 50 % LYMPHOCYTES (test code = 1010) 37 % MONOCYTES (test code = 1011) 7 % EOSINOPHILS (test code = 1012) 5 % BASOPHILS (test code = 1013) 1 % PLATELET COUNT (test code = 1015) 325 K/UL Bill PenaHEMOGLOBIN [id number] 00:00:00* Test Item Value Reference Range Interpretation Comme [facility] HEMOGLOBIN A1c (test code = 77104) 5.8 % Bill PenaTHYROID II PROFILE (T3U, T4, T7, TSH)[id number] 00:00:00* Test Item Value Reference Range Interpretation Comme [facility] T3 UPTAKE (test code = 2817) 25.7 % T4 (THYROXINE) (test code = 2819) 6.2 UG/DL CALCULATED T7 (FTI) (test co de = 2820) 1.59 TSH (test code = 2821) 1.0 UIU/ML Bill PenaB NATRIURETIC [id number] 00:00:00* Test Item Value Reference Range Interpretation Comme [facility] B NATRIURETIC PEPTIDE (test code = 05846) 5 PG/ML Bill Camejo JeanCOMPREHENSIVE METABOLIC [id number] 00:00:00* Test Item Value Reference Range Interpretation Comme nts GLUCOSE (test code = 2217) 103 MG/DL BUN (test code = 2208) 35 MG/DL CREATININE (test code = 2214) 1.3 MG/DL eGFR AMER. (test cod e = 89213) 53 ML/MIN/1.73 eGFR NON- AMER. (test code = 43398) 44 ML/MIN/1.73 CALCULATED BUN/CREAT (test code = 2235) 27 RATIO SODIUM (test code = 2231) 138 MEQ/L POTASSIUM (test code = 2228) 5.0 MEQ/L CHLORIDE (test code = 2215) 101 MEQ/L CARBON DIOXIDE (test code = 2206) 25 MEQ/L CALCIUM (test code = 2209) 9.8 MG/DL PROTEIN, TOTAL (test code = 2229) 8.2 G/DL ALBUMIN (test code = 2201) 4.3 G/DL CALCULATED GLOBULIN (test co de = 2240) 3.9 G/DL CALCULATED A/G RATIO (test code = 2234) 1.1 RATIO BILIRUBIN, TOTAL (test code = 2207) 0.3 MG/DL ALKALINE PHOSPHATASE (test code = 220) 116 U/L SGOT (AST) (test code = 221) 30 U/L SGPT (ALT) (test code = 221) 22 U/L Bill PenaLIPID [id number] 00:00:00* Test Item Value Reference Range Interpretation Comme nts CHOLESTEROL (test code = 2210) 183 MG/DL TRIGLYCERIDES (test code = 2232) 110 MG/DL HDL CHOLESTEROL (test code = 2220) 97 MG/DL CALCULATED LDL CHOL (test co de = 2236) 64 MG/DL RISK RATIO LDL/HDL (test cod e = 2238) 0.66 RATIO Billlucrecia PenaCBC W/AUTO [id number] 00:00:00* Test Item Value Reference Range Interpretation Comme nts WBC (test code = 1001) 5.4 K/UL RBC (test code = 1002) 4.00 M/UL HEMOGLOBIN (test code = 1003) 11.3 G/DL HEMATOCRIT (test code = 1004) 35.4 % MCV (test code = 1005) 88.5 fL MCH (test code = 1006) 28.3 PG MCHC (test code = 1007) 31.9 G/DL RDW (test code = 1038) 20.6 % NEUTROPHILS (test code = 1008) 50 % LYMPHOCYTES (test code = 1010) 37 % MONOCYTES (test code = 1011) 7 % EOSINOPHILS (test code = 1012) 5 % BASOPHILS (test code = 1013) 1 % PLATELET COUNT (test code = 1015) 325 K/UL Bill PenaHEMOGLOBIN [id number] 00:00:00* Test Item Value Reference Range Interpretation Comme [facility] HEMOGLOBIN A1c (test code = 02984) 5.8 % Bill PenaTHYROID II PROFILE (T3U, T4, T7, TSH)2015-08-06 00:00:00* Test Item Value Reference Range Interpretation Comme [facility] T3 UPTAKE (test code = 2817) 25.7 % T4 (THYROXINE) (test code = 2819) 6.2 UG/DL CALCULATED T7 (FTI) (test co de = 2820) 1.59 TSH (test code = 2821) 1.0 UIU/ML Bill PenaB NATRIURETIC [id number] 00:00:00* Test Item Value Reference Range Interpretation Comme [facility] B NATRIURETIC PEPTIDE (test code = 70520) 5 PG/ML Bill PenaCOMPREHENSIVE METABOLIC [id number] 00:00:00* Test Item Value Reference Range Interpretation Comme [facility] GLUCOSE (test code = 2217) 103 MG/DL BUN (test code = 2208) 35 MG/DL CREATININE (test code = 2214) 1.3 MG/DL eGFR AMER. (test cod e = 09371) 53 ML/MIN/1.73 eGFR NON- AMER. (test code = 15739) 44 ML/MIN/1.73 CALCULATED BUN/CREAT (test code = 2235) 27 RATIO SODIUM (test code = 2231) 138 MEQ/L POTASSIUM (test code = 2228) 5.0 MEQ/L CHLORIDE (test code = 2215) 101 MEQ/L CARBON DIOXIDE (test code = 2206) 25 MEQ/L CALCIUM (test code = 2209) 9.8 MG/DL PROTEIN, TOTAL (test code = 2229) 8.2 G/DL ALBUMIN (test code = 2201) 4.3 G/DL CALCULATED GLOBULIN (test co de = 2240) 3.9 G/DL CALCULATED A/G RATIO (test code = 2234) 1.1 RATIO BILIRUBIN, TOTAL (test code = 2207) 0.3 MG/DL ALKALINE PHOSPHATASE (test code = 2204) 116 U/L SGOT (AST) (test code = 2218) 30 U/L SGPT (ALT) (test code = 2219) 22 U/L Bill PenaLIPID [id number] 00:00:00* Test Item Value Reference Range Interpretation Comme nts CHOLESTEROL (test code = 2210) 183 MG/DL TRIGLYCERIDES (test code = 2232) 110 MG/DL HDL CHOLESTEROL (test code = 2220) 97 MG/DL CALCULATED LDL CHOL (test co de = 2237) 64 MG/DL RISK RATIO LDL/HDL (test cod e = 2238) 0.66 RATIO Bill PenaCBC W/AUTO [id number] 00:00:00* Test Item Value Reference Range Interpretation Comme nts WBC (test code = 1001) 5.4 K/UL RBC (test code = 1002) 4.00 M/UL HEMOGLOBIN (test code = 1003) 11.3 G/DL HEMATOCRIT (test code = 1004) 35.4 % MCV (test code = 1005) 88.5 fL MCH (test code = 1006) 28.3 PG MCHC (test code = 1007) 31.9 G/DL RDW (test code = 1038) 20.6 % NEUTROPHILS (test code = 1008) 50 % LYMPHOCYTES (test code = 1010) 37 % MONOCYTES (test code = 1011) 7 % EOSINOPHILS (test code = 1012) 5 % BASOPHILS (test code = 1013) 1 % PLATELET COUNT (test code = 1015) 325 K/UL Bill PenaHEMOGLOBIN [id number] 00:00:00* Test Item Value Reference Range Interpretation Comme rogers HEMOGLOBIN A1c (test code = 48299) 5.8 % Bill PenaTHYROID II PROFILE (T3U, T4, T7, TSH)2015-08-06 00:00:00* Test Item Value Reference Range Interpretation Comme nts T3 UPTAKE (test code = 2817) 25.7 % T4 (THYROXINE) (test code = 2819) 6.2 UG/DL CALCULATED T7 (FTI) (test co de = 2820) 1.59 TSH (test code = 2821) 1.0 UIU/ML Bill PenaB NATRIURETIC [id number] 00:00:00* Test Item Value Reference Range Interpretation Comme [facility] B NATRIURETIC PEPTIDE (test code = 17452) 5 PG/ML Bill PenaCOMPREHENSIVE METABOLIC [id number] 00:00:00* Test Item Value Reference Range Interpretation Comme nts GLUCOSE (test code = 2217) 103 MG/DL BUN (test code = 2208) 35 MG/DL CREATININE (test code = 2214) 1.3 MG/DL eGFR AMER. (test cod e = 04706) 53 ML/MIN/1.73 eGFR NON- AMER. (test code = 39287) 44 ML/MIN/1.73 CALCULATED BUN/CREAT (test code = 2235) 27 RATIO SODIUM (test code = 2231) 138 MEQ/L POTASSIUM (test code = 2228) 5.0 MEQ/L CHLORIDE (test code = 2215) 101 MEQ/L CARBON DIOXIDE (test code = 2206) 25 MEQ/L CALCIUM (test code = 2209) 9.8 MG/DL PROTEIN, TOTAL (test code = 2229) 8.2 G/DL ALBUMIN (test code = 2201) 4.3 G/DL CALCULATED GLOBULIN (test co de = 2240) 3.9 G/DL CALCULATED A/G RATIO (test code = 2234) 1.1 RATIO BILIRUBIN, TOTAL (test code = 2207) 0.3 MG/DL ALKALINE PHOSPHATASE (test code = 2204) 116 U/L SGOT (AST) (test code = 2218) 30 U/L SGPT (ALT) (test code = 2219) 22 U/L Bill Camejo JeanLIPID [id number] 00:00:00* Test Item Value Reference Range Interpretation Comme nts CHOLESTEROL (test code = 2210) 183 MG/DL TRIGLYCERIDES (test code = 2232) 110 MG/DL HDL CHOLESTEROL (test code = 2220) 97 MG/DL CALCULATED LDL CHOL (test co de = 2237) 64 MG/DL RISK RATIO LDL/HDL (test cod e = 2238) 0.66 RATIO Bill Camejo JeanCBC W/AUTO [id number] 00:00:00* Test Item Value Reference Range Interpretation Comme nts WBC (test code = 1001) 5.4 K/UL RBC (test code = 1002) 4.00 M/UL HEMOGLOBIN (test code = 1003) 11.3 G/DL HEMATOCRIT (test code = 1004) 35.4 % MCV (test code = 1005) 88.5 fL MCH (test code = 1006) 28.3 PG MCHC (test code = 1007) 31.9 G/DL RDW (test code = 1038) 20.6 % NEUTROPHILS (test code = 1008) 50 % LYMPHOCYTES (test code = 1010) 37 % MONOCYTES (test code = 1011) 7 % EOSINOPHILS (test code = 1012) 5 % BASOPHILS (test code = 1013) 1 % PLATELET COUNT (test code = 1015) 325 K/UL Bill PenaHEMOGLOBIN [id number] 00:00:00* Test Item Value Reference Range Interpretation Comme [facility] HEMOGLOBIN A1c (test code = 10925) 5.8 % Bill PenaTHYROID II PROFILE (T3U, T4, T7, TSH)2015-08-06 00:00:00* Test Item Value Reference Range Interpretation Comme [facility] T3 UPTAKE (test code = 2817) 25.7 % T4 (THYROXINE) (test code = 2819) 6.2 UG/DL CALCULATED T7 (FTI) (test co de = 2820) 1.59 TSH (test code = 2821) 1.0 UIU/ML Bill PenaB NATRIURETIC [id number] 00:00:00* Test Item Value Reference Range Interpretation Comme [facility] B NATRIURETIC PEPTIDE (test code = 71788) 5 PG/ML Bill PenaCOMPREHENSIVE METABOLIC [id number] 00:00:00* Test Item Value Reference Range Interpretation Comme nts GLUCOSE (test code = 2217) 103 MG/DL BUN (test code = 2208) 35 MG/DL CREATININE (test code = 2214) 1.3 MG/DL eGFR AMER. (test cod e = 80420) 53 ML/MIN/1.73 eGFR NON- AMER. (test code = 38034) 44 ML/MIN/1.73 CALCULATED BUN/CREAT (test code = 2235) 27 RATIO SODIUM (test code = 2231) 138 MEQ/L POTASSIUM (test code = 2228) 5.0 MEQ/L CHLORIDE (test code = 2215) 101 MEQ/L CARBON DIOXIDE (test code = 2206) 25 MEQ/L CALCIUM (test code = 2209) 9.8 MG/DL PROTEIN, TOTAL (test code = 2229) 8.2 G/DL ALBUMIN (test code = 2201) 4.3 G/DL CALCULATED GLOBULIN (test co de = 2240) 3.9 G/DL CALCULATED A/G RATIO (test code = 2234) 1.1 RATIO BILIRUBIN, TOTAL (test code = 2207) 0.3 MG/DL ALKALINE PHOSPHATASE (test code = 2204) 116 U/L SGOT (AST) (test code = 2218) 30 U/L SGPT (ALT) (test code = 2219) 22 U/L Bill PenaLIPID [id number] 00:00:00* Test Item Value Reference Range Interpretation Comme nts CHOLESTEROL (test code = 2210) 183 MG/DL TRIGLYCERIDES (test code = 2232) 110 MG/DL HDL CHOLESTEROL (test code = 2220) 97 MG/DL CALCULATED LDL CHOL (test co de = 2237) 64 MG/DL RISK RATIO LDL/HDL (test cod e = 2238) 0.66 RATIO Bill PenaCBC W/AUTO [id number] 00:00:00* Test Item Value Reference Range Interpretation Comme nts WBC (test code = 1001) 5.4 K/UL RBC (test code = 1002) 4.00 M/UL HEMOGLOBIN (test code = 1003) 11.3 G/DL HEMATOCRIT (test code = 1004) 35.4 % MCV (test code = 1005) 88.5 fL MCH (test code = 1006) 28.3 PG MCHC (test code = 1007) 31.9 G/DL RDW (test code = 1038) 20.6 % NEUTROPHILS (test code = 1008) 50 % LYMPHOCYTES (test code = 1010) 37 % MONOCYTES (test code = 1011) 7 % EOSINOPHILS (test code = 1012) 5 % BASOPHILS (test code = 1013) 1 % PLATELET COUNT (test code = 1015) 325 K/UL Bill PenaHEMOGLOBIN [id number] 00:00:00* Test Item Value Reference Range Interpretation Comme [facility] HEMOGLOBIN A1c (test code = 63477) 5.8 % Bill PenaTHYROID II PROFILE (T3U, T4, T7, TSH)2015-08-06 00:00:00* Test Item Value Reference Range Interpretation Comme [facility] T3 UPTAKE (test code = 2817) 25.7 % T4 (THYROXINE) (test code = 2819) 6.2 UG/DL CALCULATED T7 (FTI) (test co de = 2820) 1.59 TSH (test code = 2821) 1.0 UIU/ML Bill PenaB NATRIURETIC [id number] 00:00:00* Test Item Value Reference Range Interpretation Comme nts B NATRIURETIC PEPTIDE (test code = 12684) 5 PG/ML Bill PenaCOMPREHENSIVE METABOLIC [id number] 00:00:00* Test Item Value Reference Range Interpretation Comme nts GLUCOSE (test code = 2217) 103 MG/DL BUN (test code = 2208) 35 MG/DL CREATININE (test code = 2214) 1.3 MG/DL eGFR AMER. (test cod e = 69866) 53 ML/MIN/1.73 eGFR NON- AMER. (test code = 23190) 44 ML/MIN/1.73 CALCULATED BUN/CREAT (test code = 2235) 27 RATIO SODIUM (test code = 2231) 138 MEQ/L POTASSIUM (test code = 2228) 5.0 MEQ/L CHLORIDE (test code = 2215) 101 MEQ/L CARBON DIOXIDE (test code = 2206) 25 MEQ/L CALCIUM (test code = 2209) 9.8 MG/DL PROTEIN, TOTAL (test code = 2229) 8.2 G/DL ALBUMIN (test code = 2201) 4.3 G/DL CALCULATED GLOBULIN (test co de = 2240) 3.9 G/DL CALCULATED A/G RATIO (test code = 2234) 1.1 RATIO BILIRUBIN, TOTAL (test code = 2207) 0.3 MG/DL ALKALINE PHOSPHATASE (test code = 2204) 116 U/L SGOT (AST) (test code = 2218) 30 U/L SGPT (ALT) (test code = 2219) 22 U/L Bill PenaLIPID [id number] 00:00:00* Test Item Value Reference Range Interpretation Comme nts CHOLESTEROL (test code = 2210) 183 MG/DL TRIGLYCERIDES (test code = 2232) 110 MG/DL HDL CHOLESTEROL (test code = 2220) 97 MG/DL CALCULATED LDL CHOL (test co de = 2237) 64 MG/DL RISK RATIO LDL/HDL (test cod e = 2238) 0.66 RATIO Bill Pena Notes Date/Time Note Provider Source 2025-02-25 14:00:34 Brigid Chavarria is a 54 year old female and is calling for a notification on her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
[2025-02-26] MEDS ORDERED: MORPHINE 4 MG/ML SYR ONE (21:39)
[2025-02-26] MEDS ORDERED: ONDANSETRON 4 MG/2 ML VIAL ONE (21:39)
[2025-02-26 21:49] LABS: Absolute Eosinophils 0.2 K/uL (0-0.5); Absolute Monocytes 0.4 K/uL (0.1-1.3); Absolute Neutrophil 2.2 K/uL (1.8-8.0); Basophils % 0.8 % (0-1.3); Hematocrit 36.9 % (36.0-45.0); Hemoglobin 12.7 g/dL (12.0-15.0); Lymphocytes % 42.1 % (15.3-44.8); MCH 31.1 pg (27.0-35.0); MCHC 34.5 g/dL (32.0-36.0); MPV 8.7 fL (7.6-11.3); Monocytes % 7.8 % (3.3-12.3); Neutrophils % 45.3 % (41.7-73.7); Nucleated Red Blood Cells % 0.1 % (0-0); Platelets 149 thou/uL (152-406)
--- NOTE | 2025-02-26 21:58 | RAD REPORT ---
EXAM: CTA of the chest, abdomen and pelvis HISTORY: Chest pain and back pain chest pain COMPARISON: None TECHNIQUE: Multiple contiguous axial images were obtained a CTA of the chest and abdomen with contras t per aortic dissection protocol. This involves 3D reconstructions, MIPs, volume rendered images and/or shaded surface rendering. One or more of the following dose reduction techniques were used: Au tomated exposure control, adjustment of the mA and/or kV according to patient size, and/or iterative reconstruction. Unless otherwise specified, incidental findings do not require dedicated im aging follow-up. Sagittal and coronal 3-D MIP reformats were performed. FINDINGS: PULMONARY ARTERIES: Normal in caliber without filling defects to suggest pulmonary emboli. ASCENDING THORACIC AORTA: Normal caliber without evidence of dissection or aneurysmal dilatation. DESCENDING THORACIC AORTA: Normal caliber without evidence of dissection or aneurysmal dilatation. ABDOMINAL AORTA: Normal caliber without evidence of dissection or aneurysmal dilatation. CELIAC TRUNK: Patent. SMA: Patent MARILOU: Patent RENAL ARTERIES: Bilateral single renal arteries without significant atherosclerotic disease. MEDIASTINUM: No hilar or mediastinal lymphadenopathy. LUNGS: No focal infiltrates or masses. PLEURAL SPACE: No pleural effusion or pneumothorax. LIVER: Unremarkable. SPLEEN: Unremarkable. PANCREAS: Unremarkable. KIDNEYS: Unremarkable. ADRENALS: Unremarkable. BOWEL: Unremarkable. RETROPERITONEUM: No lymphadenopathy. BONES: Unremarkable ADDITIONAL FINDINGS: Trace pelvic free fluid. IMPRESSION: No evidence of thoracic or abdominal aortic aneurysm or dissection.
[2025-02-26 22:22] LABS: ALT/SGPT 31 U/L (13-56); AST/SGOT 24 U/L (15-37); Albumin 3.8 g/dL (3.4-5.0); Albumin/Globulin Ratio 1.2 (1.1-1.8); Alkaline Phosphatase 88 U/L (45-117); Anion Gap 9.4 mEq/L (5.0-15.0); BUN Blood Urea Nitrogen 22 mg/dL (7-18); Bicarbonate 26 mEq/L (21-32); Bilirubin Total 0.3 mg/dL (0.2-1.0); Globulin 3.1 g/dL (2.3-3.5); Glomerular Filtration Rate 69 ml/min (=/>90); Glucose Level 123 mg/dL (74-106); Potassium 3.4 mEq/L (3.5-5.1); Protein, Total 6.9 g/dL (6.4-8.2); Sodium Level 140 mEq/L (136-145); Troponin High Sensitivity 6.6 pg/mL (<58.9)
[2025-02-26 22:24] LABS: Bilirubin Direct < 0.2 mg/dL (0-0.2); Bilirubin Indirect, Calculated 0.1 mg/dL (0.2-0.8)
[2025-02-26] MEDS ORDERED: METHOCARBAMOL 1,000 MG/10 ML VIAL ONE (23:44)
[2025-02-26] MEDS ORDERED: NA CHLORIDE 0.9% 100 ML ONE (23:44)
--- NOTE | 2025-02-26 23:46 | EDPHYS ---
Physician Documentation [facility] Name: Brigid Chavarria Age: 54 yrs Sex: Female : 1970 Arrival Date: 02/26/2025 Time: 20:31 Bed 13 Private MD: ED Physician Priyank Peña HPI: 02/26 23:39 This 54 yrs old Black Female presents to ER via Ambulatory with complaints of Pt states rt she is having severe left side pain, radiating throughout her body. 23:39 Patient presents to the ED with a chest pain rating to the back, neck starting today. rt She reports the sweatiness, shortness of breath. Denies other acute complaints at this time, symptoms are moderate in severity, no other aggravating or alleviating factors.. Historical: - Allergies: 21:05 No Known Drug Allergies; jb4 - PMHx: 21:05 Anemia; Hypertension; PTSD; TBI; jb4 21:11 "bad heart"; jb4 - PSHx: 21:05 Brain sx; jb4 - Immunization history:: Adult Immunizations up to date. - Infectious Disease History:: Denies. - Social history:: Smoking status: Patient denies any tobacco usage or history of. - Family history:: not pertinent. ROS: 23:39 Constitutional: Negative for fever, chills, and weight loss, MS/Extremity: Negative for rt injury and deformity, Skin: Negative for injury, rash, and discoloration, Neuro: Negative for headache, weakness, numbness, tingling, and seizure, 23:39 Neck: Positive for pain with movement, Negative for injury or acute deformity, 23:39 Cardiovascular: Positive for chest pain, Negative for edema, 23:39 Respiratory: Positive for shortness of breath, Negative for cough, Exam: 23:39 Head/Face: Normocephalic, atraumatic. Chest/axilla: Normal chest wall appearance and rt motion. Nontender with no deformity. No lesions are appreciated. Cardiovascular: Regular rate and rhythm with a normal S1 and S2. No gallops, murmurs, or rubs. Normal PMI, no JVD. No pulse deficits. Respiratory: Lungs have equal breath sounds bilaterally, clear to auscultation and percussion. No rales, rhonchi or wheezes noted. No increased work of breathing, no retractions or nasal flaring. Abdomen/GI: Soft, non-tender, with normal bowel sounds. No distension or tympany. No guarding or rebound. No evidence of tenderness throughout. Skin: Warm, dry with normal turgor. Normal color with no rashes, no lesions, and no evidence of cellulitis. MS/ Extremity: Pulses equal, no cyanosis. Neurovascular intact. Full, normal range of motion. 23:39 Constitutional: The patient appears Diaphoretic, appears to be in acute distress 23:39 ECG was reviewed by the Attending Physician. Vital Signs: 21:03 BP 127 / 82; Pulse 99; Resp 28; Temp 97.6(TE); Pulse Ox 100% on R/A; Weight 69.4 kg jb4 (R); Height 5 ft. 4 in. ; 22:27 BP 114 / 78; Pulse 73; Resp 18; Pulse Ox 98% ; cp4 02/27 00:16 BP 125 / 82; Pulse 68; Resp 18; Pulse Ox 99% ; cp4 01:15 BP 115 / 78; Pulse 56; Resp 18; Pulse Ox 99% ; cp4 02/26 21:03 Body Mass Index 26.26 (69.40 kg, 162.56 cm) jb4 MDM: 02/26 21:13 Medical Screening Exam initiated rt 02/27 05:08 Differential Diagnosis ACS, musculoskeletal pain, aortic dissection, pulmonary embolus. rt Data reviewed: vital signs, nurses notes. Consideration of Admission/Observation Patient was admitted/placed on observation. Management of patient was discussed with the following: Hospitalist: Agrees to admit. I considered the following discharge prescriptions or medication management in the emergency department Medications were administered in the Emergency Department. See MAR. Independent interpretation of the following test(s) in the Emergency Department CT Scan: My interpretation is No aortic dissection seen on my interpretation of CT scan images. Test considered but Not performed: X-ray: CT scan performed, x-rays redundant. Care significantly affected by the following chronic conditions: Hypertension. Counseling: I had a detailed discussion with the patient and/or guardian regarding the historical points, exam findings, and any diagnostic results supporting the discharge/admit diagnosis, lab results, radiology results, the need for further work-up and treatment in the hospital. Response to treatment: the patient's symptoms have markedly improved after treatment. 02/26 21:15 Order name: Basic Metabolic Panel; Complete Time: 22:37 rt 02/26 21:15 Order name: CBC with Diff; Complete Time: 22:05 rt 02/26 21:15 Order name: LFT's; Complete Time: 22:37 rt 02/26 21:15 Order name: Troponin HS; Complete Time: 22:37 rt 02/26 23:50 Order name: Basic Metabolic Panel EDMS 02/26 23:50 Order name: Basic Metabolic Panel EDMS 02/26 23:50 Order name: CBC with Automated Diff EDMS 02/26 23:50 Order name: CBC with Automated Diff EDMS 02/26 23:50 Order name: Troponin High Sensitivity EDMS 02/26 23:51 Order name: Hemoglobin A1c EDMS 02/26 23:51 Order name: Lipid Profile EDMS 02/26 23:51 Order name: Magnesium EDMS 02/26 23:51 Order name: Phosphorus EDMS 02/26 21:15 Order name: CT Aorta for Dissection; Complete Time: 22:05 rt 02/26 23:50 Order name: Echo with Doppler EDMS 02/26 21:15 Order name: Cardiac monitoring; Complete Time: 21:27 rt 02/26 21:15 Order name: EKG - Nurse/Tech; Complete Time: 21:37 rt 02/26 21:15 Order name: IV Saline Lock; Complete Time: 21:37 rt 02/26 21:15 Order name: Labs collected and sent; Complete Time: 21:37 rt 02/26 21:15 Order name: O2 Per Protocol; Complete Time: 21:27 rt 02/26 21:15 Order name: O2 Sat Monitoring; Complete Time: 21:27 rt EC/22 23:39 Rate is 88 beats/min. Rhythm is regular, Normal Sinus Rhythm with No ectopy. QRS Hector rt is Normal. MA interval is normal. QRS interval is normal. QT interval is normal. No Q waves. Clinical impression: NSR w/ Non-specific ST/T Changes. Administered Medications: 21:43 Drug: morphine IVP or IV 4 mg IVP once over 4 mins Route: IVP; Infused Over: 4 mins; cp4 Site: left forearm; 23:40 Follow up: Response: No adverse reaction cp4 21:43 Drug: Ondansetron IVP 4 mg IVP once; over 2 minutes Route: IVP; Site: left forearm; cp4 23:41 Follow up: Response: No adverse reaction cp4 23:50 Drug: Methocarbamol IVPB 1 grams IVPB once over 1 hrs; (mix in NS 100 mL) Route: IVPB; cp4 Infused Over: 1 hrs; Site: left forearm; 02/27 01:16 Follow up: IV Status: Completed infusion cp4 Disposition Summary: 02/26/25 23:45 Hospitalization Ordered Notes: Hospitalization Status: Observation rt Provider: Prince Shawna rt Location: Telemetry/MedSurg (observation) rt Condition: Stable rt Problem: new rt Symptoms: have improved rt Bed/Room Type: Standard rt Room Assignment: 216(02/26/25 23:56) hw Diagnosis - Chest pain, unspecified rt Forms: - Medication Reconciliation Form rt - SBAR form rt - Leadership Thank You Letter rt Signatures: Dispatcher [employer] EDMS Kal Garcia RN RN jb4 Priyank Peña MD MD rt Violette Suero cp4 Cornelia Hinojosa Corrections: (The following items were deleted from the chart) 02/26 21:15 21:15 BASIC METABOLIC PANEL+C.LAB.BRZ ordered. EDMS EDMS 21:15 21:15 CBC+H.LAB.BRZ ordered. EDMS EDMS 21:15 21:15 HEPATIC FUNCTION+C.LAB.BRZ ordered. EDMS EDMS 21:15 21:15 Troponin High Sensitivity+C.LAB.BRZ ordered. EDMS EDMS 21:15 21:15 Angio Aorta For Dissection+CT.RAD.BRZ ordered. EDMS EDMS 23:56 23:45 rt hw
--- NOTE | 2025-02-26 23:46 | ER ---
Nurse's Notes [facility] Name: Brigid Chavarria Age: 54 yrs Sex: Female : 1970 Arrival Date: 02/26/2025 Time: 20:31 Bed 13 Private MD: Diagnosis: Chest pain, unspecified Presentation: 02/26 21:03 Chief complaint: Patient states: I am having severe left side pain that goes up my back jb4 and into my neck. My chest is hurting too and it radiates to the back of my neck. Pt noted to have labored breathing and reports shortness of breath. Coronavirus screen: At this time, the client does not indicate any symptoms associated with coronavirus-19. Ebola Screen: No symptoms or risks identified at this time. Initial Sepsis Screen: Does the patient meet any 2 criteria? No. Patient's initial sepsis screen is negative. Does the patient have a suspected source of infection? No. Patient's initial sepsis screen is negative. Risk Assessment: Do you want to hurt yourself or someone else? Patient reports no desire to harm self or others. Onset of symptoms was February 26, 2025. Transition of care: patient was not received from another setting of care. 21:03 Method Of Arrival: Ambulatory jb4 21:03 Acuity: [place] 2 jb4 Historical: - Allergies: 21:05 No Known Drug Allergies; jb4 - PMHx: 21:05 Anemia; Hypertension; PTSD; TBI; jb4 21:11 "bad heart"; jb4 - PSHx: 21:05 Brain sx; jb4 - Immunization history:: Adult Immunizations up to date. - Infectious Disease History:: Denies. - Social history:: Smoking status: Patient denies any tobacco usage or history of. - Family history:: not pertinent. Screenin:08 [facility] ED Fall Risk Assessment (Adult) History of falling in the last 3 months, cp4 including since admission No falls in past 3 months (0 pts) Confusion or Disorientation No (0 pts) Intoxicated or Sedated No (0 pts) Impaired Gait No (0 pts) Mobility Assist Device Used No (0 pt) Altered Elimination No (0 pt) Score/Fall Risk Level 0 - 2 = Low Risk Oriented to surroundings, Maintained a safe environment, Assessed \\T\\ reinforced patient's understanding of fall precautions, Hourly rounding (assess needs \\T\\ fall precautionary measures) done. Abuse screen: Denies threats or abuse. Denies injuries from another. Nutritional screening: No deficits noted. Tuberculosis screening: No symptoms or risk factors identified. Never had TB. Assessment: 22:08 General: Appears in no apparent distress. uncomfortable, Behavior is calm, cooperative, cp4 appropriate for age. Pain: Complains of pain in back and chest Pain radiates to neck Pain currently is 8 out of 10 on a pain scale. Neuro: Level of Consciousness is awake, alert, obeys commands, Oriented to person, place, time, situation, Voting Machine Repairer are equal bilaterally Moves all extremities. Gait is steady, Speech is normal, Facial symmetry appears normal, Pupils are PERRLA, Intact. Cardiovascular: Patient's skin is warm and dry. Respiratory: Airway is patent Respiratory effort is even, unlabored. GI: No signs and/or symptoms were reported involving the gastrointestinal system. : No signs and/or symptoms were reported regarding the genitourinary system. EENT: No signs and/or symptoms were reported regarding the EENT system. Derm: No signs and/or symptoms reported regarding the dermatologic system. Musculoskeletal: No signs and/or symptoms reported regarding the musculoskeletal system. 22:31 Reassessment: Patient appears in no apparent distress at this time. Patient and/or cp4 family updated on plan of care and expected duration. Pain level reassessed. Patient is alert, oriented x 3, equal unlabored respirations, skin warm/dry/pink. Vital Signs: 21:03 BP 127 / 82; Pulse 99; Resp 28; Temp 97.6(TE); Pulse Ox 100% on R/A; Weight 69.4 kg jb4 (R); Height 5 ft. 4 in. ; 22:27 BP 114 / 78; Pulse 73; Resp 18; Pulse Ox 98% ; cp4 02/27 00:16 BP 125 / 82; Pulse 68; Resp 18; Pulse Ox 99% ; cp4 01:15 BP 115 / 78; Pulse 56; Resp 18; Pulse Ox 99% ; cp4 02/26 21:03 Body Mass Index 26.26 (69.40 kg, 162.56 cm) jb4 ED Course: 02/26 20:33 Patient arrived in ED. jj6 20:49 Priyank Peña MD is Attending Physician. rt 21:05 Triage completed. jb4 21:05 Arm band placed on right wrist. jb4 21:17 EKG done, by ED staff, reviewed by Priyank Peña MD. lp2 21:22 Violette Suero is Primary Nurse. cp4 21:50 CT Aorta for Dissection In Process Unspecified. EDMS 22:08 Placed in gown. Bed in low position. Call light in reach. Side rails up X2. cp4 22:08 No provider procedures requiring assistance completed. Inserted saline lock: 22 gauge cp4 in left forearm, using aseptic technique. Blood collected. Flushed with 10 mL NS. 23:45 Prince Matos MD is Hospitalizing Provider. rt 02/27 01:17 Provided Education on: admission. cp4 01:17 Patient admitted, IV remains in place. cp4 Administered Medications: 02/26 21:43 Drug: morphine IVP or IV 4 mg IVP once over 4 mins Route: IVP; Infused Over: 4 mins; cp4 Site: left forearm; 23:40 Follow up: Response: No adverse reaction cp4 21:43 Drug: Ondansetron IVP 4 mg IVP once; over 2 minutes Route: IVP; Site: left forearm; cp4 23:41 Follow up: Response: No adverse reaction cp4 23:50 Drug: Methocarbamol IVPB 1 grams IVPB once over 1 hrs; (mix in NS 100 mL) Route: IVPB; cp4 Infused Over: 1 hrs; Site: left forearm; 02/27 01:16 Follow up: IV Status: Completed infusion cp4 Medication: 02/26 22:08 VIS not applicable for this client. cp4 Outcome: 23:45 Decision to Hospitalize by Provider. rt 02/27 01:17 Admitted to Med/surg accompanied by tech, via stretcher, with chart, cp4 Condition: stable Instructed on the need for admit, 01:22 Patient left the ED. cp4 Signatures: Dispatcher [employer] EDMS Kal Garcia, MCKENZIE RN jb4 Germaine Lawson jj6 Priyank Peña MD MD rt Violette Suero cp4 Jie Rodriguez lp2 Corrections: (The following items were deleted from the chart) 02/26 21:06 21:03 BP 127 / 82; Pulse 99bpm; Resp 20bpm; Pulse Ox 100% RA; Temp 97.6F Temporal; 69.4 jb4 kg Reported; Height 5 ft. 4 in.; BMI: 26.2; jb4
[2025-02-27] MEDS: POTASSIUM CL SA 10 MEQ TAB PO ONE (00:19)
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
[2025-02-27] MEDS: HYDROMORPHONE HCL 1 MG/ML INJ IV PRN (01:41)
[2025-02-27] MEDS: NITROGLYCERIN 0.4 MG/TAB SL PRN (01:43)
[2025-02-27 04:24] VITALS: BMI 26.2
[2025-02-27 05:35] LABS: Absolute Eosinophils 0.1 K/uL (0-0.5); Absolute Monocytes 0.3 K/uL (0.1-1.3); Basophils % 0.8 % (0-1.3); Eosinophils % 2.3 % (0-4.4); Hematocrit 35.5 % (36.0-45.0); Hemoglobin 12.3 g/dL (12.0-15.0); Lymphocytes % 30.2 % (15.3-44.8); MCH 31.1 pg (27.0-35.0); MCHC 34.6 g/dL (32.0-36.0); MCV 89.8 fL (80-100); MPV 8.5 fL (7.6-11.3); Monocytes % 7.4 % (3.3-12.3); Neutrophils % 59.3 % (41.7-73.7); Nucleated Red Blood Cells % 0.2 % (0-0); Platelets 141 thou/uL (152-406); RBC Red Blood Cell Count 3.96 M/uL (3.86-4.86); Red Cell Distribution Width 13.2 % (12.1-15.2)
[2025-02-27 05:49] LABS: Magnesium 1.7 mg/dL (1.6-2.4); Phosphorus 3.9 mg/dL (2.5-4.9)
[2025-02-27 05:50] LABS: Anion Gap 6.7 mEq/L (5.0-15.0); Potassium 3.7 mEq/L (3.5-5.1)
[2025-02-27] MEDS: ASPIRIN EC 81 MG TAB PO SCH (08:47)
[2025-02-27 10:08] VITALS: O2SAT 97
--- NOTE | 2025-02-27 14:21 | P.DS ---
Admission Date: 02/26/25 Discharge Date: 02/27/25 Discharge Condition: GOOD Reason for Admission: Chest pain Brief History of Present Illness: Patient is 54 years of age admitted with left-sided chest pain radiating to the back of her neck since Sunday still continues to have some discomfort on the left side Hospital Course: Patient was admitted for observation and did well troponins were negative EKG no ST-T changes were all nonspecific normal sinus rhythm CT scan no acute changes of the chest labs unremarkable at the time of discharge patient alert oriented x 3 chest clear cardiovascular system heart sounds normal patient to follow-up with cardiology as an outpatient as she has had some cardiac history before last episode was 2007 at the time of discharge alert oriented chest clear cardiovascular system heart sounds normal medications not verified patient to resume all her home medications Vital Signs/Physical Exam: Temp Pulse Resp BP Pulse Ox 97.4 F 64 20 151/86 H 98 02/27/25 12:00 02/27/25 12:00 02/27/25 12:00 02/27/25 12:00 02/27/25 12:00 Laboratory Data at Discharge: WBC 3.50 thou/uL (4.3-10.9) L 02/27/25 05:23 Hgb 12.3 g/dL (12.0-15.0) 02/27/25 05:23 Hct 35.5 % (36.0-45.0) L 02/27/25 05:23 Plt Count 141 thou/uL (152-406) L 02/27/25 05:23 Sodium 139 mEq/L (136-145) 02/27/25 05:23 Potassium 3.7 mEq/L (3.5-5.1) 02/27/25 05:23 BUN 18 mg/dL (7-18) 02/27/25 05:23 Creatinine 0.90 mg/dL (0.55-1.02) 02/27/25 05:23 Glucose 121 mg/dL (74-106) H 02/27/25 05:23 Phosphorus 3.9 mg/dL (2.5-4.9) 02/27/25 05:23 Magnesium 1.7 mg/dL (1.6-2.4) 02/27/25 05:23 Total Bilirubin 0.3 mg/dL (0.2-1.0) 02/26/25 21:39 AST 24 U/L (15-37) 02/26/25 21:39 ALT 31 U/L (13-56) 02/26/25 21:39 Alkaline Phosphatase 88 U/L (45-117) 02/26/25 21:39 Triglycerides 40 mg/dL (<150) 02/27/25 05:23 Cholesterol 142 mg/dL (<200) 02/27/25 05:23 HDL Cholesterol 74 mg/dL (40-60) H 02/27/25 05:23 Cholesterol/HDL Ratio 1.92 02/27/25 05:23 Home Medications: Nifedipine [Nifedipine ER] 30 mg PO DAILY 06/22/19 carvediloL [Carvedilol] 12.5 mg PO BID 06/22/19 hydroCHLOROthiazide [Hydrochlorothiazide] 25 mg PO DAILY 06/22/19 lisinopriL [Lisinopril] 20 mg PO BID 06/22/19 chlordiazePOXIDE HCl [Librium*] 10 mg PO BID #15 cap 07/02/19 levoFLOXacin [Levaquin*] 500 mg PO DAILY #14 tab 07/02/19 Naproxen 500 mg PO BID 02/27/25 Prazosin HCl 1 mg PO BEDTIME 02/27/25 Physician Discharge Instructions: Patient to follow-up with cardiology use [id number] pain relief medications Followup: Darrel Calhoun MD [ACTIVE - CAN ADMIT] - NONE,NONE [Primary Care Provider] -
--- NOTE | 2025-02-27 14:37 | ECHO ---
HEIGHT: 5 ft 4 in WEIGHT: 153 lb 0 oz DATE OF STUDY: 02/27/[address]: Prince Chayo Matos MD 2-DIMENSIONAL: YES M.MODE: YES DOPPLER: YES COLOR FLOW: YES TDS: PORTABLE: YES DEFINITY: BUBBLE STUDY: DIAGNOSIS: CHEST PAIN CARDIAC HISTORY: CATHERIZATION: YES SURGERY: NO PROSTHETIC VALVE: NO PACEMAKER: NO MEASUREMENTS (cm) DIASTOLIC (NORMALS) SYSTOLIC (NORMALS) IVSd 1.0 (0.6-1.2) LA Diam 3.0 (1.9-4.0) LVEF 60-65% LVIDd 4.3 (3.5-5.7) LVIDs 2.4 (2.0-3.5) %FS 44% LVPWd 1.1 (0.6-1.2) Ao Diam 2.6 (2.0-3.7) 2 DIMENSIONAL ASSESSMENT: RIGHT ATRIUM: NORMAL LEFT ATRIUM: NORMAL RIGHT VENTRICLE: NORMAL LEFT VENTRICLE: NORMAL TRICUSPID VALVE: TRACE TRICUSPID REGURIGTATION MITRAL VALVE: MILD MITRAL REGURGITATION PULMONIC VALVE: NORMAL AORTIC VALVE: NORMAL PERICARDIAL EFFUSION: NONE AORTIC ROOT: NORMAL LEFT VENTRICULAR WALL MOTION: NORMAL DOPPLER/COLOR FLOW: SEE BELOW COMMENTS: 1. NORMAL LEFT VENTRICULAR EJECTION FRACTION 60-65% 2. NORMAL WALL MOTION 3. NORMAL DIASTOLIC DYSFUNCTION 4. MILD MITRAL REGURGITATION, TRICUSPID REGURGITATION TECHNOLOGIST: RENE NUNES
[2025-02-27] MEDS: ONDANSETRON 4 MG/2 ML VIAL IV ONE (15:38)
--- NOTE | 2025-02-27 16:08 | CON ---
Date of Consultation: 02/27/2025 Reason For Consultation: Chest pain. History Of Present Illness: This is a 54-year-old female, history of hypertension, diabetes, present ed to emergency room complaining of chest pain, left sided, radiates to the left arm. States she had palpitations and then started having severe chest pain and now is completely gone, has no further pa in. Past Medical History: As outlined above in the HPI. Medications: Refer reconciliation sheet for detailed list. Allergies: NO KNOWN DRUG ALLERGIES. Family History: No premature coronary artery disease or cancer. Social History: Does not smoke or drink. Does not use any drugs. Review of Systems: All systems reviewed are negative except mentioned in the HPI. Physical Examination: Vital Signs: Reviewed. Head and Neck: Pupils are equal, reactive to light. Intact eye movements. No JVD. No cervical lym phadenopathy. Neck supple. Thyroid is not enlarged. Lungs: Clear to auscultation bilaterally. No crackles. No accessory muscle use. Heart: Regular rate and rhythm. No extra sounds. Abdomen: Soft, nontender. Bowel sounds positive. No organomegaly. No masses or hernia. No rigidi ty or rebound. Extremities: No edema, clubbing, cyanosis. Intact pulses. Skin: No rash. No nodules. Neuro: Alert, awake, oriented x3. No acute focal deficits appreciated. Investigations: BUN 18, creatinine 0.9. Troponin x2 are negative. Hemoglobin is 12.3. Assessment/recommendation: Chest pain. Cardiac enzymes are negative. Check one more set of cardiac enzymes. If continues to be normal and the patient's chest pain is better, she can be released and follow up as an outpatient for stress test. If the patient remains in the hospital throughout the we ekend, then stress test is recommended to be done. /MICHEL Voice ID: [id number] Report ID: [id number]
[2025-02-27 16:24] VITALS: BP 141/74; TEMP 97.9
--- NOTE | 2025-03-03 12:34 | EKG ---
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
== END 2025-02-27 17:14 | disposition home health service (06) ==
LOC: ER 20:31 → 2ND 23:47
PROVIDERS: ADMIT Internal Medicine; ATTEND Internal Medicine Sleep Medicine
DX: R07.9 Chest pain, unspecified (principal); M54.2 Cervicalgia; I10 Essential (primary) hypertension; R73.03 Prediabetes
CPT/HCPCS: 96365; 93005; 93306; 85025 ×2; 80048 ×2; 36415 ×2; 83735; 84100; 80061; 82947 ×2; 80076; 83036; 84484 ×2; 71275; 74175; 96375; 99285; Q9967; J1171 ×2; J2405 ×2; J2800; G0378 ×2